=== PATIENT | male | born 1945 | race Caucasian/White ===

== ENCOUNTER → 2017-06-25 12:10 | Outpatient (CLI) | payer MEDICARE, BC, SELFPAY ==
[2017-06-25 13:49] LABS: Absolute Lymphocyte Count 1.98 X10^3/ul (0.83-4.51); Absolute Neutrophil Count 4.7 X10^3/uL (2.0-7.7); Basophil% 1.2 % (0-1); Eosinophil# 0.41 X10^3/uL; Eosinophils% 5.1 % (0-5); Hematocrit 44.7 % (40-54); Hemoglobin 14.7 g/dl (13.0-16.5); Lymphocyte # 1.98 X10^3/ul (4.0); Lymphocyte % 24.7 % (19-41); Mean Corp Hgb Conc 32.9 g/gl (32-36); Mean Corpuscular Hgb 29.7 pg (27.0-32.0); Mean Corpuscular Volume 90.3 fL (80-94); Mean Platelet Vol. 10.8 fl (6.2-12.0); Neutrophil # 4.73 X10^3/uL (2.7-7.7); Neutrophil % 58.9 % (47-70); Platelet Count 216 K/mm3 (150-450); RBC Distribution Width CV 13.9 % (11.6-14.6); RBC Distribution Width SD 45.2 fl (35.1-43.9); Red Blood Count 4.95 M/mm3 (4.6-6.2)
[2017-06-25 13:52] LABS: POSITIVE COUNT NO; POSITIVE DIFFERENTIAL NO; POSITIVE MORPHOLOGY NO
[2017-06-25 14:21] LABS: Vitamin D,25 Hydroxy 11.1 ng/mL (29.95-100.01)
[2017-06-25 14:22] LABS: AST(SGOT) 24 U/L (15-37); Alanine Aminotransfer ALT/SGPT 32 U/L (16-61); Albumin, Serum 3.7 g/dL (3.2-5.0); Alkaline Phosphatase 65 U/L (45-117); Anion Gap 7 (5-15); BUN 12 mg/dL (7-18); Chloride 105 mmol/L (98-107); Creatinine, Serum 1.09 mg/dL (0.70-1.30); EST Glomerular Filtration Rate 71 mL/min (>60); Est Glom Filt Rate - Afr Amer 86 mL/min (>60); Globulin 3.7 g/dL (2.2-4.2); Glucose 125 mg/dL (74-106); Potassium 4.2 mmol/L (3.5-5.1); Protein, Total 7.4 g/dL (6.4-8.2); Sodium Level 140 mmol/L (136-145); Thyroid Stim Hormone (TSH) 1.23 uIU/mL (0.358-3.74)
== END ==
PROVIDERS: Family Provider Family Medicine Geriatric Medicine; PCP Family Medicine Geriatric Medicine; Visit Provider Family Medicine Geriatric Medicine
DX: E11.9 Type 2 diabetes mellitus without complications (principal); E55.9 Vitamin D deficiency, unspecified; I10 Essential (primary) hypertension
CPT/HCPCS: 36415; 80053; 82306; 84443; 85025

== ENCOUNTER → 2017-12-30 14:36 | Outpatient (CLI) | payer MEDICARE, BC, SELFPAY ==
[2017-12-30 17:42] LABS: Absolute Lymphocyte Count 1.63 X10^3/ul (0.83-4.51); Absolute Neutrophil Count 5.8 X10^3/uL (2.0-7.7); Basophil# 0.06 X10^3/uL; Basophil% 0.7 % (0-1); Eosinophil# 0.43 X10^3/uL; Eosinophils% 5.1 % (0-5); Hematocrit 45.3 % (40-54); Hemoglobin 14.6 g/dl (13.0-16.5); Lymphocyte # 1.63 X10^3/ul (4.0); Lymphocyte % 19.3 % (19-41); Mean Corp Hgb Conc 32.2 g/gl (32-36); Mean Corpuscular Hgb 29.5 pg (27.0-32.0); Mean Corpuscular Volume 91.5 fL (80-94); Mean Platelet Vol. 10.5 fl (6.2-12.0); Monocyte# 0.58 X10^3/uL; Monocyte% 6.9 % (0-10); Neutrophil # 5.75 X10^3/uL (2.7-7.7); Neutrophil % 67.9 % (47-70); Platelet Count 209 K/mm3 (150-450); RBC Distribution Width CV 13.3 % (11.6-14.6); RBC Distribution Width SD 44.4 fl (35.1-43.9); Red Blood Count 4.95 M/mm3 (4.6-6.2); White Blood Count 8.5 K/mm3 (4.4-11.0)
[2017-12-30 17:43] LABS: POSITIVE COUNT NO; POSITIVE DIFFERENTIAL NO; POSITIVE MORPHOLOGY NO
[2017-12-30 18:15] LABS: Albumin, Serum 3.7 g/dL (3.2-5.0); BUN 16 mg/dL (7-18); BUN/Creat Ratio 14.5 RATIO (10-20); EST Glomerular Filtration Rate 70 mL/min (>60); Est Glom Filt Rate - Afr Amer 85 mL/min (>60); Globulin 3.4 g/dL (2.2-4.2); Glucose 157 mg/dL (74-106); Protein, Total 7.1 g/dL (6.4-8.2)
[2017-12-30 18:16] LABS: ALB/GLOB Ratio 1.1 RATIO (0.9-2.4); AST(SGOT) 30 U/L (15-37); Alanine Aminotransfer ALT/SGPT 41 U/L (16-61); Alkaline Phosphatase 69 U/L (45-117); Anion Gap 8 (5-15); Calcium,Total 9.7 mg/dL (8.5-10.1); Chloride 103 mmol/L (98-107); Sodium Level 142 mmol/L (136-145); Thyroid Stim Hormone (TSH) 0.56 uIU/mL (0.358-3.74)
[2017-12-30 18:25] LABS: Vitamin D,25 Hydroxy 20.3 ng/mL (29.95-100.01)
[2018-01-01 09:17] LABS: Hep C Antibodies <0.1 s/co ratio (0.0-0.9)
== END ==
PROVIDERS: Family Provider Family Medicine Geriatric Medicine; PCP Family Medicine Geriatric Medicine; Visit Provider Family Medicine Geriatric Medicine
DX: E11.9 Type 2 diabetes mellitus without complications (principal); I10 Essential (primary) hypertension; E55.9 Vitamin D deficiency, unspecified; Z13.89 Encounter for screening for other disorder
CPT/HCPCS: 36415; 80053; 82306; 84443; 85025; 86803

== ENCOUNTER 2018-07-17 09:39 | Observation (INO) | payer MEDICARE, BC, SELFPAY ==
[2018-07-17] VITALS (9 sets, daily range): BP systolic 123–151; BP diastolic 50–101; PULSE 61–92; RESP 16–20; TEMP 36.4–37.5; O2SAT 96–98; BMI 20.7; BMI 21.5
--- NOTE | 2018-07-17 09:56 | CT_ITS ---
STUDY: CT BRAIN WITHOUT CONTRAST REASON FOR EXAM: Male, 72 years old. Confusion. RADIATION DOSAGE (If Supplied By Facility): CTDIvol = ( 44.99 ) mGy, DLP = ( 812.98 ) mGycm TECHNIQUE: Transaxial CT imaging of the brain was performed without administration of intravenous contrast material. Individualized dose optimization techniques were used for this CT. COMPARISON: No relevant priors. FINDINGS: Normal soft tissue structures. Normal calvarium. There is mild cerebral atrophy with widening of the extra-axial spaces and ventricular dilatation. There are areas of decreased attenuation within the white matter tracts of the supratentorial brain, consistent with microvascular disease changes. Focal area of encephalomalacia in the medial right frontal lobe as well as lateral aspect of the left frontal lobe suggestive of prior ischemic change. Normal basal ganglia and thalami. Normal brainstem. Normal cerebellum. There is no intracranial hemorrhage. There are no findings of an acute ischemic infarction. Partial opacification of both maxillary sinuses. There is evidence of prior open reduction internal fixation of the bilateral maxillary sinuses as well as both orbits. Mucosal thickening of the sphenoid sinus and frontal sinus. CT/Brain/Head without Contrast IMPRESSION: Chronic involutional changes of the brain. Sinusitis. Prior facial fracture repair. Electronically Signed: Aric Urrutia, at 10:57 EDT , Service support ,
--- NOTE | 2018-07-17 09:56 | EKG12_ITS ---
Test Reason : SEIZURE Blood Pressure : / mmHG Vent. Rate : 071 BPM Atrial Rate : 071 BPM P-R Int : 150 ms QRS Dur : 082 ms QT Int : 360 ms P-R-T Axes : 054 -36 053 degrees QTc Int : 391 ms Sinus rhythm with Premature atrial complexes Left axis deviation Abnormal ECG Confirmed by BEILNDA SCHUTLZ ([id number]), editor publications CHUCKY ROBERTS ([id number]) on 07/21/2018 4:56:39 PM Referred By: Will Amor Confirmed By:BELINDA SCHULTZ
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
[2018-07-17] MEDS: 0.9% Normal Saline 1,000 ML 150 ML IV (10:27)
[2018-07-17 10:30] LABS: Absolute Lymphocyte Count 1.56 X10^3/ul (0.83-4.51); Absolute Neutrophil Count 5.1 X10^3/uL (2.0-7.7); Basophil# 0.06 X10^3/uL; Basophil% 0.8 % (0-1); Eosinophil# 0.47 X10^3/uL; Eosinophils% 6.1 % (0-5); Hematocrit 45.6 % (40-54); Hemoglobin 14.8 g/dl (13.0-16.5); Lymphocyte # 1.56 X10^3/ul (4.0); Lymphocyte % 20.2 % (19-41); Mean Corp Hgb Conc 32.5 g/gl (32-36); Mean Corpuscular Hgb 29.7 pg (27.0-32.0); Mean Corpuscular Volume 91.4 fL (80-94); Mean Platelet Vol. 10.2 fl (6.2-12.0); Monocyte# 0.56 X10^3/uL; Monocyte% 7.2 % (0-10); Neutrophil # 5.09 X10^3/uL (2.7-7.7); Neutrophil % 65.7 % (47-70); POSITIVE COUNT NO; POSITIVE DIFFERENTIAL NO; POSITIVE MORPHOLOGY NO; Platelet Count 205 K/mm3 (150-450); RBC Distribution Width CV 15.4 % (11.6-14.6); RBC Distribution Width SD 51.6 fl (35.1-43.9); Red Blood Count 4.99 M/mm3 (4.6-6.2); White Blood Count 7.7 K/mm3 (4.4-11.0)
[2018-07-17 10:46] LABS: ALB/GLOB Ratio 0.9 RATIO (0.9-2.4); AST(SGOT) 38 U/L (15-37); Alanine Aminotransfer ALT/SGPT 73 U/L (16-61); Albumin, Serum 3.4 g/dL (3.2-5.0); Alkaline Phosphatase 90 U/L (45-117); Anion Gap 6 (5-15); BUN 8 mg/dL (7-18); BUN/Creat Ratio 9.7 RATIO (10-20); Calcium,Total 9.2 mg/dL (8.5-10.1); Chloride 107 mmol/L (98-107); Creatinine, Serum 0.83 mg/dL (0.70-1.30); EST Glomerular Filtration Rate 97 mL/min (>60); Est Glom Filt Rate - Afr Amer 118 mL/min (>60); Estimated Creatinine Clearance 67.31 ml/min; Globulin 3.9 g/dL (2.2-4.2); Glucose 51 mg/dL (74-106); Potassium 3.9 mmol/L (3.5-5.1); Prolactin 31.2 ng/mL; Protein, Total 7.3 g/dL (6.4-8.2); Sodium Level 142 mmol/L (136-145)
[2018-07-17] MEDS: Dextrose 50%-Water 25 GM/50 ML DISP.SYRIN IV (11:08)
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
[2018-07-17 13:51] LABS: Bedside Glucose 247 mg/dL (70-110)
--- NOTE | 2018-07-17 14:11 | CASEMGMT ---
Per Lu at [facility], pt was supposed to have start of care today for RN, PT/OT and will need a new order at discharge. SStjusten MARR CM
[2018-07-17] MEDS: Dext 5%-0.45% NS 1,000 ML 100 ML IV (14:40)
[2018-07-17] MEDS: Heparin Injection (Vial) 5,000 UNIT/ML VIAL 5000 UNIT SC ×2 (14:48→21:15)
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
[2018-07-17] MEDS: LORazepam 0.5 MG Tablet PO ×2 (16:24→21:14)
[2018-07-17 17:15] LABS: Bedside Glucose 126 mg/dL (70-110)
[2018-07-17] MEDS: QUEtiapine 25 MG Tablet PO (21:15)
[2018-07-17] MEDS: Metoprolol Tartrate 25 MG Tablet PO (21:15)
[2018-07-18 00:05] LABS: Bedside Glucose 259 mg/dL (70-110)
[2018-07-18] MEDS: Insulin Lispro 100 UNIT/ML INSULN.PEN SC ×2 (02:19→10:41)
[2018-07-18 02:21] LABS: Bedside Glucose 179 mg/dL (70-110)
[2018-07-18] MEDS: Dext 5%-0.45% NS 1,000 ML 100 ML IV (02:22)
[2018-07-18 02:52] VITALS: BP 93/48; PULSE 60; RESP 18; TEMP 37.2; O2SAT 96
[2018-07-18 03:00] VITALS: PULSE 59
[2018-07-18 06:40] LABS: Bedside Glucose 118 mg/dL (70-110)
[2018-07-18 06:42] LABS: Absolute Lymphocyte Count 2.51 X10^3/ul (0.83-4.51); Absolute Neutrophil Count 2.8 X10^3/uL (2.0-7.7); Basophil# 0.03 X10^3/uL; Basophil% 0.5 % (0-1); Eosinophil# 0.44 X10^3/uL; Eosinophils% 6.9 % (0-5); Hematocrit 38.5 % (40-54); Hemoglobin 12.4 g/dl (13.0-16.5); Lymphocyte # 2.51 X10^3/ul (4.0); Lymphocyte % 39.1 % (19-41); Mean Corp Hgb Conc 32.2 g/gl (32-36); Mean Corpuscular Hgb 29.2 pg (27.0-32.0); Mean Corpuscular Volume 90.8 fL (80-94); Monocyte# 0.67 X10^3/uL; Monocyte% 10.4 % (0-10); Neutrophil # 2.76 X10^3/uL (2.7-7.7); Neutrophil % 42.9 % (47-70); Platelet Count 181 K/mm3 (150-450); RBC Distribution Width CV 15.2 % (11.6-14.6); RBC Distribution Width SD 49.4 fl (35.1-43.9); Red Blood Count 4.24 M/mm3 (4.6-6.2); White Blood Count 6.4 K/mm3 (4.4-11.0)
[2018-07-18 06:46] LABS: POSITIVE COUNT NO; POSITIVE DIFFERENTIAL NO; POSITIVE MORPHOLOGY NO
[2018-07-18 06:56] LABS: ALB/GLOB Ratio 0.8 RATIO (0.9-2.4); AST(SGOT) 24 U/L (15-37); Alanine Aminotransfer ALT/SGPT 53 U/L (16-61); Albumin, Serum 2.6 g/dL (3.2-5.0); Alkaline Phosphatase 74 U/L (45-117); Anion Gap 5 (5-15); BUN 8 mg/dL (7-18); BUN/Creat Ratio 11.2 RATIO (10-20); Calcium,Total 8.4 mg/dL (8.5-10.1); Chloride 112 mmol/L (98-107); Creatinine, Serum 0.71 mg/dL (0.70-1.30); EST Glomerular Filtration Rate 116 mL/min (>60); Est Glom Filt Rate - Afr Amer 140 mL/min (>60); Estimated Creatinine Clearance 54.53 ml/min; Globulin 3.1 g/dL (2.2-4.2); Glucose 128 mg/dL (74-106); Potassium 3.7 mmol/L (3.5-5.1); Protein, Total 5.7 g/dL (6.4-8.2); Sodium Level 144 mmol/L (136-145)
[2018-07-18 09:00] VITALS: PULSE 60
[2018-07-18 09:15] LABS: Hemoglobin A1c 6.6 % (4.2-6.3)
[2018-07-18 10:31] VITALS: BP 111/54; PULSE 74; RESP 18; TEMP 37; O2SAT 95
[2018-07-18] MEDS: Finasteride 5 MG Tablet PO (10:35)
[2018-07-18] MEDS: Famotidine 20 MG Tablet PO (10:35)
[2018-07-18 10:36] VITALS: BP 111/54; PULSE 74
[2018-07-18] MEDS: Metoprolol Tartrate 25 MG Tablet PO (10:36)
[2018-07-18 11:24] VITALS: PULSE 82
--- NOTE | 2018-07-18 11:49 | DCINST_ITS ---
- Discharge Diagnoses Current Active Problems: Current Active and Chronic Problems Type 2 diabetes mellitus (Chronic) Hypertension (Chronic) BPH (benign prostatic hyperplasia) (Chronic) Blindness (Chronic) GERD (gastroesophageal reflux disease) (Chronic) Hyperlipemia (Chronic) Seizure (Acute) You will use the following diet at home:: Cardiac Discharge Activity: Return to Normal Activity, May Not Drive Call your doctor if you observe: Shortness of breath, Dizziness, Fainting spells, Chest pain Allergies/Adverse Reactions: Allergies shellfish derived Allergy (Verified 07/17/18 10:29) Anaphylaxis cosmetic Adverse Reaction (Verified 07/17/18 12:58) Other perfume Adverse Reaction (Verified 07/17/18 12:58) Other strawberry Adverse Reaction (Verified 07/17/18 12:58) Rash weed pollen Adverse Reaction (Verified 07/17/18 12:58) Other Medications to take at Discharge Atorvastatin Calcium [Lipitor] 40 mg PO QHS 07/17/18 Ergocalciferol (Vitamin D2) [Ergocalciferol] 50,000 unit PO QWEEK 07/17/18 Famotidine [Pepcid] 20 mg GT DAILY 07/17/18 Finasteride [Proscar] 5 mg GT DAILY 07/17/18 Lorazepam [Ativan] 0.5 mg GT TID PRN 07/17/18 Metoprolol Tartrate [Lopressor (beta nakul)] 25 mg GT BID 07/17/18 Quetiapine Fumarate [Seroquel] 25 mg GT QHS 07/17/18 Tizanidine HCl [Zanaflex] 2 mg GT 4X/DAY PRN PRN 07/17/18 Metformin HCl [Glucophage] 500 mg PO BIDCM #60 tablet 07/18/18 The following prescriptions were given: Metformin HCl [Glucophage] 500 mg PO BIDCM #60 tablet Primary Care Physician: Micheal Peralta Chi, MD [Primary Care Provider] - Please follow up with your Primary Care Physician in: 1 Week Test Results: Test results from this visit will be discussed in further detail at your follow- up appointment, if applicable. Proposed Discharge Date: 07/18/18
--- NOTE | 2018-07-18 11:59 | CASEMGMT ---
Message left with Lu at [facility] to notify that HHC order in and that pt will be discharged today. Lu aware to call this RN CM for any further questions/concerns. SStjusten RN CM
--- NOTE | 2018-07-18 12:10 | EEG ---
- Electroencephalogram Date of service 07/18/2018 History EEG is being done in this 72 yr M to rule out seizures EEG Description: This is an 18 channel EEG with 10-20 lead placement system. Bipolar montages and Referential montages were reviewed. Photic stimulation and Hyperventilation were performed. The posterior dominant rhythm is 9 HZ synchronous, symmetric, some reaction to eye opening and closing. Photo stimulation elicited normal driving response but no abnormal photoparoxysmal response, Hyperventilation did not elicit any abnormal photoparoxysmal response. Sleep was identified. There is no abnormal background slowing noted. There was no epileptiform discharges or electrographic seizures noted during this recording. EEG Interpretation This is a normal awake and asleep EEG. There is no epileptiform discharges or electrographic seizures noted during the record.
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
[2018-07-18 18:36] LABS: Bedside Glucose 199 mg/dL (70-110)
== END 2018-07-18 11:49 | disposition home health service (06) ==
LOC: ED 10:05 → PCU 12:24
PROVIDERS: Family Medicine; Admitting Provider Internal Medicine; Emergency Provider Emergency Medicine; Family Provider Family Medicine Geriatric Medicine; PCP Family Medicine Geriatric Medicine; Referring Provider Internal Medicine; Visit Provider Internal Medicine
DX: G40.89 Other seizures (principal); E11.649 Type 2 diabetes mellitus with hypoglycemia without coma; I10 Essential (primary) hypertension; N40.0 Benign prostatic hyperplasia without lower urinary tract symptoms; E78.5 Hyperlipidemia, unspecified; K21.9 Gastro-esophageal reflux disease without esophagitis; F41.9 Anxiety disorder, unspecified; Z79.4 Long term (current) use of insulin; Z79.899 Other long term (current) drug therapy; H54.7 Unspecified visual loss; Z87.891 Personal history of nicotine dependence; F32.9 Major depressive disorder, single episode, unspecified; Z93.1 Gastrostomy status
CPT/HCPCS: 36415; 70450; 70551; 71045; 80053; 80320; 82962; 83036; 84146; 84484; 85025; 93005; 95819; 96361; 96372; 96374; 97161; 97166; 99218; 99285; A4216; G0378; G0480; J7799

== ENCOUNTER → 2018-11-14 11:45 | Outpatient (CLI) | payer MEDICARE, BC, SELFPAY ==
[2018-07-17 12:38] VITALS: BMI 21.5
--- NOTE | 2018-11-14 11:53 | RAD_ITS ---
STUDY: X-RAY - ABDOMEN/PELVIS REASON FOR EXAM: Male, 72 years old. UPPER ABDOMEN PAIN X 6 WEEKS, NAUSEA, INTERMITTENT DIARRHEA TECHNIQUE: AP supine and upright views of the abdomen and pelvis. COMPARISON: None. FINDINGS: Normal visualized lung bases. There is an unremarkable bowel gas pattern. There is no demonstrated free abdominal air. The visualized liver, spleen and kidneys are grossly normal in size and morphology. Normal soft tissue structures. There are diffuse degenerative changes of the visualized lumbar spine. RAD/Abd Inc Decub and/or Erect IMPRESSION: Normal x-ray examination of the abdomen and pelvis. Electronically Signed: Jacob Tamayo, at 4:50 EDT Tel , Service support ,
== END ==
PROVIDERS: Family Provider Family Medicine Geriatric Medicine; PCP Family Medicine Geriatric Medicine; Referring Provider Family Medicine Geriatric Medicine; Visit Provider Family Medicine Geriatric Medicine
DX: R10.9 Unspecified abdominal pain (principal)
CPT/HCPCS: 74019

== ENCOUNTER → 2018-12-23 15:14 | Outpatient (CLI) | payer MEDICARE, BC, SELFPAY ==
[2018-07-17 12:38] VITALS: BMI 21.5
[2018-12-23 16:04] LABS: Absolute Lymphocyte Count 1.72 X10^3/uL (0.83-4.51); Absolute Neutrophil Count 4.5 X10^3/uL (2.0-7.7); Basophil# 0.08 X10^3/uL; Basophil% 1.1 % (0-1); Eosinophil# 0.39 X10^3/uL; Eosinophils% 5.4 % (0-5); Hematocrit 46.4 % (40-54); Hemoglobin 15.1 g/dL (13.0-16.5); Lymphocyte # 1.72 X10^3/ul (4.0); Lymphocyte % 23.8 % (19-41); Mean Corp Hgb Conc 32.5 g/dL (32-36); Mean Corpuscular Hgb 29.6 pg (27.0-32.0); Mean Platelet Vol. 10.9 fl (6.2-12.0); Monocyte# 0.56 X10^3/uL; Monocyte% 7.8 % (0-10); NRBC Flagged by Analyzer 0 % (0-5); Neutrophil # 4.46 X10^3/uL (2.7-7.7); Neutrophil % 61.8 % (47-70); Platelet Count 229 K/mm3 (150-450); RBC Distribution Width CV 12.6 % (11.6-14.6); RBC Distribution Width SD 41.9 fl (35.1-43.9); White Blood Count 7.2 K/mm3 (4.4-11.0)
[2018-12-23 16:07] LABS: AST(SGOT) 11 U/L (15-37); Alanine Aminotransfer ALT/SGPT 16 U/L (16-61); Albumin, Serum 3.5 g/dL (3.2-5.0); Alkaline Phosphatase 75 U/L (45-117); Anion Gap 5 (5-15); BUN 11 mg/dL (7-18); Calcium,Total 9.1 mg/dL (8.5-10.1); Chloride 106 mmol/L (98-107); Creatinine, Serum 0.92 mg/dL (0.70-1.30); EST Glomerular Filtration Rate 86 mL/min (>60); Est Glom Filt Rate - Afr Amer 104 mL/min (>60); Globulin 3.5 g/dL (2.2-4.2); Glucose 145 mg/dL (74-106); Potassium 4.2 mmol/L (3.5-5.1); Sodium Level 139 mmol/L (136-145); Thyroid Stim Hormone (TSH) 1.72 uIU/mL (0.358-3.74)
== END ==
PROVIDERS: Family Provider Family Medicine Geriatric Medicine; PCP Family Medicine Geriatric Medicine; Visit Provider Family Medicine Geriatric Medicine
DX: E11.9 Type 2 diabetes mellitus without complications (principal); I10 Essential (primary) hypertension
CPT/HCPCS: 36415; 80053; 84443; 85025

== ENCOUNTER → 2018-12-31 13:35 | Outpatient (CLI) | payer MEDICARE, BC, SELFPAY ==
[2018-07-17 12:38] VITALS: BMI 21.5
[2018-12-31 15:44] LABS: Absolute Lymphocyte Count 1.79 X10^3/uL (0.83-4.51); Absolute Neutrophil Count 4.4 X10^3/uL (2.0-7.7); Basophil# 0.08 X10^3/uL; Basophil% 1.1 % (0-1); Eosinophil# 0.36 X10^3/uL; Eosinophils% 4.8 % (0-5); Hematocrit 44.8 % (40-54); Hemoglobin 14.5 g/dL (13.0-16.5); Lymphocyte # 1.79 X10^3/ul (4.0); Lymphocyte % 23.7 % (19-41); Mean Corp Hgb Conc 32.4 g/dL (32-36); Mean Corpuscular Hgb 29.3 pg (27.0-32.0); Mean Corpuscular Volume 90.5 fL (80-94); Monocyte# 0.88 X10^3/uL; Monocyte% 11.6 % (0-10); NRBC Flagged by Analyzer 0 % (0-5); Neutrophil # 4.42 X10^3/uL (2.7-7.7); Neutrophil % 58.4 % (47-70); Platelet Count 250 K/mm3 (150-450); RBC Distribution Width SD 42.7 fl (35.1-43.9); Red Blood Count 4.95 M/mm3 (4.6-6.2); White Blood Count 7.6 K/mm3 (4.4-11.0)
[2018-12-31 16:04] LABS: ALB/GLOB Ratio 0.9 RATIO (0.9-2.4); AST(SGOT) 14 U/L (15-37); Alanine Aminotransfer ALT/SGPT 22 U/L (16-61); Albumin, Serum 3.4 g/dL (3.2-5.0); Alkaline Phosphatase 80 U/L (45-117); Anion Gap 7 (5-15); BUN 9 mg/dL (7-18); BUN/Creat Ratio 11.6 RATIO (10-20); Calcium,Total 9.1 mg/dL (8.5-10.1); Chloride 105 mmol/L (98-107); Creatinine, Serum 0.77 mg/dL (0.70-1.30); EST Glomerular Filtration Rate 105 mL/min (>60); Est Glom Filt Rate - Afr Amer 127 mL/min (>60); Globulin 3.8 g/dL (2.2-4.2); Glucose 127 mg/dL (74-106); Potassium 3.8 mmol/L (3.5-5.1); Protein, Total 7.2 g/dL (6.4-8.2); Sodium Level 141 mmol/L (136-145); Thyroid Stim Hormone (TSH) 2.07 uIU/mL (0.358-3.74)
== END ==
PROVIDERS: Family Provider Family Medicine Geriatric Medicine; PCP Family Medicine Geriatric Medicine; Visit Provider Family Medicine Geriatric Medicine
DX: E11.9 Type 2 diabetes mellitus without complications (principal); I10 Essential (primary) hypertension; E55.9 Vitamin D deficiency, unspecified
CPT/HCPCS: 36415; 80053; 82306; 84443; 85025

== ENCOUNTER 2019-04-05 14:08 | Emergency (ER) | payer MEDICARE, BC, SELFPAY ==
[2018-07-17 12:38] VITALS: BMI 21.5
[2019-04-05 14:09] VITALS: BP 130/64; PULSE 63; RESP 22; TEMP 35.9; O2SAT 100; BMI 24.6
--- NOTE | 2019-04-05 14:39 | EKG12_ITS ---
Test Reason : DYSRHYTHMIA Blood Pressure : / mmHG Vent. Rate : 062 BPM Atrial Rate : 062 BPM P-R Int : 174 ms QRS Dur : 088 ms QT Int : 418 ms P-R-T Axes : 000 -19 045 degrees QTc Int : 424 ms Normal sinus rhythm with sinus arrhythmia Normal ECG Confirmed by REBEKAH PEREZ, EMILY ([id number]), video editor DEONDRE PHILLIP ([id number]) on 04/07/2019 9:41:09 AM Referred By: REGINALD Confirmed By:EMILY WELCH MD
--- NOTE | 2019-04-05 14:48 | ED.VIS.GEN ---
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 Tells me that yesterday he had diarrhea. This morning he woke up feeling fine. He had a egg and cheese sandwich, Pepsi, cheesecake, and strawberries. Shortly thereafter he got the urge to have diarrhea and did on his way back to his bedroom at the urgent care and it did not make it. While in the bathroom again he reportedly had a syncopal episode on the toilet. Family was present. EMS was called they noted heart rate in the 40s and administered atropine. Heart rate increased to 60. Patient states he feels fine now. He states he feels as good as he did when he woke up this morning. Past Medical History - Allergies and Home Meds Allergies/Adverse Reactions: Allergies shellfish derived Allergy (Verified 07/17/18 10:29) Anaphylaxis cosmetic Adverse Reaction (Verified 07/17/18 12:58) Other perfume Adverse Reaction (Verified 07/17/18 12:58) Other strawberry Adverse Reaction (Verified 07/17/18 12:58) Rash weed pollen Adverse Reaction (Verified 07/17/18 12:58) Other Primary Care Physician: Micheal Peralta Chi, MD [Primary Care Provider] - Surgical History: - - [place] placement d/t ICP s/p removal. Right nasal laceration repair due trauma. Repair of bilateral ruptured globes and bilateral lid lacerations. Trach and PEG placement 03/30/2018 with subsequent trach reversal. ORIF numeral facial fx. Smoking Status: Former smoker - Family History Maternal Family History: Reports: - - Denies known maternal medical history including cardiac history. Paternal Family History: Reports: - - Denies known paternal medical history including cardiac history. Review of Systems General: Denies: Chills, Fever, Sweats Eyes: Denies: Visual changes - bilaterally, Diplopia ENT: Denies: Rhinorrhea, Sore throat Cardiovascular: Denies: Chest pain, Palpitations Respiratory: Denies: Dyspnea, Cough, Dyspnea on exertion Gastrointestinal: Reports: Diarrhea. Denies: Abdominal pain, Nausea, Vomiting, Melena, Hematochezia Genitourinary: Denies: Dysuria, Hematuria, Frequency Musculoskeletal: Denies: Back pain, Extremity Pain Skin: Denies: Rash, Wounds Neurological: Denies: Headache, Weakness, Numbness Psych: Denies: Depression, Anxiety, Suicidal thoughts Endocrine: Denies: Polyuria, Polydipsia, Heat intolerance Hematologic: Denies: Easy bruising, Easy bleeding, Lymphadenopathy Allergy: Denies: Uticaria, Swelling of the mouth Physical Exam Vital Signs/Narrative: Vital Signs Temp Pulse Resp BP Pulse Ox 04/05/19 14:09 96.6 F L 63 22 H 130/64 H 100 Inital Vital Signs reviewed: Yes General: Well nourished, Well developed, No Acute Distress Head: Normocephalic, Atraumatic ENT: Moist mucous membranes, No rhinorrhea Neck: Supple, Nontender Cardiovascular: Regular rate, Regular rhythm, No murmurs Respiratory: No distress, CTA bilaterally, Chest nontender Abdomen: Soft, Nontender, Nondistended, Normal bowel sounds Back: Nontender, Normal Inspection Extremities: Nontender, No edema Skin: Normal color, No rash Neurological: Alert, Oriented x3, Cranial nerves II-XII grossly intact, Normal Strength, Normal Sensation Psychological: Normal affect, Normal Mood Diagnostic/Tx/Re-eval - EKG Initial EKG Interpretation: Sinus Rhythm - Rate of 62 - Medical Decision Making Patient received IV fluids. Basic labs were essentially negative. Chest x-ray negative. The patient's orthostatics are negative. He has been resting comfortably. Based on the history I would say this patient has had a vasovagal syncopal episode. We talked about this at the bedside with his family. Patient will be discharged home return if worsening or concerns Imodium as needed for diarrhea. ED Disposition - Plan for ED Patient: Disposition: Home or Assisted Living Diagnosis: Vasovagal syncope, Diarrhea Instructions: SYNCOPE, Vasovagal, DIARRHEA, Viral (Child) (Adult) Referrals: Micheal Peralta Chi, MD [Primary Care Provider] - As Needed
[2019-04-05 14:49] LABS: Absolute Lymphocyte Count 1.35 X10^3/uL (0.83-4.51); Absolute Neutrophil Count 3.4 X10^3/uL (2.0-7.7); Basophil# 0.06 X10^3/uL; Eosinophils% 6.9 % (0-5); Hematocrit 39.2 % (40-54); Hemoglobin 12.7 g/dL (13.0-16.5); Lymphocyte # 1.35 X10^3/ul (4.0); Lymphocyte % 23.4 % (19-41); Mean Corp Hgb Conc 32.4 g/dL (32-36); Mean Corpuscular Hgb 30.2 pg (27.0-32.0); Mean Corpuscular Volume 93.1 fL (80-94); Mean Platelet Vol. 10.6 fl (6.2-12.0); Monocyte# 0.54 X10^3/uL; Monocyte% 9.4 % (0-10); NRBC Flagged by Analyzer 0 % (0-5); Neutrophil % 59.1 % (47-70); Platelet Count 154 K/mm3 (150-450); RBC Distribution Width SD 43.9 fl (35.1-43.9); Red Blood Count 4.21 M/mm3 (4.6-6.2); White Blood Count 5.8 K/mm3 (4.4-11.0)
--- NOTE | 2019-04-05 14:50 | RAD_ITS ---
STUDY: X-RAY CHEST REASON FOR EXAM: Male, 73 years old. syncope TECHNIQUE: AP COMPARISON: 07/17/2018 FINDINGS: EKG leads project over the chest. Asymmetric parenchymal opacity of the left infrahilar lung (reticular dominant) similar since the prior study, likely chronic fibrotic. Similar opacity of the medial right lung base. No airspace consolidation. There is no demonstrated pleural abnormality. Normal size heart. Normal mediastinum and perry. Normal visualized pulmonary arteries. There is atherosclerotic tortuosity of the aortic arch and descending thoracic aorta. Normal visualized thoracic spine. There are degenerative changes of the right shoulder. There is no demonstrated abnormality of the visualized soft tissue structures of the upper abdomen. RAD/Chest 1 View (Portable) IMPRESSION: 1. Stable, nonacute x-ray examination of the chest. Electronically Signed: Tyson Escalante MD ([place]) at 15:45 EST , Service support ,
[2019-04-05 15:03] LABS: Anion Gap 4 (5-15); BUN 14 mg/dL (7-18); BUN/Creat Ratio 13.2 RATIO (10-20); Calcium,Total 8.6 mg/dL (8.5-10.1); Chloride 108 mmol/L (98-107); Creatinine, Serum 1.06 mg/dL (0.70-1.30); EST Glomerular Filtration Rate 73 mL/min (>60); Est Glom Filt Rate - Afr Amer 88 mL/min (>60); Glucose 234 mg/dL (74-106); Potassium 4.6 mmol/L (3.5-5.1); Sodium Level 140 mmol/L (136-145)
[2019-04-05 15:09] VITALS: BP 115/70; PULSE 67; RESP 21; O2SAT 96
[2019-04-05 15:31] VITALS: BP 109/67; BP 115/52; BP 116/60; PULSE 63; PULSE 65; PULSE 69
[2019-04-05] MEDS: 0.9% Normal Saline 1,000 ML 999 ML IV (15:58)
[2019-04-05 16:00] VITALS: BP 107/62; PULSE 61; RESP 16; O2SAT 98
== END 2019-04-05 16:34 | disposition home or self-care (01) ==
PROVIDERS: Emergency Provider Emergency Medicine; Family Provider Family Medicine Geriatric Medicine; PCP Family Medicine Geriatric Medicine
DX: R55 Syncope and collapse (principal); R19.7 Diarrhea, unspecified; Z87.891 Personal history of nicotine dependence
CPT/HCPCS: 71045; 80048; 84484; 85025; 93005; 96360; 99285; A4216

== ENCOUNTER → 2019-04-15 11:43 | Outpatient (CLI) | payer MEDICARE, BC, SELFPAY ==
[2019-04-05 14:09] VITALS: BMI 24.6
[2019-04-15 12:22] LABS: Absolute Lymphocyte Count 1.57 X10^3/uL (0.83-4.51); Absolute Neutrophil Count 3.9 X10^3/uL (2.0-7.7); Basophil# 0.07 X10^3/uL; Basophil% 1.1 % (0-1); Eosinophil# 0.44 X10^3/uL; Eosinophils% 6.9 % (0-5); Hematocrit 40.3 % (40-54); Hemoglobin 13.1 g/dL (13.0-16.5); Lymphocyte # 1.57 X10^3/ul (4.0); Lymphocyte % 24.6 % (19-41); Mean Corp Hgb Conc 32.5 g/dL (32-36); Mean Corpuscular Hgb 29.7 pg (27.0-32.0); Mean Corpuscular Volume 91.4 fL (80-94); Mean Platelet Vol. 11.3 fl (6.2-12.0); Monocyte% 6.3 % (0-10); NRBC Flagged by Analyzer 0 % (0-5); Neutrophil # 3.89 X10^3/uL (2.7-7.7); Neutrophil % 60.8 % (47-70); Platelet Count 199 K/mm3 (150-450); RBC Distribution Width CV 12.9 % (11.6-14.6); RBC Distribution Width SD 42.8 fl (35.1-43.9); Red Blood Count 4.41 M/mm3 (4.6-6.2); White Blood Count 6.4 K/mm3 (4.4-11.0)
[2019-04-15 12:43] LABS: Vitamin D,25 Hydroxy 14.6 ng/mL (29.95-100.01)
[2019-04-15 13:01] LABS: AST(SGOT) 8 U/L (15-37); Alanine Aminotransfer ALT/SGPT 18 U/L (16-61); Albumin, Serum 3.5 g/dL (3.2-5.0); Alkaline Phosphatase 75 U/L (45-117); Anion Gap 6 (5-15); BUN 8 mg/dL (7-18); BUN/Creat Ratio 7.9 RATIO (10-20); Calcium,Total 8.9 mg/dL (8.5-10.1); Chloride 104 mmol/L (98-107); Creatinine, Serum 1.01 mg/dL (0.70-1.30); EST Glomerular Filtration Rate 77 mL/min (>60); Est Glom Filt Rate - Afr Amer 93 mL/min (>60); Globulin 3.4 g/dL (2.2-4.2); Glucose 295 mg/dL (74-106); Potassium 3.5 mmol/L (3.5-5.1); Protein, Total 6.9 g/dL (6.4-8.2); Sodium Level 139 mmol/L (136-145)
== END ==
PROVIDERS: Family Provider Family Medicine Geriatric Medicine; PCP Family Medicine Geriatric Medicine; Visit Provider Family Medicine Geriatric Medicine
DX: E11.9 Type 2 diabetes mellitus without complications (principal); I10 Essential (primary) hypertension; E55.9 Vitamin D deficiency, unspecified
CPT/HCPCS: 36415; 80053; 82306; 84443; 85025

== ENCOUNTER → 2019-08-20 13:31 | Outpatient (CLI) | payer MEDICARE, BC, SELFPAY ==
--- NOTE | 2019-08-20 13:40 | RAD_ITS ---
STUDY: X-RAY - RIGHT HAND REASON FOR EXAM: Male, 73 years old. HAND PAIN xFEW MONTHS, RIGHT HAND PAIN AT BASE OF 1ST DIGIT TECHNIQUE: 3 view(s) of the hand. COMPARISON: None. FINDINGS: Normal radiocarpal articulation. Normal distal radioulnar joint. Normal visualized carpal bones. Normal carpal articulations calcification of the triangular fibrocartilage. Normal carpometacarpal articulation of the thumb. Normal second through fifth carpometacarpal joints. Normal metacarpi. Normal metacarpophalangeal joint of the thumb. Normal interphalangeal joint of the thumb. Normal proximal and distal phalanges of the thumb. Normal metacarpophalangeal joints of the second through fifth fingers. Normal proximal and distal interphalangeal joints of the second through fifth fingers. Normal phalanges of the second through fifth fingers. The soft tissue structures are unremarkable. RAD/Hand Min 3 Views IMPRESSION: Calcification of the triangular fibrocartilage. Electronically Signed: Aric Urrutia, at 14:31 EDT , Service support ,
--- NOTE | 2019-08-20 13:40 | RAD_ITS ---
STUDY: X-RAY - LEFT HAND REASON FOR EXAM: Male, 73 years old. HAND PAIN xFEW MONTHS -- HAS ARTHRITIS TECHNIQUE: 3 view(s) of the hand. COMPARISON: None. FINDINGS: Normal radiocarpal articulation. Normal distal radioulnar joint. Normal visualized carpal bones. Normal carpal articulations Normal carpometacarpal articulation of the thumb. Normal second through fifth carpometacarpal joints. Normal metacarpi. Normal metacarpophalangeal joint of the thumb. Normal interphalangeal joint of the thumb. Normal proximal and distal phalanges of the thumb. Normal metacarpophalangeal joints of the second through fifth fingers. Normal proximal and distal interphalangeal joints of the second through fifth fingers. Normal phalanges of the second through fifth fingers. The soft tissue structures are unremarkable. RAD/Hand Min 3 Views IMPRESSION: Normal x-ray examination of the hand. Electronically Signed: Aric Urrutia, at 14:31 EDT , Service support ,
[2019-08-20 16:29] LABS: Basophil# 0.12 X10^3/uL; Basophil% 1.4 % (0-1); Eosinophil# 0.56 X10^3/uL; Eosinophils% 6.4 % (0-5); Hematocrit 42.5 % (40-54); Lymphocyte % 27.5 % (19-41); Mean Corp Hgb Conc 32.9 g/dL (32-36); Mean Corpuscular Hgb 29.8 pg (27.0-32.0); Mean Corpuscular Volume 90.4 fL (80-94); Mean Platelet Vol. 12.1 fl (6.2-12.0); Monocyte# 0.64 X10^3/uL; Monocyte% 7.3 % (0-10); NRBC Flagged by Analyzer 0 % (0-5); Neutrophil # 4.98 X10^3/uL (2.7-7.7); Neutrophil % 57.1 % (47-70); Platelet Count 188 K/mm3 (150-450); RBC Distribution Width CV 13.3 % (11.6-14.6); RBC Distribution Width SD 43.5 fl (35.1-43.9); White Blood Count 8.7 K/mm3 (4.4-11.0)
[2019-08-20 16:42] LABS: ALB/GLOB Ratio 0.9 RATIO (0.9-2.4); AST(SGOT) 25 U/L (15-37); Alanine Aminotransfer ALT/SGPT 34 U/L (16-61); Albumin, Serum 3.4 g/dL (3.2-5.0); Alkaline Phosphatase 103 U/L (45-117); Anion Gap 8 (5-15); BUN 12 mg/dL (7-18); BUN/Creat Ratio 10.8 RATIO (10-20); Chloride 104 mmol/L (98-107); Creatinine, Serum 1.11 mg/dL (0.70-1.30); EST Glomerular Filtration Rate 69 mL/min (>60); Est Glom Filt Rate - Afr Amer 84 mL/min (>60); Globulin 3.7 g/dL (2.2-4.2); Glucose 321 mg/dL (74-106); Potassium 3.8 mmol/L (3.5-5.1); Protein, Total 7.1 g/dL (6.4-8.2); Sodium Level 138 mmol/L (136-145); Thyroid Stim Hormone (TSH) 3.83 uIU/mL (0.358-3.74)
[2019-08-20 17:24] LABS: Vitamin D,25 Hydroxy 16.6 ng/mL
== END ==
PROVIDERS: PCP Family Medicine Geriatric Medicine; Referring Provider Family Medicine Geriatric Medicine; Visit Provider Family Medicine Geriatric Medicine
DX: M79.641 Pain in right hand (principal); M79.642 Pain in left hand; E11.9 Type 2 diabetes mellitus without complications; E55.9 Vitamin D deficiency, unspecified
CPT/HCPCS: 36415; 73130; 80053; 82306; 84443; 85025

== ENCOUNTER → 2019-11-19 13:07 | Outpatient (CLI) | payer MEDICARE, BC, SELFPAY ==
[2019-11-19 15:32] LABS: Absolute Lymphocyte Count 2.14 X10^3/uL (0.83-4.51); Absolute Neutrophil Count 4.6 X10^3/uL (2.0-7.7); Basophil# 0.09 X10^3/uL; Basophil% 1.1 % (0-1); Eosinophil# 0.59 X10^3/uL; Eosinophils% 7.2 % (0-5); Hematocrit 42.6 % (40-54); Hemoglobin 14.2 g/dL (13.0-16.5); Lymphocyte # 2.14 X10^3/ul (4.0); Lymphocyte % 26.1 % (19-41); Mean Corp Hgb Conc 33.3 g/dL (32-36); Mean Corpuscular Hgb 29.6 pg (27.0-32.0); Mean Corpuscular Volume 88.9 fL (80-94); Mean Platelet Vol. 11.6 fl (6.2-12.0); Monocyte# 0.75 X10^3/uL; Monocyte% 9.1 % (0-10); NRBC Flagged by Analyzer 0 % (0-5); Neutrophil % 56.1 % (47-70); Platelet Count 220 K/mm3 (150-450); RBC Distribution Width CV 12.6 % (11.6-14.6); RBC Distribution Width SD 40.9 fl (35.1-43.9); Red Blood Count 4.79 M/mm3 (4.6-6.2); White Blood Count 8.2 K/mm3 (4.4-11.0)
[2019-11-19 15:46] LABS: Vitamin D,25 Hydroxy 33.1 ng/mL
[2019-11-19 15:52] LABS: ALB/GLOB Ratio 0.9 RATIO (0.9-2.4); AST(SGOT) 21 U/L (15-37); Alanine Aminotransfer ALT/SGPT 37 U/L (16-61); Albumin, Serum 3.4 g/dL (3.2-5.0); Alkaline Phosphatase 87 U/L (45-117); Anion Gap 6 (5-15); BUN 10 mg/dL (7-18); BUN/Creat Ratio 10.2 RATIO (10-20); Calcium,Total 9.1 mg/dL (8.5-10.1); Chloride 101 mmol/L (98-107); Creatinine, Serum 0.98 mg/dL (0.70-1.30); EST Glomerular Filtration Rate 79 mL/min (>60); Est Glom Filt Rate - Afr Amer 96 mL/min (>60); Globulin 3.9 g/dL (2.2-4.2); Glucose 336 mg/dL (74-106); Potassium 4.1 mmol/L (3.5-5.1); Protein, Total 7.3 g/dL (6.4-8.2); Sodium Level 136 mmol/L (136-145); Thyroid Stim Hormone (TSH) 1.49 uIU/mL (0.358-3.74)
== END ==
PROVIDERS: PCP Family Medicine Geriatric Medicine; Visit Provider Family Medicine Geriatric Medicine
DX: E11.9 Type 2 diabetes mellitus without complications (principal); E03.9 Hypothyroidism, unspecified; E55.9 Vitamin D deficiency, unspecified; E78.49 Other hyperlipidemia
CPT/HCPCS: 36415; 80053; 82306; 84443; 85025

== ENCOUNTER → 2020-01-06 14:18 | Outpatient (CLI) | payer MEDICARE, BC, SELFPAY ==
[2020-01-06 17:05] LABS: Absolute Lymphocyte Count 2.81 X10^3/uL (0.83-4.51); Absolute Neutrophil Count 4.1 X10^3/uL (2.0-7.7); Basophil# 0.08 X10^3/uL; Eosinophil# 0.31 X10^3/uL; Eosinophils% 3.9 % (0-5); Hematocrit 43.3 % (40-54); Hemoglobin 14.1 g/dL (13.0-16.5); Lymphocyte # 2.81 X10^3/ul (4.0); Lymphocyte % 35.2 % (19-41); Mean Corp Hgb Conc 32.6 g/dL (32-36); Mean Corpuscular Hgb 29.7 pg (27.0-32.0); Mean Corpuscular Volume 91.4 fL (80-94); Mean Platelet Vol. 10.9 fl (6.2-12.0); Monocyte# 0.71 X10^3/uL; Monocyte% 8.9 % (0-10); NRBC Flagged by Analyzer 0 % (0-5); Neutrophil # 4.05 X10^3/uL (2.7-7.7); Neutrophil % 50.7 % (47-70); Platelet Count 298 K/mm3 (150-450); RBC Distribution Width CV 12.7 % (11.6-14.6); RBC Distribution Width SD 41.9 fl (35.1-43.9); Red Blood Count 4.74 M/mm3 (4.6-6.2)
[2020-01-06 17:13] LABS: Vitamin D,25 Hydroxy 33.7 ng/mL
[2020-01-06 17:19] LABS: AST(SGOT) 25 U/L (15-37); Alanine Aminotransfer ALT/SGPT 46 U/L (16-61); Albumin, Serum 3.7 g/dL (3.2-5.0); Alkaline Phosphatase 77 U/L (45-117); Anion Gap 4 (5-15); BUN 8 mg/dL (7-18); BUN/Creat Ratio 7.7 RATIO (10-20); Calcium,Total 9.5 mg/dL (8.5-10.1); Chloride 104 mmol/L (98-107); Creatinine, Serum 1.04 mg/dL (0.70-1.30); EST Glomerular Filtration Rate 74 mL/min (>60); Est Glom Filt Rate - Afr Amer 90 mL/min (>60); Globulin 3.8 g/dL (2.2-4.2); Glucose 127 mg/dL (74-106); Protein, Total 7.5 g/dL (6.4-8.2); Sodium Level 137 mmol/L (136-145); Thyroid Stim Hormone (TSH) 1.68 uIU/mL (0.358-3.74)
== END ==
PROVIDERS: PCP Family Medicine Geriatric Medicine; Visit Provider Family Medicine Geriatric Medicine
DX: E11.9 Type 2 diabetes mellitus without complications (principal); I10 Essential (primary) hypertension; E55.9 Vitamin D deficiency, unspecified
CPT/HCPCS: 36415; 80053; 82306; 84443; 85025

== ENCOUNTER → 2020-04-06 10:12 | Outpatient (CLI) | payer MEDICARE, BC, SELFPAY ==
[2020-04-06 15:44] LABS: Vitamin D,25 Hydroxy 22.2 ng/mL
[2020-04-06 15:46] LABS: Absolute Lymphocyte Count 2.53 X10^3/uL (0.83-4.51); Absolute Neutrophil Count 5.8 X10^3/uL (2.0-7.7); Basophil# 0.08 X10^3/uL; Basophil% 0.8 % (0-1); Eosinophil# 0.34 X10^3/uL; Eosinophils% 3.6 % (0-5); Hematocrit 43.7 % (40-54); Hemoglobin 13.9 g/dL (13.0-16.5); Lymphocyte # 2.53 X10^3/ul (4.0); Lymphocyte % 26.6 % (19-41); Mean Corp Hgb Conc 31.8 g/dL (32-36); Mean Corpuscular Hgb 29.6 pg (27.0-32.0); Mean Platelet Vol. 11.1 fl (6.2-12.0); Monocyte# 0.75 X10^3/uL; Monocyte% 7.9 % (0-10); NRBC Flagged by Analyzer 0 % (0-5); Neutrophil # 5.77 X10^3/uL (2.7-7.7); Neutrophil % 60.7 % (47-70); Platelet Count 297 K/mm3 (150-450); RBC Distribution Width CV 14.1 % (11.6-14.6); RBC Distribution Width SD 48.2 fl (35.1-43.9); White Blood Count 9.5 K/mm3 (4.4-11.0)
[2020-04-06 15:49] LABS: AST(SGOT) 39 U/L (15-37); Alanine Aminotransfer ALT/SGPT 38 U/L (16-61); Albumin, Serum 3.9 g/dL (3.2-5.0); Alkaline Phosphatase 74 U/L (45-117); Anion Gap 8 (5-15); BUN 16 mg/dL (7-18); BUN/Creat Ratio 15.1 RATIO (10-20); Calcium,Total 9.6 mg/dL (8.5-10.1); Chloride 104 mmol/L (98-107); Creatinine, Serum 1.06 mg/dL (0.70-1.30); EST Glomerular Filtration Rate 73 mL/min (>60); Est Glom Filt Rate - Afr Amer 88 mL/min (>60); Globulin 3.9 g/dL (2.2-4.2); Glucose 90 mg/dL (74-106); Potassium 4.2 mmol/L (3.5-5.1); Protein, Total 7.8 g/dL (6.4-8.2); Sodium Level 137 mmol/L (136-145); Thyroid Stim Hormone (TSH) 1.26 uIU/mL (0.358-3.74)
== END ==
PROVIDERS: PCP Family Medicine Geriatric Medicine; Visit Provider Family Medicine Geriatric Medicine
DX: E11.9 Type 2 diabetes mellitus without complications (principal); I10 Essential (primary) hypertension; E55.9 Vitamin D deficiency, unspecified
CPT/HCPCS: 36415; 80053; 82306; 84443; 85025

== ENCOUNTER 2020-05-18 22:47 | Observation (INO) | payer MEDICARE, BC, SELFPAY ==
[2020-05-18 22:47] VITALS: BP 112/67; PULSE 55; RESP 16; TEMP 36.4; O2SAT 98
[2020-05-18 22:48] VITALS: BP 112/67; PULSE 53; RESP 16; TEMP 35.9; O2SAT 97; BMI 24.0
--- NOTE | 2020-05-18 23:00 | CT_ITS ---
STUDY: CT BRAIN WITHOUT CONTRAST REASON FOR EXAM: Male, 74 years old. DIZZINESS WITH BM, HIT HEAD AFTER SYNCOPE, HX HTN, MS, DIAB RADIATION DOSAGE (If Supplied By Facility): CTDIvol = ( 44.99 ) mGy, DLP = ( 829.85 ) mGycm TECHNIQUE: Transaxial CT imaging of the brain was performed without administration of intravenous contrast material. Individualized dose optimization techniques were used for this CT. COMPARISON: No relevant priors. FINDINGS: Normal soft tissue structures. Extensive previously repaired chronic facial fractures are seen similar to prior study. There is evidence for blood in the right globe, not present previously. Normal calvarium. There is mild cerebral atrophy with widening of the extra-axial spaces and ventricular dilatation. There are areas of decreased attenuation within the white matter tracts of the supratentorial brain, consistent with microvascular disease changes. Normal basal ganglia and thalami. Normal brainstem. Normal cerebellum. Stable small areas of encephalomalacia in both anterior frontal lobes worse on the right. The pattern is consistent with previous contusions. There is no intracranial hemorrhage. There are no findings of an acute ischemic infarction. There is mucoperiosteal inflammatory disease of the paranasal sinuses consistent with mild chronic sinusitis. CT/Brain/Head without Contrast IMPRESSION: No change or acute intracranial abnormality. Mild atrophy and White matter disease. Stable mild bilateral frontal lobe injuries. Electronically Signed: Martín Valle MD at 23:30 EST , Service support ,
--- NOTE | 2020-05-18 23:00 | EKG12_ITS ---
Test Reason : DYSRHYTHMIA Blood Pressure : / mmHG Vent. Rate : 049 BPM Atrial Rate : 049 BPM P-R Int : 202 ms QRS Dur : 080 ms QT Int : 446 ms P-R-T Axes : 033 -26 034 degrees QTc Int : 402 ms Sinus bradycardia Nonspecific T wave abnormality Abnormal ECG Confirmed by PAUL PEREZ, MARLENY ([id number]), editorial manager DEONDRE PHILLIP ([id number]) on 05/20/2020 8:36:47 AM Referred By: CAMILO Confirmed By:SAM MILLER MD
--- NOTE | 2020-05-18 23:01 | ED.DCSUM_ITS ---
History of Present Illness Chief Complaint: Syncope Informant: Patient Onset: Today Current Severity: Mild Maximum Severity: Mild Narrative: Patient presents with a fall at home. Patient states he went to the bathroom, h ad diarrhea, stood and was washing his hands. He states all of a sudden his legs went out from underneath him and he fell. He does not believe he lost consciousness but call went out for syncope. Patient states he feels somewhat flushed now but otherwise back to his normal self. He denies having chest pain or palpitations. He has had a recent sore throat but no fever or chills. Patient states his heart rate normally runs between 69 and 73. - Past Medical History (1) Seizure Status: Chronic (2) BPH (benign prostatic hyperplasia) Status: Chronic (3) Blindness Status: Chronic (4) GERD (gastroesophageal reflux disease) Status: Chronic (5) Hyperlipemia Status: Chronic (6) Hypertension Status: Chronic (7) Type 2 diabetes mellitus Status: Chronic Past Medical History - Allergies and Home Meds Allergies/Adverse Reactions: Allergies shellfish derived Allergy (Verified 07/17/18 10:29) Anaphylaxis cosmetic Adverse Reaction (Verified 07/17/18 12:58) Other perfume Adverse Reaction (Verified 07/17/18 12:58) Other strawberry Adverse Reaction (Verified 07/17/18 12:58) Rash weed pollen Adverse Reaction (Verified 07/17/18 12:58) Other Primary Care Physician: Micheal Peralta Chi, MD [Primary Care Provider] - Prior records reviewed: Yes Surgical History: - - [place] placement d/t ICP s/p removal. Right nasal laceration repair due trauma. Repair of bilateral ruptured globes and bilateral lid lacerations. Trach and PEG placement 03/30/2018 with subsequent trach reversal. ORIF numeral facial fx. Lives: Spouse/ Significant Other Smoking Status: Former smoker - Family History Maternal Family History: Reports: - - Denies known maternal medical history including cardiac history. Paternal Family History: Reports: - - Denies known paternal medical history including cardiac history. Review of Systems General: Denies: Chills, Fever Eyes: Reports: - - Chronic blindness ENT: Reports: Sore throat. Denies: Bilateral ear pain Cardiovascular: Denies: Chest pain, Palpitations Respiratory: Denies: Dyspnea, Cough Gastrointestinal: Reports: Diarrhea. Denies: Abdominal pain, Nausea, Vomiting Musculoskeletal: Denies: Extremity Pain Skin: Denies: Rash Neurological: Denies: Headache Hematologic: Denies: Easy bruising, Easy bleeding Allergy: Denies: Uticaria Physical Exam Vital Signs/Narrative: Vital Signs Temp Pulse Resp BP Pulse Ox 05/18/20 22:48 96.7 F L 53 L 16 112/67 97 05/18/20 22:47 97.6 F L 55 L 16 112/67 98 Inital Vital Signs reviewed: Yes General: Well nourished, Well developed Head: Normocephalic, - - Linear abrasions to the left parietal scalp ENT: Moist mucous membranes Neck: Supple, - - No reproducible C-spine tenderness. Cardiovascular: Bradycardia Respiratory: No distress, CTA bilaterally Abdomen: Soft, Nontender Extremities: Nontender Skin: - - Scalp abrasions as above Neurological: Alert, Oriented x3, - - No focal neurologic deficits Psychological: Normal affect Diagnostic/Tx/Re-eval Impressions Brain CT 05/18/20 23:00 IMPRESSION: No change or acute intracranial abnormality. Mild atrophy and White matter disease. Stable mild bilateral frontal lobe injuries. Electronically Signed: Martín Valle MD at 23:30 EST , Service support , 05/18/20 23:00 Brain/Head without Contrast [CT] Stat 05/18/20 23:06 Mucosa - Nasopharyngeal SARS-CoV-2 Antigen (Rapid) - Final Laboratory Results 05/18/20 05/18/20 22:35 22:35 WBC 7.1 RBC 4.05 L Hgb 12.2 L Hct 38.4 L MCV 94.8 H MCH 30.1 MCHC 31.8 L RDW Std Deviation 48.5 H RDW Coeff of Brijesh 13.9 Plt Count 188 MPV 11.0 Immature Gran % (Auto) 0.400 Neut % (Auto) 71.3 H Lymph % (Auto) 16.5 L Spencer % (Auto) 6.9 Eos % (Auto) 4.1 Baso % (Auto) 0.8 Absolute Neuts (auto) 5.1 Absolute Lymphs (auto) 1.18 Nucleated RBC % 0 Sodium 137 Potassium 4.0 Chloride 105 Carbon Dioxide 28.0 Anion Gap 4 L BUN 17 Creatinine 1.00 Estim Creat Clear Calc 48.67 Est GFR (MDRD) Af Amer 95 Est GFR (MDRD) Non-Af 78 BUN/Creatinine Ratio 17.1 Glucose 160 H Calcium 9.6 Troponin I < 0.015 - EKG Initial EKG Interpretation: Sinus Bradycardia - Sinus bradycardia at 49 bpm. Nonspecific lateral T wave flattening. No acute ST change. - Medical Decision Making Patient was observed on it coordinator throughout his ED stay. Heart rate has been in the high 40s to low 50s. This is not his normal per his report. Although patient was using the bathroom shortly before this episode, he denies feeling lightheaded, dizzy, or having any prodromal symptoms that would be more consistent with vasovagal syncope. In light of his bradycardia and syncopal episode I would prefer observation overnight. I will speak with the hospitalist. ED Disposition - Plan for ED Patient: Disposition: Acute Care Hospital [facility] Diagnosis: Syncope, Bradycardia Referrals: Micheal Peralta Chi, MD [Primary Care Provider] -
[2020-05-18 23:14] LABS: Absolute Lymphocyte Count 1.18 X10^3/uL (0.83-4.51); Absolute Neutrophil Count 5.1 X10^3/uL (2.0-7.7); Basophil# 0.06 X10^3/uL; Basophil% 0.8 % (0-1); Eosinophil# 0.29 X10^3/uL; Eosinophils% 4.1 % (0-5); Hematocrit 38.4 % (40-54); Hemoglobin 12.2 g/dL (13.0-16.5); Lymphocyte # 1.18 X10^3/ul (4.0); Lymphocyte % 16.5 % (19-41); Mean Corp Hgb Conc 31.8 g/dL (32-36); Mean Corpuscular Hgb 30.1 pg (27.0-32.0); Mean Corpuscular Volume 94.8 fL (80-94); Monocyte# 0.49 X10^3/uL; Monocyte% 6.9 % (0-10); NRBC Flagged by Analyzer 0 % (0-5); Neutrophil # 5.09 X10^3/uL (2.7-7.7); Neutrophil % 71.3 % (47-70); Platelet Count 188 K/mm3 (150-450); RBC Distribution Width CV 13.9 % (11.6-14.6); RBC Distribution Width SD 48.5 fl (35.1-43.9); Red Blood Count 4.05 M/mm3 (4.6-6.2); White Blood Count 7.1 K/mm3 (4.4-11.0)
[2020-05-18 23:31] LABS: Anion Gap 4 (5-15); BUN 17 mg/dL (7-18); BUN/Creat Ratio 17.1 RATIO (10-20); Calcium,Total 9.6 mg/dL (8.5-10.1); Chloride 105 mmol/L (98-107); EST Glomerular Filtration Rate 78 mL/min (>60); Est Glom Filt Rate - Afr Amer 95 mL/min (>60); Estimated Creatinine Clearance 48.67 ml/min; Glucose 160 mg/dL (74-106); Sodium Level 137 mmol/L (136-145)
[2020-05-18 23:47] VITALS: BP 104/58; PULSE 52; RESP 11; O2SAT 95
[2020-05-19] VITALS (8 sets, daily range): BP systolic 102–143; BP diastolic 54–66; PULSE 54–68; RESP 13–20; TEMP 36–37.1; O2SAT 97–99; BMI 22.8; BMI 22.9
--- NOTE | 2020-05-19 00:13 | HP.PCM_ITS ---
History of Present Illness Date of Admission: 05/19/20 Chief Complaint: syncope The patient is a 74 year old M with a past medical history as outlined was admitted through the ED on 2 11/15/2020 with a complaint of syncope. Patient states he got up and went to the bathroom because he was having some diarrhea. As he was washing his hands, he felt dizzy and lightheaded and passed out. He does not think he was in the bathroom for longer he regained consciousness after a short while. The EMS was called and when they found him, he was noted to be bradycardic with heart rate in the 30s. He was therefore brought into the ED. He states his heart rate usually runs between 69 and 73. He has not had such sy mptoms before. In the ED, vitals show temperature of 96.8 Fahrenheit with blood pressure of 143/60, pulse rate of 54 and respiratory rate of 16. He was saturating at 99% on room air. Chemistry was unremarkable initial troponin was negative. CBC showed hemoglobin of 12.1 WBC of 7.1 with platelets of 188. EKG showed sinus bradycardia with heart rate of 49. CT of the brain showed no acute intracranial abnormality and showed stable mild bilateral frontal lobe injuries. He is being admitted to be managed for syncope and bradycardia. [] Past Medical History Past Medical History (Chronic Problems): Chronic Problems Type 2 diabetes mellitus (Chronic) Hypertension (Chronic) BPH (benign prostatic hyperplasia) (Chronic) Blindness (Chronic) GERD (gastroesophageal reflux disease) (Chronic) Hyperlipemia (Chronic) Seizure (Chronic) Allergies shellfish derived Allergy (Verified 07/17/18 10:29) Anaphylaxis cosmetic Adverse Reaction (Verified 07/17/18 12:58) Other perfume Adverse Reaction (Verified 07/17/18 12:58) Other strawberry Adverse Reaction (Verified 07/17/18 12:58) Rash weed pollen Adverse Reaction (Verified 07/17/18 12:58) Other Home Medications: Ambulatory Orders Medication Instructions Recorded Atorvastatin Calcium [Lipitor] 40 mg PO QHS 07/17/18 Ergocalciferol (Vitamin D2) 50,000 unit PO QWEEK 07/17/18 [Ergocalciferol] Famotidine [Pepcid] 20 mg PO DAILY 07/17/18 Finasteride [Proscar] 5 mg PO DAILY 07/17/18 Lorazepam [Ativan] 0.5 mg PO DAILY 07/17/18 Quetiapine Fumarate [Seroquel] 25 mg PO QHS 07/17/18 Tizanidine HCl [Zanaflex] 2 mg PO 4X/DAY PRN PRN 07/17/18 metFORMIN HCl [Glucophage] 500 mg PO BIDCM #60 tablet 07/18/18 Surgical History: - - [place] placement d/t ICP s/p removal. Right nasal laceration repair due trauma. Repair of bilateral ruptured globes and bilateral lid lacerations. Trach and PEG placement 03/30/2018 with subsequent trach reversal. ORIF numeral facial fx. Psychiatric History: Anxiety, Depression Lives: Spouse/ Significant Other Smoking Status: Former smoker - *Family History Maternal History Items: - - Denies known maternal medical history including cardiac history. Paternal History Items: - - Denies known paternal medical history including cardiac history. Review of Systems Constitutional: Denies: Chills, Fever, Malaise, Weakness, Weight Change Eyes: Denies: Blurred vision HEENT: Denies: Head Aches, Sinus Congestion, Sinus Drainage Cardiovascular: Reports: Light Headedness, Palpitations. Denies: Chest Pain, Chest Tightness, Heaviness, Orthopnea Respiratory: Denies: Cough, Shortness of Breath, Shortness of breath at rest, Shortness of breath upon exertion, Sputum production Gastrointestinal: Denies: Abdominal Pain, Nausea, Vomiting Genitourinary: Denies: Dysuria Musculoskeletal: Denies: Joint Pain, Joint Tenderness Skin: Denies: Rash, Wounds Neurological: Denies: Numbness, Tingling, Focal weakness Psychiatric: Denies: Anxiety, Depression, Homicidal Ideations, Suicidal Ideations Hematologic/ Lymphatic: Denies: Easy Bruising, Easy Bleeding VTE Information - Inpt Only VTE Present on Admission: No VTE Pharm Prophylaxis ordered?: Yes Patient Problems: Active and Suspected Problems Syncope (Acute) Bradycardia (Acute) - Physical Exam Vitals/I&O's: Vital Signs Temp Pulse Resp BP Pulse Ox 98.7 F 57 L 18 135/61 H 97 05/19/20 00:00 05/19/20 00:00 05/19/20 00:00 05/19/20 00:00 05/19/20 00:00 Oxygen Delivery Method Room Air Weight: 127 lb 3.307 oz Body Mass Index (BMI) 24.0 General: Alert, Oriented x3, Cooperative, No apparent distress HEENT: Atraumatic, PERRLA, EOMI, Normocephalic Oral: Dry Mucosa Neck: Supple, No JVD, Negative Carotid Bruits Lungs: Clear to auscultation, Normal air movement Cardiovascular: Regular Rhythm, Normal S1, Normal S2, No murmurs, Bradycardic Abdomen: Bowel Sounds Present, Soft, Non Tender Extremities: No clubbing, No cyanosis, No edema, Capillary Refill Less than 3 Seconds Skin: No rashes, No breakdown Musculoskeletal: No Tenderness to Palpation of Joints or Extremities Lymphatic: No Cervical, Supraclavicular, or Inguinal Adenopathy Neurological: Cranial nerves II-XII grossly intact, Neuro grossly intact, Motor Exam 5/5 strength throughout Psych/Mental Status: Normal Affect, Appropriate, Alert and oriented to time, place, person, mood and affect Microbiology Past 72 Hours 05/18/20 23:06 Mucosa - Nasopharyngeal SARS-CoV-2 Antigen (Rapid) - Final Laboratory Results 05/18/20 22:35: WBC 7.1, RBC 4.05 L, Hgb 12.2 L, Hct 38.4 L, MCV 94.8 H, MCH 30.1, MCHC 31.8 L, RDW Std Deviation 48.5 H, RDW Coeff of Brijesh 13.9, Plt Count 188, MPV 11.0, Immature Gran % (Auto) 0.400, Neut % (Auto) 71.3 H, Lymph % (Auto) 16.5 L, Crane % (Auto) 6.9, Eos % (Auto) 4.1, Baso % (Auto) 0.8, Absolute Neuts (auto) 5.1, Absolute Lymphs (auto) 1.18, Nucleated RBC % 0 05/18/20 22:35: Sodium 137, Potassium 4.0, Chloride 105, Carbon Dioxide 28.0, Anion Gap 4 L, BUN 17, Creatinine 1.00, Estim Creat Clear Calc 48.67, Est GFR (MDRD) Af Amer 95, Est GFR (MDRD) Non-Af 78, BUN/Creatinine Ratio 17.1, Glucose 160 H, Calcium 9.6, Troponin I < 0.[address] 05/18/20 23:00 IMPRESSION: No change or acute intracranial abnormality. Mild atrophy and White matter disease. Stable mild bilateral frontal lobe injuries. Electronically Signed: Martín Valle MD at 23:30 EST , Service support , Assessment/Plan All Active Problems Syncope (Acute) Bradycardia (Acute) 74 y/o admitted with a complaint of syncope and found to be bradycardic #Syncope, likely cardiac, due to bradycardia * admit to PCU * check orthostatics * EKG showed sinus bradycardia, with HR of 49 * hydrate gently with IVF * hold metoprolol * get 2D echo * monitor HR * #Type 2 diabetes mellitus * on metformin. ISS. Accuchecks ACHS * #BPH: on finasteride #Hyperlipidemia: on statin DVT prophylaxis: lovenox Code status: full code * Patient counseled extensively about different types of CODE STATUS including full code, DNR CCA and DNR CCA. Patient elects to be full code. * Total [id number] time 16 minutes. OBSV E&M: 98407 Initial observation care L2 Procedures: 21917 Advncd Care Plan 30 Min
--- NOTE | 2020-05-19 00:56 | PCS.PANDOC ---
PANDEMIC DOCUMENTATION INITIATED: Date: 05/19/2020 Time: 00:17
[2020-05-19 05:04] LABS: Absolute Lymphocyte Count 1.29 X10^3/uL (0.83-4.51); Absolute Neutrophil Count 5.4 X10^3/uL (2.0-7.7); Basophil# 0.05 X10^3/uL; Basophil% 0.6 % (0-1); Eosinophil# 0.28 X10^3/uL; Eosinophils% 3.6 % (0-5); Hematocrit 35.7 % (40-54); Hemoglobin 11.5 g/dL (13.0-16.5); Lymphocyte # 1.29 X10^3/ul (4.0); Lymphocyte % 16.6 % (19-41); Mean Corp Hgb Conc 32.2 g/dL (32-36); Mean Corpuscular Hgb 30.8 pg (27.0-32.0); Mean Corpuscular Volume 95.7 fL (80-94); Mean Platelet Vol. 10.9 fl (6.2-12.0); Monocyte# 0.72 X10^3/uL; Monocyte% 9.3 % (0-10); NRBC Flagged by Analyzer 0 % (0-5); Neutrophil % 69.5 % (47-70); Platelet Count 171 K/mm3 (150-450); RBC Distribution Width CV 13.8 % (11.6-14.6); Red Blood Count 3.73 M/mm3 (4.6-6.2); White Blood Count 7.8 K/mm3 (4.4-11.0)
[2020-05-19] MEDS: LORazepam 0.5 MG Tablet PO (05:21)
[2020-05-19 05:37] LABS: Anion Gap 4 (5-15); BUN 15 mg/dL (7-18); BUN/Creat Ratio 18.2 RATIO (10-20); Calcium,Total 9.1 mg/dL (8.5-10.1); Chloride 105 mmol/L (98-107); Creatinine, Serum 0.83 mg/dL (0.70-1.30); EST Glomerular Filtration Rate 97 mL/min (>60); Est Glom Filt Rate - Afr Amer 117 mL/min (>60); Estimated Creatinine Clearance 58.64 ml/min; Glucose 123 mg/dL (74-106); Potassium 4.1 mmol/L (3.5-5.1); Sodium Level 137 mmol/L (136-145)
--- NOTE | 2020-05-19 05:55 | ECHOD_ITS ---
Reason For Study: syncope Procedure This was a 2D Doppler, Color Flow transthoracic echocardiogram. The study was technically difficult. PT had difficulty lying in left lateral decubitus position. Exam performed portable in patient room. Left Ventricle Normal LV size. The estimated ejection fraction is 60 %. Unable to assess diastolic dysfunction. No regional wall motion abnormalities noted. Right Ventricle Normal RV size. Normal systolic function. Atria Normal left atrium. Normal right atrium. No doppler evidence for ASD. Mitral Valve There is moderate mitral annular calcification. There is no mitral valve stenosis. No mitral valve insufficiency. Tricuspid Valve There is no tricuspid stenosis. Unable to estimate RV systolic pressure due to inadequate jet, pulmonary artery pressure probably normal. Aortic Valve Aortic sclerosis, no stenosis. There is no aortic stenosis. Trivial aortic valve insufficiency. Pulmonic Valve There is no pulmonic valvular stenosis. Trivial pulmonic valve insufficiency. Great Vessels Normal aortic root. Pericardium/Pleural No pericardial effusion. MMode/2D Measurements & Calculations LVIDd: 4.5 cm IVSd: 1.1 cm Ao root diam: 2.9 cm LVIDs: 3.3 cm LVPWd: 1.1 cm RVDd: 2.2 cm FS: 26.6 % LAV(MOD-bp): 46.2 ml LA A4 area: 16.5 cm2 LA dimension(2D): 3.7 cm LAV(MOD-bp) Indexed: 30.3 ml/m2 LAV(MOD-sp2): 46.9 ml LAV(MOD-sp4): 45.6 ml RA A4 area: 14.2 cm2 Time Measurements MV dec time: 0.28 sec Doppler Measurements & Calculations MV E max amanuel: 91.6 cm/sec Lat Peak E' Amanuel: 6.7 cm/sec Med Peak E' Amanuel: 7.2 cm/sec MV A max amanuel: 111.8 cm/sec E/E' lat: 13.6 E/E' med: 12.7 MV E/A: 0.82 Ao V2 max: 138.4 cm/sec LV V1 max: 100.3 cm/sec PA V2 max: 69.3 cm/sec Ao max P.7 mmHg LV V1 max P.0 mmHg PI dec slope: 159.0 cm/sec2 TR max amanuel: 234.3 cm/sec TR max P.0 mmHg Interpretation Summary The estimated ejection fraction is 60 %. Unable to assess diastolic dysfunction. Trivial aortic valve insufficiency. Ordering Physician: Leah Cormier Referring Physician: Micheal Peralta Chi Performed By: Maine Rowell RDCS, RVT
[2020-05-19] MEDS: Enoxaparin 40 MG/0.4 ML Syringe SC (09:09)
[2020-05-19] MEDS: Finasteride 5 MG Tablet PO (09:09)
[2020-05-19] MEDS: metFORMIN HCl 500 MG Tablet PO (09:09)
[2020-05-19] MEDS: Famotidine 20 MG Tablet PO (09:09)
--- NOTE | 2020-05-19 11:29 | DCINST_ITS ---
- Discharge Diagnoses Current Active Problems: Current Active and Chronic Problems Syncope (Acute) Bradycardia (Acute) Type 2 diabetes mellitus (Chronic) Hypertension (Chronic) BPH (benign prostatic hyperplasia) (Chronic) Blindness (Chronic) GERD (gastroesophageal reflux disease) (Chronic) Hyperlipemia (Chronic) Seizure (Chronic) You will use the following diet at home:: No restrictions Discharge Activity: Return to Normal Activity Call your doctor if you observe: Shortness of breath, Dizziness, Fainting spells, Chest pain Allergies/Adverse Reactions: Allergies iodine Allergy (Verified 05/19/20 00:35) Anaphylaxis shellfish derived Allergy (Verified 07/17/18 10:29) Anaphylaxis cosmetic Adverse Reaction (Verified 07/17/18 12:58) Other perfume Adverse Reaction (Verified 07/17/18 12:58) Other strawberry Adverse Reaction (Verified 07/17/18 12:58) Rash weed pollen Adverse Reaction (Verified 07/17/18 12:58) Other Medications to take at Discharge Atorvastatin Calcium [Lipitor] 40 mg PO QHS 07/17/18 Ergocalciferol (Vitamin D2) [Ergocalciferol] 50,000 unit PO QWEEK 07/17/18 Famotidine [Pepcid] 20 mg PO DAILY 07/17/18 Finasteride [Proscar] 5 mg PO DAILY 07/17/18 Lorazepam [Ativan] 0.5 mg PO DAILY 07/17/18 Quetiapine Fumarate [Seroquel] 25 mg PO QHS 07/17/18 Tizanidine HCl [Zanaflex] 2 mg PO 4X/DAY PRN PRN 07/17/18 metFORMIN HCl [Glucophage] 500 mg PO BIDCM #60 tablet 07/18/18 Primary Care Physician: Micheal Peralta Chi, MD [Primary Care Provider] - Please follow up with your Primary Care Physician in: 1 Week Test Results: Test results from this visit will be discussed in further detail at your follow- up appointment, if applicable. Proposed Discharge Date: 05/19/20
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
--- NOTE | 2020-05-19 11:44 | PHA.DC.MR ---
Pharmacy Service has performed discharge medication reconciliation for this patient. No new medications issued at time of discharge review. Medications reviewed are from previously reported home medications. Home Medications Atorvastatin Calcium [Lipitor] 40 mg PO QHS 07/17/18 Ergocalciferol (Vitamin D2) [Ergocalciferol] 50,000 unit PO QWEEK 07/17/18 Famotidine [Pepcid] 20 mg PO DAILY 07/17/18 Finasteride [Proscar] 5 mg PO DAILY 07/17/18 Lorazepam [Ativan] 0.5 mg PO DAILY 07/17/18 Metoprolol Tartrate [Lopressor (beta nakul)] 25 mg PO BID 07/17/18 Quetiapine Fumarate [Seroquel] 25 mg PO QHS 07/17/18 Tizanidine HCl [Zanaflex] 2 mg PO 4X/DAY PRN PRN 07/17/18 metFORMIN HCl [Glucophage] 500 mg PO BIDCM #60 tablet 07/18/18 The patient's discharge medication list was reviewed for discrepancies and discrepancies were resolved.
--- NOTE | 2020-05-19 14:55 | CHAPLAIN ---
Type of Pastoral Visit _x__ Initial Visit ___ Follow-up Visit ___ On-call Visit ___ General Patient Visit ___ Spiritual Assessment ___ Family Conference ___ Bereavement ___ Rapid Response ___ Code Blue ___ Other (describe below) Pastoral Care Referral From _x__ Patient ___ Family ___ Nurse ___ Physician ___ Skiver Machine Operator ___ Signaler ___ Other (describe below) Sacrament/Intervention ___ Active listening ___ Anointing ___ Taoism ___ Bereavement ___ Communion ___ Tala exploration ___ ___ Life review ___ Prayer ___ Reconciliation ___ Sacrament of Sick _x__ Supportive presence ___ Wedding ___ Other (describe below) Pastoral Comments patient is resting in bed; spouse/family member is in room; spouse speaks for patient and describes situation; spouse states that we are doing ok but thank you for checking on him; no other needs identified at this time.
== END 2020-05-19 11:29 | disposition home or self-care (01) ==
LOC: ED 23:54 → PCU 05-19 00:42
PROVIDERS: Admitting Provider Student in an Organized Health Care Education/Training Program; Emergency Provider Emergency Medicine; PCP Family Medicine Geriatric Medicine; Visit Provider Family Medicine
DX: I95.1 Orthostatic hypotension (principal); E11.9 Type 2 diabetes mellitus without complications; N40.0 Benign prostatic hyperplasia without lower urinary tract symptoms; E78.5 Hyperlipidemia, unspecified; K21.9 Gastro-esophageal reflux disease without esophagitis; H54.8 Legal blindness, as defined in USA; I10 Essential (primary) hypertension; F41.9 Anxiety disorder, unspecified; F32.9 Major depressive disorder, single episode, unspecified; Z87.891 Personal history of nicotine dependence; Z79.899 Other long term (current) drug therapy; Z79.84 Long term (current) use of oral hypoglycemic drugs; Z87.820 Personal history of traumatic brain injury
CPT/HCPCS: 36415; 70450; 80048; 84484; 85025; 87426; 93005; 93306; 96360; 96372; 99218; 99285; J7040; G0378

== ENCOUNTER → 2020-07-04 14:14 | Outpatient (CLI) | payer MEDICARE, BC, SELFPAY ==
[2020-05-19 00:21] VITALS: BMI 22.8
[2020-07-04 15:36] LABS: Absolute Lymphocyte Count 2.16 X10^3/uL (0.83-4.51); Absolute Neutrophil Count 4.6 X10^3/uL (2.0-7.7); Basophil# 0.09 X10^3/uL; Basophil% 1.1 % (0-1); Eosinophil# 0.39 X10^3/uL; Eosinophils% 4.9 % (0-5); Hematocrit 40.8 % (40-54); Hemoglobin 13.1 g/dL (13.0-16.5); Lymphocyte # 2.16 X10^3/ul (4.0); Lymphocyte % 27.2 % (19-41); Mean Corp Hgb Conc 32.1 g/dL (32-36); Mean Corpuscular Volume 93.4 fL (80-94); Mean Platelet Vol. 11.1 fl (6.2-12.0); Monocyte# 0.69 X10^3/uL; Monocyte% 8.7 % (0-10); NRBC Flagged by Analyzer 0 % (0-5); Platelet Count 226 K/mm3 (150-450); RBC Distribution Width CV 13.2 % (11.6-14.6); Red Blood Count 4.37 M/mm3 (4.6-6.2); White Blood Count 7.9 K/mm3 (4.4-11.0)
[2020-07-04 16:03] LABS: AST(SGOT) 21 U/L (15-37); Alanine Aminotransfer ALT/SGPT 27 U/L (16-61); Albumin, Serum 3.7 g/dL (3.2-5.0); Alkaline Phosphatase 68 U/L (45-117); Anion Gap 4 (5-15); BUN 16 mg/dL (7-18); BUN/Creat Ratio 16.6 RATIO (10-20); Calcium,Total 9.8 mg/dL (8.5-10.1); Chloride 106 mmol/L (98-107); Creatinine, Serum 0.96 mg/dL (0.70-1.30); EST Glomerular Filtration Rate 81 mL/min (>60); Est Glom Filt Rate - Afr Amer 98 mL/min (>60); Globulin 3.8 g/dL (2.2-4.2); Glucose 105 mg/dL (74-106); Potassium 4.1 mmol/L (3.5-5.1); Protein, Total 7.5 g/dL (6.4-8.2); Sodium Level 138 mmol/L (136-145); Thyroid Stim Hormone (TSH) 2.75 uIU/mL (0.358-3.74)
[2020-07-04 16:04] LABS: Vitamin D,25 Hydroxy 34.6 ng/mL
== END ==
PROVIDERS: PCP Family Medicine Geriatric Medicine; Visit Provider Family Medicine Geriatric Medicine
DX: E11.9 Type 2 diabetes mellitus without complications (principal); E55.9 Vitamin D deficiency, unspecified; I10 Essential (primary) hypertension
CPT/HCPCS: 36415; 80053; 82306; 84443; 85025

== ENCOUNTER → 2020-10-04 15:35 | Outpatient (CLI) | payer MEDICARE, BC, SELFPAY ==
[2020-05-19 00:21] VITALS: BMI 22.8
[2020-10-04 17:05] LABS: Absolute Lymphocyte Count 1.96 X10^3/uL (0.83-4.51); Basophil# 0.12 X10^3/uL; Basophil% 1.4 % (0-1); Eosinophil# 0.57 X10^3/uL; Eosinophils% 6.9 % (0-5); Hematocrit 41.4 % (40-54); Hemoglobin 13.6 g/dL (13.0-16.5); Lymphocyte # 1.96 X10^3/ul (0.83-4.51); Lymphocyte % 23.6 % (19-41); Mean Corp Hgb Conc 32.9 g/dL (32-36); Mean Corpuscular Hgb 29.5 pg (27.0-32.0); Mean Corpuscular Volume 89.8 fL (80-94); Mean Platelet Vol. 11.1 fl (6.2-12.0); Monocyte# 0.66 X10^3/uL; Monocyte% 7.9 % (0-10); NRBC Flagged by Analyzer 0 % (0-5); Neutrophil # 4.98 X10^3/uL (2.7-7.7); Platelet Count 242 K/mm3 (150-450); RBC Distribution Width CV 13.1 % (11.6-14.6); RBC Distribution Width SD 42.7 fl (35.1-43.9); Red Blood Count 4.61 M/mm3 (4.6-6.2); White Blood Count 8.3 K/mm3 (4.4-11.0)
[2020-10-04 17:20] LABS: Vitamin D,25 Hydroxy 22.2 ng/mL
[2020-10-04 17:26] LABS: ALB/GLOB Ratio 1.1 RATIO (0.9-2.4); AST(SGOT) 42 U/L (15-37); Alanine Aminotransfer ALT/SGPT 46 U/L (16-61); Albumin, Serum 3.6 g/dL (3.2-5.0); Alkaline Phosphatase 98 U/L (45-117); Anion Gap 7 (5-15); BUN 10 mg/dL (7-18); BUN/Creat Ratio 10.1 RATIO (10-20); Calcium,Total 8.8 mg/dL (8.5-10.1); Chloride 104 mmol/L (98-107); Creatinine, Serum 0.99 mg/dL (0.70-1.30); EST Glomerular Filtration Rate 78 mL/min (>60); Est Glom Filt Rate - Afr Amer 95 mL/min (>60); Globulin 3.3 g/dL (2.2-4.2); Glucose 205 mg/dL (74-106); Potassium 4.1 mmol/L (3.5-5.1); Protein, Total 6.9 g/dL (6.4-8.2); Sodium Level 139 mmol/L (136-145); Thyroid Stim Hormone (TSH) 2.49 uIU/mL (0.358-3.74)
== END ==
PROVIDERS: PCP Family Medicine Geriatric Medicine; Visit Provider Family Medicine Geriatric Medicine
DX: E11.9 Type 2 diabetes mellitus without complications (principal); E55.9 Vitamin D deficiency, unspecified; I10 Essential (primary) hypertension
CPT/HCPCS: 36415; 80053; 82306; 84443; 85025

== ENCOUNTER 2020-11-05 12:10 | Emergency (ER) | payer MEDICARE, BC, SELFPAY ==
[2020-05-19 00:21] VITALS: BMI 22.8
[2020-11-05 12:11] VITALS: BP 145/81; PULSE 73; RESP 16; TEMP 36.7; BMI 23.6
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
[2020-11-05] MEDS: Lidocaine 1% (20 ml mdv) 20 ML Vial INFILT (12:46)
--- NOTE | 2020-11-05 13:44 | EX.ED.GENINJ ---
HPI History of Present Illness Chief Complaint: Fall Informant: patient and family Narrative Narrative: 74-year-old male presents the emergency department following a fall. Patient was in the bathroom and is legally blind. He stumbled and fell into the shower. He struck his head in the shower resulting in laceration to the left forehead. No loss of consciousness. He notes abrasions to the left lower leg. States his last tetanus shot was 1 year ago [facility] Medical History Blind BPH (benign prostatic hyperplasia) Bradycardia Coronary artery disease Diabetes GERD (gastroesophageal reflux disease) Hyperlipemia Hypertension Seizures Home Medications atorvastatin 40 mg PO QHS 07/17/18 [History Last Taken 05/18/20] finasteride 5 mg PO DAILY 07/17/18 [History Last Taken 05/18/20] lorazepam 0.5 mg PO DAILY 07/17/18 [History Last Taken 05/18/20] quetiapine 25 mg PO QHS 07/17/18 [History Last Taken 05/18/20] metformin 500 mg PO BIDCM #60 tablet 07/18/18 [Rx Last Taken 05/18/20] citalopram 20 mg PO DAILY 11/05/20 [History Last Taken Unknown] levothyroxine 25 mcg PO DAILY 11/05/20 [History Last Taken Unknown] pantoprazole 40 mg PO DAILY 11/05/20 [History Last Taken Unknown] Allergy/AdvReac Type Severity Reaction Status Date / Time iodine Allergy Anaphylaxis Verified 05/19/20 00:35 shellfish derived Allergy Anaphylaxis Verified 07/17/18 10:29 cosmetic AdvReac Other Verified 07/17/18 12:58 perfume AdvReac Other Verified 07/17/18 12:58 strawberry AdvReac Rash Verified 07/17/18 12:58 weed pollen AdvReac Other Verified 07/17/18 12:58 Surgical History History of cholecystectomy Social History (Updated 11/05/20 @ 13:[address] Redd Gunter DO) Smoking Status: Former smoker substance use type: does not use ROS ROS ED Constitutional Constitutional ED: Denies chills or weight loss Eyes Eyes: Denies change in vision or diplopia ENT ENT ED: Denies ear pain, rhinorrhea or sore throat Cardiovascular Cardiovascular: Denies chest pain, orthopnea, palpitations or racing heartbeat Respiratory/Chest Respiratory/Chest: Denies cough, dyspnea or orthopnea Gastrointestinal Gastrointestinal: Denies abdominal pain, diarrhea, nausea or vomiting Genitourinary Genitourinary ED: Denies dysuria, hematuria or urinary frequency Musculoskeletal Musculoskeletal: Denies arthralgias or myalgias Integumentary Reports Abrasions; Denies abscess or rash Neurologic Neurologic: Reports headache(s); Denies weakness Psychiatric Psychiatric: Denies anxiety, depression, suicidal ideation or suicidal thoughts Endocrine Endocrinology: Denies polydipsia, polyphagia or polyuria Allergic/Immunologic Allergic/Immunologic ED: Denies mouth swelling, tongue swelling or urticaria EXAM Physical Exam Const Vital Signs: 11/05/20 12:11 11/05/20 12:18 Temperature 98.0 F Temperature Source Temporal Pulse Rate 73 Respiratory Rate 16 Respiratory Effort Normal Non-Labored Blood Pressure 145/81 H Blood Pressure Mean 102 Oxygen Delivery Method Room Air Positive well nourished and well developed General Appearance ED: well developed HEENT Reports normocephalic, head/scalp atraumatic and moist mucous membranes HEENT Narrative: There is a 2.5 cm laceration of the left eyebrow. trauma Eyes PERRL and EOMs intact bilaterally Neck no lymphadenopathy, supple and no JVD Resp normal respiratory effort and clear to auscultation bilaterally Cardio regular rate, regular rhythm and no murmurs GI normal to inspection, nondistended, normoactive bowel sounds and non-tender Palpation: soft Back/Spine no CVA tenderness and normal ROM Extremity Extremity Narrative: There are superficial abrasions to the left anterior lateral leg General Extremety ED: Negative for edema General Extremity: Negative for edema Neuro oriented x3 and CN's II-XII intact bilaterally Sensorium / Orientation: alert Motor Exam: strength 5/5 throughout Psych mental status grossly normal Mood & Affect: Negative for depressed or tearful Skin no rashes or lesions noted and no wounds MDM MDM MDM Narrative Medical decision making narrative: Wound was locally anesthetized using 1% lidocaine. Is washed with Shur-Clens and explored. It was closed using 5 simple erupted 4-[address] the brain was obtained. This does not show any acute fracture or hemorrhage. At this point patient will be discharged home stitches should be removed 5 to 7 days. Discharge Plan Triage Chief Complaint: Fall ED Provider: Redd Gunter Dx/Rx/DC Orders Clinical Impression: Laceration of face, Abrasion of left leg, Fall Instructions: ED Mechanical Fall, ED Laceration: All Closures Prescriptions: No Action quetiapine 25 MG tablet 25 mg PO QHS RF: 0 atorvastatin 40 MG tablet 40 mg PO QHS RF: 0 lorazepam 0.5 MG tablet 0.5 mg PO DAILY RF: 0 finasteride 5 MG tablet 5 mg PO DAILY RF: 0 metformin 500 MG tablet 500 mg PO BIDCM Qty: 60 RF: 0 levothyroxine 25 mcg tablet 25 mcg PO DAILY RF: 0 citalopram 20 mg tablet 20 mg PO DAILY RF: 0 pantoprazole 40 mg tablet,delayed release (DR/EC) 40 mg PO DAILY RF: 0 Primary Care Provider: Micheal Peralta Chi Referrals: Micheal Peralta Chi, MD [Primary Care Provider] - 7 Days for suture removal Disposition Disposition: Home, Self Care
== END 2020-11-05 14:01 | disposition home or self-care (01) ==
PROVIDERS: Emergency Provider Emergency Medicine; PCP Family Medicine Geriatric Medicine
DX: S01.112A Laceration without foreign body of left eyelid and periocular area, initial encounter (principal); S80.812A Abrasion, left lower leg, initial encounter; W18.2XXA Fall in (into) shower or empty bathtub, initial encounter; Y93.9 Activity, unspecified; Y92.002 Bathroom of unspecified non-institutional (private) residence as the place of occurrence of the external cause; Y99.9 Unspecified external cause status; I25.10 Atherosclerotic heart disease of native coronary artery without angina pectoris; E11.9 Type 2 diabetes mellitus without complications; E78.5 Hyperlipidemia, unspecified; I10 Essential (primary) hypertension; R56.9 Unspecified convulsions; N40.0 Benign prostatic hyperplasia without lower urinary tract symptoms; H54.8 Legal blindness, as defined in USA; K21.9 Gastro-esophageal reflux disease without esophagitis; Z79.899 Other long term (current) drug therapy; Z79.84 Long term (current) use of oral hypoglycemic drugs; Z87.891 Personal history of nicotine dependence
CPT/HCPCS: 12011; 70450; 99285

== ENCOUNTER → 2020-12-21 10:11 | Outpatient (CLI) | payer MEDICARE, SELFPAY ==
--- NOTE | 2020-12-21 10:15 | RAD_ITS ---
STUDY: XR Hand Min 3 Views REASON FOR EXAM: Male, 75 years old. PAIN TECHNIQUE: XR Hand Min 3 Views COMPARISON: None. FINDINGS: Normal radiocarpal articulation. Normal distal radioulnar joint. Normal visualized carpal bones. Normal carpal articulations Normal carpometacarpal articulation of the thumb. Normal second through fifth carpometacarpal joints. Normal metacarpi. There is degenerative arthrosis of the metacarpophalangeal (MCP) joints. Normal interphalangeal joint of the thumb. Normal proximal and distal phalanges of the thumb. Normal metacarpophalangeal joints of the second through fifth fingers. Normal proximal and distal interphalangeal joints of the second through fifth fingers. Normal phalanges of the second through fifth fingers. Soft tissue swelling around the wrist. RAD/Hand Min 3 Views IMPRESSION: There is degenerative arthrosis of the carpometacarpal articulation of the thumb. Soft tissue swelling around the wrist. Electronically Signed: Mike Richard MD at 11:46 EDT , Service support ,
--- NOTE | 2020-12-21 10:15 | RAD_ITS ---
STUDY: X-RAY XR Forearm 2 Views REASON FOR EXAM: Male, 75 years old. PAIN hand pain injury TECHNIQUE: XR Forearm 2 Views COMPARISON: None. FINDINGS: There is no demonstrated soft tissue swelling. Normal visualized radius. Normal visualized ulna. RAD/Forearm 2 Views IMPRESSION: No acute findings Electronically Signed: Mike Richard MD at 11:44 EDT , Service support ,
--- NOTE | 2020-12-21 10:16 | RAD_ITS ---
STUDY: X-RAY - LEFT WRIST REASON FOR EXAM: Male, 75 years old. WRIST PAIN TECHNIQUE: 3 view(s) of the wrist were obtained. COMPARISON: None. FINDINGS: Normal visualized distal radius and ulna. Normal radiocarpal articulation. Normal distal radioulnar articulation. Normal carpal bones. Normal carpal articulations. There is degenerative arthrosis of the carpometacarpal articulation of the thumb. Normal second through fifth carpometacarpal articulations. Normal visualized metacarpal bones. Soft tissue swelling around the wrist. RAD/Wrist min 3 Views IMPRESSION: There is degenerative arthrosis of the carpometacarpal articulation of the thumb. Soft tissue swelling around the wrist. Electronically Signed: Mike Richard MD at 11:44 EDT , Service support ,
== END ==
PROVIDERS: PCP Family Medicine Geriatric Medicine; Referring Provider Family Medicine Geriatric Medicine; Visit Provider Family Medicine Geriatric Medicine
DX: M25.532 Pain in left wrist (principal); M79.609 Pain in unspecified limb
CPT/HCPCS: 73090; 73110; 73130

== ENCOUNTER → 2021-01-11 14:08 | Outpatient (CLI) | payer MEDICARE, SELFPAY ==
[2021-01-11 16:29] LABS: Absolute Lymphocyte Count 1.98 X10^3/uL (0.83-4.51); Absolute Neutrophil Count 4.8 X10^3/uL (2.0-7.7); Basophil# 0.12 X10^3/uL; Basophil% 1.5 % (0-1); Eosinophil# 0.31 X10^3/uL; Eosinophils% 3.9 % (0-5); Hematocrit 41.7 % (40-54); Hemoglobin 13.3 g/dL (13.0-16.5); Lymphocyte # 1.98 X10^3/ul (0.83-4.51); Mean Corp Hgb Conc 31.9 g/dL (32-36); Mean Corpuscular Hgb 28.2 pg (27.0-32.0); Mean Corpuscular Volume 88.5 fL (80-94); Mean Platelet Vol. 11.1 fl (6.2-12.0); Monocyte# 0.63 X10^3/uL; NRBC Flagged by Analyzer 0 % (0-5); Neutrophil # 4.84 X10^3/uL (2.7-7.7); Neutrophil % 61.2 % (47-70); Platelet Count 259 K/mm3 (150-450); RBC Distribution Width CV 13.6 % (11.6-14.6); RBC Distribution Width SD 43.9 fl (35.1-43.9); Red Blood Count 4.71 M/mm3 (4.6-6.2); White Blood Count 7.9 K/mm3 (4.4-11.0)
[2021-01-11 17:00] LABS: ALB/GLOB Ratio 0.9 RATIO (0.9-2.4); AST(SGOT) 12 U/L (15-37); Alanine Aminotransfer ALT/SGPT 20 U/L (16-61); Albumin, Serum 3.6 g/dL (3.2-5.0); Alkaline Phosphatase 86 U/L (45-117); Anion Gap 5 (5-15); BUN 15 mg/dL (7-18); Calcium,Total 9.8 mg/dL (8.5-10.1); Chloride 101 mmol/L (98-107); Creatinine, Serum 0.94 mg/dL (0.70-1.30); EST Glomerular Filtration Rate 84 mL/min (>60); Est Glom Filt Rate - Afr Amer 101 mL/min (>60); Globulin 4.2 g/dL (2.2-4.2); Glucose 190 mg/dL (74-106); Potassium 4.3 mmol/L (3.5-5.1); Protein, Total 7.8 g/dL (6.4-8.2); Sodium Level 135 mmol/L (136-145); Uric Acid 2.8 mg/dL (3.5-7.2)
[2021-01-11 17:23] LABS: Vitamin D,25 Hydroxy 15.6 ng/mL
== END ==
PROVIDERS: PCP Family Medicine Geriatric Medicine; Visit Provider Family Medicine Geriatric Medicine
DX: E11.9 Type 2 diabetes mellitus without complications (principal); I10 Essential (primary) hypertension; M10.9 Gout, unspecified; E55.9 Vitamin D deficiency, unspecified
CPT/HCPCS: 36415; 80053; 82306; 84443; 84550; 85025

== ENCOUNTER 2021-04-11 10:54 | Inpatient (IN) | payer MEDICARE, SELFPAY ==
[2021-04-11] VITALS (13 sets, daily range): BP systolic 130–187; BP diastolic 64–128; PULSE 74–83; RESP 9–19; TEMP 36.2–36.9; O2SAT 94–99; BMI 20.9; BMI 22.2; BMI 23.0
--- NOTE | 2021-04-11 11:04 | CT_ITS ---
STUDY: CTA HEAD AND NECK WITH CONTRAST REASON FOR EXAM: Male, 75 years old. Neuro deficit, acute, stroke suspected RADIATION DOSAGE (If Supplied By Facility): CTDIvol = ( 40.40 ) mGy, DLP = ( 2644.19 ) mGycm TECHNIQUE: CT angiography was performed with a multi-detector CT scanner. Data acquisition was obtained from the skull base through the vertex following intravenous administration of IV 100mL [id number]-370. MIP images were reconstructed from the axial data set. Post-processing of the angiographic images was performed, with multiplanar reformation and 3D reconstruction. Individualized dose optimization techniques were used for this CT. COMPARISON: No relevant priors. FINDINGS: Normal bilateral petrous carotid arteries. Normal right cavernous carotid artery with a normal supraclinoid bifurcation. Normal left cavernous carotid artery with a normal supraclinoid bifurcation. Normal right A1 segments of the anterior cerebral artery. Normal left A1 segments of the anterior cerebral artery. Normal intact anterior communicating artery (ACOM). Normal bilateral A2 segments of the anterior cerebral arteries. Normal right M1 and M2 segments of the middle cerebral arteries, with a normal M1 bifurcation. Normal left M1 and M2 segments of the middle cerebral arteries, with a normal M1 bifurcation. Normal right posterior communicating artery (PCOM). Normal left posterior communicating artery (PCOM). Normal bilateral vertebral arteries. Normal basilar artery with a normal basilar bifurcation. The visualized bilateral superior cerebellar (SCA) arteries are normal. Normal bilateral P1, P2 and visualized P3 segments of the posterior cerebral arteries. There is no demonstrated aneurysm of the telida of White. Diffuse cerebral atrophy. Encephalomalacia in the inferior aspects of both frontal lobes suggestive of prior ischemic insult. AORTIC ARCH: There is atherosclerotic calcific plaque formation of the aortic arch and great vessels arising from the aortic arch, without a hemodynamically significant stenosis. There is a normal origin of the brachiocephalic, left common carotid, and left subclavian arteries. RIGHT CAROTID ARTERIES: Normal right common carotid artery (CCA). Normal right common carotid bulb. There is moderate atherosclerotic plaque formation of the origin of the right internal carotid artery with an estimated stenosis of 50-69% stenosis. Normal visualized cervical portion of the right internal carotid artery. Normal origin of the right external carotid artery (ECA). LEFT CAROTID ARTERIES: Normal left common carotid artery (CCA). Normal left common carotid bulb. There is moderate atherosclerotic plaque formation of the origin of the left internal carotid artery with an estimated stenosis of 50-69% stenosis. Normal visualized cervical portion of the left internal carotid artery. Normal origin of the left external carotid artery (ECA). VERTEBRAL ARTERIES: Normal bilateral vertebral arteries. CT/STROKE CTA Head AND Neck W/Con IMPRESSION: Moderate degree of bilateral carotid stenosis due to calcific plaque measuring between 50 and 69% luminal narrowing. Chronic ischemic changes in the brain. Heterogeneity of the thyroid gland. Degenerative changes of the cervical spine. N.B. : The above Results were Read Back by Aric Urrutia MD to Dr Saran MD, and understanding confirmed on 04/11/2021 12:22:15 (ET). Electronically Signed: Aric Urrutia MD at 12:23 EST , Service support ,
--- NOTE | 2021-04-11 11:04 | EKG12_ITS ---
Test Reason : NEURO Blood Pressure : / mmHG Vent. Rate : 077 BPM Atrial Rate : 077 BPM P-R Int : 184 ms QRS Dur : 080 ms QT Int : 368 ms P-R-T Axes : 045 -52 031 degrees QTc Int : 416 ms Sinus rhythm with Premature supraventricular complexes Left axis deviation Nonspecific T wave abnormality Abnormal ECG Confirmed by PAU PEREZ, MATT ([id number]), market editor ANA HENRY ([id number]) on 04/13/2021 11:05:17 AM Referred By: RAMIRO Confirmed By:MATT MAI MD
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
--- NOTE | 2021-04-11 11:09 | CM.ED ---
SW Note Referral source: Stroke Alert Referral Reason: Stroke ALert SW provided emotional support to Yrn Francisco BRITTNEY/Timothy. Yrn said that he has been caring for patient and Yrn's mom for 4 years. SW remains available if needs arise. Key CEBALLOS
[2021-04-11 11:10] LABS: Absolute Lymphocyte Count 2.22 X10^3/uL (0.83-4.51); Absolute Neutrophil Count 6.5 X10^3/uL (2.0-7.7); Basophil# 0.13 X10^3/uL; Basophil% 1.3 % (0-1); Hematocrit 43.4 % (40-54); Hemoglobin 14.5 g/dL (13.0-16.5); Lymphocyte # 2.22 X10^3/ul (0.83-4.51); Lymphocyte % 22.4 % (19-41); Mean Corp Hgb Conc 33.4 g/dL (32-36); Mean Corpuscular Hgb 29.2 pg (27.0-32.0); Mean Corpuscular Volume 87.3 fL (80-94); Monocyte# 0.78 X10^3/uL; Monocyte% 7.9 % (0-10); NRBC Flagged by Analyzer 0 % (0-5); Neutrophil # 6.47 X10^3/uL (2.7-7.7); Neutrophil % 65.1 % (47-70); Platelet Count 266 K/mm3 (150-450); RBC Distribution Width CV 13.7 % (11.6-14.6); RBC Distribution Width SD 43.9 fl (35.1-43.9); Red Blood Count 4.97 M/mm3 (4.6-6.2); White Blood Count 9.9 K/mm3 (4.4-11.0)
--- NOTE | 2021-04-11 11:30 | RAD_ITS ---
STUDY: X-RAY CHEST REASON FOR EXAM: Male, 75 years old. Neuro deficit, acute, stroke suspected TECHNIQUE: Single AP portable view of the chest. COMPARISON: Comparison is made with prior study dated 03/07/2021. FINDINGS: EKG electrodes are seen. The lungs are clear and expanded. There is no demonstrated pleural abnormality. Normal size heart. Normal mediastinum and perry. Normal visualized pulmonary arteries. There is atherosclerotic calcification of the aortic arch with tortuosity. There are diffuse degenerative changes of the visualized thoracic spine. There is degenerative osteoarthritis of the bilateral shoulders. Surgical clips are seen in the right upper quadrant. RAD/Chest 1 View IMPRESSION: No acute abnormality is seen. Electronically Signed: Aric Urrutia MD at 11:51 EST , Service support ,
[2021-04-11 11:34] LABS: Anion Gap 7 (5-15); BUN 13 mg/dL (7-18); BUN/Creat Ratio 12.3 RATIO (10-20); Calcium,Total 9.5 mg/dL (8.5-10.1); Chloride 99 mmol/L (98-107); Creatinine, Serum 1.06 mg/dL (0.70-1.30); EST Glomerular Filtration Rate 73 mL/min (>60); Est Glom Filt Rate - Afr Amer 88 mL/min (>60); Estimated Creatinine Clearance 47.22 ml/min; Glucose 221 mg/dL (74-106); Sodium Level 136 mmol/L (136-145); Troponin-I HS 12 pg/mL (3.0-78.0)
[2021-04-11 12:08] LABS: Prothrombin Time (Protime)PT. 12.7 SECONDS (11.7-14.9)
[2021-04-11 12:09] LABS: Partial Thromboplast Time 28.7 Seconds (24.1-36.2)
[2021-04-11] MEDS: Labetalol (Prefilled) 20 MG/4 ML IV (14:24)
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
[2021-04-11 15:38] LABS: Bedside Glucose 237 mg/dL (70-110)
--- NOTE | 2021-04-11 16:31 | MRI_ITS ---
STUDY: MRI BRAIN WITHOUT CONTRAST REASON FOR EXAM: Male, 75 years old. slurred speech. right face and arm numbness. TECHNIQUE: Standardized multiplanar fat and water weighted pulse sequences were obtained. COMPARISON: MRI brain 07/17/2017 and 06/15/2020. Also compared with CT head 04/11/2021. 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 There is also moderate periventricular white matter increased T2 FLAIR signal suggesting chronic small vessel ischemic changes. There is no restricted diffusion. There is moderate parenchymal volume loss. Normal bilateral basal ganglia. Normal thalami. There is no extra-axial fluid accumulation. Normal flow voids within the major intracranial circulation suggesting patency by spin echo criteria. Normal sella turcica, pituitary gland, infundibular stalk, optic chiasm and hypothalamus. Normal tectal plate and pineal gland. Normal midbrain, velma and medulla. Normal cerebellum. Normal basal cisterns. Normal bilateral temporal bones. Normal bilateral internal auditory canals. Evidence of prior orbital trauma are again demonstrated bilaterally. Prior maxillofacial posttraumatic morphologic changes again demonstrated. Mucosal thickening right maxillary sinus. Normal calvarium and skull base. Normal visualized soft tissue structures. Normal visualized upper cervical spine. MRI/Brain without Contrast IMPRESSION: Worsening bilateral frontal lobe gliosis. Chronic small vessel ischemic changes periventricular white matter. No evidence of acute infarct or ischemia. Posttraumatic orbital and maxillofacial changes as above. Electronically Signed: Cristhian Draper DO at 21:14 EST Tel , Service support ,
--- NOTE | 2021-04-11 16:31 | ECHOCS_ITS ---
Reason For Study: TIA/CVA Procedure This was a 2D Doppler, Color Flow transthoracic echocardiogram. Techncially difficult study, patient had a hard time staying in position. Contrast injection and Bubble study were performed. The study was technically difficult. Contrast injection was performed. Exam performed portable in patient room. Left Ventricle Normal LV size. Left ventricular systolic function is normal. The estimated ejection fraction is 65 %. Diastolic function is indeterminate. No regional wall motion abnormalities noted. Right Ventricle Normal RV size. Normal systolic function. Atria Normal left atrium. Normal right atrium. No doppler evidence for ASD. Bubble contrast study negative for right to left interatrial shunt. Mitral Valve There is moderate to severe mitral annular calcification. Extension of the mitral annular calcification on the base of the posterior mitral valve leaflet. Mild mitral valve stenosis. Trivial mitral valve insufficiency. Tricuspid Valve Normal tricuspid valve. Trivial tricuspid valve insufficiency. Unable to estimate RV systolic pressure/pulmonary artery pressure due to technically difficult study. Aortic Valve Trisinus/trileaflet aortic valve. Mild diffuse aortic valve thickening. Mild focal aortic valve thickening. Mild focal aortic valve calcification. Trivial aortic valve insufficiency. Pulmonic Valve The pulmonic valve is not well visualized. Great Vessels The aortic root is not well visualized. Pericardium/Pleural No pericardial effusion. Medication Diluted definity 2ml given slow IV push to enhance endocardial definition. Performed a rapid injection of agitated mix of 9 cc saline and 1cc air to assess for atrial septal defect. MMode/2D Measurements & Calculations LVIDd: 4.2 cm IVSd: 1.2 cm LA dimension: 3.0 cm LVIDs: 1.9 cm LVPWd: 1.3 cm FS: 54.3 % LAV(MOD-bp): 26.3 ml LA A4 area: 10.1 cm2 RA A4 area: 7.6 cm2 LAV(MOD-bp) Indexed: 17.0 ml/m2 LAV(MOD-sp2): 27.9 ml LAV(MOD-sp4): 19.1 ml Time Measurements MV dec time: 0.33 sec Doppler Measurements & Calculations MV E max amanuel: 63.6 cm/sec Lat Peak E' Amanuel: 5.3 cm/sec Med Peak E' Amanuel: 4.6 cm/sec MV A max amanuel: 118.1 cm/sec E/E' lat: 12.0 E/E' med: 13.9 MV E/A: 0.54 MV V2 max: 123.3 cm/sec MV P1/2t max amanuel: 70.3 cm/sec Ao V2 max: 143.5 cm/sec MV max P.1 mmHg MV P1/2t: 127.9 msec Ao max P.2 mmHg MV V2 mean: 58.3 cm/sec MV dec slope: 161.0 cm/sec2 MV mean P.6 mmHg MV V2 VTI: 31.2 cm MVA(P1/2t): 1.7 cm2 AI max amanuel: 335.5 cm/sec LV V1 max: 91.7 cm/sec PA V2 max: 87.6 cm/sec AI max P.0 mmHg LV V1 max P.4 mmHg AI dec slope: 181.5 cm/sec2 AI P1/2t: 541.2 msec ECHO/Echo Complete W/ Contrast Interpretation Summary The study was technically difficult. Contrast injection was performed. Left ventricular systolic function is normal. The estimated ejection fraction is 65 %. There is moderate to severe mitral annular calcification. Extension of the mitral annular calcification on the base of the posterior mitr al valve leaflet. Mild mitral valve stenosis. Trivial mitral valve insufficiency. Trivial tricuspid valve insufficiency. Mild diffuse aortic valve thickening. Mild focal aortic valve thickening. Mild focal aortic valve calcification. Trivial aortic valve insufficiency. Unable to estimate RV systolic pressure/pulmonary artery pressure due to techni robin difficult study. Diastolic function is indeterminate. Bubble contrast study negative for right to left interatrial shunt. Ordering Physician: Papito Rueda Referring Physician: Micheal Peralta Chi Performed By: Wolf García RCS
--- NOTE | 2021-04-11 16:53 | NURSING ---
Unable to assess visual bae on NIH because pt is blind chronically.
--- NOTE | 2021-04-11 16:54 | PCS.PANDOC ---
PANDEMIC DOCUMENTATION INITIATED: Date: 11/21/2020 Time: 190
[2021-04-11 17:11] LABS: Troponin-I HS 14 pg/mL (3.0-78.0)
[2021-04-11 18:46] LABS: Bedside Glucose 218 mg/dL (70-110)
[2021-04-11] MEDS: Insulin Lispro 100 UNIT/ML INSULN.PEN SC (18:46)
--- NOTE | 2021-04-11 20:00 | CPS ---
unable to find pulse ox probe for cont pox
[2021-04-11] MEDS: Atorvastatin Calcium 40 MG Tablet PO (22:59)
[2021-04-11] MEDS: QUEtiapine 25 MG Tablet PO (22:59)
[2021-04-11 23:25] LABS: Bedside Glucose 208 mg/dL (70-110)
[2021-04-12 03:00] VITALS: BP 118/70; PULSE 69; RESP 18; TEMP 36.6; O2SAT 96
[2021-04-12 03:01] VITALS: PULSE 65
[2021-04-12 03:51] VITALS: BMI 23.0
[2021-04-12 06:31] LABS: Bedside Glucose 167 mg/dL (70-110)
[2021-04-12 06:54] LABS: Cholesterol 122 mg/dL (200); High Density Lipoprotein 49 mg/dL; Triglycerides 110 mg/dL; Very Low Density Lipoprotein 22 mg/dL (5-40)
[2021-04-12 07:00] VITALS: PULSE 66
[2021-04-12] MEDS: Insulin Lispro 100 UNIT/ML INSULN.PEN SC ×2 (07:05→11:43)
[2021-04-12 07:10] LABS: Bedside Glucose 179 mg/dL (70-110)
[2021-04-12 07:20] VITALS: O2SAT 99
--- NOTE | 2021-04-12 07:35 | TELEMED_ITS ---
[facility] Telemed has confirmed receipt of a request for visit. This document confirms receipt of the order initiating the consult. To find the results of the consultation, please view the patient's reports for the scanned Telemed Consult.
[2021-04-12 08:20] VITALS: BP 119/76; PULSE 64; RESP 18; TEMP 37; O2SAT 93
[2021-04-12] MEDS: Pantoprazole Sodium 40 MG Tablet PO (08:24)
[2021-04-12] MEDS: Citalopram 20 MG Tablet PO (08:24)
[2021-04-12] MEDS: Finasteride 5 MG Tablet PO (08:24)
[2021-04-12] MEDS: Enoxaparin 40 MG/0.4 ML Syringe SC (08:24)
--- NOTE | 2021-04-12 10:53 | CDU_ITS ---
Reason For Study: stenosis Rt. Velocities/BP Lt. Velocities/BP Prox CCA 64.4/9.4 cm/sec. Prox CCA 90.0/10.2 cm/sec. Mid CCA 67.7/14.9 cm/sec. Mid CCA 90.4/15.5 cm/sec. Dist CCA 80.9/17.1 cm/sec. Dist CCA 124.8/21.6 cm/sec. Prox ICA 85.3/20.4 cm/sec. Prox ICA 116.7/23.6 cm/sec. Mid ICA 92.9/27.0 cm/sec. Mid ICA 84.5/19.7 cm/sec. Dist ICA 79.8/20.4 cm/sec. Dist ICA 65.8/16.4 cm/sec. Rt. ICA/CCA = 92.9/67.7=1.4. Lt. ICA/CCA = 116.7/90.4=1.3. Prox ECA 88.5/5.1 cm/sec. Prox ECA 102.1/7.1 cm/sec. Rt. Vert. 30.4/7.8 cm/sec. Lt. Vert. 45.3/10.4 cm/sec. Right Extracranial There is heterogeneous, irregular atherosclerotic plaque noted in the right common carotid artery. There is heterogeneous, irregular atherosclerotic plaque noted in the right internal carotid artery. There is intimal thickening but no significant atherosclerotic plaque noted in the right external carotid artery. Antegrade flow is noted in the right vertebral artery. Left Extracranial There is heterogeneous, irregular atherosclerotic plaque noted in the left common carotid artery. There is heterogeneous, irregular atherosclerotic plaque noted in the left internal carotid artery. There is intimal thickening but no significant atherosclerotic plaque noted in the left external carotid artery. Antegrade flow is noted in the left vertebral artery. Procedure Carotid Duplex 90306. This is a Carotid Duplex examination using B-mode, color flow and specral Doppler. The study was technically difficult. PT was unable to lie still for exam. Exam performed portable in patient room. VL/Carotid Duplex Ultrasound Interpretation Summary Irregular calcific plaque right common carotid, carotid bulb and proximal inter nal carotid artery with less than 50% stenosis of the right internal carotid artery Less than 50% stenosis right external carotid artery Irregular calcific plaque with shadowing at the proximal left internal carotid artery with less than 50% stenosis Less than 50% stenosis left external carotid artery Patent antegrade vertebral arteries bilaterally Ordering Physician: Iva Story Referring Physician: Micheal Peralta Chi Performed By: Maine Rowell, RDCS, RVT
[2021-04-12 11:55] LABS: Bedside Glucose 245 mg/dL (70-110)
--- NOTE | 2021-04-12 11:59 | PCM.DC.SUM ---
Providers Date of Admission: 04/11/21 Primary Care Physician: Dr. Micheal Peralta MD Consultations 04/12/21 10:54 Consult: Vascular Surgery Routine Consulting Provider: Guillermo Walter Reason for Consult: carotid stenosis EMERGENT Consult: No MD Notified: Yes Date Notified: 04/12/21 Time Notified: 10:54 Method of Notification: office Reason For Visit: TIA, BLINDNESS Diagnosis Discharge Diagnosis (1) Brain TIA: Status: Acute Code(s): G45.9 - Transient cerebral ischemic attack, unspecified Medications at Discharge Home Medications atorvastatin 40 mg PO QHS 07/17/18 finasteride 5 mg PO DAILY 07/17/18 quetiapine 25 mg PO QHS 07/17/18 citalopram 20 mg PO DAILY 11/05/20 levothyroxine 25 mcg PO DAILY 11/05/20 pantoprazole 40 mg PO DAILY 11/05/20 clopidogrel [Plavix] 75 mg PO DAILY #30 tab 04/12/21 metformin 1,000 mg PO BIDCM #60 tablet 04/12/21 Hospital Course Operations None Procedures 2-D Echocardiogram Summary of Care Provided Minutes Spent on Discharge: 41 Hospital Course: Mr. Bernabe is a 75-year-old white male who presented to the emergency department at [facility] on 04/11/2021 with a chief complaint of acute onset slurred speech as well as right face and arm numbness. The symptoms began approximately 9 AM and lasted for 30 to 45 minutes per the son-in-law. The patient has not had any previous issues with this and no history of stroke. A CTA was performed and found a moderate degree of bilateral carotid artery stenosis due to calcific plaque that was 50 to 69%. An MRI was able to be performed and showed worsening bilateral frontal lobe gliosis with chronic small vessel ischemic changes and periventricular white matter changes but no evidence of acute infarct or ischemia. Given his carotid artery findings of the bilateral carotid artery ultrasound was ordered and showed irregular calcific plaque in the right common carotid, carotid bulb, and proximal internal carotid artery with less than 50% stenosis in the right ICA and irregular calcific plaque with shadowing at the proximal left internal carotid artery with less than 50% stenosis there as well. Vertebral arteries were patent with antegrade flow. He was asymptomatic for his entire hospitalization. He was not a candidate for TPA on admission secondary to resolution of symptoms prior to arrival. An echocardiogram was performed and showed an EF of 65% with moderate to severe mitral annular calcification and mild mitral valve stenosis and a negative bubble study. He was seen by neurology. They recommended vascular follow-up given his carotid artery stenosis and this will be performed on an outpatient basis. He has follow-up with Dr. Walter next week. They also recommended the initiation of Plavix in addition to aspirin for total of 3 to 4 weeks after discharge. His lipid panel was within normal limits and he was continued on his atorvastatin, however his hemoglobin A1c was 8.0. Given his elevated hemoglobin A1c his Metformin was increased from 500 mg twice daily to 1000 mg twice daily. A prescription was sent to his pharmacy upon discharge and this was discussed with the patient prior to discharge as well. He had no needs upon discharge and was discharged home in stable condition on 04/12/2021. He was given instructions to follow-up with his PCP-1 to 2 weeks, Dr. Walter from vascular surgery-next week, and neurology-months. Discharge diagnoses: Suspected TIA Bilateral carotid artery stenosis DM-2 uncontrolled Hyperlipidemia BPH Hypothyroidism GERD CAD Hypertension Legal blindness Physical Exam Const alert, oriented x3, no apparent distress and average body habitus Constitutional Narrative: Older white male sitting up in a chair at the bedside, nursing at bedside, patient appears comfortable and nontoxic General Appearance: cooperative, comfortable, well kempt and well developed Orientation / Consciousness: awake Exam Limitations: no limitations HEENT normocephalic, hearing grossly normal bilaterally and moist oral mucous membranes Eyes EOMs intact bilaterally and conjunctivae normal Eyes Narrative: Patient with blindness, pupils nonreactive to light, no scleral icterus Neck no lymphadenopathy, supple, no JVD and no carotid bruits Neck Narrative: Trachea midline, no thyroid enlargement Resp normal respiratory effort, no retractions, no use of accessory muscles and clear to auscultation bilaterally Auscultation: Negative for crackles, rales, rhonchi or wheezes Cardio regular rate, regular rhythm, S1 normal heart sound, S2 normal heart sound, no murmurs, no rub, no gallops, no clicks and no JVD GI normal to inspection, nondistended, normoactive bowel sounds, soft to palpation, non-tender and non-distended Extremity normal to inspection and no clubbing, cyanosis or edema Skin no rashes or lesions noted and skin turgor normal Neuro oriented x3, moves all extremities and no focal motor deficits Sensorium / Orientation: awake and alert Speech: speech normal Psych affect normal Weight / BMI Weight Weight: 55.338 kg Body Mass Index (BMI) 23.0 ABG / Lab / Microbiology Data Result Diagrams: 04/11/21 11:00 04/11/21 11:00 Laboratory: Laboratory Results - last 24 hr 04/11/21 10:57: POC Glucose 237 H 04/11/21 11:00: PT 12.7, INR 1.0, APTT 28.7 04/11/21 11:00: Hemoglobin A1c 8.0 H 04/11/21 16:39: Troponin I High Sens 14 04/11/21 18:42: POC Glucose 218 H 04/11/21 23:19: POC Glucose 208 H 04/12/21 06:07: Triglycerides 110, Cholesterol 122, LDL Cholesterol 51, VLDL Cholesterol 22, HDL Cholesterol 49 04/12/21 06:16: POC Glucose 167 H 04/12/21 07:04: POC Glucose 179 H 04/12/21 11:40: POC Glucose 245 H Radiography Diagnostic Testing: Radiology Impression Head/Neck CTA 04/11/21 11:04 IMPRESSION: Moderate degree of bilateral carotid stenosis due to calcific plaque measuring between 50 and 69% luminal narrowing. Chronic ischemic changes in the brain. Heterogeneity of the thyroid gland. Degenerative changes of the cervical spine. N.B. : The above Results were Read Back by Aric Urrutia MD to Dr Saran MD, and understanding confirmed on 04/11/2021 12:22:15 (ET). Electronically Signed: Aric Urrutia MD at 12:23 EST , Service support , ADDENDUM: 04/11/21 1230 IMPRESSION: Moderate degree of bilateral carotid stenosis due to calcific plaque measuring between 50 and 69% luminal narrowing. Chronic ischemic changes in the brain. Heterogeneity of the thyroid gland. Degenerative changes of the cervical spine. N.B. : The above Results were Read Back by Aric Urrutia MD to Dr Saran MD, and understanding confirmed on 04/11/2021 12:22:15 (ET). Electronically Signed: Aric Urrutia MD at 12:23 EST , Service support , Brain MRI 04/11/21 16:31 IMPRESSION: Worsening bilateral frontal lobe gliosis. Chronic small vessel ischemic changes periventricular white matter. No evidence of acute infarct or ischemia. Posttraumatic orbital and maxillofacial changes as above. Electronically Signed: Cristhian Draper DO at 21:14 EST Tel , Service support , Echocardiogram 04/11/21 16:31 Interpretation Summary The study was technically difficult. Contrast injection was performed. Left ventricular systolic function is normal. The estimated ejection fraction is 65 %. There is moderate to severe mitral annular calcification. Extension of the mitral annular calcification on the base of the posterior mitral valve leaflet. Mild mitral valve stenosis. Trivial mitral valve insufficiency. Trivial tricuspid valve insufficiency. Mild diffuse aortic valve thickening. Mild focal aortic valve thickening. Mild focal aortic valve calcification. Trivial aortic valve insufficiency. Unable to estimate RV systolic pressure/pulmonary artery pressure due to technically difficult study. Diastolic function is indeterminate. Bubble contrast study negative for right to left interatrial shunt. Ordering Physician: Papito Rueda Referring Physician: Micheal Peralta Chi Performed By: Wolf García RCS D/C Instructions Discharge Diet: Low fat / Low cholesterol and 1800 Calorie Control Diet Discharge Activity: Return to Normal Activity Return to work on: 04/17/21 Meaningful Use Info Meaningful Use Diagnoses (Choose all that apply): None applicable Discharge Plan Admission Admit Date/Time: 01/04/22 14:26 Primary Reason for Your Visit: Slurred speech and facial droop Attending Provider: Iva Story Primary Care Provider: Micheal Peralta Chi Consulting Providers: Guillermo Walter Discharge Orders/Prescriptions Prescriptions: New clopidogrel [Plavix] 75 mg tablet 75 mg PO DAILY Qty: 30 RF: 0 Continued quetiapine 25 MG tablet 25 mg PO QHS RF: 0 atorvastatin 40 MG tablet 40 mg PO QHS RF: 0 finasteride 5 MG tablet 5 mg PO DAILY RF: 0 levothyroxine 25 mcg tablet 25 mcg PO DAILY RF: 0 citalopram 20 mg tablet 20 mg PO DAILY RF: 0 pantoprazole 40 mg tablet,delayed release (DR/EC) 40 mg PO DAILY RF: 0 Changed metformin 500 MG tablet 1,000 mg PO BIDCM Qty: 60 RF: 0 Referrals / Follow Up: Guillermo Walter MD [STAFF PHYSICIAN] - Within 1 Week (carotid artery stenosis) Micheal Peralta Chi, MD [Primary Care Provider] - Within 2 Weeks Adiel Del Cid MD [NON-STAFF] - Within 3 Months (For TIA) Disposition Disposition (needs filled in before D/C Order can be placed): Home, Self Care Charges/Coding Visit Charges Inpatient E&M: 42872 Disch Hosp
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
--- NOTE | 2021-04-12 14:19 | PHA.DC.MR ---
Pharmacy Service has performed discharge medication reconciliation for this patient. The patient's discharge medication list was reviewed for discrepancies and discrepancies were resolved. Home Medications atorvastatin 40 mg PO QHS 07/17/18 finasteride 5 mg PO DAILY 07/17/18 quetiapine 25 mg PO QHS 07/17/18 citalopram 20 mg PO DAILY 11/05/20 levothyroxine 25 mcg PO DAILY 11/05/20 pantoprazole 40 mg PO DAILY 11/05/20 clopidogrel [Plavix] 75 mg PO DAILY #30 tab 04/12/21 metformin 1,000 mg PO BIDCM #60 tablet 04/12/21
[2021-04-12 14:20] VITALS: BP 118/78; PULSE 73; RESP 18; TEMP 37; O2SAT 96
--- NOTE | 2021-04-12 15:30 | CASEMGMT ---
Per therapy, no further therapy recommended at discharge. Pt does have 24/ caregivers as well as family in home to assist. Pt/family voiced no concerns with pt going home at discharge. Anayeli MARR CM
[2021-04-12 16:40] LABS: Bedside Glucose 147 mg/dL (70-110)
== END 2021-04-12 16:50 | disposition home health service (06) | DRG 69 ==
LOC: ED 13:49 → PCU 14:19
PROVIDERS: Emergency Provider Emergency Medicine; PCP Family Medicine Geriatric Medicine; Visit Provider Internal Medicine
DX: G45.9 Transient cerebral ischemic attack, unspecified (principal); R29.810 Facial weakness; R47.81 Slurred speech; R20.0 Anesthesia of skin; I16.0 Hypertensive urgency; H54.8 Legal blindness, as defined in USA; I25.10 Atherosclerotic heart disease of native coronary artery without angina pectoris; E11.9 Type 2 diabetes mellitus without complications; I10 Essential (primary) hypertension; E78.5 Hyperlipidemia, unspecified; E03.9 Hypothyroidism, unspecified; R56.9 Unspecified convulsions; K21.9 Gastro-esophageal reflux disease without esophagitis; N40.0 Benign prostatic hyperplasia without lower urinary tract symptoms; Z79.84 Long term (current) use of oral hypoglycemic drugs; Z79.02 Long term (current) use of antithrombotics/antiplatelets; Z79.890 Hormone replacement therapy; Z79.899 Other long term (current) drug therapy; Z87.891 Personal history of nicotine dependence
CPT/HCPCS: 36415; 70496; 70498; 70551; 71045; 80048; 80061; 82962; 83036; 84484; 85025; 85610; 85730; 93005; 93306; 93880; 94762; 97161; 99285; Q9957; Q9967; A4216; C8929

== ENCOUNTER 2021-04-18 09:17 | Outpatient (CLI) | payer MEDICARE, SELFPAY ==
[2021-04-18 11:03] LABS: Absolute Lymphocyte Count 2.45 X10^3/uL (0.83-4.51); Absolute Neutrophil Count 3.9 X10^3/uL (2.0-7.7); Basophil% 1.4 % (0-1); Eosinophil# 0.26 X10^3/uL; Eosinophils% 3.6 % (0-5); Hematocrit 43.9 % (40-54); Hemoglobin 14.2 g/dL (13.0-16.5); Lymphocyte # 2.45 X10^3/ul (0.83-4.51); Lymphocyte % 33.9 % (19-41); Mean Corp Hgb Conc 32.3 g/dL (32-36); Mean Corpuscular Hgb 28.4 pg (27.0-32.0); Mean Corpuscular Volume 87.8 fL (80-94); Mean Platelet Vol. 10.9 fl (6.2-12.0); Monocyte# 0.54 X10^3/uL; Monocyte% 7.5 % (0-10); NRBC Flagged by Analyzer 0 % (0-5); Neutrophil # 3.85 X10^3/uL (2.7-7.7); Neutrophil % 53.3 % (47-70); Platelet Count 325 K/mm3 (150-450); RBC Distribution Width CV 13.7 % (11.6-14.6); White Blood Count 7.2 K/mm3 (4.4-11.0)
[2021-04-18 11:30] LABS: Vitamin D,25 Hydroxy 17.8 ng/mL
[2021-04-18 11:38] LABS: ALB/GLOB Ratio 0.8 RATIO (0.9-2.4); AST(SGOT) 28 U/L (15-37); Alanine Aminotransfer ALT/SGPT 35 U/L (16-61); Albumin, Serum 3.6 g/dL (3.2-5.0); Alkaline Phosphatase 92 U/L (45-117); Anion Gap 11 (5-15); BUN 9 mg/dL (7-18); BUN/Creat Ratio 7.6 RATIO (10-20); Calcium,Total 9.4 mg/dL (8.5-10.1); Chloride 102 mmol/L (98-107); Creatinine, Serum 1.19 mg/dL (0.70-1.30); EST Glomerular Filtration Rate 64 mL/min (>60); Est Glom Filt Rate - Afr Amer 77 mL/min (>60); Globulin 4.3 g/dL (2.2-4.2); Glucose 229 mg/dL (74-106); Potassium 4.1 mmol/L (3.5-5.1); Protein, Total 7.9 g/dL (6.4-8.2); Sodium Level 138 mmol/L (136-145)
== END 2021-04-18 23:59 | disposition short-term general hospital (02) ==
LOC: POLAB3 09:22
PROVIDERS: PCP Family Medicine Geriatric Medicine; Visit Provider Family Medicine Geriatric Medicine
DX: E11.9 Type 2 diabetes mellitus without complications (principal); E55.9 Vitamin D deficiency, unspecified; I10 Essential (primary) hypertension
CPT/HCPCS: 36415; 80053; 82306; 84443; 85025

== ENCOUNTER 2021-06-06 11:59 | Outpatient (CLI) | payer MEDICARE, SELFPAY ==
--- NOTE | 2021-06-06 12:14 | CT_ITS ---
STUDY: CT ABDOMEN AND PELVIS WITHOUT CONTRAST REASON FOR EXAM: Male, 75 years old. ABD PAIN RADIATION DOSAGE (If Supplied By Facility): CTDIvol = ( 6.35 ) mGy, DLP = ( 306.01 ) mGycm TECHNIQUE: Transaxial images were obtained from the dome of the diaphragm to the symphysis pubis without oral contrast, and without intravenous contrast. Sagittal and coronal images were reconstructed. Individualized dose optimization techniques were used for this CT. COMPARISON: Comparison is made with prior study dated 07/14/2014. FINDINGS: The visualized lung bases are unremarkable. Coronary artery calcification. Normal liver. There are surgical clips in the gallbladder fossa consistent with a prior cholecystectomy. Normal spleen. Normal pancreas. Normal bilateral adrenal glands. Normal right kidney. Normal left kidney. Normal visualized stomach. Fluid and contrast material filled small bowel loops. They measure upper limits of normal. Oral contrast and fecal material are seen in the right hemicolon. Normal colon. The appendix is visualized and appears normal. There is diffuse atherosclerotic calcification of the abdominal aorta and its major visceral branches, without a demonstrated aneurysm. Normal inferior vena cava. There is borderline retroperitoneal lymphadenopathy with enlarged nodes no greater than 10mm in the short axis diameter. Normal urinary bladder. There is enlargement of the prostate gland. It measures 4.6 times by 5 cm. This causes indentation at the bladder base. There is a left-sided inguinal hernia containing adipose tissue. There are diffuse degenerative changes of the visualized lumbar spine. CT/Abdomen/Pel W ORAL Cont Only IMPRESSION: Fluid-filled small bowel loops measuring upper limits of normal. Contrast is seen within the colon. This may represent findings suggestive of enteritis. Electronically Signed: Aric Urrutia MD at 14:56 EST ,
[2021-06-06 12:31] LABS: Absolute Lymphocyte Count 1.94 X10^3/uL (0.83-4.51); Absolute Neutrophil Count 4.1 X10^3/uL (2.0-7.7); Basophil% 1.4 % (0-1); Eosinophils% 5.6 % (0-5); Hemoglobin 12.3 g/dL (13.0-16.5); Lymphocyte # 1.94 X10^3/ul (0.83-4.51); Mean Corp Hgb Conc 32.4 g/dL (32-36); Mean Corpuscular Hgb 28.7 pg (27.0-32.0); Mean Corpuscular Volume 88.6 fL (80-94); Mean Platelet Vol. 10.4 fl (6.2-12.0); Monocyte# 0.65 X10^3/uL; NRBC Flagged by Analyzer 0 % (0-5); Neutrophil # 4.08 X10^3/uL (2.7-7.7); Neutrophil % 56.7 % (47-70); Platelet Count 227 K/mm3 (150-450); RBC Distribution Width CV 14.4 % (11.6-14.6); RBC Distribution Width SD 46.5 fl (35.1-43.9); Red Blood Count 4.29 M/mm3 (4.6-6.2); White Blood Count 7.2 K/mm3 (4.4-11.0)
[2021-06-06 13:22] LABS: ALB/GLOB Ratio 0.9 RATIO (0.9-2.4); AST(SGOT) 14 U/L (15-37); Alanine Aminotransfer ALT/SGPT 13 U/L (16-61); Albumin, Serum 3.4 g/dL (3.2-5.0); Alkaline Phosphatase 68 U/L (45-117); Amylase 56 U/L (25-115); Anion Gap 7 (5-15); BUN 13 mg/dL (7-18); BUN/Creat Ratio 14.7 RATIO (10-20); Chloride 109 mmol/L (98-107); Creatinine, Serum 0.88 mg/dL (0.70-1.30); EST Glomerular Filtration Rate 89 mL/min (>60); Est Glom Filt Rate - Afr Amer 108 mL/min (>60); Globulin 3.9 g/dL (2.2-4.2); Glucose 113 mg/dL (74-106); Lipase 120 U/L (73-393); Protein, Total 7.3 g/dL (6.4-8.2); Sodium Level 141 mmol/L (136-145)
== END 2021-06-06 23:59 | disposition home or self-care (01) ==
PROVIDERS: PCP Family Medicine Geriatric Medicine; Referring Provider Family Medicine Geriatric Medicine; Visit Provider Family Medicine Geriatric Medicine
DX: N39.0 Urinary tract infection, site not specified (principal); R10.9 Unspecified abdominal pain
CPT/HCPCS: 36415; 74176; 80053; 82150; 83690; 85025; 87086; 87088

== ENCOUNTER 2021-06-26 08:27 | Outpatient (CLI) | payer MEDICARE, SELFPAY ==
--- NOTE | 2021-06-26 08:31 | CT_ITS ---
STUDY: CTA NECK WITH CONTRAST REASON FOR EXAM: Male, 75 years old. CAROTID ARTERY STENOSIS BILAT RADIATION DOSAGE (If Supplied By Facility): CTDIvol = ( 15.19 ) mGy, DLP = ( 452.57 ) mGycm TECHNIQUE: CT angiography with multi-detector data acquisition was performed from the aortic arch to the skull base following intravenous administration of IV 100mL [id number]-370. MIP images were reconstructed from the axial data set. Post-processing of the angiographic images was performed, with multiplanar reformation and 3D reconstruction. Individualized dose optimization techniques were used for this CT. COMPARISON: Comparison is made with prior study dated 04/11/2021. FINDINGS: AORTIC ARCH: There is atherosclerotic calcific plaque formation of the aortic arch and great vessels arising from the aortic arch, without a hemodynamically significant stenosis. There is a normal origin of the brachiocephalic, left common carotid, and left subclavian arteries. Atherosclerotic calcific plaques at the origin of the left subclavian artery. RIGHT CAROTID ARTERIES: Normal right common carotid artery (CCA). Normal right common carotid bulb. There is mild atherosclerotic plaque formation of the origin of the right internal carotid artery with less than 50% cross sectional diameter stenosis. Normal visualized cervical portion of the right internal carotid artery. Normal origin of the right external carotid artery (ECA). LEFT CAROTID ARTERIES: Normal left common carotid artery (CCA). Normal left common carotid bulb. There is moderate atherosclerotic plaque formation of the origin of the left internal carotid artery with an estimated stenosis of 50-69% stenosis. Normal visualized cervical portion of the left internal carotid artery. Normal origin of the left external carotid artery (ECA). VERTEBRAL ARTERIES: Normal bilateral vertebral arteries. CT/CTA Neck W/WO Contrast IMPRESSION: Calcific plaque at the origin of the right internal carotid artery causing less than 50% luminal narrowing. 50-60% luminal narrowing at the origin of the left internal carotid artery. Electronically Signed: Aric Urrutia MD at 12:01 EDT ,
== END 2021-06-26 23:59 | disposition home or self-care (01) ==
LOC: CT 08:29
PROVIDERS: PCP Family Medicine Geriatric Medicine; Referring Provider Surgery Vascular Surgery; Visit Provider Surgery Vascular Surgery
DX: I65.23 Occlusion and stenosis of bilateral carotid arteries (principal); I63.9 Cerebral infarction, unspecified; E11.9 Type 2 diabetes mellitus without complications; E07.9 Disorder of thyroid, unspecified; E78.00 Pure hypercholesterolemia, unspecified; I10 Essential (primary) hypertension; F41.8 Other specified anxiety disorders; F32.A Depression, unspecified
CPT/HCPCS: 70498; Q9967

== ENCOUNTER 2021-07-19 13:54 | Outpatient (CLI) | payer MEDICARE, SELFPAY ==
[2021-07-19 14:52] LABS: Absolute Lymphocyte Count 1.99 X10^3/uL (0.83-4.51); Absolute Neutrophil Count 3.5 X10^3/uL (2.0-7.7); Basophil# 0.08 X10^3/uL; Basophil% 1.2 % (0-1); Eosinophil# 0.43 X10^3/uL; Eosinophils% 6.6 % (0-5); Hematocrit 38.9 % (40-54); Hemoglobin 12.5 g/dL (13.0-16.5); Lymphocyte # 1.99 X10^3/ul (0.83-4.51); Lymphocyte % 30.5 % (19-41); Mean Corp Hgb Conc 32.1 g/dL (32-36); Mean Corpuscular Hgb 28.8 pg (27.0-32.0); Mean Corpuscular Volume 89.6 fL (80-94); Mean Platelet Vol. 10.8 fl (6.2-12.0); Monocyte# 0.48 X10^3/uL; Monocyte% 7.4 % (0-10); NRBC Flagged by Analyzer 0 % (0-5); Neutrophil # 3.52 X10^3/uL (2.7-7.7); Platelet Count 259 K/mm3 (150-450); RBC Distribution Width CV 15.2 % (11.6-14.6); RBC Distribution Width SD 50.3 fl (35.1-43.9); Red Blood Count 4.34 M/mm3 (4.6-6.2); White Blood Count 6.5 K/mm3 (4.4-11.0)
[2021-07-19 15:13] LABS: Vitamin D,25 Hydroxy 16.3 ng/mL
[2021-07-19 15:18] LABS: AST(SGOT) 12 U/L (15-37); Alanine Aminotransfer ALT/SGPT 14 U/L (16-61); Albumin, Serum 3.6 g/dL (3.2-5.0); Alkaline Phosphatase 60 U/L (45-117); Anion Gap 5 (5-15); BUN 13 mg/dL (7-18); BUN/Creat Ratio 14.1 RATIO (10-20); Calcium,Total 8.9 mg/dL (8.5-10.1); Chloride 109 mmol/L (98-107); Cholesterol 152 mg/dL (200); Creatinine, Serum 0.92 mg/dL (0.70-1.30); EST Glomerular Filtration Rate 85 mL/min (>60); Est Glom Filt Rate - Afr Amer 103 mL/min (>60); Globulin 3.7 g/dL (2.2-4.2); Glucose 169 mg/dL (74-106); High Density Lipoprotein 70 mg/dL; Protein, Total 7.3 g/dL (6.4-8.2); Sodium Level 140 mmol/L (136-145); Thyroid Stim Hormone (TSH) 0.67 uIU/mL (0.358-3.74); Triglycerides 109 mg/dL; Uric Acid 3.1 mg/dL (3.5-7.2); Very Low Density Lipoprotein 22 mg/dL (5-40)
== END 2021-07-19 23:59 | disposition home or self-care (01) ==
LOC: POLAB3 13:54
PROVIDERS: PCP Family Medicine Geriatric Medicine; Visit Provider Family Medicine Geriatric Medicine
DX: E11.9 Type 2 diabetes mellitus without complications (principal); E55.9 Vitamin D deficiency, unspecified; E78.5 Hyperlipidemia, unspecified; I10 Essential (primary) hypertension; M10.9 Gout, unspecified
CPT/HCPCS: 36415; 80053; 80061; 82306; 84443; 84550; 85025

== ENCOUNTER → 2021-08-28 | Outpatient (CLI) | payer MEDICARE, SELFPAY ==
[2021-08-28 12:54] LABS: Absolute Lymphocyte Count 2.03 X10^3/uL (0.83-4.51); Absolute Neutrophil Count 3.8 X10^3/uL (2.0-7.7); Basophil# 0.08 X10^3/uL; Basophil% 1.1 % (0-1); Eosinophil# 0.48 X10^3/uL; Eosinophils% 6.7 % (0-5); Hematocrit 35.8 % (40-54); Hemoglobin 11.7 g/dL (13.0-16.5); Lymphocyte # 2.03 X10^3/ul (0.83-4.51); Lymphocyte % 28.3 % (19-41); Mean Corp Hgb Conc 32.7 g/dL (32-36); Mean Corpuscular Hgb 29.8 pg (27.0-32.0); Mean Corpuscular Volume 91.1 fL (80-94); Mean Platelet Vol. 10.6 fl (6.2-12.0); Monocyte# 0.73 X10^3/uL; Monocyte% 10.2 % (0-10); NRBC Flagged by Analyzer 0 % (0-5); Neutrophil # 3.83 X10^3/uL (2.7-7.7); Neutrophil % 53.4 % (47-70); Platelet Count 239 K/mm3 (150-450); RBC Distribution Width CV 14.8 % (11.6-14.6); RBC Distribution Width SD 49.5 fl (35.1-43.9); Red Blood Count 3.93 M/mm3 (4.6-6.2); White Blood Count 7.2 K/mm3 (4.4-11.0)
[2021-08-28 13:12] LABS: AST(SGOT) 10 U/L (15-37); Alanine Aminotransfer ALT/SGPT 14 U/L (16-61); Albumin, Serum 3.3 g/dL (3.2-5.0); Alkaline Phosphatase 60 U/L (45-117); Amylase 113 U/L (25-115); Anion Gap 8 (5-15); BUN 16 mg/dL (7-18); BUN/Creat Ratio 17.8 RATIO (10-20); Calcium,Total 9.1 mg/dL (8.5-10.1); Chloride 107 mmol/L (98-107); EST Glomerular Filtration Rate 88 mL/min (>60); Est Glom Filt Rate - Afr Amer 106 mL/min (>60); Globulin 3.3 g/dL (2.2-4.2); Glucose 176 mg/dL (74-106); Lipase 637 U/L (73-393); Potassium 3.8 mmol/L (3.5-5.1); Protein, Total 6.6 g/dL (6.4-8.2); Sodium Level 139 mmol/L (136-145)
== END | disposition home or self-care (01) ==
LOC: LABSPEC 12:02
PROVIDERS: PCP Family Medicine Geriatric Medicine; Visit Provider Family Medicine Geriatric Medicine
DX: N39.0 Urinary tract infection, site not specified (principal); R10.9 Unspecified abdominal pain
CPT/HCPCS: 36415; 80053; 82150; 83690; 85025; 87086; 87088

== ENCOUNTER → 2021-08-29 | Outpatient (CLI) | payer MEDICARE, SELFPAY ==
--- NOTE | 2021-08-29 10:00 | CT_ITS ---
STUDY: CT ABDOMEN AND PELVIS WITHOUT CONTRAST REASON FOR EXAM: Male, 75 years old. ABDOMINAL PAIN RADIATION DOSAGE (If Supplied By Facility): CTDIvol = ( 6.93 ) mGy, DLP = ( 311.66 ) mGycm TECHNIQUE: Transaxial images were obtained from the dome of the diaphragm to the symphysis pubis with oral contrast, and without intravenous contrast. Sagittal and coronal images were reconstructed. Individualized dose optimization techniques were used for this CT. COMPARISON: 06/06/2021 FINDINGS: The visualized lung bases are unremarkable. The visualized portions of the heart are within normal limits. Normal liver. There are surgical clips in the gallbladder fossa consistent with a prior cholecystectomy. Normal spleen. Normal pancreas. Normal bilateral adrenal glands. Normal right kidney. Normal left kidney. Normal visualized stomach. Normal small intestine. Normal colon. The appendix is visualized and appears normal. There is diffuse atherosclerotic calcification of the abdominal aorta, without a demonstrated aneurysm. Normal inferior vena cava. Normal retroperitoneum. Normal urinary bladder. There are prostatic calcifications. Normal abdominal wall. Mild dextroscoliosis of the lumbar spine with degenerative disc disease. CT/Abdomen/Pel W ORAL Cont Only IMPRESSION: Normal unenhanced CT of the abdomen and pelvis. Electronically Signed: Michael Smith MD at 12:21 EDT ,
== END | disposition home or self-care (01) ==
PROVIDERS: PCP Family Medicine Geriatric Medicine; Visit Provider Family Medicine Geriatric Medicine
DX: R10.9 Unspecified abdominal pain (principal)
CPT/HCPCS: 74176

== ENCOUNTER → 2021-10-17 | Outpatient (CLI) | payer MEDICARE, SELFPAY ==
[2021-10-17 12:29] LABS: Absolute Lymphocyte Count 1.93 X10^3/uL (0.83-4.51); Basophil# 0.08 X10^3/uL; Basophil% 1.1 % (0-1); Eosinophil# 0.49 X10^3/uL; Eosinophils% 6.9 % (0-5); Hematocrit 39.4 % (40-54); Hemoglobin 12.5 g/dL (13.0-16.5); Lymphocyte # 1.93 X10^3/ul (0.83-4.51); Mean Corp Hgb Conc 31.7 g/dL (32-36); Mean Corpuscular Hgb 28.9 pg (27.0-32.0); Mean Corpuscular Volume 91.2 fL (80-94); Mean Platelet Vol. 10.7 fl (6.2-12.0); Monocyte# 0.64 X10^3/uL; NRBC Flagged by Analyzer 0 % (0-5); Neutrophil # 3.98 X10^3/uL (2.7-7.7); Neutrophil % 55.7 % (47-70); Platelet Count 227 K/mm3 (150-450); RBC Distribution Width CV 14.1 % (11.6-14.6); RBC Distribution Width SD 47.6 fl (35.1-43.9); Red Blood Count 4.32 M/mm3 (4.6-6.2); White Blood Count 7.1 K/mm3 (4.4-11.0)
[2021-10-17 13:04] LABS: AST(SGOT) 15 U/L (15-37); Alanine Aminotransfer ALT/SGPT 14 U/L (16-61); Albumin, Serum 3.9 g/dL (3.2-5.0); Alkaline Phosphatase 69 U/L (45-117); Anion Gap 7 (5-15); BUN 12 mg/dL (7-18); Calcium,Total 9.3 mg/dL (8.5-10.1); Chloride 105 mmol/L (98-107); Creatinine, Serum 1.09 mg/dL (0.70-1.30); EST Glomerular Filtration Rate 70 mL/min (>60); Est Glom Filt Rate - Afr Amer 85 mL/min (>60); Glucose 98 mg/dL (74-106); Protein, Total 7.9 g/dL (6.4-8.2); Sodium Level 139 mmol/L (136-145); Thyroid Stim Hormone (TSH) 2.55 uIU/mL (0.358-3.74); Uric Acid 3.8 mg/dL (3.5-7.2)
[2021-10-17 14:37] LABS: Vitamin D,25 Hydroxy 17.4 ng/mL
== END | disposition home or self-care (01) ==
PROVIDERS: PCP Family Medicine Geriatric Medicine; Visit Provider Family Medicine Geriatric Medicine
DX: E11.9 Type 2 diabetes mellitus without complications (principal); E55.9 Vitamin D deficiency, unspecified; E78.5 Hyperlipidemia, unspecified; I10 Essential (primary) hypertension; M10.9 Gout, unspecified
CPT/HCPCS: 36415; 80053; 82306; 84443; 84550; 85025

== ENCOUNTER → 2021-12-21 | Outpatient (CLI) | payer MEDICARE, SELFPAY | END | disposition home or self-care (01) | LOC: PSN 10:15 | PROVIDERS: PCP Family Medicine Geriatric Medicine; Referring Provider Family Medicine Geriatric Medicine; Visit Provider Family Medicine Geriatric Medicine | DX: R68.83 Chills (without fever) (principal); Z20.822 Contact with and (suspected) exposure to COVID-19 | CPT/HCPCS: 87635; 87804; 87807; U0003; U0005 ==

== ENCOUNTER → 2022-01-12 | Outpatient (CLI) | payer MEDICARE, SELFPAY ==
[2022-01-12 10:41] LABS: Absolute Lymphocyte Count 1.88 X10^3/uL (0.83-4.51); Absolute Neutrophil Count 2.7 X10^3/uL (2.0-7.7); Basophil# 0.09 X10^3/uL; Basophil% 1.6 % (0-1); Eosinophil# 0.33 X10^3/uL; Hematocrit 37.3 % (40-54); Hemoglobin 11.7 g/dL (13.0-16.5); Lymphocyte # 1.88 X10^3/ul (0.83-4.51); Lymphocyte % 34.4 % (19-41); Mean Corp Hgb Conc 31.4 g/dL (32-36); Mean Corpuscular Hgb 28.6 pg (27.0-32.0); Mean Corpuscular Volume 91.2 fL (80-94); Mean Platelet Vol. 11.2 fl (6.2-12.0); Monocyte# 0.43 X10^3/uL; Monocyte% 7.9 % (0-10); NRBC Flagged by Analyzer 0 % (0-5); Neutrophil # 2.72 X10^3/uL (2.7-7.7); Neutrophil % 49.9 % (47-70); Platelet Count 250 K/mm3 (150-450); RBC Distribution Width SD 50.1 fl (35.1-43.9); Red Blood Count 4.09 M/mm3 (4.6-6.2); White Blood Count 5.5 K/mm3 (4.4-11.0)
--- NOTE | 2022-01-12 10:47 | RAD_ITS ---
STUDY: X-RAY - CERVICAL SPINE REASON FOR EXAM: Male, 76 years old. Neck pain. [place]lippery [place]. Woke with neck pain. TECHNIQUE: 3 view(s) of the cervical spine were obtained. COMPARISON: None FINDINGS: Normal anterior atlantoaxial articulation. Normal odontoid process. Normal cervical lordosis. There is multi-level endplate spondylosis. Normal disc space heights. There is no evidence of acute fracture or loss of vertebral axial height. There is maintenance of normal alignment The soft tissue structures are unremarkable. RAD/Cerv Spine 2 or 3 Views IMPRESSION: Degenerative changes of the cervical spine. Electronically Signed: Travis Sánchez DO at 21:35 EDT ,
[2022-01-12 10:59] LABS: Vitamin D,25 Hydroxy 15.3 ng/mL
[2022-01-12 11:07] LABS: ALB/GLOB Ratio 0.7 RATIO (0.9-2.4); AST(SGOT) 25 U/L (15-37); Alanine Aminotransfer ALT/SGPT 29 U/L (16-61); Albumin, Serum 3.1 g/dL (3.2-5.0); Alkaline Phosphatase 63 U/L (45-117); Anion Gap 7 (5-15); BUN 25 mg/dL (7-18); BUN/Creat Ratio 18.5 RATIO (10-20); Calcium,Total 9.1 mg/dL (8.5-10.1); Chloride 107 mmol/L (98-107); Creatinine, Serum 1.35 mg/dL (0.70-1.30); EST Glomerular Filtration Rate 55 mL/min (>60); Est Glom Filt Rate - Afr Amer 66 mL/min (>60); Globulin 4.3 g/dL (2.2-4.2); Glucose 242 mg/dL (74-106); Potassium 3.7 mmol/L (3.5-5.1); Protein, Total 7.4 g/dL (6.4-8.2); Sodium Level 141 mmol/L (136-145); Thyroid Stim Hormone (TSH) 1.79 uIU/mL (0.358-3.74); Uric Acid 4.1 mg/dL (3.5-7.2)
== END | disposition home or self-care (01) ==
PROVIDERS: PCP Family Medicine Geriatric Medicine; Visit Provider Family Medicine Geriatric Medicine
DX: M54.2 Cervicalgia (principal); E11.9 Type 2 diabetes mellitus without complications; E55.9 Vitamin D deficiency, unspecified; I10 Essential (primary) hypertension; M10.9 Gout, unspecified
CPT/HCPCS: 36415; 72040; 80053; 82306; 84443; 84550; 85025

== ENCOUNTER → 2022-04-19 | Outpatient (CLI) | payer MEDICARE, SELFPAY ==
[2022-04-19 12:22] LABS: Absolute Lymphocyte Count 1.91 X10^3/uL (0.83-4.51); Absolute Neutrophil Count 3.6 X10^3/uL (2.0-7.7); Basophil# 0.08 X10^3/uL; Basophil% 1.3 % (0-1); Eosinophil# 0.33 X10^3/uL; Eosinophils% 5.2 % (0-5); Hematocrit 35.4 % (40-54); Hemoglobin 11.4 g/dL (13.0-16.5); Lymphocyte # 1.91 X10^3/ul (0.83-4.51); Mean Corp Hgb Conc 32.2 g/dL (32-36); Mean Corpuscular Hgb 30.2 pg (27.0-32.0); Mean Corpuscular Volume 93.7 fL (80-94); Mean Platelet Vol. 10.8 fl (6.2-12.0); Monocyte# 0.48 X10^3/uL; Monocyte% 7.5 % (0-10); NRBC Flagged by Analyzer 0 % (0-5); Neutrophil # 3.55 X10^3/uL (2.7-7.7); Neutrophil % 55.7 % (47-70); Platelet Count 275 K/mm3 (150-450); RBC Distribution Width CV 14.8 % (11.6-14.6); RBC Distribution Width SD 50.5 fl (35.1-43.9); Red Blood Count 3.78 M/mm3 (4.6-6.2); White Blood Count 6.4 K/mm3 (4.4-11.0)
[2022-04-19 12:34] LABS: Vitamin D,25 Hydroxy 13.8 ng/mL
[2022-04-19 12:45] LABS: ALB/GLOB Ratio 0.9 RATIO (0.9-2.4); AST(SGOT) 17 U/L (15-37); Alanine Aminotransfer ALT/SGPT 23 U/L (16-61); Albumin, Serum 3.6 g/dL (3.2-5.0); Alkaline Phosphatase 63 U/L (45-117); Anion Gap 6 (5-15); BUN 27 mg/dL (7-18); BUN/Creat Ratio 16.6 RATIO (10-20); Calcium,Total 9.2 mg/dL (8.5-10.1); Chloride 108 mmol/L (98-107); Creatinine, Serum 1.63 mg/dL (0.70-1.30); EST Glomerular Filtration Rate 44 mL/min (>60); Est Glom Filt Rate - Afr Amer 53 mL/min (>60); Globulin 3.8 g/dL (2.2-4.2); Glucose 222 mg/dL (74-106); Potassium 3.8 mmol/L (3.5-5.1); Protein, Total 7.4 g/dL (6.4-8.2); Sodium Level 139 mmol/L (136-145); Thyroid Stim Hormone (TSH) 2.13 uIU/mL (0.358-3.74)
== END | disposition home or self-care (01) ==
LOC: POLAB3 09:31
PROVIDERS: PCP Family Medicine Geriatric Medicine; Visit Provider Family Medicine Geriatric Medicine
DX: I10 Essential (primary) hypertension (principal); E11.65 Type 2 diabetes mellitus with hyperglycemia; E55.9 Vitamin D deficiency, unspecified
CPT/HCPCS: 36415; 80053; 82306; 84443; 85025

== ENCOUNTER → 2022-07-11 | Outpatient (CLI) | payer MEDICARE, SELFPAY ==
--- NOTE | 2022-07-11 08:09 | CDU_ITS ---
Reason For Study: STENOSIS Rt. Velocities/BP Lt. Velocities/BP Prox CCA 56.6/8.4 cm/sec. Prox CCA 84.5/12.0 cm/sec. Mid CCA 60.4/13.1 cm/sec. Mid CCA 69.1/10.9 cm/sec. Dist CCA 72.6/10.3 cm/sec. Dist CCA 94.1/13.8 cm/sec. Prox ICA 88.3/20.8 cm/sec. Prox ICA 86.7/20.4 cm/sec. Mid ICA 110.0/29.0 cm/sec. Mid ICA 89.1/24.1 cm/sec. Dist ICA 113.7/27.8 cm/sec. Dist ICA 60.2/15.2 cm/sec. Rt. ICA/CCA = 113.7/72.6=1.6. Lt. ICA/CCA = 89.1/69.1=1.3. Prox ECA 63.2/0.0 cm/sec. Prox ECA 97.7/0.0 cm/sec. Rt. Vert. 25.5/7.8 cm/sec. Lt. Vert. 45.0/10.0 cm/sec. Right Extracranial There is heterogeneous, irregular atherosclerotic plaque noted in the right common carotid artery. There is heterogeneous, irregular atherosclerotic plaque noted in the right internal carotid artery. There is heterogeneous, irregular atherosclerotic plaque noted in the right external carotid artery. Antegrade flow is noted in the right vertebral artery. Left Extracranial There is heterogeneous, irregular atherosclerotic plaque noted in the left common carotid artery. There is heterogeneous, irregular atherosclerotic plaque noted in the left internal carotid artery. There is heterogeneous, smooth atherosclerotic plaque noted in the left external carotid artery. Antegrade flow is noted in the left vertebral artery. Procedure Carotid Duplex 16778. This is a Carotid Duplex examination using B-mode, color flow and specral Doppler. Exam performed in department. VL/Carotid Duplex Ultrasound Interpretation Summary Mild (<50%) stenosis right extracranial internal carotid. Mild (<50%) stenosis left extracranial internal carotid. Flow within the vertebral arteries is antegrade bilaterally. Ordering Physician: Guillermo Walter Referring Physician: Micheal Peralta Chi Performed By: Maine Rowell, SABRINA, RVT
== END | disposition home or self-care (01) ==
PROVIDERS: PCP Family Medicine Geriatric Medicine; Referring Provider Surgery Vascular Surgery; Visit Provider Surgery Vascular Surgery
DX: I65.23 Occlusion and stenosis of bilateral carotid arteries (principal)
CPT/HCPCS: 93880

== ENCOUNTER → 2022-07-12 | Outpatient (CLI) | payer MEDICARE, SELFPAY ==
[2022-07-12 12:20] LABS: Albumin, Serum 3.6 g/dL (3.2-5.0); BUN 30 mg/dL (7-18); BUN/Creat Ratio 17.5 RATIO (10-20); Calcium,Total 9.3 mg/dL (8.5-10.1); Chloride 111 mmol/L (98-107); Creatinine, Serum 1.71 mg/dL (0.70-1.30); EST Glomerular Filtration Rate 42 mL/min (>60); Est Glom Filt Rate - Afr Amer 50 mL/min (>60); Glucose 114 mg/dL (74-106); Phosphorus 3.2 mg/dL (2.5-4.9); Potassium 4.4 mmol/L (3.5-5.1); Sodium Level 140 mmol/L (136-145)
== END | disposition home or self-care (01) ==
LOC: POLAB3 10:45
PROVIDERS: PCP Family Medicine Geriatric Medicine; Visit Provider Internal Medicine Nephrology
DX: N17.9 Acute kidney failure, unspecified (principal); E11.9 Type 2 diabetes mellitus without complications
CPT/HCPCS: 36415; 80069

== ENCOUNTER → 2022-07-23 | Outpatient (CLI) | payer MEDICARE, SELFPAY ==
[2022-07-23 17:52] LABS: Absolute Lymphocyte Count 1.53 X10^3/uL (0.83-4.51); Absolute Neutrophil Count 3.2 X10^3/uL (2.0-7.7); Basophil# 0.08 X10^3/uL; Basophil% 1.4 % (0-1); Eosinophil# 0.42 X10^3/uL; Eosinophils% 7.1 % (0-5); Hematocrit 32.4 % (40-54); Lymphocyte # 1.53 X10^3/ul (0.83-4.51); Lymphocyte % 25.8 % (19-41); Mean Corp Hgb Conc 30.9 g/dL (32-36); Mean Corpuscular Volume 97.3 fL (80-94); Mean Platelet Vol. 10.9 fl (6.2-12.0); Monocyte# 0.66 X10^3/uL; Monocyte% 11.1 % (0-10); NRBC Flagged by Analyzer 0 % (0-5); Neutrophil % 54.1 % (47-70); Platelet Count 231 K/mm3 (150-450); RBC Distribution Width CV 14.8 % (11.6-14.6); RBC Distribution Width SD 52.8 fl (35.1-43.9); Red Blood Count 3.33 M/mm3 (4.6-6.2); White Blood Count 5.9 K/mm3 (4.4-11.0)
[2022-07-23 18:05] LABS: Vitamin D,25 Hydroxy 16.4 ng/mL
[2022-07-23 18:26] LABS: AST(SGOT) 17 U/L (15-37); Alanine Aminotransfer ALT/SGPT 22 U/L (16-61); Albumin, Serum 3.4 g/dL (3.2-5.0); Alkaline Phosphatase 60 U/L (45-117); Anion Gap 6 (5-15); BUN 17 mg/dL (7-18); BUN/Creat Ratio 13.7 RATIO (10-20); Calcium,Total 8.8 mg/dL (8.5-10.1); Chloride 109 mmol/L (98-107); Cholesterol 154 mg/dL (200); Creatinine, Serum 1.24 mg/dL (0.70-1.30); EST Glomerular Filtration Rate 60 mL/min (>60); Est Glom Filt Rate - Afr Amer 73 mL/min (>60); Globulin 3.4 g/dL (2.2-4.2); Glucose 123 mg/dL (74-106); High Density Lipoprotein 65 mg/dL; Protein, Total 6.8 g/dL (6.4-8.2); Sodium Level 138 mmol/L (136-145); Thyroid Stim Hormone (TSH) 1.73 uIU/mL (0.358-3.74); Triglycerides 93 mg/dL; Very Low Density Lipoprotein 19 mg/dL (5-40)
== END | disposition home or self-care (01) ==
LOC: POLAB3 15:17
PROVIDERS: PCP Family Medicine Geriatric Medicine; Visit Provider Family Medicine Geriatric Medicine
DX: I10 Essential (primary) hypertension (principal); E11.65 Type 2 diabetes mellitus with hyperglycemia; E55.9 Vitamin D deficiency, unspecified; E78.5 Hyperlipidemia, unspecified
CPT/HCPCS: 36415; 80053; 80061; 82306; 84443; 85025

== ENCOUNTER → 2022-07-31 | Outpatient (CLI) | payer MEDICARE, SELFPAY ==
[2022-07-31 16:48] LABS: Absolute Lymphocyte Count 1.77 X10^3/uL (0.83-4.51); Absolute Neutrophil Count 4.4 X10^3/uL (2.0-7.7); Basophil# 0.08 X10^3/uL; Basophil% 1.1 % (0-1); Eosinophil# 0.42 X10^3/uL; Eosinophils% 5.6 % (0-5); Hematocrit 32.8 % (40-54); Hemoglobin 9.9 g/dL (13.0-16.5); Lymphocyte # 1.77 X10^3/ul (0.83-4.51); Lymphocyte % 23.7 % (19-41); Mean Corp Hgb Conc 30.2 g/dL (32-36); Mean Corpuscular Hgb 29.6 pg (27.0-32.0); Mean Corpuscular Volume 97.9 fL (80-94); Mean Platelet Vol. 10.8 fl (6.2-12.0); Monocyte# 0.75 X10^3/uL; Monocyte% 10.1 % (0-10); NRBC Flagged by Analyzer 0 % (0-5); Neutrophil # 4.41 X10^3/uL (2.7-7.7); Neutrophil % 59.1 % (47-70); Platelet Count 219 K/mm3 (150-450); RBC Distribution Width CV 15.2 % (11.6-14.6); RBC Distribution Width SD 54.4 fl (35.1-43.9); Red Blood Count 3.35 M/mm3 (4.6-6.2); White Blood Count 7.5 K/mm3 (4.4-11.0)
[2022-07-31 17:28] LABS: Vitamin B12 237 pg/mL (211-911)
[2022-07-31 17:38] LABS: Albumin, Serum 3.4 g/dL (3.2-5.0); BUN 19 mg/dL (7-18); BUN/Creat Ratio 14.5 RATIO (10-20); Calcium,Total 8.7 mg/dL (8.5-10.1); Chloride 107 mmol/L (98-107); Creatinine, Serum 1.31 mg/dL (0.70-1.30); EST Glomerular Filtration Rate 57 mL/min (>60); Est Glom Filt Rate - Afr Amer 69 mL/min (>60); Ferritin 16 ng/mL (26-388); Glucose 179 mg/dL (74-106); Iron 43 ug/dL (65-175); Iron Binding Capacity,Total 336 ug/dL (250-450); PERCENT IRON SATURATION 12.8 % (15.0-55.0); Phosphorus 2.4 mg/dL (2.5-4.9); Potassium 4.1 mmol/L (3.5-5.1); Sodium Level 137 mmol/L (136-145)
== END | disposition home or self-care (01) ==
LOC: POLAB3 16:10
PROVIDERS: PCP Family Medicine Geriatric Medicine; Visit Provider Internal Medicine Nephrology
DX: D64.9 Anemia, unspecified (principal); N18.32 Chronic kidney disease, stage 3b
CPT/HCPCS: 36415; 80069; 82607; 82728; 82746; 83540; 83550; 83880; 85025

== ENCOUNTER → 2022-08-07 | Outpatient (CLI) | payer MEDICARE, SELFPAY | END | disposition home or self-care (01) | PROVIDERS: PCP Family Medicine Geriatric Medicine; Referring Provider Family Medicine Geriatric Medicine; Visit Provider Family Medicine Geriatric Medicine | DX: D64.9 Anemia, unspecified (principal) | CPT/HCPCS: 82274 ==

== ENCOUNTER → 2022-08-16 | Outpatient (CLI) | payer MEDICARE, SELFPAY ==
[2022-08-16 12:26] LABS: Albumin, Serum 3.4 g/dL (3.2-5.0); BUN 20 mg/dL (7-18); BUN/Creat Ratio 13.2 RATIO (10-20); Chloride 106 mmol/L (98-107); Creatinine, Serum 1.51 mg/dL (0.70-1.30); EST Glomerular Filtration Rate 48 mL/min (>60); Est Glom Filt Rate - Afr Amer 58 mL/min (>60); Glucose 201 mg/dL (74-106); Phosphorus 2.7 mg/dL (2.5-4.9); Potassium 4.1 mmol/L (3.5-5.1); Sodium Level 139 mmol/L (136-145)
== END | disposition home or self-care (01) ==
LOC: POLAB3 10:27
PROVIDERS: PCP Family Medicine Geriatric Medicine; Visit Provider Internal Medicine Nephrology
DX: N18.2 Chronic kidney disease, stage 2 (mild) (principal)
CPT/HCPCS: 36415; 80069

== ENCOUNTER → 2022-08-27 | Outpatient (CLI) | payer MEDICARE, SELFPAY ==
[2022-08-27 13:33] LABS: Absolute Neutrophil Count 4.2 X10^3/uL (2.0-7.7); Basophil# 0.06 X10^3/uL; Basophil% 0.9 % (0-1); Eosinophil# 0.35 X10^3/uL; Hematocrit 31.8 % (40-54); Hemoglobin 10.2 g/dL (13.0-16.5); Lymphocyte % 24.4 % (19-41); Mean Corp Hgb Conc 32.1 g/dL (32-36); Mean Corpuscular Hgb 30.2 pg (27.0-32.0); Mean Corpuscular Volume 94.1 fL (80-94); Mean Platelet Vol. 11.2 fl (6.2-12.0); Monocyte# 0.61 X10^3/uL; Monocyte% 8.8 % (0-10); NRBC Flagged by Analyzer 0 % (0-5); Neutrophil # 4.24 X10^3/uL (2.7-7.7); Neutrophil % 60.8 % (47-70); Platelet Count 174 K/mm3 (150-450); RBC Distribution Width CV 13.9 % (11.6-14.6); RBC Distribution Width SD 47.4 fl (35.1-43.9); Red Blood Count 3.38 M/mm3 (4.6-6.2)
== END | disposition home or self-care (01) ==
LOC: POLAB3 11:48
PROVIDERS: PCP Family Medicine Geriatric Medicine; Visit Provider Family Medicine Geriatric Medicine
DX: D50.9 Iron deficiency anemia, unspecified (principal)
CPT/HCPCS: 36415; 85025

== ENCOUNTER → 2022-10-18 | Outpatient (CLI) | payer MEDICARE, BC, SELFPAY ==
[2022-10-18 12:04] LABS: Absolute Lymphocyte Count 1.81 X10^3/uL (0.83-4.51); Absolute Neutrophil Count 2.7 X10^3/uL (2.0-7.7); Basophil# 0.09 X10^3/uL; Basophil% 1.7 % (0-1); Eosinophil# 0.36 X10^3/uL; Eosinophils% 6.6 % (0-5); Hematocrit 40.5 % (40-54); Hemoglobin 13.3 g/dL (13.0-16.5); Lymphocyte # 1.81 X10^3/ul (0.83-4.51); Lymphocyte % 33.3 % (19-41); Mean Corp Hgb Conc 32.8 g/dL (32-36); Mean Corpuscular Hgb 29.9 pg (27.0-32.0); Mean Platelet Vol. 11.5 fl (6.2-12.0); Monocyte# 0.45 X10^3/uL; Monocyte% 8.3 % (0-10); NRBC Flagged by Analyzer 0 % (0-5); Neutrophil % 49.7 % (47-70); Platelet Count 226 K/mm3 (150-450); RBC Distribution Width CV 12.7 % (11.6-14.6); RBC Distribution Width SD 42.3 fl (35.1-43.9); Red Blood Count 4.45 M/mm3 (4.6-6.2); White Blood Count 5.4 K/mm3 (4.4-11.0)
[2022-10-18 12:24] LABS: Vitamin D,25 Hydroxy 29.8 ng/mL
[2022-10-18 12:56] LABS: ALB/GLOB Ratio 0.9 RATIO (0.9-2.4); AST(SGOT) 23 U/L (15-37); Alanine Aminotransfer ALT/SGPT 24 U/L (16-61); Albumin, Serum 3.6 g/dL (3.2-5.0); Alkaline Phosphatase 108 U/L (45-117); Anion Gap 10 (5-15); BUN 21 mg/dL (7-18); BUN/Creat Ratio 11.1 RATIO (10-20); Calcium,Total 9.2 mg/dL (8.5-10.1); Chloride 98 mmol/L (98-107); Cholesterol 190 mg/dL (200); Creatinine, Serum 1.89 mg/dL (0.70-1.30); EST Glomerular Filtration Rate 37 mL/min (>60); Est Glom Filt Rate - Afr Amer 45 mL/min (>60); Globulin 4.2 g/dL (2.2-4.2); Glucose 540 mg/dL (74-106); High Density Lipoprotein 63 mg/dL; Potassium 4.2 mmol/L (3.5-5.1); Protein, Total 7.8 g/dL (6.4-8.2); Sodium Level 132 mmol/L (136-145); Thyroid Stim Hormone (TSH) 2.03 uIU/mL (0.358-3.74); Triglycerides 217 mg/dL; Very Low Density Lipoprotein 43 mg/dL (5-40)
[2022-10-18 13:33] LABS: Hemoglobin A1c 13.8 % (3.8-5.6)
== END | disposition home or self-care (01) ==
LOC: POLAB3 10:19
PROVIDERS: PCP Family Medicine Geriatric Medicine; Visit Provider Family Medicine Geriatric Medicine
DX: I10 Essential (primary) hypertension (principal); E11.65 Type 2 diabetes mellitus with hyperglycemia; E55.9 Vitamin D deficiency, unspecified
CPT/HCPCS: 36415; 80053; 80061; 82306; 83036; 84443; 85025

== ENCOUNTER 2022-11-09 11:26 | Day surgery (SDC) | payer MEDICARE, BC, SELFPAY ==
[2022-11-09] VITALS (7 sets, daily range): BP systolic 105–140; BP diastolic 63–78; PULSE 54–65; RESP 12–18; TEMP 36.2–36.6; O2SAT 95–100; BMI 23.8
[2022-11-09] MEDS: Lactated Ringers 1,000 ML 15 ML IV (12:17)
--- NOTE | 2022-11-09 12:45 | EGD_PTH ---
PATIENT: RONAN PAZ LOC: [facility] U#:[id number] AGE/SX: 76/M ROOM: RE11/09/[address]: Dr. Kingsley Nuñez DO : 1945 BED: DIS: 11/09/2022 SPEC #: [id number] RECD: 11/09/22 16:18 STATUS: JERROD ROCAEL #: [id number] EMMIE: 11/09/22 12:[address]: Kingsley Nuñez DEPT: SURGICAL PATHOLOGY RECD BY: Alyssa Tracey ENTERED: 11/12/22 08:38 SP TYPE: EGD BIOPSY [facility] DR: Dr. Micheal Peralta MD Tissues: A - Small intestine biopsy B - Gastric mucous membrane C - Esophagus, NOS D - COLON BIOPSY E - Ascending colon F - Rectum, NOS Procedures: Special Stain Group II Surgery Specimen Level IV Alcian Blue/PAS (control) HEADER OPERATION: Colonoscopy with polyp biopsies and polypectomy, spot, EGD ([facility] [place]) PRE-OP DIAGNOSIS: GERD, anemia, abdominal pain TISSUE SUBMITTED: A - Small bowel biopsy, B - Gastric antrum, C - Distal esophagus, D - Polyp biopsy hepatic flexure, E - Ascending colon polyp biopsy, F - Polyp rectal MICROSCOPIC DIAGNOSIS A. Small bowel, biopsy: No pathologic change. B. Gastric antrum, biopsy: Chronic gastritis. See comment. C. Distal esophagus, biopsy: Gastroesophageal junctional mucosa with mild chronic inflammation. 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 No evidence of dysplasia. See comment. D. Colonic polyp at hepatic flexure, biopsy: Tubular adenoma. E. Ascending colon polyp, biopsy: Tubular adenoma. F. 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 AM:taniya 11/13/2022 COMMENT B. The results of immunohistochemistry for Helicobacter pylori will be reported separately ([id number]). C. Immunohistochemistry ([id number]) for P53 and Ki-67 will be performed and results will be reported separately. Alcian blue/PAS stain with matched control supports the above diagnosis. Case has been reviewed in consultation with Dr. Sosa who concurs with the above diagnosis. IDC:SJ MICROSCOPIC DESCRIPTION Slides are reviewed. GROSS DESCRIPTION A - Received in fixative is one container labeled with the patient's name and designated small bowel biopsy. The specimen consists of two irregular fragments of light thomas soft tissue that in aggregate measure 0.6 x 0.3 x 0.1 cm. The specimen is totally submitted in one cassette. B - Received in fixative is one container labeled with the patient's name and designated gastric antrum. The specimen consists of two irregular fragments of light thomas soft tissue that in aggregate measure 0.6 x 0.3 x 0.1 cm. The specimen is totally submitted in one cassette. C - Received in fixative is one container labeled with the patient's name and designated distal esophagus. The specimen consists of two irregular fragments of light thomas soft tissue that in aggregate measure 0.6 x 0.3 x 0.1 cm. The specimen is totally submitted in one cassette. D - Received in fixative is one container labeled with the patient's name and designated polyp biopsy hepatic flexure. The specimen consists of one irregular fragment of light thomas soft tissue that measures 0.3 x 0.3 x 0.1 cm. The specimen is totally submitted in one cassette. E - Received in fixative is one container labeled with the patient's name and designated ascending colon polyp biopsy. The specimen consists of two irregular fragments of light thomas soft tissue that in aggregate measure 0.6 x 0.3 x 0.1 cm. The specimen is totally submitted in one cassette. F - Received in fixative is one container labeled with the patient's name and designated polyp rectum. The specimen consists of a thomas-pink polyp measuring 1.0 x 0.9 x 0.8 cm. This is bisected. Also present in the container are multiple fragments of polypoid tissue measuring in aggregate 2.0 x 0.5 x 0.2 cm. The entire specimen is submitted in one cassette. / BERHANE:taniya 11/12/2022 TC:3 CPT: 91828 x6, 53259
--- NOTE | 2022-11-09 12:45 | IMM_PTH ---
PATIENT: RONAN PAZ LOC: EN U#:[id number] AGE/SX: 76/M ROOM: RE11/09/[address]: Dr. Kingsley Nuñez DO : 1945 BED: DIS: 11/09/2022 SPEC #: [id number] RECD: 11/12/22 13:26 STATUS: JERROD RESami #: [id number] EMMIE: 11/09/22 12:[address]: Kingsley Nuñez DEPT: IMMUNOHISTOCHEMISTRY RECD BY: Jenniffer Padron ENTERED: 11/12/22 13:27 SP TYPE: IMMUNO OTHR DR: Dr. Micheal Peralta MD Tissues: B - Stomach, NOS C - Esophagus, NOS Procedures: H Pylori (initial) P53 (initial) KI-67 (add) MOC-31 (add) PHYSICIAN & INSTITUTION [place] [address] SPECIMEN INFORMATION: Tissue Source: B - Gastric antrum, C - Distal esophagus Clinical Info: GERD, anemia, abdominal pain Specimen Number: [id number] B & C CPT code: 30688 x2, 29109 x2 METHODOLOGY: Deparaffinized sections of prefer/formalin-fixed tissue or PAP/DQ stained slides are incubated with monoclonal/polyclonal antibodies/oligonucleotide probes. Localization is made via biotin free immunoperoxidase method. Appropriate controls are performed and reacted as expected. Results on target cell population are indicated in the following table: RESULTS: ANTIBODY / CLONE RESULT Block B H Pylori (polyclonal) negative Block C P53 (DO-7) negative, wild type pattern Ki-67 (30-9) positive, low MOC-31 (4561) positive These tests were developed and their performance characteristics determined by [facility]. They may not have been cleared or approved by the U.S. Food and Drug Administration. The FDA has determined that such clearance or approval is not necessary. The above immunohistochemical/dualISH markers are ordered and reviewed by the Pathologist. INTERPRETATION: B. Gastric antrum, biopsy: Negative for Helicobacter pylori organisms. C. Distal esophagus, biopsy: No evidence of dysplasia. AM:taniya 11/14/2022
--- NOTE | 2022-11-09 12:53 | HP.PCM_ITS ---
History and Physical Date of Admission: 11/09/22 76 M who presents to the office today for PMH depression, insomnia, TIA, hypothyroid, HLD, HTN, DMII, obesity PCP OV 3.14.23 with loose stools and abdominal pain for four months, particularly following meals with intermittent presentation of constipation for 3-4 days. GERD history if PPI and sucralfate use, increased PPI to BID. *BGI established 6.22.23 lower abdominal pain with food intake and increased bloating and heartburn with decreased appetite. Started pantoprazole 40mg BID started and effective with symptoms though continues to have breakthrough bloating with belching and flatulence. BM with decreased caliber occurring 2- 4/day. ROS Const Constitutional: No anorexia, fatigue, fever(s), weight change or sleep problems Eyes Eyes: No change in vision ENT ENT: No abnormal hearing, difficulty swallowing, mouth lesions, tongue swelling or throat swelling Resp Respiratory: No cough or shortness of breath Cardio Cardiology: No chest pain at rest, chest pain with exertion, shortness of breath or dyspnea on exertion Gastro GI: No difficulty swallowing Genitourinary Male: No difficulty urinating or burning urination Musc Musculoskeletal: No joint pain, joint swelling, muscle weakness or decreased muscle mass Skin Skin: No hair loss in leg, yellowing of the eye, itchy eyes, rash, skin ulcer or skin swelling Neuro Neurology: No abnormal hearing, abnormal movements, confusion, unsteady gait/balance or memory loss Psych Psychiatric: No anxiety, No confusion and No memory loss Endo Endocrine: No fatigue or weight change Aller/Imm Allergy/Immunologic: No itchy eyes, throat swelling or tongue swelling Wesly/Lymp Hematologic/Lymphatic: No easy bleeding, easy bruising or enlarged lymph nodes Exam Const General: cooperative and comfortable Nutritional Appearance: average body habitus and well nourished [facility] Head: normal to inspection Ears: hearing grossly normal bilaterally Nose: external nose normal Face and sinus: normal facial exam Mouth: oral mucosae normal Throat: posterior oropharynx normal Eyes General: appearance normal, both eyes and all related structures Neck Neck: normal visual inspection Chest Chest palpation & inspection: normal inspection of the chest and normal palpation of entire chest wall Resp Effort & Inspection: normal respiratory effort Auscultation: Bilateral: Clear to Auscultation Cardio Palpation: normal PMI Rate: regular rate Rhythm: regular rhythm GI Inspection: normal to inspection Auscultation: normal bowel sounds Percussion: normal to percussion Palpation: no hepatosplenomegaly Skin General: no rashes or lesions noted Neuro General: patient alert Extrem General: normal to inspection Psych Affect: normal affect Quality Reporting Tobacco Screening ([facility] 138) Smoking Status: Former smoker Assessment and Plan Assessment and Plan (1) GERD (gastroesophageal reflux disease): Status: Chronic (2) Anemia: Status: Acute (3) Abdominal pain: Status: Acute Plan: 76-year-old with history of CAD, depression, bipolar disorder BPH, diabetes, hypertension with new onset anemia. His hemoglobin was 11.8 and dropped down to 9.9. He was having worsening abdominal pain but it is slightly improved with the use of Carafate and PPI therapy. As per his aide he he was discovered to have some worsening renal insufficiency thought to be secondary to PPI therapy. Therefore that was stopped. He has CKD stage III. He should undergo an upper and lower endoscopy to evaluate his upper and lower GI tract due to his new onset anemia and abdominal pain. It was explained alternatives, risk, benefits include not withstanding bleeding, infection, sepsis, perforation, need for emergency to . He will have an ASA of 2. I have examined the patient and the H&P has been reviewed. There are no clinical changes since date of exam.
--- NOTE | 2022-11-09 13:46 | OP.EGD_ITS ---
Patient Name: Remi Bernabe Procedure Date: 11/09/2022 12:46 PM Date of : 1945 Age: 76 Procedure: Upper GI endoscopy Indications: Epigastric abdominal pain, Heartburn Providers: Kingsley Nuñez DO Referring MD: Micheal Peralta MD Medicines: Monitored Anesthesia Care Patient Profile: This is a 76 year old male. Refer to note in patient chart for documentation of history and physical. Patient has symptoms of chronic epigastric abdominal pain. Complications: No immediate complications. Procedure: Pre-Anesthesia Assessment: - Prior to the procedure, a History and Physical was performed, and patient medications and allergies were reviewed. The risks and benefits of the procedure and the sedation options and risks were discussed with the patient. All questions were answered and informed consent was obtained. Patient identification and proposed procedure were verified by the physician in the pre-procedure area. Mental Status Examination: alert and oriented. Airway Examination: normal oropharyngeal airway and neck mobility. Respiratory Examination: clear to auscultation. CV Examination: normal. Prophylactic Antibiotics: The patient does not require prophylactic antibiotics. Prior Anticoagulants: The patient has taken no previous anticoagulant or antiplatelet agents. After reviewing the risks and benefits, the patient was deemed in satisfactory condition to undergo the procedure. The anesthesia plan was to use monitored anesthesia care (MAC). Immediately prior to administration of medications, the patient was re-assessed for adequacy to receive sedatives. The heart rate, respiratory rate, oxygen saturations, blood pressure, adequacy of pulmonary ventilation, and response to care were monitored throughout the procedure. The physical status of the patient was re-assessed after the procedure. After obtaining informed consent, the endoscope was passed under direct vision. Throughout the procedure, the patient's blood pressure, pulse, and oxygen saturations were monitored continuously. The pediatric colonoscope was introduced through the mouth, and advanced to the second part of duodenum. The upper GI endoscopy was accomplished without difficulty. The patient tolerated the procedure well. Scope In: 1:05:30 PM Scope Out: 1:10:21 PM Total Procedure Duration Time 0 hours 4 minutes 51 seconds Findings: The esophagus and gastroesophageal junction were examined with white light and narrow band imaging (NBI) from a forward view and retroflexed position. There were esophageal mucosal changes secondary to established short-segment Schmitt's disease. These changes involved the mucosa at the upper extent of the gastric folds (39 cm from the incisors) extending to the Z-line (36 cm from the incisors). [place]-colored mucosa was present. The maximum longitudinal extent of these esophageal mucosal changes was 3 cm in length. Mucosa was biopsied with a cold forceps for histology in a targeted manner at intervals of 1 cm in the lower third of the esophagus. One specimen bottle was sent to pathology. A small hiatal hernia was present. Localized mildly erythematous mucosa without bleeding was found in the gastric antrum. Biopsies were taken with a cold forceps for histology. Verification of patient identification for the specimen was done. Estimated blood loss was minimal. No gross lesions were noted in the first portion of the duodenum. Biopsies were taken with a cold forceps for histology. Verification of patient identification for the specimen was done. Estimated blood loss was minimal. A non-bleeding diverticulum with a small opening and no stigmata of recent bleeding was found in the lower third of the esophagus. 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 Biopsied. - Small hiatal hernia. - Erythematous mucosa in the antrum. Biopsied. - No gross lesions in the first portion of the duodenum. Biopsied. Recommendation: - Discharge patient to home. - Resume previous diet. - Continue present medications. - Await pathology results. Procedure Code(s): --- Professional --- 79725, Esophagogastroduodenoscopy, flexible, transoral; with biopsy, single or multiple CPT copyright 2017 [employer]. All rights reserved. The codes documented in this report are preliminary and upon mail clerk review may be revised to meet current compliance requirements. Kingsley Nuñez DO 11/09/2022 1:45:56 PM This report has been signed electronically. Number of Addenda: 0 Note Initiated On: 11/09/2022 12:46 PM
--- NOTE | 2022-11-09 13:47 | OP.CCLET_ITS ---
11/09/2022 Micheal Peralta MD [address] [place] [address] Re : Upper GI endoscopy procedure for Remi Bernabe Dear Dr. Peralta This procedure was performed on Wednesday, November 09, 2022. 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 Biopsied. - Small hiatal hernia. - Erythematous mucosa in the antrum. Biopsied. - No gross lesions in the first portion of the duodenum. Biopsied. Recommendations : - Discharge patient to home. - Resume previous diet. - Continue present medications. - Await pathology results. My findings are described in the full procedure note, which is enclosed. If I can be of further assistance, please feel free to contact me at . Sincerely, Kingsley Nuñez, 11/09/2022 1:45:56 PM This report has been signed electronically.
--- NOTE | 2022-11-09 13:53 | OP.COLON_ITS ---
Patient Name: Remi Bernabe Procedure Date: 11/09/2022 1:10 PM Date of : 1945 Age: 76 Procedure: Colonoscopy Indications: Abdominal pain in the left lower quadrant Providers: Kingsley Nuñez DO Referring MD: Micheal Peralta MD Medicines: Monitored Anesthesia Care Patient Profile: This is a 76 year old male. Refer to note in patient chart for documentation of history and physical. Patient has symptoms of chronic epigastric abdominal pain. Last Colonoscopy: date unknown. Unable to locate last colonoscopy report. Complications: No immediate complications. Procedure: Pre-Anesthesia Assessment: - Prior to the procedure, a History and Physical was performed, and patient medications and allergies were reviewed. The risks and benefits of the procedure and the sedation options and risks were discussed with the patient. All questions were answered and informed consent was obtained. Patient identification and proposed procedure were verified by the physician in the pre-procedure area. Mental Status Examination: alert and oriented. Airway Examination: normal oropharyngeal airway and neck mobility. Respiratory Examination: clear to auscultation. CV Examination: normal. Prophylactic Antibiotics: The patient does not require prophylactic antibiotics. Prior Anticoagulants: The patient has taken no previous anticoagulant or antiplatelet agents. After reviewing the risks and benefits, the patient was deemed in satisfactory condition to undergo the procedure. The anesthesia plan was to use monitored anesthesia care (MAC). Immediately prior to administration of medications, the patient was re-assessed for adequacy to receive sedatives. The heart rate, respiratory rate, oxygen saturations, blood pressure, adequacy of pulmonary ventilation, and response to care were monitored throughout the procedure. The physical status of the patient was re-assessed after the procedure. After I obtained informed consent, the scope was passed under direct vision. Throughout the procedure, the patient's blood pressure, pulse, and oxygen saturations were monitored continuously. The Colonoscope was introduced through the anus and advanced to the cecum, identified by appendiceal orifice and ileocecal valve. The colonoscopy was performed without difficulty. The patient tolerated the procedure well. The quality of the bowel preparation was adequate. Scope In: 1:12:27 PM Scope Withdrawal Time 0 hours 14 minutes 17 seconds Scope Out: 1:34:22 PM Total Procedure Duration Time 0 hours 21 minutes 55 seconds Findings: A few small and large-mouthed diverticula were found in the recto-sigmoid colon and sigmoid colon. A 28 mm polyp was found in the recto-sigmoid colon. The polyp was sessile. The polyp was removed with a hot snare. Resection and retrieval were complete. Verification of patient identification for the specimen was done. Area was successfully injected with 5 mL Chanel ink for drug delivery. Three sessile polyps were found in the hepatic flexure and ascending colon. The polyps were 1 to 2 mm in size. These polyps were removed with a cold snare. Resection and retrieval were complete. Verification of patient identification for the specimen was done. Estimated blood loss was minimal. A patchy area of the terminal ileum was congested. Biopsies were taken with a cold forceps for histology. Verification of patient identification for the specimen was done. Estimated blood loss was minimal. Impression: - Diverticulosis in the recto-sigmoid colon and in the sigmoid colon. - One 28 mm polyp at the recto-sigmoid colon, removed with a hot snare. Resected and retrieved. - Three 1 to 2 mm polyps at the hepatic flexure and in the ascending colon, removed with a cold snare. Resected and retrieved. - Congested mucosa in the terminal ileum. Biopsied. Recommendation: - Discharge patient to home. - Resume previous diet. - Continue present medications. - Await pathology results. - Repeat colonoscopy in 3 years for surveillance. Procedure Code(s): --- Professional --- 10512, Colonoscopy, flexible; with removal of tumor(s), polyp(s), or other lesion(s) by snare technique 96135, 59, Colonoscopy, flexible; with biopsy, single or multiple CPT copyright 2017 [employer]. All rights reserved. The codes documented in this report are preliminary and upon building maintenance repairer review may be revised to meet current compliance requirements. Kingsley Nuñez DO 11/09/2022 1:53:03 PM This report has been signed electronically. Number of Addenda: 0 Note Initiated On: 11/09/2022 1:10 PM
--- NOTE | 2022-11-09 13:54 | OP.CCLET_ITS ---
11/09/2022 Micheal Peralta MD [address] [place] [address] Re : Colonoscopy procedure for Remi Bernabe Dear Dr. Peralta This procedure was performed on Wednesday, November 09, 2022. My impressions and recommendations are as follows: Impressions : - Diverticulosis in the recto-sigmoid colon and in the sigmoid colon. - One 28 mm polyp at the recto-sigmoid colon, removed with a hot snare. Resected and retrieved. - Three 1 to 2 mm polyps at the hepatic flexure and in the ascending colon, removed with a cold snare. Resected and retrieved. - Congested mucosa in the terminal ileum. Biopsied. Recommendations : - Discharge patient to home. - Resume previous diet. - Continue present medications. - Await pathology results. - Repeat colonoscopy in 3 years for surveillance. My findings are described in the full procedure note, which is enclosed. If I can be of further assistance, please feel free to contact me at . Sincerely, Kingsley Nuñez, 11/09/2022 1:53:03 PM This report has been signed electronically.
== END 2022-11-09 14:48 | disposition home or self-care (01) ==
LOC: EN 11:27 → AC 11:29
PROVIDERS: PCP Family Medicine Geriatric Medicine; Referring Provider Family Medicine Geriatric Medicine; Visit Provider Internal Medicine Gastroenterology
PROC: 0DJD8ZZ Inspection of Lower Intestinal Tract, Via Natural or Artificial Opening Endoscopic (ICD-10-PCS; CPT 45378; principal; 2022-11-09 12:40)
DX: K29.50 Unspecified chronic gastritis without bleeding (principal); E11.22 Type 2 diabetes mellitus with diabetic chronic kidney disease; N18.30 Chronic kidney disease, stage 3 unspecified; K44.9 Diaphragmatic hernia without obstruction or gangrene; Z87.891 Personal history of nicotine dependence; K22.70 Barrett's esophagus without dysplasia; K57.30 Diverticulosis of large intestine without perforation or abscess without bleeding; D64.9 Anemia, unspecified; I12.9 Hypertensive chronic kidney disease with stage 1 through stage 4 chronic kidney disease, or unspecified chronic kidney disease; E78.5 Hyperlipidemia, unspecified; K21.00 Gastro-esophageal reflux disease with esophagitis, without bleeding; I25.10 Atherosclerotic heart disease of native coronary artery without angina pectoris; D12.3 Benign neoplasm of transverse colon; D12.2 Benign neoplasm of ascending colon; D12.8 Benign neoplasm of rectum; Z79.899 Other long term (current) drug therapy; Z79.890 Hormone replacement therapy; E05.90 Thyrotoxicosis, unspecified without thyrotoxic crisis or storm
CPT/HCPCS: 45385; 45381; 45380; 43239; 81002; 88305; 88313; 88341; 88342; J7120; A4648; J2405

== ENCOUNTER 2022-12-11 13:36 | Day surgery (SDC) | payer MEDICARE, BC, SELFPAY ==
[2022-12-11] VITALS (7 sets, daily range): BP systolic 78–129; BP diastolic 60–78; PULSE 64–73; RESP 14–18; TEMP 35.8–36.4; O2SAT 100; BMI 23.3
[2022-12-11] MEDS: Lactated Ringers 1,000 ML 15 ML IV (14:27)
--- NOTE | 2022-12-11 14:35 | COLBX_PTH ---
PATIENT: RONAN PAZ LOC: EN U#:[id number] AGE/SX: 77/M ROOM: RE12/11/[address]: Dr. Kingsley Nuñez DO : 1945 BED: DIS: 12/11/2022 SPEC #: [id number] RECD: 12/11/22 16:50 STATUS: JERROD ROCAEL #: [id number] EMMIE: 12/11/22 14:[address]: Kingsley Nuñez DEPT: SURGICAL PATHOLOGY RECD BY: Aleena Dixon ENTERED: 12/12/22 08:39 SP TYPE: COLON BX OTHR DR: Dr. Micheal Peralta MD Tissues: A - Ascending colon B - COLON BIOPSY C - Descending colon D - Rectum, NOS Procedures: Surgery Specimen Level IV HEADER OPERATION: Colonoscopy with biopsies and electrohemostasis PRE-OP DIAGNOSIS: GERD, anemia, abdominal pain TISSUE SUBMITTED: A - Ascending colon polyp biopsy, B - Hepatic flexure polyp biopsy x3, C - Descending colon biopsy, D - Rectum polypectomy site biopsy MICROSCOPIC DIAGNOSIS A. Ascending colon polyp, biopsy: Tubular adenoma. B. Colonic polyp at hepatic flexure, biopsy: Fragments of tubular adenoma. C. Descending colon, biopsy: Tubular adenoma. D. Rectum, biopsy: Fragments of benign colonic mucosa. See comment. AM:taniya 12/13/2022 COMMENT D. Neither hyperplastic nor adenomatous change is identified. Clinical correlation is suggested. MICROSCOPIC DESCRIPTION Slides are reviewed. GROSS DESCRIPTION A - Received in fixative is one container labeled with the patient's name and designated ascending colon polyp biopsy. The specimen consists of two irregular fragments of light thomas soft tissue that in aggregate measure 0.5 x 0.3 x 0.1 cm. The specimen is totally submitted in one cassette. B - Received in fixative is one container labeled with the patient's name and designated hepatic flexure polyp biopsy. The specimen consists of multiple irregular fragments of light thomas soft tissue that in aggregate measure 1.0 x 0.2 x 0.1 cm. The specimen is totally submitted in one cassette. C - Received in fixative is one container labeled with the patient's name and designated descending colon biopsy. The specimen consists of one irregular fragment of light thomas soft tissue that measures 0.3 x 0.3 x 0.1 cm. The specimen is totally submitted in one cassette. D - Received in fixative is one container labeled with the patient's name and designated rectum polypectomy site biopsy. The specimen consists of multiple irregular fragments of light thomas soft tissue that in aggregate measure 1.5 x 0.3 x 0.1 cm. The specimen is totally submitted in one cassette. / SJ:rg 12/12/2022 TC:5 CPT: 90222 x4
[2022-12-11 14:48] LABS: Bedside Glucose 133 mg/dL (74-106)
--- NOTE | 2022-12-11 14:50 | HP.PCM_ITS ---
History and Physical Date of Admission: 12/11/22 76 M who presents to the office today for PMH depression, insomnia, TIA, hypothyroid, HLD, HTN, DMII, obesity PCP OV 3.14.23 with loose stools and abdominal pain for four months, particularly following meals with intermittent presentation of constipation for 3-4 days. GERD history if PPI and sucralfate use, increased PPI to BID. *BGI established 6.22.23 lower abdominal pain with food intake and increased bloating and heartburn with decreased appetite. Started pantoprazole 40mg BID started and effective with symptoms though continues to have breakthrough bloating with belching and flatulence. BM with decreased caliber occurring 2- 4/day. ROS Const Constitutional: No anorexia, fatigue, fever(s), weight change or sleep problems Eyes Eyes: No change in vision ENT ENT: No abnormal hearing, difficulty swallowing, mouth lesions, tongue swelling or throat swelling Resp Respiratory: No cough or shortness of breath Cardio Cardiology: No chest pain at rest, chest pain with exertion, shortness of breath or dyspnea on exertion Gastro GI: No difficulty swallowing Genitourinary Male: No difficulty urinating or burning urination Musc Musculoskeletal: No joint pain, joint swelling, muscle weakness or decreased muscle mass Skin Skin: No hair loss in leg, yellowing of the eye, itchy eyes, rash, skin ulcer or skin swelling Neuro Neurology: No abnormal hearing, abnormal movements, confusion, unsteady gait/balance or memory loss Psych Psychiatric: No anxiety, No confusion and No memory loss Endo Endocrine: No fatigue or weight change Aller/Imm Allergy/Immunologic: No itchy eyes, throat swelling or tongue swelling Wesly/Lymp Hematologic/Lymphatic: No easy bleeding, easy bruising or enlarged lymph nodes Exam Const General: cooperative and comfortable Nutritional Appearance: average body habitus and well nourished [facility] Head: normal to inspection Ears: hearing grossly normal bilaterally Nose: external nose normal Face and sinus: normal facial exam Mouth: oral mucosae normal Throat: posterior oropharynx normal Eyes General: appearance normal, both eyes and all related structures Neck Neck: normal visual inspection Chest Chest palpation & inspection: normal inspection of the chest and normal palpation of entire chest wall Resp Effort & Inspection: normal respiratory effort Auscultation: Bilateral: Clear to Auscultation Cardio Palpation: normal PMI Rate: regular rate Rhythm: regular rhythm GI Inspection: normal to inspection Auscultation: normal bowel sounds Percussion: normal to percussion Palpation: no hepatosplenomegaly Skin General: no rashes or lesions noted Neuro General: patient alert Extrem General: normal to inspection Psych Affect: normal affect Quality Reporting Tobacco Screening ([facility] 138) Smoking Status: Former smoker Assessment and Plan Assessment and Plan (1) GERD (gastroesophageal reflux disease): Status: Chronic (2) Anemia: Status: Acute (3) Abdominal pain: Status: Acute Plan: 76-year-old with history of CAD, depression, bipolar disorder BPH, diabetes, hypertension with new onset anemia. His hemoglobin was 11.8 and dropped down to 9.9. He was having worsening abdominal pain but it is slightly improved with the use of Carafate and PPI therapy. As per his aide he he was discovered to have some worsening renal insufficiency thought to be secondary to PPI therapy. Therefore that was stopped. He has CKD stage III. He should undergo an upper and lower endoscopy to evaluate his upper and lower GI tract due to his new onset anemia and abdominal pain. It was explained alternatives, risk, benefits include not withstanding bleeding, infection, sepsis, perforation, need for emergency to . He will have an ASA of 2. I have examined the patient and the H&P has been reviewed. There are no clinical changes since date of exam.
--- NOTE | 2022-12-11 15:47 | OP.COLON_ITS ---
Patient Name: Remi Bernabe Procedure Date: 12/11/2022 2:42 PM Date of : 1945 Age: 77 Procedure: Colonoscopy Indications: Last colonoscopy: November 2022, Follow-up for history of adenomatous polyps in the colon Providers: Kingsley Nuñez DO Referring MD: Micheal Peralta MD Medicines: Monitored Anesthesia Care Patient Profile: This is a 77 year old male. Refer to note in patient chart for documentation of history and physical. Last Colonoscopy: within the past month. Complications: No immediate complications. Procedure: Pre-Anesthesia Assessment: - Prior to the procedure, a History and Physical was performed, and patient medications and allergies were reviewed. The patient is competent. The risks and benefits of the procedure and the sedation options and risks were discussed with the patient. All questions were answered and informed consent was obtained. Patient identification and proposed procedure were verified by the physician in the pre-procedure area. Mental Status Examination: alert and oriented. Respiratory Examination: clear to auscultation. CV Examination: normal. Prophylactic Antibiotics: The patient does not require prophylactic antibiotics. Prior Anticoagulants: The patient has taken no anticoagulant or antiplatelet agents. ASA Grade Assessment: II - A patient with mild systemic disease. After reviewing the risks and benefits, the patient was deemed in satisfactory condition to undergo the procedure. The anesthesia plan was to use monitored anesthesia care (MAC). Immediately prior to administration of medications, the patient was re-assessed for adequacy to receive sedatives. The heart rate, respiratory rate, oxygen saturations, blood pressure, adequacy of pulmonary ventilation, and response to care were monitored throughout the procedure. The physical status of the patient was re-assessed after the procedure. After I obtained informed consent, the scope was passed under direct vision. Throughout the procedure, the patient's blood pressure, pulse, and oxygen saturations were monitored continuously. The colonoscope was introduced through the anus and advanced to the terminal ileum. The colonoscopy was performed without difficulty. The patient tolerated the procedure well. The quality of the bowel preparation was adequate. The ileocecal valve, appendiceal orifice, and rectum were photographed. Scope In: 3:00:19 PM Scope Withdrawal Time 0 hours 19 minutes 39 seconds Scope Out: 3:26:44 PM Total Procedure Duration Time 0 hours 26 minutes 25 seconds Findings: The perianal and digital rectal examinations were normal. Four sessile polyps were found in the descending colon and ascending colon. The polyps were 1 to 2 mm in size. These polyps were removed with a cold snare. Resection and retrieval were complete. Verification of patient identification for the specimen was done. Estimated blood loss was minimal. A 7 mm post polypectomy scar was found in the rectum. The scar tissue was healthy in appearance. Biopsies were taken with a cold forceps for histology. Verification of patient identification for the specimen was done. Estimated blood loss was minimal. Impression: - Four 1 to 2 mm polyps in the descending colon and in the ascending colon, removed with a cold snare. Resected and retrieved. - Post-polypectomy scar in the rectum. Biopsied. Recommendation: - Discharge patient to home. - Resume previous diet. - Continue present medications. - Await pathology results. - Repeat colonoscopy in 1 year for surveillance. Procedure Code(s): --- Professional --- 72978, Colonoscopy, flexible; with removal of tumor(s), polyp(s), or other lesion(s) by snare technique [id number], 59, Colonoscopy, flexible; with biopsy, single or multiple CPT copyright 2021 [employer]. All rights reserved. The codes documented in this report are preliminary and upon vp project review may be revised to meet current compliance requirements. Kingsley Nuñez DO 12/11/2022 3:46:46 PM This report has been signed electronically. Number of Addenda: 0 Note Initiated On: 12/11/2022 2:42 PM
--- NOTE | 2022-12-11 15:47 | OP.CCLET_ITS ---
12/11/2022 Micheal Peralta MD [address] [place] [address] Re : Colonoscopy procedure for Remi Bernabe Dear Dr. Peralta This procedure was performed on Sunday, December 11, 2022. My impressions and recommendations are as follows: Impressions : - Four 1 to 2 mm polyps in the descending colon and in the ascending colon, removed with a cold snare. Resected and retrieved. - Post-polypectomy scar in the rectum. Biopsied. Recommendations : - Discharge patient to home. - Resume previous diet. - Continue present medications. - Await pathology results. - Repeat colonoscopy in 1 year for surveillance. My findings are described in the full procedure note, which is enclosed. If I can be of further assistance, please feel free to contact me at . Sincerely, Kingsley Nuñez, 12/11/2022 3:46:46 PM This report has been signed electronically.
== END 2022-12-11 16:22 | disposition home or self-care (01) ==
LOC: EN 13:40 → AC 13:41
PROVIDERS: PCP Family Medicine Geriatric Medicine; Referring Provider Family Medicine Geriatric Medicine; Visit Provider Internal Medicine Gastroenterology
PROC: 0DJD8ZZ Inspection of Lower Intestinal Tract, Via Natural or Artificial Opening Endoscopic (ICD-10-PCS; CPT 45378; principal; 2022-12-11 14:30)
DX: D12.2 Benign neoplasm of ascending colon (principal); E11.22 Type 2 diabetes mellitus with diabetic chronic kidney disease; N18.30 Chronic kidney disease, stage 3 unspecified; D12.3 Benign neoplasm of transverse colon; D12.4 Benign neoplasm of descending colon; D12.8 Benign neoplasm of rectum; K21.9 Gastro-esophageal reflux disease without esophagitis; I12.9 Hypertensive chronic kidney disease with stage 1 through stage 4 chronic kidney disease, or unspecified chronic kidney disease; D63.1 Anemia in chronic kidney disease; I25.10 Atherosclerotic heart disease of native coronary artery without angina pectoris; E03.9 Hypothyroidism, unspecified; Z79.84 Long term (current) use of oral hypoglycemic drugs; Z79.899 Other long term (current) drug therapy; Z86.010 Personal history of colon polyps; Z87.891 Personal history of nicotine dependence; Z86.73 Personal history of transient ischemic attack (TIA), and cerebral infarction without residual deficits
CPT/HCPCS: 45380; 45385; 82962; 88305; J7120; J2405

== ENCOUNTER → 2022-12-21 | Outpatient (CLI) | payer MEDICARE, BC, SELFPAY ==
--- NOTE | 2022-12-21 11:45 | NM_ITS ---
CLINICAL: 77-year-old diabetic male with history of abdominal bloating. SEMI-SOLID PHASE 99m Tc SULFUR COLLOID GASTRIC EMPTYING STUDY COMPARISON: None available FINDINGS: The patient was administered 1.1 mCi of 99m Tc sulfur colloid mixed with oatmeal and consumed per os. Image acquisitions in the anterior-posterior projections were obtained for 60 minutes. There is prompt visualization of the stomach. There is no gastroesophageal reflux identified. First order kinetics are maintained throughout the duration of the acquisitions. The T ? linear fit was extrapolated to be 153.82 minutes, (Normal: 12-56 minutes). NM/Gastric Emptying Study IMPRESSION: 1. ABNORMAL 99m Tc sulfur colloid semi-solid phase (oatmeal) gastric emptying imaging examination. A. There is delayed semi-solid phase gastric emptying compared to normal controls. (Leandra et al, J Nucl Med Tech 38: 186, 2010). Electronically Signed: Michael Herrera DO at 22:47 EDT ,
== END | disposition home or self-care (01) ==
LOC: NM 11:40
PROVIDERS: PCP Family Medicine Geriatric Medicine; Referring Provider Internal Medicine Gastroenterology; Visit Provider Internal Medicine Gastroenterology
DX: K31.84 Gastroparesis (principal)
CPT/HCPCS: 78264; A9541

== ENCOUNTER → 2023-01-18 | Outpatient (CLI) | payer MEDICARE, BC, SELFPAY ==
[2023-01-18 12:33] LABS: Absolute Lymphocyte Count 1.65 X10^3/uL (0.83-4.51); Absolute Neutrophil Count 2.7 X10^3/uL (2.0-7.7); Basophil# 0.08 X10^3/uL; Basophil% 1.5 % (0-1); Eosinophil# 0.44 X10^3/uL; Eosinophils% 8.3 % (0-5); Hematocrit 40.4 % (40-54); Hemoglobin 12.4 g/dL (13.0-16.5); Lymphocyte # 1.65 X10^3/ul (0.83-4.51); Lymphocyte % 31.1 % (19-41); Mean Corp Hgb Conc 30.7 g/dL (32-36); Mean Corpuscular Hgb 29.7 pg (27.0-32.0); Mean Corpuscular Volume 96.9 fL (80-94); Mean Platelet Vol. 10.8 fl (6.2-12.0); Monocyte# 0.43 X10^3/uL; Monocyte% 8.1 % (0-10); NRBC Flagged by Analyzer 0 % (0-5); Neutrophil # 2.68 X10^3/uL (2.7-7.7); Neutrophil % 50.6 % (47-70); Platelet Count 216 K/mm3 (150-450); RBC Distribution Width CV 14.8 % (11.6-14.6); RBC Distribution Width SD 52.9 fl (35.1-43.9); Red Blood Count 4.17 M/mm3 (4.6-6.2); White Blood Count 5.3 K/mm3 (4.4-11.0)
[2023-01-18 12:49] LABS: Vitamin D,25 Hydroxy 21.1 ng/mL
[2023-01-18 12:58] LABS: ALB/GLOB Ratio 0.9 RATIO (0.9-2.4); AST(SGOT) 18 U/L (15-37); Alanine Aminotransfer ALT/SGPT 30 U/L (16-61); Albumin, Serum 3.5 g/dL (3.2-5.0); Alkaline Phosphatase 71 U/L (45-117); Anion Gap 3 (5-15); BUN 17 mg/dL (7-18); BUN/Creat Ratio 11.3 RATIO (10-20); Calcium,Total 9.2 mg/dL (8.5-10.1); Chloride 108 mmol/L (98-107); Cholesterol 152 mg/dL (200); EST Glomerular Filtration Rate 48 mL/min (>60); Est Glom Filt Rate - Afr Amer 59 mL/min (>60); Globulin 3.8 g/dL (2.2-4.2); Glucose 185 mg/dL (74-106); High Density Lipoprotein 68 mg/dL; Potassium 3.8 mmol/L (3.5-5.1); Protein, Total 7.3 g/dL (6.4-8.2); Sodium Level 139 mmol/L (136-145); Thyroid Stim Hormone (TSH) 2.35 uIU/mL (0.358-3.74); Triglycerides 95 mg/dL; Very Low Density Lipoprotein 19 mg/dL (5-40)
== END | disposition home or self-care (01) ==
LOC: POLAB3 11:01
PROVIDERS: PCP Family Medicine Geriatric Medicine; Visit Provider Family Medicine Geriatric Medicine
DX: E55.9 Vitamin D deficiency, unspecified (principal); E11.65 Type 2 diabetes mellitus with hyperglycemia; E78.5 Hyperlipidemia, unspecified; I10 Essential (primary) hypertension
CPT/HCPCS: 36415; 80053; 80061; 82306; 84443; 85025

== ENCOUNTER → 2023-04-23 | Outpatient (CLI) | payer MEDICARE, BC, SELFPAY ==
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
[2023-04-23 12:50] LABS: Absolute Lymphocyte Count 1.29 X10^3/uL (0.83-4.51); Absolute Neutrophil Count 2.5 X10^3/uL (2.0-7.7); Basophil# 0.07 X10^3/uL; Basophil% 1.5 % (0-1); Eosinophil# 0.27 X10^3/uL; Eosinophils% 5.9 % (0-5); Hematocrit 39.7 % (40-54); Hemoglobin 12.9 g/dL (13.0-16.5); Lymphocyte # 1.29 X10^3/ul (0.83-4.51); Lymphocyte % 28.4 % (19-41); Mean Corp Hgb Conc 32.5 g/dL (32-36); Mean Corpuscular Hgb 31.3 pg (27.0-32.0); Mean Corpuscular Volume 96.4 fL (80-94); Mean Platelet Vol. 10.7 fl (6.2-12.0); Monocyte# 0.39 X10^3/uL; Monocyte% 8.6 % (0-10); NRBC Flagged by Analyzer 0 % (0-5); Neutrophil # 2.52 X10^3/uL (2.7-7.7); Neutrophil % 55.4 % (47-70); Platelet Count 181 K/mm3 (150-450); RBC Distribution Width CV 13.9 % (11.6-14.6); RBC Distribution Width SD 49.2 fl (35.1-43.9); Red Blood Count 4.12 M/mm3 (4.6-6.2); White Blood Count 4.6 K/mm3 (4.4-11.0)
[2023-04-23 14:46] LABS: Vitamin D,25 Hydroxy 23.8 ng/mL
[2023-04-23 14:53] LABS: ALB/GLOB Ratio 1.1 RATIO (0.9-2.4); AST(SGOT) 29 U/L (15-37); Alanine Aminotransfer ALT/SGPT 32 U/L (16-61); Albumin, Serum 3.7 g/dL (3.2-5.0); Alkaline Phosphatase 75 U/L (45-117); Anion Gap 4 (5-15); BUN 21 mg/dL (7-18); BUN/Creat Ratio 13.9 RATIO (10-20); Calcium,Total 9.3 mg/dL (8.5-10.1); Chloride 108 mmol/L (98-107); Cholesterol 150 mg/dL (200); Creatinine, Serum 1.51 mg/dL (0.70-1.30); EST Glomerular Filtration Rate 48 mL/min (>60); Est Glom Filt Rate - Afr Amer 58 mL/min (>60); Globulin 3.5 g/dL (2.2-4.2); Glucose 199 mg/dL (74-106); High Density Lipoprotein 64 mg/dL; Phosphorus 2.3 mg/dL (2.5-4.9); Potassium 4.1 mmol/L (3.5-5.1); Protein, Total 7.2 g/dL (6.4-8.2); Sodium Level 139 mmol/L (136-145); Thyroid Stim Hormone (TSH) 1.57 uIU/mL (0.358-3.74); Triglycerides 149 mg/dL; Very Low Density Lipoprotein 30 mg/dL (5-40)
== END | disposition home or self-care (01) ==
LOC: POLAB3 12:16
PROVIDERS: PCP Family Medicine Geriatric Medicine; Visit Provider Internal Medicine Nephrology
DX: E11.65 Type 2 diabetes mellitus with hyperglycemia (principal); N17.9 Acute kidney failure, unspecified; E78.5 Hyperlipidemia, unspecified; E55.9 Vitamin D deficiency, unspecified; I10 Essential (primary) hypertension
CPT/HCPCS: 36415; 80053; 80061; 82306; 84100; 84443; 85025

== ENCOUNTER → 2023-07-25 | Outpatient (CLI) | payer MEDICARE, BC, SELFPAY ==
[2023-07-25 13:33] LABS: Absolute Lymphocyte Count 1.41 X10^3/uL (0.83-4.51); Absolute Neutrophil Count 5.9 X10^3/uL (2.0-7.7); Basophil# 0.07 X10^3/uL; Basophil% 0.9 % (0-1); Eosinophil# 0.29 X10^3/uL; Eosinophils% 3.6 % (0-5); Hemoglobin 12.1 g/dL (13.0-16.5); Lymphocyte # 1.41 X10^3/ul (0.83-4.51); Lymphocyte % 17.3 % (19-41); Mean Corp Hgb Conc 31.8 g/dL (32-36); Mean Corpuscular Hgb 30.2 pg (27.0-32.0); Mean Corpuscular Volume 94.8 fL (80-94); Mean Platelet Vol. 10.7 fl (6.2-12.0); Monocyte# 0.49 X10^3/uL; NRBC Flagged by Analyzer 0 % (0-5); Neutrophil # 5.87 X10^3/uL (2.7-7.7); Platelet Count 182 K/mm3 (150-450); RBC Distribution Width CV 14.3 % (11.6-14.6); RBC Distribution Width SD 49.7 fl (35.1-43.9); Red Blood Count 4.01 M/mm3 (4.6-6.2); White Blood Count 8.2 K/mm3 (4.4-11.0)
[2023-07-25 14:04] LABS: Vitamin D,25 Hydroxy 19.6 ng/mL
[2023-07-25 14:09] LABS: ALB/GLOB Ratio 0.9 RATIO (0.9-2.4); AST(SGOT) 18 U/L (15-37); Alanine Aminotransfer ALT/SGPT 25 U/L (16-61); Albumin, Serum 3.5 g/dL (3.2-5.0); Alkaline Phosphatase 80 U/L (45-117); Anion Gap 2 (5-15); BUN 16 mg/dL (7-18); BUN/Creat Ratio 11.3 RATIO (10-20); Chloride 110 mmol/L (98-107); Cholesterol 154 mg/dL (200); Creatinine, Serum 1.42 mg/dL (0.70-1.30); EST Glomerular Filtration Rate 51 mL/min (>60); Est Glom Filt Rate - Afr Amer 62 mL/min (>60); Globulin 3.7 g/dL (2.2-4.2); Glucose 232 mg/dL (74-106); High Density Lipoprotein 69 mg/dL; Potassium 3.9 mmol/L (3.5-5.1); Protein, Total 7.2 g/dL (6.4-8.2); Sodium Level 140 mmol/L (136-145); Thyroid Stim Hormone (TSH) 1.25 uIU/mL (0.358-3.74); Triglycerides 125 mg/dL; Very Low Density Lipoprotein 25 mg/dL (5-40)
[2023-07-25 14:13] LABS: Hemoglobin A1c 6.5 % (3.8-5.6)
== END | disposition home or self-care (01) ==
LOC: LAB 12:27
PROVIDERS: PCP Family Medicine Geriatric Medicine; Referring Provider Family Medicine Geriatric Medicine; Visit Provider Family Medicine Geriatric Medicine
DX: E11.65 Type 2 diabetes mellitus with hyperglycemia (principal); I10 Essential (primary) hypertension; E55.9 Vitamin D deficiency, unspecified
CPT/HCPCS: 36415; 80053; 80061; 82306; 83036; 84443; 85025

== ENCOUNTER → 2023-10-07 | Outpatient (CLI) | payer MEDICARE, BC, SELFPAY ==
[2023-10-07 15:37] LABS: Absolute Lymphocyte Count 1.66 X10^3/uL (0.83-4.51); Absolute Neutrophil Count 4.7 X10^3/uL (2.0-7.7); Basophil# 0.08 X10^3/uL; Eosinophil# 0.55 X10^3/uL; Eosinophils% 7.1 % (0-5); Hematocrit 40.5 % (40-54); Lymphocyte # 1.66 X10^3/ul (0.83-4.51); Lymphocyte % 21.4 % (19-41); Mean Corp Hgb Conc 32.1 g/dL (32-36); Mean Corpuscular Volume 93.5 fL (80-94); Monocyte# 0.72 X10^3/uL; Monocyte% 9.3 % (0-10); NRBC Flagged by Analyzer 0 % (0-5); Neutrophil % 60.8 % (47-70); Platelet Count 209 K/mm3 (150-450); RBC Distribution Width CV 13.8 % (11.6-14.6); Red Blood Count 4.33 M/mm3 (4.6-6.2); White Blood Count 7.7 K/mm3 (4.4-11.0)
[2023-10-07 16:14] LABS: Hemoglobin A1c 6.4 % (3.8-5.6)
[2023-10-07 16:28] LABS: ALB/GLOB Ratio 0.9 RATIO (0.9-2.4); AST(SGOT) 22 U/L (15-37); Alanine Aminotransfer ALT/SGPT 34 U/L (16-61); Albumin, Serum 3.7 g/dL (3.2-5.0); Alkaline Phosphatase 88 U/L (45-117); Anion Gap 6 (5-15); BUN 19 mg/dL (7-18); BUN/Creat Ratio 13.9 RATIO (10-20); Calcium,Total 9.3 mg/dL (8.5-10.1); Chloride 109 mmol/L (98-107); Cholesterol 149 mg/dL (200); Creatinine, Serum 1.37 mg/dL (0.70-1.30); EST Glomerular Filtration Rate 54 mL/min (>60); Est Glom Filt Rate - Afr Amer 65 mL/min (>60); Globulin 3.9 g/dL (2.2-4.2); Glucose 152 mg/dL (74-106); High Density Lipoprotein 74 mg/dL; Potassium 3.6 mmol/L (3.5-5.1); Protein, Total 7.6 g/dL (6.4-8.2); Sodium Level 140 mmol/L (136-145); Thyroid Stim Hormone (TSH) 2.07 uIU/mL (0.358-3.74); Triglycerides 85 mg/dL; Very Low Density Lipoprotein 17 mg/dL (5-40)
[2023-10-07 17:09] LABS: Vitamin D,25 Hydroxy 13.5 ng/mL
== END | disposition home or self-care (01) ==
LOC: POLAB3 13:51
PROVIDERS: PCP Family Medicine Geriatric Medicine; Visit Provider Family Medicine Geriatric Medicine
DX: I10 Essential (primary) hypertension (principal); E11.65 Type 2 diabetes mellitus with hyperglycemia; E55.9 Vitamin D deficiency, unspecified; E78.5 Hyperlipidemia, unspecified; N52.9 Male erectile dysfunction, unspecified
CPT/HCPCS: 36415; 80053; 80061; 82306; 83036; 84403; 84443; 85025

== ENCOUNTER → 2023-10-07 | Outpatient (CLI) | payer MEDICARE, BC, SELFPAY ==
--- NOTE | 2023-10-07 13:07 | CDU_ITS ---
Reason For Study: Carotid Stenosis Rt. Velocities/BP Lt. Velocities/BP Prox CCA 70.7/11.8 cm/sec. Prox CCA 117.7/18.9 cm/sec. Mid CCA 78.1/16.7 cm/sec. Mid CCA 100.2/14.2 cm/sec. Dist CCA 72.0/15.5 cm/sec. Dist CCA 113.3/15.1 cm/sec. Prox ICA 104.5/25.5 cm/sec. Prox ICA 174.7/36.4 cm/sec. Mid ICA 108.0/33.2 cm/sec. Mid ICA 114.3/24.8 cm/sec. Dist ICA 77.0/19.6 cm/sec. Dist ICA 66.4/15.3 cm/sec. Rt. ICA/CCA = 1.4. Lt. ICA/CCA = 1.7. Prox ECA 96.5/10.6 cm/sec. Prox ECA 168.2/10.1 cm/sec. Rt. Vert. 36.3/10.1 cm/sec. Lt. Vert. 50.1/11.7 cm/sec. Right Extracranial There is heterogeneous, irregular atherosclerotic plaque noted in the right common carotid artery. There is heterogeneous, irregular atherosclerotic plaque noted in the right internal carotid artery. There is heterogeneous, irregular atherosclerotic plaque noted in the right external carotid artery. Antegrade flow is noted in the right vertebral artery. Left Extracranial There is heterogeneous, irregular atherosclerotic plaque noted in the left common carotid artery. There is heterogeneous, irregular atherosclerotic plaque noted in the left internal carotid artery. The atherosclerotic plaque causes acoustic shadowing. There is heterogeneous, irregular atherosclerotic plaque noted in the left external carotid artery. Antegrade flow is noted in the left vertebral artery. Procedure Carotid Duplex [id number]. This is a Carotid Duplex examination using B-mode, color flow and specral Doppler. The exam was diagnostic. Exam performed in department. VL/Carotid Duplex Ultrasound Interpretation Summary Mild (<50%) stenosis right extracranial internal carotid. Moderate (50-69%) stevo nosis left extracranial internal carotid. Flow within the vertebral arteries is antegrade bilaterally. Ordering Physician: Guillermo Walter Referring Physician: Micheal Peralta Chi Performed By: Alvino Win RVT
== END | disposition home or self-care (01) ==
LOC: CVS 13:06
PROVIDERS: PCP Family Medicine Geriatric Medicine; Referring Provider Surgery Vascular Surgery; Visit Provider Surgery Vascular Surgery
DX: I65.23 Occlusion and stenosis of bilateral carotid arteries (principal); I63.9 Cerebral infarction, unspecified; I10 Essential (primary) hypertension
CPT/HCPCS: 93880

== ENCOUNTER → 2024-01-21 | Outpatient (CLI) | payer MEDICARE, BC, SELFPAY ==
[2024-01-21 13:07] LABS: Absolute Lymphocyte Count 1.41 X10^3/uL (0.83-4.51); Absolute Neutrophil Count 5.1 X10^3/uL (2.0-7.7); Basophil# 0.08 X10^3/uL; Basophil% 1.1 % (0-1); Eosinophil# 0.37 X10^3/uL; Eosinophils% 4.9 % (0-5); Hematocrit 41.3 % (40-54); Hemoglobin 12.8 g/dL (13.0-16.5); Lymphocyte # 1.41 X10^3/ul (0.83-4.51); Lymphocyte % 18.7 % (19-41); Mean Corpuscular Hgb 29.9 pg (27.0-32.0); Mean Corpuscular Volume 96.5 fL (80-94); Mean Platelet Vol. 10.6 fl (6.2-12.0); Monocyte# 0.55 X10^3/uL; Monocyte% 7.3 % (0-10); NRBC Flagged by Analyzer 0 % (0-5); Neutrophil % 67.7 % (47-70); Platelet Count 177 K/mm3 (150-450); RBC Distribution Width CV 13.5 % (11.6-14.6); RBC Distribution Width SD 48.3 fl (35.1-43.9); Red Blood Count 4.28 M/mm3 (4.6-6.2); White Blood Count 7.5 K/mm3 (4.4-11.0)
[2024-01-21 13:36] LABS: AST(SGOT) 24 U/L (15-37); Alanine Aminotransfer ALT/SGPT 31 U/L (16-61); Albumin, Serum 3.5 g/dL (3.2-5.0); Alkaline Phosphatase 79 U/L (45-117); Anion Gap 5 (5-15); BUN 19 mg/dL (7-18); BUN/Creat Ratio 13.1 RATIO (10-20); Chloride 106 mmol/L (98-107); Cholesterol 140 mg/dL (200); Creatinine, Serum 1.45 mg/dL (0.70-1.30); EST Glomerular Filtration Rate 50 mL/min (>60); Est Glom Filt Rate - Afr Amer 61 mL/min (>60); Globulin 3.5 g/dL (2.2-4.2); Glucose 202 mg/dL (74-106); High Density Lipoprotein 65 mg/dL; Potassium 3.8 mmol/L (3.5-5.1); Sodium Level 138 mmol/L (136-145); Triglycerides 128 mg/dL; Very Low Density Lipoprotein 26 mg/dL (5-40)
[2024-01-21 15:37] LABS: Hemoglobin A1c 6.8 % (3.8-5.6)
== END | disposition home or self-care (01) ==
PROVIDERS: PCP Family Medicine Geriatric Medicine; Referring Provider Family Medicine Geriatric Medicine; Visit Provider Family Medicine Geriatric Medicine
DX: E11.65 Type 2 diabetes mellitus with hyperglycemia (principal); I10 Essential (primary) hypertension; E78.5 Hyperlipidemia, unspecified; E55.9 Vitamin D deficiency, unspecified
CPT/HCPCS: 36415; 80053; 80061; 82306; 83036; 84443; 85025

== ENCOUNTER → 2024-03-11 | Outpatient (CLI) | payer MEDICARE, BC, SELFPAY ==
--- NOTE | 2024-03-11 11:24 | NM_ITS ---
CLINICAL: 78-year-old male with history of clinical gastroparesis. SEMI-SOLID PHASE 99m Tc SULFUR COLLOID GASTRIC EMPTYING STUDY COMPARISON: Previous semisolid phase gastric emptying study report 12/21/2022 FINDINGS: The patient was administered 1.0 mCi of 99m Tc sulfur colloid mixed with oatmeal and consumed per os. Image acquisitions in the anterior-posterior projections were obtained for 60 minutes. There is prompt visualization of the stomach. There is no gastroesophageal reflux identified. First order kinetics are maintained throughout the duration of the acquisitions. The T ? linear fit was calculated to be 66.11 minutes compared to 153.82 minutes defined on the prior examination, (Normal: 12-56 minutes). NM/Gastric Emptying Study IMPRESSION: 1. ABNORMAL 99m Tc sulfur colloid semi-solid phase (oatmeal) gastric emptying imaging examination. A. There is delayed semi-solid phase gastric emptying compared to normal controls with maintained first order kinetics throughout all components of the examination. (Leandra et al, J Nucl Med Tech 38: 186, 2010). B. Overall compared to the examination dated 12/21/2022, there is continued demonstration of delayed gastric emptying of semisolid phase food bolus with interim improvement as defined above. Electronically Signed: Michael Herrera DO at 9:32 EST ,
== END | disposition home or self-care (01) ==
LOC: NM 11:21
PROVIDERS: PCP Family Medicine Geriatric Medicine; Referring Provider Student in an Organized Health Care Education/Training Program; Visit Provider Student in an Organized Health Care Education/Training Program
DX: K31.84 Gastroparesis (principal)
CPT/HCPCS: 78264; A9541

== ENCOUNTER → 2024-05-04 | Outpatient (CLI) | payer MEDICARE, BC, SELFPAY ==
--- NOTE | 2024-05-04 15:15 | CT_ITS ---
STUDY: CT BRAIN WITHOUT CONTRAST REASON FOR EXAM: Male, 78 years old. Encephalopathy RADIATION DOSAGE (If Supplied By Facility): CTDIvol = ( 44.99 ) mGy, DLP = ( 829.85 ) mGycm TECHNIQUE: Transaxial CT imaging of the brain was performed without administration of intravenous contrast material. Individualized dose optimization techniques were used for this CT. COMPARISON: 04/11/2021 FINDINGS: Normal soft tissue structures. Normal calvarium. Stable appearance of encephalomalacia along the inferior aspects of both frontal lobes, a pattern commonly seen with trauma. No acute abnormality. Normal size ventricles and extra-axial spaces for the patient''s age. There are areas of decreased attenuation within the white matter tracts of the supratentorial brain, consistent with microvascular disease changes. Normal basal ganglia and thalami. Normal brainstem. Normal cerebellum. There is no intracranial hemorrhage. There are no findings of an acute ischemic infarction. Extensive postsurgical changes of the facial bones, stable and stable appearance of bilateral abnormal globes. CT/Brain/Head without Contrast IMPRESSION: No change or acute abnormality. Encephalomalacia of both frontal lobes. Chronic white matter disease. Extensive previously treated facial fractures. Electronically Signed: Martín Valle MD at 23:00 EST ,
[2024-05-04 16:37] LABS: Color, Urine Yellow (Yellow); Glucose, Dipstick 100 mg/dl (Normal); Ketone-Dipstick 15 mg/dl (Negative); Leukocyte Esterase-Dipstick 25 /ul (Negative); Nitrite-Dipstick Negative (Negative); Occult Blood-Urine 150 /ul (Negative); Protein-Dipstick 100 mg/dl (Negative); Specific Gravity, Urine 1.025 (1.002-1.030); Urine Clarity Clear (Clear); Urine Urobilinogen 4 mg/dl (Normal)
[2024-05-04 16:40] LABS: Urine Bilirubin Dipstick 1 mg/dL (Negative)
[2024-05-04 16:40] LABS: Absolute Lymphocyte Count 1.05 X10^3/uL (0.83-4.51); Absolute Neutrophil Count 5.2 X10^3/uL (2.0-7.7); Basophil# 0.03 X10^3/uL; Basophil% 0.4 % (0-1); Hematocrit 40.7 % (40-54); Hemoglobin 13.1 g/dL (13.0-16.5); Lymphocyte # 1.05 X10^3/ul (0.83-4.51); Lymphocyte % 14.8 % (19-41); Mean Corp Hgb Conc 32.2 g/dL (32-36); Mean Corpuscular Hgb 29.7 pg (27.0-32.0); Mean Corpuscular Volume 92.3 fL (80-94); Monocyte# 0.84 X10^3/uL; Monocyte% 11.8 % (0-10); NRBC Flagged by Analyzer 0 % (0-5); Neutrophil # 5.15 X10^3/uL (2.7-7.7); Neutrophil % 72.7 % (47-70); Platelet Count 172 K/mm3 (150-450); RBC Distribution Width CV 14.1 % (11.6-14.6); RBC Distribution Width SD 48.2 fl (35.1-43.9); Red Blood Count 4.41 M/mm3 (4.6-6.2); White Blood Count 7.1 K/mm3 (4.4-11.0)
[2024-05-04 16:53] LABS: Hemoglobin A1c 9.2 % (3.8-5.6)
[2024-05-04 17:17] LABS: ALB/GLOB Ratio 0.9 RATIO (0.9-2.4); AST(SGOT) 38 U/L (15-37); Alanine Aminotransfer ALT/SGPT 44 U/L (16-61); Albumin, Serum 3.7 g/dL (3.2-5.0); Alkaline Phosphatase 77 U/L (45-117); Anion Gap 8 (5-15); BUN 18 mg/dL (7-18); BUN/Creat Ratio 11.8 RATIO (10-20); Calcium,Total 9.1 mg/dL (8.5-10.1); Chloride 100 mmol/L (98-107); Cholesterol 150 mg/dL (200); Creatinine, Serum 1.53 mg/dL (0.70-1.30); EST Glomerular Filtration Rate 47 mL/min (>60); Est Glom Filt Rate - Afr Amer 57 mL/min (>60); Globulin 4.1 g/dL (2.2-4.2); Glucose 324 mg/dL (74-106); High Density Lipoprotein 79 mg/dL; Potassium 3.8 mmol/L (3.5-5.1); Protein, Total 7.8 g/dL (6.4-8.2); Sodium Level 132 mmol/L (136-145); Triglycerides 71 mg/dL; Very Low Density Lipoprotein 14 mg/dL (5-40)
== END | disposition home or self-care (01) ==
PROVIDERS: PCP Family Medicine Geriatric Medicine; Referring Provider Family Medicine Geriatric Medicine; Visit Provider Family Medicine Geriatric Medicine
DX: G93.40 Encephalopathy, unspecified (principal); E11.65 Type 2 diabetes mellitus with hyperglycemia; E78.5 Hyperlipidemia, unspecified; I10 Essential (primary) hypertension; E55.9 Vitamin D deficiency, unspecified; R68.83 Chills (without fever)
CPT/HCPCS: 36415; 70450; 80053; 80061; 81002; 82306; 83036; 84443; 85025; 87631

== ENCOUNTER → 2024-08-05 | Outpatient (CLI) | payer MEDICARE, BC, SELFPAY ==
--- NOTE | 2024-08-05 15:20 | RAD_ITS ---
PROCEDURE: CERV SPINE 2 OR 3 VIEWS 08/05/2024 REASON FOR EXAM: CERVICALGIA TECHNIQUE: 3 views of the cervical spine. COMPARISON: 01/12/2022 FINDINGS: Vertebrae: No acute fracture. disc spaces: Disc space narrowing and osteophyte formation consistent with degenerative disc disease. Alignment: Anatomic alignment. soft tissues: No prevertebral soft tissue swelling. Other: RAD/Cerv Spine 2 or 3 Views IMPRESSION: MODERATE CERVICAL DEGENERATIVE CHANGES. Disclaimer: Reading Location: [id number]
== END | disposition home or self-care (01) ==
PROVIDERS: PCP Family Medicine Geriatric Medicine; Referring Provider Family Medicine Geriatric Medicine; Visit Provider Family Medicine Geriatric Medicine
DX: M54.2 Cervicalgia (principal)
CPT/HCPCS: 72040

== ENCOUNTER → 2024-08-07 | Outpatient (CLI) | payer MEDICARE, BC, SELFPAY ==
[2024-08-07 15:32] LABS: Absolute Lymphocyte Count 1.65 X10^3/uL (0.83-4.51); Absolute Neutrophil Count 2.2 X10^3/uL (2.0-7.7); Basophil# 0.05 X10^3/uL; Basophil% 1.1 % (0-1); Eosinophil# 0.14 X10^3/uL; Eosinophils% 3.2 % (0-5); Hematocrit 39.1 % (40-54); Hemoglobin 12.4 g/dL (13.0-16.5); Lymphocyte # 1.65 X10^3/ul (0.83-4.51); Lymphocyte % 37.4 % (19-41); Mean Corp Hgb Conc 31.7 g/dL (32-36); Mean Corpuscular Hgb 29.9 pg (27.0-32.0); Mean Corpuscular Volume 94.2 fL (80-94); Mean Platelet Vol. 10.6 fl (6.2-12.0); Monocyte# 0.33 X10^3/uL; Monocyte% 7.5 % (0-10); NRBC Flagged by Analyzer 0 % (0-5); Neutrophil # 2.22 X10^3/uL (2.7-7.7); Neutrophil % 50.3 % (47-70); Platelet Count 212 K/mm3 (150-450); RBC Distribution Width CV 14.1 % (11.6-14.6); Red Blood Count 4.15 M/mm3 (4.6-6.2); White Blood Count 4.4 K/mm3 (4.4-11.0)
[2024-08-07 15:35] LABS: Hemoglobin A1c 6.8 % (<=5.6)
[2024-08-07 16:02] LABS: ALB/GLOB Ratio 1.3 RATIO (0.9-2.4); AST(SGOT) 24 U/L (<=37); Alanine Aminotransfer ALT/SGPT 18 U/L (<=46); Alkaline Phosphatase 72 U/L (40-129); Anion Gap 11 (5-15); BUN 16 mg/dL (4-19); BUN/Creat Ratio 12.2 RATIO (10-20); Calcium,Total 9.2 mg/dL (7.6-11.0); Carbon Dioxide 23.6 mmol/L (21.0-32.0); Chloride 104 mmol/L (98-108); Cholesterol 148 mg/dL (<=200); EST Glomerular Filtration Rate 57 (>60); Globulin 3.1 g/dL (2.2-4.2); Glucose 215 mg/dL (70-99); High Density Lipoprotein 64 mg/dL; Low Density Lipoprotein Calc. 66 mg/dL; Potassium 4.1 mmol/L (3.3-5.1); Protein, Total 7.1 g/dL (5.9-8.4); Sodium Level 138 mmol/L (133-145); Triglycerides 91 mg/dL; Very Low Density Lipoprotein 18 mg/dL (5-40); cholesterol:hdl ratio screen 2.32
== END | disposition home or self-care (01) ==
LOC: LAB 14:55
PROVIDERS: PCP Family Medicine Geriatric Medicine; Referring Provider Family Medicine Geriatric Medicine; Visit Provider Family Medicine Geriatric Medicine
DX: E11.65 Type 2 diabetes mellitus with hyperglycemia (principal); E78.5 Hyperlipidemia, unspecified; I10 Essential (primary) hypertension; E55.9 Vitamin D deficiency, unspecified
CPT/HCPCS: 36415; 80053; 80061; 82306; 83036; 84443; 85025

== ENCOUNTER → 2024-10-28 | Outpatient (CLI) | payer MEDICARE, BC, SELFPAY ==
[2024-10-28 14:48] LABS: Hematocrit 42.0 % (40-54); Hemoglobin 13.2 g/dL (13.0-16.5); Immature Granulocytes Count 0.030 X10^3/uL (0.0-0.0); Mean Corp Hgb Conc 31.4 g/dL (32-36); Mean Corpuscular Volume 95.0 fL (80-94); Mean Platelet Vol. 10.7 fl (6.2-12.0); NRBC Flagged by Analyzer 0 % (0-5); Platelet Count 224 K/mm3 (150-450); RBC Distribution Width CV 14.4 % (11.6-14.6); RBC Distribution Width SD 49.8 fl (35.1-43.9); Red Blood Count 4.42 M/mm3 (4.6-6.2); White Blood Count 6.8 K/mm3 (4.4-11.0)
[2024-10-28 15:44] LABS: AST(SGOT) 22 U/L (<=37); Alanine Aminotransfer ALT/SGPT 19 U/L (<=46); Albumin, Serum 4.4 g/dL (3.4-4.8); Alkaline Phosphatase 82 U/L (40-129); Anion Gap 14 (5-15); BUN 14 mg/dL (4-19); BUN/Creat Ratio 9.1 RATIO (10-20); Calcium,Total 9.9 mg/dL (7.6-11.0); Carbon Dioxide 21.5 mmol/L (21.0-32.0); Chloride 104 mmol/L (98-108); Cholesterol 164 mg/dL (<=200); Globulin 3.3 g/dL (2.2-4.2); Glucose 187 mg/dL (70-99); Low Density Lipoprotein Calc. 65 mg/dL; Potassium 4.3 mmol/L (3.3-5.1); Triglycerides 57 mg/dL; Very Low Density Lipoprotein 11 mg/dL (5-40); Vitamin D,25 Hydroxy 30.2 ng/mL (30-100); cholesterol:hdl ratio screen 1.88
[2024-10-28 22:26] LABS: Xtra Tube Kwok EXTRA TUBE
== END | disposition home or self-care (01) ==
LOC: POLAB3 14:24
PROVIDERS: PCP Family Medicine Geriatric Medicine; Visit Provider Family Medicine Geriatric Medicine
DX: E11.65 Type 2 diabetes mellitus with hyperglycemia (principal); I10 Essential (primary) hypertension; E78.5 Hyperlipidemia, unspecified; E55.9 Vitamin D deficiency, unspecified
CPT/HCPCS: 36415; 80053; 80061; 82306; 83036; 84443; 85025

== ENCOUNTER → 2025-01-27 | Outpatient (CLI) | payer MEDICARE, BC, SELFPAY ==
--- NOTE | 2025-01-27 14:38 | RAD_ITS ---
PROCEDURE: ABDOMEN SINGLE VIEW 01/27/2025 REASON FOR EXAM: CONSTIPATION TECHNIQUE: Procedure Code: RADABD Modality: DX Procedure: ABDOMEN SINGLE VIEW COMPARISON: None. FINDINGS: There is a nonobstructive bowel gas pattern. There is no significant stool. There are cholecystectomy clips in the right upper quadrant. There is mild multilevel degenerative disc disease of the thoracolumbar spine. RAD/Abdomen Single View IMPRESSION: No evidence of acute abdominal pathology. Reading Location: [place] [address]
[2025-01-27 15:24] LABS: Hematocrit 39.4 % (40-54); Hemoglobin 12.6 g/dL (13.0-16.5); Immature Granulocytes Count 0.020 X10^3/uL (0.0-0.0); Mean Corp Hgb Conc 32.0 g/dL (32-36); Mean Corpuscular Volume 96.6 fL (80-94); Mean Platelet Vol. 10.7 fl (6.2-12.0); NRBC Flagged by Analyzer 0 % (0-5); Platelet Count 192 K/mm3 (150-450); RBC Distribution Width CV 13.8 % (11.6-14.6); RBC Distribution Width SD 49.1 fl (35.1-43.9); Red Blood Count 4.08 M/mm3 (4.6-6.2); White Blood Count 4.4 K/mm3 (4.4-11.0)
[2025-01-27 16:04] LABS: Mucous, Urine 0 SEEN /hpf (<or=2+)
[2025-01-27 16:14] LABS: AST(SGOT) 20 U/L (<=37); Alanine Aminotransfer ALT/SGPT 15 U/L (<=46); Albumin, Serum 4.3 g/dL (3.4-4.8); Alkaline Phosphatase 66 U/L (40-129); Anion Gap 11 (5-15); BUN 21 mg/dL (4-19); BUN/Creat Ratio 14.7 RATIO (10-20); Calcium,Total 9.9 mg/dL (7.6-11.0); Carbon Dioxide 26.3 mmol/L (21.0-32.0); Chloride 101 mmol/L (98-108); Cholesterol 187 mg/dL (<=200); Globulin 2.9 g/dL (2.2-4.2); Glucose 258 mg/dL (70-99); Low Density Lipoprotein Calc. 92 mg/dL; Potassium 4.1 mmol/L (3.3-5.1); Triglycerides 83 mg/dL; Very Low Density Lipoprotein 17 mg/dL (5-40); Vitamin D,25 Hydroxy 35.5 ng/mL (30-100); cholesterol:hdl ratio screen 2.33
[2025-01-27 16:41] LABS: Creatinine, Urine (random) 244.00 mg/dL (39.00-259.00); Microalbumin,Random Urine 32.1 mg/L (<20 mg/L)
[2025-01-27 17:01] LABS: Color, Urine Yellow (Yellow); Glucose, Dipstick 50 mg/dl (Normal); Ketone-Dipstick Negative (Negative); Leukocyte Esterase-Dipstick 500 /ul (Negative); Nitrite-Dipstick Positive (Negative); Occult Blood-Urine 10 /ul (Negative); Protein-Dipstick 30 mg/dl (Negative); Specific Gravity, Urine 1.025 (1.002-1.030); Urine Bilirubin Dipstick Negative (Negative)
[2025-01-27 21:26] LABS: Red Blood Cells-Urine 0-5 SEEN /hpf (0-5); Squamous Epithelial Cells - UA 5-10 SEEN /hpf (0-5)
[2025-01-27 23:10] LABS: Xtra Tube Kwok EXTRA TUBE
== END | disposition home or self-care (01) ==
PROVIDERS: PCP Family Medicine Geriatric Medicine; Referring Provider Student in an Organized Health Care Education/Training Program; Visit Provider Student in an Organized Health Care Education/Training Program
DX: K59.00 Constipation, unspecified (principal); E11.65 Type 2 diabetes mellitus with hyperglycemia; I10 Essential (primary) hypertension; E78.5 Hyperlipidemia, unspecified; E55.9 Vitamin D deficiency, unspecified; N39.0 Urinary tract infection, site not specified
CPT/HCPCS: 36415; 74018; 80053; 80061; 81001; 82043; 82306; 82570; 83036; 84443; 85025; 87077; 87086; 87088; 87186

== ENCOUNTER → 2025-02-10 | Outpatient (CLI) | payer MEDICARE, BC, SELFPAY ==
[2025-02-10 15:54] LABS: Mucous, Urine 0 SEEN /hpf (<or=2+); Squamous Epithelial Cells - UA 0 SEEN /hpf (0-5)
[2025-02-10 16:03] LABS: Color, Urine Yellow (Yellow); Glucose, Dipstick 100 mg/dl (Normal); Ketone-Dipstick 15 mg/dl (Negative); Leukocyte Esterase-Dipstick Negative /ul (Negative); Nitrite-Dipstick Negative (Negative); Occult Blood-Urine Negative /ul (Negative); Protein-Dipstick 30 mg/dl (Negative); Specific Gravity, Urine 1.025 (1.002-1.030); Urine Bilirubin Dipstick Negative (Negative)
[2025-02-10 16:10] LABS: Red Blood Cells-Urine 0-5 SEEN /hpf (0-5)
--- OUTSIDE RECORDS SUMMARY | 2025-02-10 18:05 | XMS RPT_ITS | CCD ---
Author Organization [facility] Care Team Providers Care German Professor Name Role Phone SERGIO PATEL Attending Unavailable SERGIO PATEL Admitting Unavailable FABIAN, MICHEAL-CHI Primary Care Unavailable Dr. Micheal Peralta Chi Primary Care Provider 1([facility])[phone] Dr. Andreas Noonan Emergency Provider 1([facility])[phone] Papito Rueda Admit Provider Dr. Papito Rueda Attending Provider 1([facility])[phone] Paipto Rueda Other Provider Dr. Clarence Che Attending Provider 1([facility])[phone] Dr. Iva Story Attending Provider 1([facility])[phone] Iva Story Other Provider Dr. Guillermo Walter Other Provider 1([facility])[phone] Matteo Gonzales Attending Provider 1([facility])[phone] Dr. Iva Story Referring Provider 1([facility])[phone] Unavailable Primary Care Provider Unavailabl e Fabian, Micheal Chi Primary Care Unavailable Anjali Leon Attending Unavailable Fabian, Micheal Chi Referring Unavailable Alex Hays Attending Unavailable Fabian, Micheal Chi Primary Care Unavailable Alex Hays Attending Unavailable Fabian, Micheal Chi Primary Care Unavailable Anjali Leon Attending Unavailable Fabian, Micheal Chi Referring Unavailable Fabian, Micheal Chi Primary Care Unavailable Alex Hays Attending Unavailable Fabian, Micheal Chi Primary Care Unavailable Fabian, Micheal Chi Consulting Unavailable Fabian, Micheal Chi Primary Care Unavailable Anjali Leon Attending Unavailable Anjali Leon Referring Unavailable Fabian, Micheal Chi Attending Unavailable Fabian, Micheal Chi Referring Unavailable Fabian, Micheal Chi Primary Care Unavailable Fabian, Micheal Chi Attending Unavailable Fabian, Micheal Chi Primary Care Unavailable Fabian, Micheal Chi Attending Unavailable Fabian, Micheal Chi Referring Unavailable Fabian, Micheal Chi Primary Care Unavailable Fabian, Micheal Chi Attending Unavailable Fabian, Micheal Chi Referring Unavailable Fabian, Micheal Chi Primary Care Unavailable Fabian, Micheal Chi Attending Unavailable Fabian, Micheal Chi Referring Unavailable Fabian, Micheal Chi Primary Care Unavailable Fabian, Micheal Chi Primary Care Unavailable Anjali Leon Attending Unavailable Anjali Leon Referring Unavailable Fabian, Micheal Chi Primary Care Unavailable Alex Hays Attending Unavailable Fabian, Micheal Chi Primary Care Unavailable Nacho Allison Attending Unavailable Fabian, Micheal Chi Primary Care Unavailable Srinivasa Em Attending Unavailable Fabian, Micheal Chi Referring Unavailable Allergies Allergy Classification Reported Allergen(s) Allergy Type Date of Onset Reaction(s) Facility Shellfish (1 source) Shellfish; Translations: [Shellfish] Food Allergy [facility] Repository (7 sources) Iodine Drug Allergy 1 Anaphylaxis [facility] (8 sources) Shellfish; Translations: [shellfish derived] Allergy to substance 9 Unknown [facility] (7 sources) strawberry allergenic extract Drug Allergy 9 Rash [facility] (8 sources) [place] pollen; Translations: [weed pollen] Propensity to adverse reactions 9 Other: See Comments [facility] (7 sources) cosmetic Propensity to adverse reactions 9 Other: See Comments [facility] (7 sources) perfume Propensity to adverse reactions 9 Other: See Comments [facility] (1 source) Iodine Drug Allergy 5 [facility] Repository Medications Current Medications Medication Drug Class(es) Dates Sig (Normalized) Sig (Original) atorvastatin 40 mg oral tablet (6 sources) HMG-CoA Reductase Inhibitor Start: 07-17-2018 take 40 mg by mouth at bedtime Atorvastatin Active 40 MG PO AT BEDTIME July 16, 2018 11:00pm benoxinate hydrochloride 4 mg/ml / fluorescein sodium 2.5 mg/ml ophthalmic solution (1 source) Diagnostic Dye Start: 09-12-2021 End: 09-13-2021 fluorescein-benoxin ate 0.25-0.4 % 1 Drop (FLURESS) citalopram 20 mg oral tablet (6 sources) Serotonin Reuptake Inhibitor Start: 11-05-2020 take 20 mg by mouth once daily Citalopram Active 20 MG PO DAILY November 04, 2020 11:00pm clopidogrel 75 mg oral tablet (6 sources) P2Y12 Platelet Inhibitor Start: 04-12-2021 take 1 tablet by mouth once daily Clopidogrel (Plavix) 75 mg tablet Active 75 MG PO DAILY April 12, 2021 12:00am finasteride 5 mg oral tablet (7 sources) 5-alpha Reductase Inhibitor Start: 05-21-2018 take 5 mg by mouth once daily Finasteride Active 5 MG PO DAILY July 16, 2018 11:00pm Comment on above: 5 mg. levothyroxine sodium 0.025 mg oral tablet (6 sources) l-Thyroxine Start: 11-05-2020 take 25 ug by mouth once daily Levothyroxine Active 25 MCG PO DAILY November 04, 2020 11:00pm metFORMIN hydrochloride 500 mg oral tablet (13 sources) Biguanide Start: 04-12-2021 take 1000 mg by mouth twice daily at mealtime Metformin Active 1000 MG PO TWICE DAILY WITH MEALS 60 April 12, 2021 12:01pm Start: 07-18-2018 End: 04-12-2021 take 500 mg by mouth twice daily at mealtime Metformin Discontinued 500 MG PO TWICE DAILY WITH MEALS 60 July 17, 2018 11:00pm April 12, 2021 12:01pm Comment on above: 500 mg. pantoprazole 40 mg delayed release oral tablet (6 sources) Proton Pump Inhibitor Start: take 40 mg by mouth once daily Pantoprazole Active 40 MG PO DAILY November 04, 2020 11:00pm phenylephrine hydrochloride 25 mg/ml ophthalmic solution (1 source) alpha-1 Adrenergic Agonist Start: End: PHENYLephrine 2.5 % 1 Drop (AK-DILATE, MARIELOS-SYNEPHRINE) QUEtiapine 25 mg oral tablet (6 sources) Atypical Antipsychotic Start: take 25 mg by mouth at bedtime Quetiapine Active 25 MG PO AT BEDTIME July 16, 2018 11:00pm tropicamide 10 mg/ml ophthalmic solution (1 source) Anticholinergic Start: End: tropicamide 1 % 1 Drop (MYDRIACYL) Completed/Discontinued Medications Medication Drug Class(es) Dates Sig (Normalized) Sig (Original) bacitracin 0.5 unt/mg / polymyxin b 10 unt/mg topical ointment (1 source) Polymyxin-class Antibacterial bacitracin-polymyx in B (POLYSPORIN) 500-10,000 unit/gram oint Apply to affected area three times daily. 0 Active Comment on above: Apply to affected ar ea three times daily. 3 ml insulin glargine 100 unt/ml pen injector (6 sources) Insulin Analog Start: 07-17-2018 End: 07-18-2018 Insulin Glargine (Basaglar Kwikpen U-100) 100 UNIT/ML Insuln.Pen Discontinued 28 UNIT SQ TWICE A DAY July 16, 2018 11:00pm July 18, 2018 10:47am LORazepam 0.5 mg oral tablet (1 source) Benzodiazepine Start: 07-17-2018 LORazepam (ATIVAN) 0.5 mg tab 0.5 mg. 0 07/17/2018 Active Comment on above: 0.5 mg. metoprolol tartrate 25 mg oral tablet (7 sources) beta-Adrenergic Ofelia Start: 07-17-2018 End: 05-19-2020 take 25 mg by mouth twice daily Metoprolol Tartrate Discontinued 25 MG PO TWICE A DAY July 16, 2018 11:00pm May 19, 2020 12:57pm Start: 07-16-2018 metoprolol tar trate, short acting, (LOPRESSOR) 25 mg tablet Take 12.5 mg by mouth twice daily. 3 07/16/2018 Active Comment on above: Take 12.5 mg by mout h twice daily. rosuvastatin calcium 40 mg oral tablet (1 source) HMG-CoA Reductase Inhibitor Start: 8 rosuvastatin (CRESTOR) 40 mg tablet Take 40 mg by mouth. 0 04/12/2017 Active Comment on above: Take 40 mg by mouth. tiZANidine 2 mg oral capsule (1 source) Central alpha-2 Adrenergic Agonist Start: 9 take 1 capsule by mouth every eight hours as needed tiZANidine HCl 2 mg capsule 2 mg three times daily as needed. 0 07/17/2018 Active Comment on above: 2 mg three times anahy ly as needed. Problems Active Problems Problem Classification Problem Date Documented Da te Episodic/Chronic Blindness and vision defects (6 sources) Blindness AND/OR vision impairment level; Translations: [Unspecified visual loss] 07-18-2018 Chronic Cardiac dysrhythmias (6 sources) Bradycardia; Translations: [Bradycardia, unspecified] 05-18-2020 Episodic Cataract (2 sources) Nuclear sclerotic cataract; Translations: [Age-related nuclear cataract, left eye] Onset: 09-12-2021 Chronic Chronic obstructive pulmonary disease and bronchiectasis (1 source) Chronic obstructive pulmonary disease, unspecified; Translations: [COPD UNSPECIFIED] Onset: 06-02-2018 Chronic Diabetes mellitus with complications (1 source) Type 2 diabetes mellitus with hyperglycemia; Translations: [Type 2 diabetes mellitus with hyperglycemia] Onset: 11-03-2024 Chronic Diabetes mellitus without complication (7 sources) Type 2 diabetes mellitus without complications; Translations: [Type 2 diabetes mellitus] Onset: 06-02-2018 07-18-2018 Chronic Disorders of lipid metabolism (6 sources) Hyperlipidemia; Translations: [Hyperlipidemia, unspecified] 07-18-2018 Chronic E Codes: Fall (6 sources) Fall; Translations: [Unspecified fall, initial encounter] 11-05-2020 Episodic Epilepsy; convulsions (6 sources) Seizure; Translations: [Unspecified convulsions] 05-18-2020 Episodic Esophageal disorders (7 sources) Gastro-esophageal reflux disease without esophagitis; Translations: [Gastroesophageal reflux disease] Onset: 06-02-2018 07-18-2018 Chronic Essential hypertension (6 sources) Hypertensive disorder; Translations: [Essential (primary) hypertension] 07-18-2018 Chronic Hyperplasia of prostate (7 sources) Benign prostatic hyperplasia without lower urinary tract symptoms; Translations: [Benign prostatic hyperplasia] Onset: 06-02-2018 07-18-2018 Chronic Open wounds of head; neck; and trunk (6 sources) Facial laceration ; Translations: [Laceration without foreign body of other part of head, initial encounter] 11-05-2020 Episodic Osteoarthritis (1 source) Primary osteoarthritis, left shoulder; Translations: [Primary osteoarthritis, left shoulder] Onset: 02-10-2024 Chronic Other eye disorders (2 sources) Disorder of lacrimal gland; Translations: [Dry eye syndrome of bilateral lacrimal glands] Onset: 09-12-2021 Episodic Other gastrointestinal disorders (6 sources) Diarrhea; Translations: [Diarrhea, unspecified] 04-06-2019 Episodic Other gastrointestinal disorders (1 source) Constipation, unspecified; Translations: [Constipation, unspecified] Onset: 02-02-2025 Episodic Other injuries and conditions due to external causes (2 sources) Injury of eye region; Translations: [Unspecified injury of right eye and orbit, initial encounter] Onset: 09-12-2021 Episodic Other nervous system disorders (1 source) Encephalopathy, unspecified; Translations: [Encephalopathy, unspecified] Onset: 05-20-2024 Chronic Residual codes; unclassified (1 source) Insomnia due to medical condition; Translations: [Insomnia due to medical condition] Onset: 01-20-2025 Chronic Superficial injury; contusion (6 sources) Abrasion of lower limb; Translations: [Abrasion, left lower leg, initial encounter] 11-05-2020 Episodic Syncope (12 sources) Vasovagal syncope; Translations: [Syncope and collapse] 04-06-2019 Episodic Past or Other Problems Problem Classification Problem Date Documented Da te Episodic/Chronic Other disorders of stomach and duodenum (1 source) Gastroparesis; Translations: [Gastroparesis] Onset: 04-09-2024 Episodic Other non-traumatic joint disorders (1 source) Pain in left shoulder; Translations: [Pain in left shoulder] Onset: 02-10-2024 Episodic Skull and face fractures (2 sources) Fracture of mandible, unspecified, subsequent encounter for fracture with routine healing; Translations: [FX CHRIS UNS SUBSEQUENT ENC FX RTN] Onset: 06-02-2018 Episodic Spondylosis; intervertebral disc disorders; other back problems (1 source) Cervicalgia; Translations: [Cervicalgia] Onset: 08-11-2024 Episodic Results Test Name Value Interpretation Reference Range Facility Urine Cultureon 01-29-2025 [facility] Escherichia coli [place] Count 50,000-80,000 Escherichia coli: REACTION Ampicillin Islt LEO 4 Ampicillin+Sulbac Islt LEO <=2 S Cefepime Islt LEO <=0.12 S cefTRIAXone Islt LEO <=0.25 S Ciprofloxacin Islt LEO <=0.06 S B-Lactamase Extended Susc Islt NEG Gentamicin Islt LEO <=1 S levoFLOXacin Islt LEO <=0.12 S Meropenem Islt LEO <=0.25 S Nitrofurantoin Islt LEO <=16 S Pip+Tazo Islt LEO <=4 S TMP SMX Islt LEO <=20 S Normal [facility] Comment on above: Performed By: #### L 502.0250, L400.0001, M100.2200 ####[facility] [address] [place], [address] Abdomen Single Viewon 2024 Abdomen Single View [facility] Services [address] [place], [place] [address] Abdomen Single View MR#: [id number] Acct: [id number] Name: REMI BERNABE Rep #: [id number] : 1945 M 79 From: Jose Cain MD PCP: Dr. Micheal Peralta MD Status: REG CLI Study: Abdomen Single View Date of Exam: 01/27/25 Exam# [id number] Ordering Dr: Anjali Leon PROCEDURE: ABDOMEN SINGLE VIEW 01/27/2025 REASON FOR EXAM: CONSTIPATION TECHNIQUE: Procedure Code: RADABD Modality: DX Procedure: ABDOMEN SINGLE VIEW COMPARISON: None. FINDINGS: There is a nonobstructive bowel gas pattern. There is no significant stool. There are cholecystectomy clips in the right upper quadrant. There is mild multilevel degenerative disc disease of the thoracolumbar spine. RAD/Abdomen Single View IMPRESSION: No evidence of acute abdominal pathology. Reading Location: [place] [address] CC: Dr. Micheal Peralta MD; ROCIO Irving [employer]mal Cutter Helper: Signed Normal [facility] CBC W/Diff, Automatedon 01-07 Absolute Lymph 1.33 X10 3/uL Normal 0.83-4.51 [facility] Comment on above: Performed By: #### L 500.4050, L501.9985, L501.9520, L100.0100, L500.4100, L506.1001 ####[facility] [address] [place], [address] Absolute Neut 2.5 X10 3/uL Normal 2.0-7.7 [facility] Comment on above: Performed By: #### L 500.4050, L501.9985, L501.9520, L100.0100, L500.4100, L506.1001 ####[facility] [address] [place], [address] Basophils/100 WBC (Bld) 1.4 % High 0-1 [facility] Comment on above: Performed By: #### L 500.4050, L501.9985, L501.9520, L100.0100, L500.4100, L506.1001 ####[facility] [address] [place], [address] Eosinophils/100 WBC (Bld) 2.3 % Normal 0-5 [facility] Comment on above: Performed By: #### L 500.4050, L501.9985, L501.9520, L100.0100, L500.4100, L506.1001 ####[facility] [address] [place], [address] Erythrocyte distribution width (RBC) [Ratio] 13.8 % Normal 11.6-14.6 [facility] Comment on above: Performed By: #### L 500.4050, L501.9985, L501.9520, L100.0100, L500.4100, L506.1001 ####[facility] [address] [place], [address] Hematocrit (Bld) [Volume fraction] 39.4 % Low 40-54 [facility] Comment on above: Performed By: #### L 500.4050, L501.9985, L501.9520, L100.0100, L500.4100, L506.1001 ####[facility] [address] [place], [address] Hemoglobin (Bld) [Mass/Vol] 12.6 g/dL Low 13.0-16.5 [facility] Comment on above: Performed By: #### L 500.4050, L501.9985, L501.9520, L100.0100, L500.4100, L506.1001 ####[facility] [address] [place], [address] IG% 0.500 Normal 0.0-0.9 [facility] Comment on above: Result Comment: IG% - Immature Granulocytes (promyelocytes, myelocytes and metamyelocytes) > 1% indicates that a LEFT SHIFT is Present. Performed By: #### L 500.4050, L501.9985, L501.9520, L100.0100, L500.4100, L506.1001 ####[facility] [address] [place], [address] Lymphocytes/100 WBC (Bld) 30.0 % Normal 19-41 [facility] Comment on above: Performed By: #### L 500.4050, L501.9985, L501.9520, L100.0100, L500.4100, L506.1001 ####[facility] [address] [place], [address] MCH (RBC) [Entitic mass] 30.9 pg Normal 27.0-32.0 [facility] Comment on above: Performed By: #### L 500.4050, L501.9985, L501.9520, L100.0100, L500.4100, L506.1001 ####[facility] [address] [place], [address] MCHC (RBC) [Mass/Vol] 32.0 g/dL Normal 32-36 [facility] Comment on above: Performed By: #### L 500.4050, L501.9985, L501.9520, L100.0100, L500.4100, L506.1001 ####[facility] [address] [place], [address] MCV (RBC) [Entitic vol] 96.6 fL High 80-94 [facility] Comment on above: Performed By: #### L 500.4050, L501.9985, L501.9520, L100.0100, L500.4100, L506.1001 ####[facility] [address] [place], [address] Monocytes/100 WBC (Bld) 9.7 % Normal 0-10 [facility] Comment on above: Performed By: #### L 500.4050, L501.9985, L501.9520, L100.0100, L500.4100, L506.1001 ####[facility] [address] [place], [address] Neutrophils/100 WBC (Bld) 56.1 % Normal 47-70 [facility] Comment on above: Performed By: #### L 500.4050, L501.9985, L501.9520, L100.0100, L500.4100, L506.1001 ####[facility] [address] [place], [address] Nucleated RBC (Bld) [#/Vol] 0 10*3/uL Normal 0-5 [facility] Comment on above: Performed By: #### L 500.4050, L501.9985, L501.9520, L100.0100, L500.4100, L506.1001 ####[facility] [address] [place], [address] Platelet mean volume (Bld) [Entitic vol] 10.7 fL Normal 6.2-12.0 [facility] Comment on above: Performed By: #### L 500.4050, L501.9985, L501.9520, L100.0100, L500.4100, L506.1001 ####[facility] [address] [place], [address] Platelets (Bld) [#/Vol] 192 10*3/uL Normal 150-450 [facility] Comment on above: Performed By: #### L 500.4050, L501.9985, L501.9520, L100.0100, L500.4100, L506.1001 ####[facility] [address] [place], [address] RBC (Bld) [#/Vol] 4.08 10*6/uL Low 4.6-6.2 [facility] Comment on above: Performed By: #### L 500.4050, L501.9985, L501.9520, L100.0100, L500.4100, L506.1001 ####[facility] [address] [place], [address] RDW SD 49.1 fl High 35.1-43.9 [facility] Comment on above: Performed By: #### L 500.4050, L501.9985, L501.9520, L100.0100, L500.4100, L506.1001 ####[facility] [address] [place], [address] WBC (Bld) [#/Vol] 4.4 10*3/uL Normal 4.4-11.0 [facility] Comment on above: Performed By: #### L 500.4050, L501.9985, L501.9520, L100.0100, L500.4100, L506.1001 ####[facility] [address] [place], [address] Comprehensive Metabolic Prof [facility] 01-27-2025 Albumin [Mass/Vol] 4.3 g/dL Normal 3.4-4.8 [facility] Comment on above: Performed By: #### L 500.4050, L501.9985, L501.9520, L100.0100, L500.4100, L506.1001 ####[facility] [address] [place], [address] Albumin/Globulin [Mass ratio] 1.4 {ratio} Normal 0.9-2.4 [facility] Comment on above: Performed By: #### L 500.4050, L501.9985, L501.9520, L100.0100, L500.4100, L506.1001 ####[facility] [address] [place], [address] ALK PHOS 66 U/L Normal 40-129 [facility] Comment on above: Performed By: #### L 500.4050, L501.9985, L501.9520, L100.0100, L500.4100, L506.1001 ####[facility] [address] [place], [address] ALT [Catalytic activity/Vol] 15 U/L Normal <=46 [facility] Comment on above: Performed By: #### L 500.4050, L501.9985, L501.9520, L100.0100, L500.4100, L506.1001 ####[facility] [address] [place], [address] AST [Catalytic activity/Vol] 20 U/L Normal <=37 [facility] Comment on above: Performed By: #### L 500.4050, L501.9985, L501.9520, L100.0100, L500.4100, L506.1001 ####[facility] [address] [place], [address] Bilirubin [Mass/Vol] 0.32 mg/dL Normal 0.00-1.30 [facility] Comment on above: Performed By: #### L 500.4050, L501.9985, L501.9520, L100.0100, L500.4100, L506.1001 ####[facility] [address] [place], [address] BUN/CRE 14.7 RATIO Normal 10-20 [facility] Comment on above: Performed By: #### L 500.4050, L501.9985, L501.9520, L100.0100, L500.4100, L506.1001 ####[facility] [address] [place], [address] Calcium [Mass/Vol] 9.9 mg/dL Normal 7.6-11.0 [facility] Comment on above: Performed By: #### L 500.4050, L501.9985, L501.9520, L100.0100, L500.4100, L506.1001 ####[facility] [address] [place], [address] Chloride [Moles/Vol] 101 mmol/L Normal 98-108 [facility] Comment on above: Performed By: #### L 500.4050, L501.9985, L501.9520, L100.0100, L500.4100, L506.1001 ####[facility] [address] [place], [address] CO2 [Moles/Vol] 26.3 mmol/L Normal 21.0-32.0 [facility] Comment on above: Performed By: #### L 500.4050, L501.9985, L501.9520, L100.0100, L500.4100, L506.1001 ####[facility] [address] [place], [address] Creatinine [Mass/Vol] 1.44 mg/dL High 0.70-1.20 [facility] Comment on above: Performed By: #### L 500.4050, L501.9985, L501.9520, L100.0100, L500.4100, L506.1001 ####[facility] [address] [place], [address] GAP 11 Normal 5-15 [facility] Comment on above: Performed By: #### L 500.4050, L501.9985, L501.9520, L100.0100, L500.4100, L506.1001 ####[facility] [address] [place], [address] GFR/1.73 sq M.predicted among non-blacks MDRD (S/P/Bld) [Vol rate/Area] 50 mL/min/{1.73_m2} Low >60 [facility] Comment on above: Result Comment: mL/m in/1.73m2 CKD-EPI Creatinine Equation (2020) Performed By: #### L 500.4050, L501.9985, L501.9520, L100.0100, L500.4100, L506.1001 ####[facility] [address] [place], [address] Globulin (S) [Mass/Vol] 2.9 g/dL Normal 2.2-4.2 [facility] Comment on above: Performed By: #### L 500.4050, L501.9985, L501.9520, L100.0100, L500.4100, L506.1001 ####[facility] [address] [place], [address] Glucose [Mass/Vol] 258 mg/dL High 70-99 [facility] Comment on above: Performed By: #### L 500.4050, L501.9985, L501.9520, L100.0100, L500.4100, L506.1001 ####[facility] [address] [place], [address] Potassium [Moles/Vol] 4.1 mmol/L Normal 3.3-5.1 [facility] Comment on above: Performed By: #### L 500.4050, L501.9985, L501.9520, L100.0100, L500.4100, L506.1001 ####[facility] [address] [place], [address] Sodium [Moles/Vol] 138 mmol/L Normal 133-145 [facility] Comment on above: Performed By: #### L 500.4050, L501.9985, L501.9520, L100.0100, L500.4100, L506.1001 ####[facility] [address] [place], [address] T PROT 7.2 g/dL Normal 5.9-8.4 [facility] Comment on above: Performed By: #### L 500.4050, L501.9985, L501.9520, L100.0100, L500.4100, L506.1001 ####[facility] [facility] [address] [place], [address] Urea nitrogen [Mass/Vol] 21 mg/dL High 4-19 [facility] Comment on above: Performed By: #### L 500.4050, L501.9985, L501.9520, L100.0100, L500.4100, L506.1001 ####[facility] [address] [place], [address] Gastroenterology Visit Repor ton 01-27-2025 Gastroenterology Visit Report [facility] [address] [place] [address] OFFICE VISIT Date of Service: 01/27/25 MR#: [id number] Acct: [id number] Name: REMI BERNABE Rep #: [id number] : 1945 Provider: ROCIO Irving Age/Sex: 79/M Location[place] [facility] [place] Status: Signed Intake Vital Signs 07/22/24 13:32 01/20/25 13:56 Height 5 ft 1 in 5 ft 1 in Weight: 120 lb BMI 22.6 BP 134/81 H Blood Pressure Location Lt brachial Position Sitting Respiration 83 H Pulse 83 Pulse Source Monitor Intake Visit Reasons: 6 M FU Chief Complaint: constipation [employer] Required: No Accompanied by: Caregiver Is patient in pain?: No Allergies iodine Allergy (Verified 01/27/25 14:08) Anaphylaxis shellfish derived Allergy (Verified 01/27/25 14:08) Anaphylaxis weed pollen Adverse Reaction (Verified 01/27/25 14:08) Other Medications ???Medication ???Instructions ???Recorded ???Confirmed ???Type levothyroxine 25 mcg tablet 25 mcg PO DAILY thyroid 11/05/20 1 History pantoprazole 40 mg tablet,delayed 40 mg PO DAILY stomach 11/05/20 1 History release pioglitazone 30 mg tablet 30 mg PO DAILY 08/08/22 01/27/25 H istory rosuvastatin 10 mg tablet 10 mg PO DAILY 10/16/22 01/27/25 H istory ascorbic acid (vitamin C) 500 mg 500 mg PO DAILY 11/07/22 01/27/25 History tablet (Vitamin C) clopidogrel 75 mg tablet 75 mg PO QDAY 02/10/24 01/27/25 Hi story lubiprostone 8 mcg capsule 8 mcg PO BID #60 caps 07/24/24 Rx metoclopramide HCl 10 mg tablet 10 mg PO TID #270 TABLETS 07/24/24 01/27/25 Rx citalopram 20 mg tablet 20 mg PO DAILY mood #30 tabs 01/2001/27/25 Rx quetiapine 100 mg tablet 100 mg PO QHS mood 30 days #30 tab s 01/20/25 01/27/25 Rx zolpidem 5 mg tablet (Ambien) 5 mg PO QHS #30 tabs 01/20/2501/07 Rx semaglutide 7 mg tablet (Rybelsus) 7 mg PO QDAY 01/27/25 01/27/25 H istory Have you fallen in the past year?: No PFSH Medical History (Updated 07/24/24 @ 11:23 by ROCIO Irving) Primary osteoarthritis, 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 Left shoulder pain Wears hearing aid Wears dentures Anxiety Thyroid disease Arthritis Migraine headache Gastric reflux Former smoker Shortness of breath on exertion History of echocardiogram Major depressive disorder Atherosclerotic heart disease of [place] coronary artery without angina pectoris ADHD Cervicalgia Hyperthyroidism Insomnia Depression Fecal impaction of colon Blindness Brain TIA BPH (benign prostatic hyperplasia) Hyperlipemia GERD (gastroesophageal reflux disease) Bradycardia Coronary artery disease Seizures Diabetes Hypertension Blind Surgical History History of ankle surgery H/O eye surgery History of carpal tunnel release History of cholecystectomy Family History Other Seizures Social History (Updated 02/10/24 @ 14:11 by Carol Lewis MA) household members: spouse housing: house Smoking Status: Former smoker alcohol intake: never substance use type: does not use HPI HPI Chief Complaint: constipation Details: REMI BERNABE, is a 79 M who presents to the office today for follow up. PMHx depression, insomnia, TIA, hypothyroid, HLD, HTN, DMII, obesity BGI established in 2022 for abd pain, bloating, heartburn and decreased appetite. Last OV 01.21.24 Pt doing well with no GI complaints. Continues with PPI, relgan and Amitiza. GES 12.4.25; 66 minutes im[roved form 153 minutes OV 01/27/25 Pt having abd pain, constipation and bloating. He is having BM every few days. He has loose stool at least once per week. He feels relief when he has a BM. He continues with Amitiza 8mcg daily. He denies heartburn or n/v. ROS Const Constitutional: No fatigue, fever(s) or weight change ENT ENT: No difficulty swallowing Gastro GI: Positive for bloating; No abdominal pain, belching, change in bowel habits, change in stool character, coffee ground emesis, constipation, cramping, diarrhea, heartburn, difficulty swallowing, feeling full early, excessive flatus, incontinent of stools, Vomiting blood/hematemesis, Blood in stool, loose stools, Black,tarry stools, nausea/dyspepsia, pain with swallowing, vomiting or other Musc Musculoskeletal: Positive for back pain; No joint pain Skin Skin: No yellowing of the eye or itchy eyes Psych Psychiatric: Positive for anxiety, No depression and Positive for obsessions/compulsions Endo Endocrine: No fatigue or weight change Aller/Imm Allergy/Immunologic: No itchy eyes Wesly/Lymp Hematologic/Lymphatic: No easy bleeding or easy bruising Exam Const General: cooperative an (more content not included)... Normal [facility] Hemoglobin A1con 01-27-2025 HbA1c (Bld) [Mass fraction] 6.2 % High <=5.6 [facility] Comment on above: Result Comment: Norm al < 5.7 % Prediabetic 5.7 - 6.4 % Diabetic >or= 6.5 % Please note range changes. Performed By: #### L 500.4050, L501.9985, L501.9520, L100.0100, L500.4100, L506.1001 ####[facility] [address] [place], [address] Lipid Profileon 01-27-2025 CHOL:HDL 2.33 Normal [facility] Comment on above: Performed By: #### L 500.4050, L501.9985, L501.9520, L100.0100, L500.4100, L506.1001 ####[facility] [address] [place], [address] Cholesterol [Mass/Vol] 187 mg/dL Normal <=200 [facility] Comment on above: Result Comment: Chol esterol level, Desirable <200 mg/dL Borderline high cholesterol 200-239 mg/dL High cholesterol >=240 mg/dL Recommendations of the NCEP Adult Treatment Panel for the following risk-cutoff thresholds for the [place] population. Performed By: #### L 500.4050, L501.9985, L501.9520, L100.0100, L500.4100, L506.1001 ####[facility] [address] [place], [address] Cholesterol in HDL [Mass/Vol] 80 mg/dL Normal [facility] Comment on above: Result Comment: Madai onal Cholesterol Education Program (NCEP) guidelines: <40 mg/dL: Low HDL-cholesterol (major risk factor for CHD) >= 60 mg/dL: High HDL-cholesterol (negative risk factor for CHD) HDL-cholesterol is affected by a number of factors, e.g. smoking, exercise, hormones, sex and age. Performed By: #### L 500.4050, L501.9985, L501.9520, L100.0100, L500.4100, L506.1001 ####[facility] [address] [place], [address] Cholesterol in LDL [Mass/Vol] 92 mg/dL Normal [facility] Comment on above: Result Comment: Bord knjllg=251-034 mg/dL Higher Mxen=688 mg/dL or greater Zayas Equation 2020 for LDL-C Performed By: #### L 500.4050, L501.9985, L501.9520, L100.0100, L500.4100, L506.1001 ####[facility] [address] [place], [address] Cholesterol in VLDL [Mass/Vol] 17 mg/dL Normal 5-40 [facility] Comment on above: Performed By: #### L 500.4050, L501.9985, L501.9520, L100.0100, L500.4100, L506.1001 ####[facility] [address] [place], [address] Triglyceride [Mass/Vol] 83 mg/dL Normal [facility] Comment on above: Result Comment: The drugs N-Acetylcysteine and Metamizole may falsely depress this assay. Normal range: <150 mg/dL Borderline High: 150-199 mg/dL High: 200-499 mg/dL Very High: >500 mg/dL Performed By: #### L 500.4050, L501.9985, L501.9520, L100.0100, L500.4100, L506.1001 ####[facility] [address] [place], [address] Microalb:Creat Ratio,Random URon 01-27-2025 Creatinine [Mass/Vol] 244.00 mg/dL Normal 39.00-259.00 [facility] Comment on above: Performed By: #### L 502.0250, L400.0001, M100.2200 ####[facility] [address] [place], [address] MALB:CREAT 13.2 mg/g CRE Normal <30 mg/g CRE [facility] Comment on above: Performed By: #### L 502.0250, L400.0001, M1.2200 ####[facility] [address] [place], [address] MICROALBUMIN,UR 32.1 mg/L Normal <20 mg/L [facility] Comment on above: Performed By: #### L 502.0250, L400.0001, M1.2200 ####[facility] [address] [place], [address] Thyroid Stim Hormone (TSH)on 01-27-2025 TSH 2.000 uIU/mL Normal 0.300-4.200 [facility] Comment on above: Performed By: #### L 500.4050, L501.9985, L501.9520, L100.0100, L500.4100, L506.1001 ####[facility] [address] [place], [address] Urinalysis, Completeon 01-27 EPI,SQUAMOUS 5-10 SEEN Normal 0-5 [facility] Comment on above: Order Comment: Urine , Random Performed By: #### L 502.0250, L400.0001, M100.2200 ####[facility] [address] [place], [address] RBC 0-5 SEEN Normal 0-5 [facility] Comment on above: Order Comment: Urine , Random Performed By: #### L 502.0250, L400.0001, M100.2200 ####[facility] [address] [place], [address] WBC 50-100 SEEN Normal 0-5 [facility] Comment on above: Order Comment: Urine , Random Performed By: #### L 502.0250, L400.0001, M100.2200 ####[facility] [address] [place], [address] BACTERIA 4+ /hpf Normal None Seen [facility] Comment on above: Order Comment: Urine , Random Performed By: #### L 502.0250, L400.0001, M100.2200 ####[facility] [address] [place], [address] Mucus Ql (Urine sed) 0 SEEN Normal [facility] Comment on above: Order Comment: Urine , Random Performed By: #### L 502.0250, L400.0001, M100.2200 ####[facility] [address] [place], [address] Vitamin D,25 Hydroxyon 01-27 Vitamin D 25-OH 35.5 ng/mL Normal 30-100 [facility] Comment on above: Result Comment: Ronel min D Status Deficiency: <20 ng/mL (50nmol/L) Insufficiency: 20-30 ng/mL (50-75 nmol/L) Sufficiency: 30-100 ng/mL (75-250 nmol/L) Toxicity: >100 ng/mL (>250 nmol/L) Performed By: #### L 500.4050, L501.9985, L501.9520, L100.0100, L500.4100, L506.1001 ####[facility] [address] [place], [address] MR/BMS.BPsumaya 01-20-2025 MR/BMS.BP [place] [address] [facility], [address] [place] [address] OFFICE VISIT Date of Service: 01/20/25 MR#: [id number] Acct: [id number] Name: REMI BERNABE Rep #: [id number] : 1945 Provider: Dr. Alex Beltran se, DO Age/Sex: 79/M Location[place] [facility] [place] Status: Signed Intake Vital Signs 07/22/24 13:32 11/09/24 14:33 01/20/25 13:56 Height 5 ft 1 in 5 ft 1 in 5 ft 1 in Weight: 120 lb BMI 22.6 BP 134/81 H Blood Pressure Location Lt brachial Position Sitting Respiration 83 H Pulse 83 Pulse Source Monitor BP Intake Visit Reasons: 6 M FU Accompanied by: Caregiver Allergies iodine Allergy (Verified 01/20/25 14:00) Anaphylaxis shellfish derived Allergy (Verified 01/20/25 14:00) Anaphylaxis weed pollen Adverse Reaction (Verified 01/20/25 14:00) Other Medications ???Medication ???Instructions ???Recorded ???Confirmed ???Type levothyroxine 25 mcg tablet 25 mcg PO DAILY thyroid 11/05/20 1 History pantoprazole 40 mg tablet,delayed 40 mg PO DAILY stomach 11/05/20 1 History release pioglitazone 30 mg tablet 30 mg PO DAILY 08/08/22 01/20/25 H istory rosuvastatin 10 mg tablet 10 mg PO DAILY 10/16/22 01/20/25 H istory ascorbic acid (vitamin C) 500 mg 500 mg PO DAILY 11/07/22 01/20/25 History tablet (Vitamin C) polysaccharide iron complex 150 mg 150 mg PO DAILY 11/07/22 5 History iron capsule (Ferrex) clopidogrel 75 mg tablet 75 mg PO QDAY 02/10/24 01/20/25 Hi story lubiprostone 8 mcg capsule 8 mcg PO BID #60 caps 07/24/24 Rx metoclopramide HCl 10 mg tablet 10 mg PO TID #270 TABLETS 07/24/24 01/20/25 Rx citalopram 20 mg tablet 20 mg PO DAILY mood #30 tabs 01/2001/20/25 Rx quetiapine 100 mg tablet 100 mg PO QHS mood 30 days #30 tab s 01/20/25 01/20/25 Rx zolpidem 5 mg tablet (Ambien) 5 mg PO QHS #30 tabs 01/20/2501/06 Rx Have you fallen in the past year?: Yes [facility] Medical History (Updated 07/24/24 @ 11:23 by ROCIO Irving) Primary osteoarthritis, 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 Left shoulder pain Wears hearing aid Wears dentures Anxiety Thyroid disease Arthritis Migraine headache Gastric reflux Former smoker Shortness of breath on exertion History of echocardiogram Major depressive disorder Atherosclerotic heart disease of [place] coronary artery without angina pectoris ADHD Cervicalgia Hyperthyroidism Insomnia Depression Fecal impaction of colon Blindness Brain TIA BPH (benign prostatic hyperplasia) Hyperlipemia GERD (gastroesophageal reflux disease) Bradycardia Coronary artery disease Seizures Diabetes Hypertension Blind Surgical History History of ankle surgery H/O eye surgery History of carpal tunnel release History of cholecystectomy Family History Other Seizures Social History (Updated 02/10/24 @ 14:11 by Carol Lewis MA) household members: spouse housing: house Smoking Status: Former smoker alcohol intake: never substance use type: does not use HPI History of Present Illness History provided by: patient HPI: Remi Bernabe is a 79 year old male who presents today for follow up evaluation. Patient reports with aide. May be having some more difficulty with hearing aids in recent past. Has been able to sleep largely well with the use of zolpidem. Patient states that he is able to fall asleep fairly quickly after having taking medication. Still has occasional episodes where he will make comments about I'm gonna kill them. During the day will hit the clock in his room which will voice outloud the date and time as patient is blind. Aide worker feels like this is almost becoming obsessive. Does have some difficulty with following directions intermittently. Reports today's date as January 21, 2025 despite being the . He does admit that he does at times feel like he gets confused but sporadically. Had an episode of bowel incontinence recently which is abnormal for patient. Has had some reported orofacial movements but upon distraction they do resolve. Patient is largely very calm today. Review of Systems Constitutional Denies: fever(s), chills, change in weight or fatigue Eyes Denies: change in vision or blurry vision Ears, Nose, Mouth, Throat Denies: throat pain, neck pain or change in hearing Cardiovascular Denies: chest pain, palpitations or dyspnea Respiratory Denies: dyspnea, cough or wheezing Gastrointestinal Reports: diarrhea and constipation; Denies: abdominal pain, nausea or vomiting Genitourinary Denies: dysuria or urinary frequency Musculoskeletal Reports: joint pain; Denie (more content not included)... Normal [facility] MR/BMS.BPon 11-09-2024 MR/BMS.BP [facility] [address] [facility], [address] [place] [address] OFFICE VISIT Date of Service: 11/09/24 MR#: [id number] Acct: [id number] Name: REMI BERNABE Rep #: [id number] : 1945 Provider: Dr. Alex Beltran se, DO Age/Sex: 78/M Location: [facility] [place] Status: Signed Intake Vital Signs 07/22/24 13:32 11/09/24 14:33 Height 5 ft 1 in 5 ft 1 in Weight: 122 lb BMI 23.0 BP 144/82 H Blood Pressure Location Lt brachial Position Sitting Respiration 16 Pulse 92 Pulse Source Monitor BP Intake Visit Reasons: Follow up/review medication Accompanied by: Caregiver Allergies iodine Allergy (Verified 11/09/24 14:37) Anaphylaxis shellfish derived Allergy (Verified 11/09/24 14:37) Anaphylaxis weed pollen Adverse Reaction (Verified 11/09/24 14:37) Other Have you fallen in the past year?: Yes PFSH Medical History (Updated 07/24/24 @ 11:23 by ROCIO Irving) Primary osteoarthritis, 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 Left shoulder pain Wears hearing aid Wears dentures Anxiety Thyroid disease Arthritis Migraine headache Gastric reflux Former smoker Shortness of breath on exertion History of echocardiogram Major depressive disorder Atherosclerotic heart disease of [place] coronary artery without angina pectoris ADHD Cervicalgia Hyperthyroidism Insomnia Depression Fecal impaction of colon Blindness Brain TIA BPH (benign prostatic hyperplasia) Hyperlipemia GERD (gastroesophageal reflux disease) Bradycardia Coronary artery disease Seizures Diabetes Hypertension Blind Surgical History History of ankle surgery H/O eye surgery History of carpal tunnel release History of cholecystectomy Family History Other Seizures Social History (Updated 02/10/24 @ 14:11 by Carol Lewis MA) household members: spouse housing: house Smoking Status: Former smoker alcohol intake: never substance use type: does not use HPI History of Present Illness History provided by: patient HPI: Remi Bernabe is a 78 year old male who presents today for follow up evaluation. Patient reports with aide. Later appointed joined by criminal justice social worker, Salena. Patient reports to taking sleep medication between 9 and 10 pm. Per aide has been waking up around 3 to 5 am. Patient reports to going to bed from 10 pm to 6 am but aide refutes this. Aide describes having appeared to be more anxious and does seem to be more restless. Has seen PCP and has been monitoring his blood sugar and per self report he will monitor A1c should we need to return to quetiapine at higher doses. Otherwise, he describes his mood as pretty good. Denies SI/HI or AVH. Patient is very calm in appointment today; which again is significantly improved from his presentation in the past. respite worker does believe that he has been picking more in recent past. Review of Systems Constitutional Denies: fever(s), chills, change in weight or fatigue Eyes Denies: change in vision or blurry vision Ears, Nose, Mouth, Throat Denies: throat pain, neck pain or change in hearing Cardiovascular Denies: chest pain, palpitations or dyspnea Respiratory Denies: dyspnea, cough or wheezing Gastrointestinal Reports: diarrhea and constipation; Denies: abdominal pain, nausea or vomiting Genitourinary Denies: dysuria or urinary frequency Musculoskeletal Reports: joint pain; Denies: back pain, neck pain or muscle weakness Integumentary/Breast Denies: rash or new lesions Neurological Reports: headache(s); Denies: dizziness or confusion Endocrine Denies: fatigue or excessive sweating Hematologic/Lymphatic Denies: easy bruising or easy bleeding Allergic/Immunologic Denies: wheezing Exam Mental Status Exam - Psych Appearance unkempt Attitude calm Activity/Motor Behavior MSE activity/motor behavior finding no adventitious movements Speech regular rate, regular prosody, loud and minimal (much less than previous encounters) Mood OK Affect congruent Thought Process logical, coherent and tangential Thought Content no delusions and no hallucinations Suicidal Ideation none Homicidal Ideation none Attention intact Concentration intact Sensorium/Orientation awake, alert and oriented x3 Memory/Cognition other (appropriate for stated age) Insight fair Judgement fair Assessment Plan Assessment Plan (1) Major depressive disorder: Qualifiers: Active/Remission status: remission status unspecified Major depression recurrence: unspecified whether recurrent Qualified Code(s): F32.9 - Major depressive disorder, single episode, unspecified Plan: -Continue citalopram previously prescribed -Since reducing (more content not included)... Normal [facility] CBC W/Diff, Automatedon 07-2 -2024 Absolute Lymph 1.78 X10 3/uL Normal 0.83-4.51 [facility] Comment on above: Performed By: #### L 500.4100, L506.1001, L501.9985, L100.0100, L501.9520, L500.4050 #### [facility] [address] [place], [address] Absolute Neut 4.0 X10 3/uL Normal 2.0-7.7 [facility] Comment on above: Performed By: #### L 500.4100, L506.1001, L501.9985, L100.0100, L501.9520, L500.4050 #### [facility] [address] [place], [address] Basophils/100 WBC (Bld) 0.9 % Normal 0-1 [facility] Comment on above: Performed By: #### L 500.4100, L506.1001, L501.9985, L100.0100, L501.9520, L500.4050 #### [facility] [address] [place], [address] Eosinophils/100 WBC (Bld) 2.7 % Normal 0-5 [facility] Comment on above: Performed By: #### L 500.4100, L506.1001, L501.9985, L100.0100, L501.9520, L500.4050 #### [facility] [address] [place], [address] Erythrocyte distribution width (RBC) [Ratio] 14.4 % Normal 11.6-14.6 [facility] Comment on above: Performed By: #### L 500.4100, L506.1001, L501.9985, L100.0100, L501.9520, L500.4050 #### [facility] [address] [place], [address] Hematocrit (Bld) [Volume fraction] 42.0 % Normal 40-54 [facility] Comment on above: Performed By: #### L 500.4100, L506.1001, L501.9985, L100.0100, L501.9520, L500.4050 #### [facility] [address] [place], [address] Hemoglobin (Bld) [Mass/Vol] 13.2 g/dL Normal 13.0-16.5 [facility] Comment on above: Performed By: #### L 500.4100, L506.1001, L501.9985, L100.0100, L501.9520, L500.4050 #### [facility] [address] [place], [address] IG% 0.400 Normal 0.0-0.9 [facility] Comment on above: Result Comment: IG% - Immature Granulocytes (promyelocytes, myelocytes and metamyelocytes) > 1% indicates that a LEFT SHIFT is Present. Performed By: #### L 500.4100, L506.1001, L501.9985, L100.0100, L501.9520, L500.4050 #### [facility] [address] [place], [address] Lymphocytes/100 WBC (Bld) 26.4 % Normal 19-41 [facility] Comment on above: Performed By: #### L 500.4100, L506.1001, L501.9985, L100.0100, L501.9520, L500.4050 #### [facility] [address] [place], [address] MCH (RBC) [Entitic mass] 29.9 pg Normal 27.0-32.0 [facility] Comment on above: Performed By: #### L 500.4100, L506.1001, L501.9985, L100.0100, L501.9520, L500.4050 #### [facility] [address] [place], [address] MCHC (RBC) [Mass/Vol] 31.4 g/dL Low 32-36 [facility] Comment on above: Performed By: #### L 500.4100, L506.1001, L501.9985, L100.0100, L501.9520, L500.4050 #### [facility] [address] [place], [address] MCV (RBC) [Entitic vol] 95.0 fL High 80-94 [facility] Comment on above: Performed By: #### L 500.4100, L506.1001, L501.9985, L100.0100, L501.9520, L500.4050 #### [facility] [address] [place], [address] Monocytes/100 WBC (Bld) 9.9 % Normal 0-10 [facility] Comment on above: Performed By: #### L 500.4100, L506.1001, L501.9985, L100.0100, L501.9520, L500.4050 #### [facility] [address] [place], [address] Neutrophils/100 WBC (Bld) 59.7 % Normal 47-70 [facility] Comment on above: Performed By: #### L 500.4100, L506.1001, L501.9985, L100.0100, L501.9520, L500.4050 #### [facility] [address] [place], [address] Nucleated RBC (Bld) [#/Vol] 0 10*3/uL Normal 0-5 [facility] Comment on above: Performed By: #### L 500.4100, L506.1001, L501.9985, L100.0100, L501.9520, L500.4050 #### [facility] [address] [place], [address] Platelet mean volume (Bld) [Entitic vol] 10.7 fL Normal 6.2-12.0 [facility] Comment on above: Performed By: #### L 500.4100, L506.1001, L501.9985, L100.0100, L501.9520, L500.4050 #### [facility] [address] [place], [address] Platelets (Bld) [#/Vol] 224 10*3/uL Normal 150-450 [facility] Comment on above: Performed By: #### L 500.4100, L506.1001, L501.9985, L100.0100, L501.9520, L500.4050 #### [facility] [address] [place], [address] RBC (Bld) [#/Vol] 4.42 10*6/uL Low 4.6-6.2 [facility] Comment on above: Performed By: #### L 500.4100, L506.1001, L501.9985, L100.0100, L501.9520, L500.4050 #### [facility] [address] [place], [address] RDW SD 49.8 fl High 35.1-43.9 [facility] Comment on above: Performed By: #### L 500.4100, L506.1001, L501.9985, L100.0100, L501.9520, L500.4050 #### [facility] [address] [place], [address] WBC (Bld) [#/Vol] 6.8 10*3/uL Normal 4.4-11.0 [facility] Comment on above: Performed By: #### L 500.4100, L506.1001, L501.9985, L100.0100, L501.9520, L500.4050 #### [facility] [address] [place], [address] Comprehensive Metabolic Prof ilon 10-28-2024 Albumin [Mass/Vol] 4.4 g/dL Normal 3.4-4.8 [facility] Comment on above: Performed By: #### L 500.4100, L506.1001, L501.9985, L100.0100, L501.9520, L500.4050 #### [facility] [address] [place], [address] Albumin/Globulin [Mass ratio] 1.3 {ratio} Normal 0.9-2.4 [facility] Comment on above: Performed By: #### L 500.4100, L506.1001, L501.9985, L100.0100, L501.9520, L500.4050 #### [facility] [address] [place], [address] ALK PHOS 82 U/L Normal 40-129 [facility] Comment on above: Performed By: #### L 500.4100, L506.1001, L501.9985, L100.0100, L501.9520, L500.4050 #### [facility] [address] [place], [address] ALT [Catalytic activity/Vol] 19 U/L Normal <=46 [facility] Comment on above: Performed By: #### L 500.4100, L506.1001, L501.9985, L100.0100, L501.9520, L500.4050 #### [facility] [address] [place], [address] AST [Catalytic activity/Vol] 22 U/L Normal <=37 [facility] Comment on above: Performed By: #### L 500.4100, L506.1001, L501.9985, L100.0100, L501.9520, L500.4050 #### [facility] [address] [place], [address] Bilirubin [Mass/Vol] 0.41 mg/dL Normal 0.00-1.30 [facility] Comment on above: Performed By: #### L 500.4100, L506.1001, L501.9985, L100.0100, L501.9520, L500.4050 #### [facility] [address] [place], [address] BUN/CRE 9.1 RATIO Low 10-20 [facility] Comment on above: Performed By: #### L 500.4100, L506.1001, L501.9985, L100.0100, L501.9520, L500.4050 #### [facility] [address] [place], [address] Calcium [Mass/Vol] 9.9 mg/dL Normal 7.6-11.0 [facility] Comment on above: Performed By: #### L 500.4100, L506.1001, L501.9985, L100.0100, L501.9520, L500.4050 #### [facility] [address] [place], [address] Chloride [Moles/Vol] 104 mmol/L Normal 98-108 [facility] Comment on above: Performed By: #### L 500.4100, L506.1001, L501.9985, L100.0100, L501.9520, L500.4050 #### [facility] [address] [place], [address] CO2 [Moles/Vol] 21.5 mmol/L Normal 21.0-32.0 [facility] Comment on above: Performed By: #### L 500.4100, L506.1001, L501.9985, L100.0100, L501.9520, L500.4050 #### [facility] [address] [place], [address] Creatinine [Mass/Vol] 1.48 mg/dL High 0.70-1.20 [facility] Comment on above: Performed By: #### L 500.4100, L506.1001, L501.9985, L100.0100, L501.9520, L500.4050 #### [facility] [address] [place], [address] GAP 14 Normal 5-15 [facility] Comment on above: Performed By: #### L 500.4100, L506.1001, L501.9985, L100.0100, L501.9520, L500.4050 #### [facility] [address] [place], [address] GFR/1.73 sq M.predicted among non-blacks MDRD (S/P/Bld) [Vol rate/Area] 48 mL/min/{1.73_m2} Low >60 [facility] Comment on above: Result Comment: mL/m in/1.73m2 CKD-EPI Creatinine Equation (2020) Performed By: #### L 500.4100, L506.1001, L501.9985, L100.0100, L501.9520, L500.4050 #### [facility] [address] [place], [address] Globulin (S) [Mass/Vol] 3.3 g/dL Normal 2.2-4.2 [facility] Comment on above: Performed By: #### L 500.4100, L506.1001, L501.9985, L100.0100, L501.9520, L500.4050 #### [facility] [address] [place], [address] Glucose [Mass/Vol] 187 mg/dL High 70-99 [facility] Comment on above: Performed By: #### L 500.4100, L506.1001, L501.9985, L100.0100, L501.9520, L500.4050 #### [facility] [address] [place], [address] Potassium [Moles/Vol] 4.3 mmol/L Normal 3.3-5.1 [facility] Comment on above: Performed By: #### L 500.4100, L506.1001, L501.9985, L100.0100, L501.9520, L500.4050 #### [facility] [address] [place], [address] Sodium [Moles/Vol] 139 mmol/L Normal 133-145 [facility] Comment on above: Performed By: #### L 500.4100, L506.1001, L501.9985, L100.0100, L501.9520, L500.4050 #### [facility] [address] [place], [address] T PROT 7.7 g/dL Normal 5.9-8.4 [facility] Comment on above: Performed By: #### L 500.4100, L506.1001, L501.9985, L100.0100, L501.9520, L500.4050 #### [facility] [address] [place], [address] Urea nitrogen [Mass/Vol] 14 mg/dL Normal 4-19 [facility] Comment on above: Performed By: #### L 500.4100, L506.1001, L501.9985, L100.0100, L501.9520, L500.4050 #### [facility] [address] [place], [address] Hemoglobin A1con 10-28-2024 HbA1c (Bld) [Mass fraction] 6.5 % High <=5.6 [facility] Comment on above: Result Comment: Norm al < 5.7 % Prediabetic 5.7 - 6.4 % Diabetic >or= 6.5 % Please note range changes. Performed By: #### L 500.4100, L506.1001, L501.9985, L100.0100, L501.9520, L500.4050 #### [facility] [address] [place], [address] Lipid Profileon 10-28-2024 CHOL:HDL 1.88 Normal [facility] Comment on above: Performed By: #### L 500.4100, L506.1001, L501.9985, L100.0100, L501.9520, L500.4050 #### [facility] [address] [place], [address] Cholesterol [Mass/Vol] 164 mg/dL Normal <=200 [facility] Comment on above: Result Comment: Chol esterol level, Desirable <200 mg/dL Borderline high cholesterol 200-239 mg/dL High cholesterol >=240 mg/dL Recommendations of the NCEP Adult Treatment Panel for the following risk-cutoff thresholds for the [place] population. Performed By: #### L 500.4100, L506.1001, L501.9985, L100.0100, L501.9520, L500.4050 #### [facility] [address] [place], [address] Cholesterol in HDL [Mass/Vol] 87 mg/dL Normal [facility] Comment on above: Result Comment: Madai onal Cholesterol Education Program (NCEP) guidelines: <40 mg/dL: Low HDL-cholesterol (major risk factor for CHD) >= 60 mg/dL: High HDL-cholesterol (negative risk factor for CHD) HDL-cholesterol is affected by a number of factors, e.g. smoking, exercise, hormones, sex and age. Performed By: #### L 500.4100, L506.1001, L501.9985, L100.0100, L501.9520, L500.4050 #### [facility] [address] [place], [address] Cholesterol in LDL [Mass/Vol] 65 mg/dL Normal [facility] Comment on above: Result Comment: Bord nolftw=014-429 mg/dL Higher Evqj=065 mg/dL or greater Performed By: #### L 500.4100, L506.1001, L501.9985, L100.0100, L501.9520, L500.4050 #### [facility] [address] [place], [address] Cholesterol in VLDL [Mass/Vol] 11 mg/dL Normal 5-40 [facility] Comment on above: Performed By: #### L 500.4100, L506.1001, L501.9985, L100.0100, L501.9520, L500.4050 #### [facility] [address] [place], [address] Triglyceride [Mass/Vol] 57 mg/dL Normal [facility] Comment on above: Result Comment: The drugs N-Acetylcysteine and Metamizole may falsely depress this assay. Normal range: <150 mg/dL Borderline High: 150-199 mg/dL High: 200-499 mg/dL Very High: >500 mg/dL Performed By: #### L 500.4100, L506.1001, L501.9985, L100.0100, L501.9520, L500.4050 #### [facility] [address] [place], [address] Thyroid Stim Hormone (TSH)on 10-28-2024 TSH 1.700 uIU/mL Normal 0.300-4.200 [facility] Comment on above: Performed By: #### L 500.4100, L506.1001, L501.9985, L100.0100, L501.9520, L500.4050 #### [facility] [address] [place], [address] Vitamin D,25 Hydroxyon 10-28 Vitamin D 25-OH 30.2 ng/mL Normal 30-100 [facility] Comment on above: Result Comment: Ronel min D Status Deficiency: <20 ng/mL (50nmol/L) Insufficiency: 20-30 ng/mL (50-75 nmol/L) Sufficiency: 30-100 ng/mL (75-250 nmol/L) Toxicity: >100 ng/mL (>250 nmol/L) Performed By: #### L 500.4100, L506.1001, L501.9985, L100.0100, L501.9520, L500.4050 ####[facility] [address] [place], [address] CBC W/Diff, Automatedon 05-0 Absolute Lymph 1.65 X10 3/uL Normal 0.83-4.51 [facility] Comment on above: Performed By: #### L 100.0100, L500.4100, L501.9985, L500.4050, L501.9520, L506.1001 ####[facility] [address] [place], [address] Absolute Neut 2.2 X10 3/uL Normal 2.0-7.7 [facility] Comment on above: Performed By: #### L 100.0100, L500.4100, L501.9985, L500.4050, L501.9520, L506.1001 ####[facility] [address] [place], [address] Basophils/100 WBC (Bld) 1.1 % High 0-1 [facility] Comment on above: Performed By: #### L 100.0100, L500.4100, L501.9985, L500.4050, L501.9520, L506.1001 ####[facility] [address] [place], [address] Eosinophils/100 WBC (Bld) 3.2 % Normal 0-5 [facility] Comment on above: Performed By: #### L 100.0100, L500.4100, L501.9985, L500.4050, L501.9520, L506.1001 ####[facility] [address] [place], [address] Erythrocyte distribution width (RBC) [Ratio] 14.1 % Normal 11.6-14.6 [facility] Comment on above: Performed By: #### L 100.0100, L500.4100, L501.9985, L500.4050, L501.9520, L506.1001 ####[facility] [address] [place], [address] Hematocrit (Bld) [Volume fraction] 39.1 % Low 40-54 [facility] Comment on above: Performed By: #### L 100.0100, L500.4100, L501.9985, L500.4050, L501.9520, L506.1001 ####[facility] [address] [place], [address] Hemoglobin (Bld) [Mass/Vol] 12.4 g/dL Low 13.0-16.5 [facility] Comment on above: Performed By: #### L 100.0100, L500.4100, L501.9985, L500.4050, L501.9520, L506.1001 ####[facility] [address] [place], [address] IG% 0.500 Normal 0.0-0.9 [facility] Comment on above: Result Comment: IG% - Immature Granulocytes (promyelocytes, myelocytes and metamyelocytes) > 1% indicates that a LEFT SHIFT is Present. Performed By: #### L 100.0100, L500.4100, L501.9985, L500.4050, L501.9520, L506.1001 ####[facility] [address] [place], [address] Lymphocytes/100 WBC (Bld) 37.4 % Normal 19-41 [facility] Comment on above: Performed By: #### L 100.0100, L500.4100, L501.9985, L500.4050, L501.9520, L506.1001 ####[facility] [address] [place], [address] MCH (RBC) [Entitic mass] 29.9 pg Normal 27.0-32.0 [facility] Comment on above: Performed By: #### L 100.0100, L500.4100, L501.9985, L500.4050, L501.9520, L506.1001 ####[facility] [address] [place], [address] MCHC (RBC) [Mass/Vol] 31.7 g/dL Low 32-36 [facility] Comment on above: Performed By: #### L 100.0100, L500.4100, L501.9985, L500.4050, L501.9520, L506.1001 ####[facility] [address] [place], [address] MCV (RBC) [Entitic vol] 94.2 fL High 80-94 [facility] Comment on above: Performed By: #### L 100.0100, L500.4100, L501.9985, L500.4050, L501.9520, L506.1001 ####[facility] [address] [place], [address] Monocytes/100 WBC (Bld) 7.5 % Normal 0-10 [facility] Comment on above: Performed By: #### L 100.0100, L500.4100, L501.9985, L500.4050, L501.9520, L506.1001 ####[facility] [address] [place], [address] Neutrophils/100 WBC (Bld) 50.3 % Normal 47-70 [facility] Comment on above: Performed By: #### L 100.0100, L500.4100, L501.9985, L500.4050, L501.9520, L506.1001 ####[facility] [address] [place], [address] Nucleated RBC (Bld) [#/Vol] 0 10*3/uL Normal 0-5 [facility] Comment on above: Performed By: #### L 100.0100, L500.4100, L501.9985, L500.4050, L501.9520, L506.1001 ####[facility] [address] [place], [address] Platelet mean volume (Bld) [Entitic vol] 10.6 fL Normal 6.2-12.0 [facility] Comment on above: Performed By: #### L 100.0100, L500.4100, L501.9985, L500.4050, L501.9520, L506.1001 ####[facility] [address] [place], [address] Platelets (Bld) [#/Vol] 212 10*3/uL Normal 150-450 [facility] Comment on above: Performed By: #### L 100.0100, L500.4100, L501.9985, L500.4050, L501.9520, L506.1001 ####[facility] [address] [place], [address] RBC (Bld) [#/Vol] 4.15 10*6/uL Low 4.6-6.2 [facility] Comment on above: Performed By: #### L 100.0100, L500.4100, L501.9985, L500.4050, L501.9520, L506.1001 ####[facility] [address] [place], [address] RDW SD 49.0 fl High 35.1-43.9 [facility] Comment on above: Performed By: #### L 100.0100, L500.4100, L501.9985, L500.4050, L501.9520, L506.1001 ####[facility] [address] [place], [place], [phone]) WBC (Bld) [#/Vol] 4.4 10*3/uL Normal 4.4-11.0 [facility] Comment on above: Performed By: #### L 100.0100, L500.4100, L501.9985, L500.4050, L501.9520, L506.1001 ####[facility] [address] [place], [place], [id number] Comprehensive Metabolic Prof [facility] 08-07-2024 Albumin [Mass/Vol] 4.0 g/dL Normal 3.4-4.8 [facility] Comment on above: Performed By: #### L 100.0100, L500.4100, L501.9985, L500.4050, L501.9520, L506.1001 ####[facility] [address] [place], [address]) Albumin/Globulin [Mass ratio] 1.3 {ratio} Normal 0.9-2.4 [facility] Comment on above: Performed By: #### L 100.0100, L500.4100, L501.9985, L500.4050, L501.9520, L506.1001 ####[facility] [address] [place], [address] ALK PHOS 72 U/L Normal 40-129 [facility] Comment on above: Performed By: #### L 100.0100, L500.4100, L501.9985, L500.4050, L501.9520, L506.1001 ####[facility] [address] [place], [address] ALT [Catalytic activity/Vol] 18 U/L Normal <=46 [facility] Comment on above: Performed By: #### L 100.0100, L500.4100, L501.9985, L500.4050, L501.9520, L506.1001 ####[facility] [address] [place], [address] AST [Catalytic activity/Vol] 24 U/L Normal <=37 [facility] Comment on above: Performed By: #### L 100.0100, L500.4100, L501.9985, L500.4050, L501.9520, L506.1001 ####[facility] [address] [place], [address] Bilirubin [Mass/Vol] 0.30 mg/dL Normal 0.00-1.30 [facility] Comment on above: Performed By: #### L 100.0100, L500.4100, L501.9985, L500.4050, L501.9520, L506.1001 ####[facility] [address] [place], [address] BUN/CRE 12.2 RATIO Normal 10-20 [facility] Comment on above: Performed By: #### L 100.0100, L500.4100, L501.9985, L500.4050, L501.9520, L506.1001 ####[facility] [address] [place], [address] Calcium [Mass/Vol] 9.2 mg/dL Normal 7.6-11.0 [facility] Comment on above: Performed By: #### L 100.0100, L500.4100, L501.9985, L500.4050, L501.9520, L506.1001 ####[facility] [address] [place], [address] Chloride [Moles/Vol] 104 mmol/L Normal 98-108 [facility] Comment on above: Performed By: #### L 100.0100, L500.4100, L501.9985, L500.4050, L501.9520, L506.1001 ####[facility] [address] [place], [address] CO2 [Moles/Vol] 23.6 mmol/L Normal 21.0-32.0 [facility] Comment on above: Performed By: #### L 100.0100, L500.4100, L501.9985, L500.4050, L501.9520, L506.1001 ####[facility] [address] [place], [address] Creatinine [Mass/Vol] 1.30 mg/dL High 0.70-1.20 [facility] Comment on above: Performed By: #### L 100.0100, L500.4100, L501.9985, L500.4050, L501.9520, L506.1001 ####[facility] [address] [place], [address] GAP 11 Normal 5-15 [facility] Comment on above: Performed By: #### L 100.0100, L500.4100, L501.9985, L500.4050, L501.9520, L506.1001 ####[facility] [address] [place], [address] GFR/1.73 sq M.predicted among non-blacks MDRD (S/P/Bld) [Vol rate/Area] 57 mL/min/{1.73_m2} Low >60 [facility] Comment on above: Result Comment: mL/m in/1.73m2 CKD-EPI Creatinine Equation (2020) Performed By: #### L 100.0100, L500.4100, L501.9985, L500.4050, L501.9520, L506.1001 ####[facility] [address] [place], [address] Globulin (S) [Mass/Vol] 3.1 g/dL Normal 2.2-4.2 [facility] Comment on above: Performed By: #### L 100.0100, L500.4100, L501.9985, L500.4050, L501.9520, L506.1001 ####[facility] [address] [place], [address] Glucose [Mass/Vol] 215 mg/dL High 70-99 [facility] Comment on above: Performed By: #### L 100.0100, L500.4100, L501.9985, L500.4050, L501.9520, L506.1001 ####[facility] [address] [place], [address] Potassium [Moles/Vol] 4.1 mmol/L Normal 3.3-5.1 [facility] Comment on above: Performed By: #### L 100.0100, L500.4100, L501.9985, L500.4050, L501.9520, L506.1001 ####[facility] [address] [place], [address] Sodium [Moles/Vol] 138 mmol/L Normal 133-145 [facility] Comment on above: Performed By: #### L 100.0100, L500.4100, L501.9985, L500.4050, L501.9520, L506.1001 ####[facility] [address] [place], [address] T PROT 7.1 g/dL Normal 5.9-8.4 [facility] Comment on above: Performed By: #### L 100.0100, L500.4100, L501.9985, L500.4050, L501.9520, L506.1001 ####[facility] [address] [place], [address] Urea nitrogen [Mass/Vol] 16 mg/dL Normal 4-19 [facility] Comment on above: Performed By: #### L 100.0100, L500.4100, L501.9985, L500.4050, L501.9520, L506.1001 ####[facility] [address] [place], [address] Hemoglobin A1con 08-07-2024 HbA1c (Bld) [Mass fraction] 6.8 % High <=5.6 [facility] Comment on above: Result Comment: Norm al < 5.7 % Prediabetic 5.7 - 6.4 % Diabetic >or= 6.5 % Please note range changes. Performed By: #### L 100.0100, L500.4100, L501.9985, L500.4050, L501.9520, L506.1001 ####[facility] [address] [place], [address] Lipid Profileon 08-07-2024 CHOL:HDL 2.32 Normal [facility] Comment on above: Performed By: #### L 100.0100, L500.4100, L501.9985, L500.4050, L501.9520, L506.1001 ####[facility] [address] [place], [address] Cholesterol [Mass/Vol] 148 mg/dL Normal <=200 [facility] Comment on above: Result Comment: Chol esterol level, Desirable <200 mg/dL Borderline high cholesterol 200-239 mg/dL High cholesterol >=240 mg/dL Recommendations of the NCEP Adult Treatment Panel for the following risk-cutoff thresholds for the [place] population. Performed By: #### L 100.0100, L500.4100, L501.9985, L500.4050, L501.9520, L506.1001 ####[facility] [address] [place], [address] Cholesterol in HDL [Mass/Vol] 64 mg/dL Normal [facility] Comment on above: Result Comment: Madai onal Cholesterol Education Program (NCEP) guidelines: <40 mg/dL: Low HDL-cholesterol (major risk factor for CHD) >= 60 mg/dL: High HDL-cholesterol (negative risk factor for CHD) HDL-cholesterol is affected by a number of factors, e.g. smoking, exercise, hormones, sex and age. Performed By: #### L 100.0100, L500.4100, L501.9985, L500.4050, L501.9520, L506.1001 ####[facility] [address] [place], [address] Cholesterol in LDL [Mass/Vol] 66 mg/dL Normal [facility] Comment on above: Result Comment: Bord guxizp=460-714 mg/dL Higher Emyi=413 mg/dL or greater Performed By: #### L 100.0100, L500.4100, L501.9985, L500.4050, L501.9520, L506.1001 ####[facility] [address] [place], [address] Cholesterol in VLDL [Mass/Vol] 18 mg/dL Normal 5-40 [facility] Comment on above: Performed By: #### L 100.0100, L500.4100, L501.9985, L500.4050, L501.9520, L506.1001 ####[facility] [address] [place], [address] Triglyceride [Mass/Vol] 91 mg/dL Normal [facility] [facility] Comment on above: Result Comment: The drugs N-Acetylcysteine and Metamizole may falsely depress this assay. Normal range: <150 mg/dL Borderline High: 150-199 mg/dL High: 200-499 mg/dL Very High: >500 mg/dL Performed By: #### L 100.0100, L500.4100, L501.9985, L500.4050, L501.9520, L506.1001 ####[facility] [address] [place], [address] Thyroid Stim Hormone (TSH)on 08-07-2024 TSH 1.130 uIU/mL Normal 0.300-4.200 [facility] Comment on above: Performed By: #### L 100.0100, L500.4100, L501.9985, L500.4050, L501.9520, L506.1001 ####[facility] [address] [facility] [address] [place], [place], [id number] Vitamin D,25 Hydroxyon 08-07 Vitamin D 25-OH 11.0 ng/mL Low 30-100 [facility] Comment on above: Result Comment: Ronel min D Status Deficiency: <20 ng/mL (50nmol/L) Insufficiency: 20-30 ng/mL (50-75 nmol/L) Sufficiency: 30-100 ng/mL (75-250 nmol/L) Toxicity: >100 ng/mL (>250 nmol/L) Performed By: #### L 100.0100, L500.4100, L501.9985, L500.4050, L501.9520, L506.1001 ####[facility] [address] [place], [address] Cerv Spine 2 or 3 Viewson Cerv Spine 2 or 3 Views [facility] Imaging Services [address] [place], [place] [id number] [phone] Cerv Spine 2 or 3 Views MR#: [id number] Acct: [id number] Name: REMI BERNABE Rep #: [id number] : 1945 M 78 From: Michael Smith MD PCP: Dr. Micheal Peralta MD Status: REG CLI Study: Cerv Spine 2 or 3 Views Date of Exam: 08/05/24 Exam# [id number] Ordering Dr: Micheal Peralta MD PROCEDURE: CERV SPINE 2 OR 3 VIEWS 08/05/2024 REASON FOR EXAM: CERVICALGIA TECHNIQUE: 3 views of the cervical spine. COMPARISON: 01/12/2022 FINDINGS: Vertebrae: No acute fracture. disc spaces: Disc space narrowing and osteophyte formation consistent with degenerative disc disease. Alignment: Anatomic alignment. soft tissues: No prevertebral soft tissue swelling. Other: RAD/Cerv Spine 2 or 3 Views IMPRESSION: MODERATE CERVICAL DEGENERATIVE CHANGES. Disclaimer: Reading Location: [id number] CC: Dr. 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: Signed Normal [facility] Gastroenterology Visit Repor ton 07-24-2024 Gastroenterology Visit Report [facility] [address] [place] [address] OFFICE VISIT Date of Service: 07/24/24 MR#: [id number] Acct: [id number] Name: REMI BERNABE Rep #: [id number] : 1945 Provider: ROCIO Irving Age/Sex: 78/M Location: [facility] Status: Signed Intake Vital Signs 09/04/23 14:43 07/22/24 13:32 Height 5 ft 1 in 5 ft 1 in Intake Visit Reasons: 6 M FU Chief Complaint: nausea Allergies iodine Allergy (Verified 04/23/24 13:54) Anaphylaxis shellfish derived Allergy (Verified 04/23/24 13:54) Anaphylaxis weed pollen Adverse Reaction (Verified 04/23/24 13:54) Other Medications ???Medication ???Instructions ???Recorded ???Confirmed ???Type levothyroxine 25 mcg tablet 25 mcg PO DAILY thyroid 11/05/20 0 07/24/24 History pantoprazole 40 mg tablet,delayed 40 mg PO DAILY stomach 11/05/20 0 07/24/24 History release pioglitazone 30 mg tablet 30 mg PO DAILY 08/08/22 07/24/24 H istory rosuvastatin 10 mg tablet 10 mg PO DAILY 10/16/22 07/24/24 H istory ascorbic acid (vitamin C) 500 mg 500 mg PO DAILY 11/07/22 07/24/24 History tablet (Vitamin C) polysaccharide iron complex 150 mg 150 mg PO DAILY 11/07/22 5 History iron capsule (Ferrex) citalopram 20 mg tablet 20 mg PO DAILY mood #30 tabs 09/0307/24/24 Rx quetiapine 100 mg tablet 100 mg PO QHS SLEEP 30 days #30 07/24/24 Rx tabs clopidogrel 75 mg tablet 75 mg PO QDAY 02/10/24 07/24/24 Hi story zolpidem 5 mg tablet (Ambien) 5 mg PO QHS #30 tabs 04/23/2407/07 Rx lubiprostone 8 mcg capsule 8 mcg PO BID #60 caps 07/24/24 Rx metoclopramide HCl 10 mg tablet 10 mg PO TID #270 TABLETS 07/24/24 07/24/24 Rx Have you fallen in the past year?: No PFSH Medical History (Updated 07/24/24 @ 11:23 by ROCIO Irving) Primary osteoarthritis, 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 Left shoulder pain Wears hearing aid Wears dentures Anxiety Thyroid disease Arthritis Migraine headache Gastric reflux Former smoker Shortness of breath on exertion History of echocardiogram Major depressive disorder Atherosclerotic heart disease of [place] coronary artery without angina pectoris ADHD Cervicalgia Hyperthyroidism Insomnia Depression Fecal impaction of colon Blindness Brain TIA BPH (benign prostatic hyperplasia) Hyperlipemia GERD (gastroesophageal reflux disease) Bradycardia Coronary artery disease Seizures Diabetes Hypertension Blind Surgical History History of ankle surgery H/O eye surgery History of carpal tunnel release History of cholecystectomy Family History Other Seizures Social History (Updated 02/10/24 @ 14:11 by Carol Lewis MA) household members: spouse housing: house Smoking Status: Former smoker alcohol intake: never substance use type: does not use HPI HPI Chief Complaint: nausea Details: REMI BERNABE, is a 78 M who presents to the office today for f/u. PMHx depression, insomnia, TIA, hypothyroid, HLD, HTN, DMII, obesity BGI established in 2022 for abd pain, bloating, heartburn and decreased appetite. Last OV 10.15.24 Pt doing well with no GI complaints. Continues with PPI, Reglan and Amitiza. GES 12.4.25; 66 minutes improved from 153 minutes OV 4.18.25 Pt doing well. He continues with Reglan and Amitiza. He has daily bm that varies in size. He is overall happy with his treatment. ROS Const Constitutional: No fatigue, fever(s) or weight change ENT ENT: No difficulty swallowing Gastro GI: No abdominal pain, belching, bloating, change in bowel habits, change in stool character, coffee ground emesis, constipation, cramping, diarrhea, heartburn, difficulty swallowing, feeling full early, excessive flatus, incontinent of stools, Vomiting blood/hematemesis, Blood in stool, loose stools, Black,tarry stools, nausea/dyspepsia, pain with swallowing, vomiting or other Musc Musculoskeletal: Positive for back pain; No joint pain Skin Skin: No yellowing of the eye or itchy eyes Psych Psychiatric: Positive for anxiety and No depression Endo Endocrine: No fatigue or weight change Aller/Imm Allergy/Immunologic: No itchy eyes Wesly/Lymp Hematologic/Lymphatic: No easy bleeding or easy bruising Exam Const General: cooperative and comfortable Nutritional Appearance: average body habitus and well nourished [facility] Head: normal to inspection Ears: hearing grossly normal bilaterally Nose: external nose normal Eyes General: appearance normal, both eyes and all related structures Neck Neck: normal visual inspection Chest Chest palpation inspection: normal inspection of the chest and normal (more content not included)... Normal [facility] MR/BMSon 07-22-2024 MR/BMS. [facility] [address], [address] [place] [id number] OFFICE VISIT Date of Service: 07/22/24 MR#: [id number] Acct: [id number] Name: REMI BERNABE Rep #: [id number] : 1945 Provider: Dr. Alex Beltran se DO Age/Sex: 78/M Location: [facility] [place] Status: Signed Intake Vital Signs 04/23/24 13:51 07/22/24 13:32 Height 5 ft 1 in 5 ft 1 in BP 121/77 H Blood Pressure Location Lt brachial Position Sitting Respiration 16 Pulse 73 Pulse Source Monitor BP Intake Visit Reasons: 3 M FU Allergies iodine Allergy (Verified 04/23/24 13:54) Anaphylaxis shellfish derived Allergy (Verified 04/23/24 13:54) Anaphylaxis weed pollen Adverse Reaction (Verified 04/23/24 13:54) Other Have you fallen in the past year?: No PFSH Medical History (Updated 02/10/24 @ 14:39 by Srinivasa Em MD) Primary osteoarthritis, 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 Left shoulder pain Wears hearing aid Wears dentures Anxiety Thyroid disease Arthritis Migraine headache Gastric reflux Former smoker Shortness of breath on exertion History of echocardiogram Major depressive disorder Atherosclerotic heart disease of [place] coronary artery without angina pectoris ADHD Cervicalgia Hyperthyroidism Insomnia Depression Fecal impaction of colon Blindness Brain TIA BPH (benign prostatic hyperplasia) Hyperlipemia GERD (gastroesophageal reflux disease) Bradycardia Coronary artery disease Seizures Diabetes Hypertension Blind Surgical History History of ankle surgery H/O eye surgery History of carpal tunnel release History of cholecystectomy Family History Other Seizures Social History (Updated 02/10/24 @ 14:11 by Carol Lewis MA) household members: spouse housing: house Smoking Status: Former smoker alcohol intake: never substance use type: does not use HPI History of Present Illness History provided by: patient HPI: Remi Bernabe is a 78 year old male who presents today for follow up evaluation. Patient reports with criminal justice social worker, Verena, and aide. Aide reports that he has been doing better at sleeping through the night with the exception of going to bathroom in middle of the night. Describes mood overall ok. Has been able to relax during the day, does have some intermittent pain symptoms. Seems less fixated on people from the past than he had previously. Can most of the time navigate throughout the house without assistance. His a1c was recently elevated from January to April going from 6.8 to 9.2. Patient appears much more calm today than he has in previous encounters. Review of Systems Constitutional Denies: fever(s), chills, change in weight or fatigue Eyes Denies: change in vision or blurry vision Ears, Nose, Mouth, Throat Denies: throat pain, neck pain or change in hearing Cardiovascular Denies: chest pain, palpitations or dyspnea Respiratory Denies: dyspnea, cough or wheezing Gastrointestinal Reports: diarrhea and constipation; Denies: abdominal pain, nausea or vomiting Genitourinary Denies: dysuria or urinary frequency Musculoskeletal Reports: joint pain; Denies: back pain, neck pain or muscle weakness Integumentary/Breast Denies: rash or new lesions Neurological Reports: headache(s); Denies: dizziness or confusion Endocrine Denies: fatigue or excessive sweating Hematologic/Lymphatic Denies: easy bruising or easy bleeding Allergic/Immunologic Denies: wheezing Exam Mental Status Exam - Psych Appearance unkempt Attitude calm Activity/Motor Behavior MSE activity/motor behavior finding no adventitious movements Speech regular rate, regular prosody, loud and minimal (much less than previous encounters) Mood OK Affect congruent Thought Process logical, coherent and tangential Thought Content no delusions and no hallucinations Suicidal Ideation none Homicidal Ideation none Attention intact Concentration intact Sensorium/Orientation awake, alert and oriented x3 Memory/Cognition other (appropriate for stated age) Insight fair Judgement fair Assessment Plan Assessment Plan (1) Major depressive disorder: Qualifiers: Major depression recurrence: unspecified whether recurrent Active/Remission status: remission status unspecified Qualified Code(s): F32.9 - Major depressive disorder, single episode, unspecified Plan: - Patient appears much more calm than previous encounters and staff believes that he has been doing largely well at home -Continue citalopram previously prescribed - We will reduce Seroquel to 50 mg every night. Do wish to attempt to reduce metabolic burden given recent increase in A1c however do believe (more content not included)... Normal [facility] Brain/Head without Contrasto n 05-04-2024 Brain/Head without Contrast [facility] Imaging Services [address] [place], [place] [id number] Brain/Head without Contrast MR#: [id number] Acct: [id number] Name: REMI BERNABE Rep #: [id number] : 1945 M 78 From: Martín chun MD PCP: Dr. Micheal Pearlta MD Status: REG CL Study: Brain/Head without Contrast Date of Exam: 04/09 10/30 Exam# [id number] Ordering [place]: [place] [id number] STUDY: CT BRAIN WITHOUT CONTRAST REASON FOR EXAM: Male, 78 years old. Encephalopathy RADIATION DOSAGE (If Supplied By Facility): CTDIvol = ( 44.99 ) mGy, DLP = ( 829.85 ) mGycm TECHNIQUE: Transaxial CT imaging of the brain was performed without administration of intravenous contrast material. Individualized dose optimization techniques were used for this CT. COMPARISON: 04/11/2021 FINDINGS: Normal soft tissue structures. Normal calvarium. Stable appearance of encephalomalacia along the inferior aspects of both frontal lobes, a pattern commonly seen with trauma. No acute abnormality. Normal size ventricles and extra-axial spaces for the patient''s age. There are areas of decreased attenuation within the white matter tracts of the supratentorial brain, consistent with microvascular disease changes. Normal basal ganglia and thalami. Normal brainstem. Normal cerebellum. There is no intracranial hemorrhage. There are no findings of an acute ischemic infarction. Extensive postsurgical changes of the facial bones, stable and stable appearance of bilateral abnormal globes. CT/Brain/Head without Contrast IMPRESSION: No change or acute abnormality. Encephalomalacia of both frontal lobes. Chronic white matter disease. Extensive previously treated facial fractures. Electronically Signed: Martín Valle MD at 23:00 EST , CC: Dr. 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: Signed Normal [facility] CBC W/Diff, Automatedon 01-2 Absolute Lymph 1.05 X10 3/uL Normal 0.83-4.51 [facility] Comment on above: Performed By: #### L 501.9985, L500.4050, L501.9520, L100.0100, L506.1000, L500.4100 ####[facility] [address] [place], [address] Absolute Neut 5.2 X10 3/uL Normal 2.0-7.7 [facility] Comment on above: Performed By: #### L 501.9985, L500.4050, L501.9520, L100.0100, L506.1000, L500.4100 ####[facility] [address] [place], [address] Basophils/100 WBC (Bld) 0.4 % Normal 0-1 [facility] Comment on above: Performed By: #### L 501.9985, L500.4050, L501.9520, L100.0100, L506.1000, L500.4100 ####[facility] [address] [place], [address] Eosinophils/100 WBC (Bld) 0.0 % Normal 0-5 [facility] Comment on above: Performed By: #### L 501.9985, L500.4050, L501.9520, L100.0100, L506.1000, L500.4100 ####[facility] [address] [place], [address] Erythrocyte distribution width (RBC) [Ratio] 14.1 % Normal 11.6-14.6 [facility] Comment on above: Performed By: #### L 501.9985, L500.4050, L501.9520, L100.0100, L506.1000, L500.4100 ####[facility] [address] [place], [address] Hematocrit (Bld) [Volume fraction] 40.7 % Normal 40-54 [facility] Comment on above: Performed By: #### L 501.9985, L500.4050, L501.9520, L100.0100, L506.1000, L500.4100 ####[facility] [address] [place], [address] Hemoglobin (Bld) [Mass/Vol] 13.1 g/dL Normal 13.0-16.5 [facility] Comment on above: Performed By: #### L 501.9985, L500.4050, L501.9520, L100.0100, L506.1000, L500.4100 ####[facility] [address] [place], [address] IG% 0.300 Normal 0.0-0.9 [facility] Comment on above: Result Comment: IG% - Immature Granulocytes (promyelocytes, myelocytes and metamyelocytes) > 1% indicates that a LEFT SHIFT is Present. Performed By: #### L 501.9985, L500.4050, L501.9520, L100.0100, L506.1000, L500.4100 ####[facility] [address] [place], [address] Lymphocytes/100 WBC (Bld) 14.8 % Low 19-41 [facility] Comment on above: Performed By: #### L 501.9985, L500.4050, L501.9520, L100.0100, L506.1000, L500.4100 ####[facility] [address] [place], [address] MCH (RBC) [Entitic mass] 29.7 pg Normal 27.0-32.0 [facility] Comment on above: Performed By: #### L 501.9985, L500.4050, L501.9520, L100.0100, L506.1000, L500.4100 ####[facility] [address] [place], [address] MCHC (RBC) [Mass/Vol] 32.2 g/dL Normal 32-36 [facility] Comment on above: Performed By: #### L 501.9985, L500.4050, L501.9520, L100.0100, L506.1000, L500.4100 ####[facility] [address] [place], [address] MCV (RBC) [Entitic vol] 92.3 fL Normal 80-94 [facility] Comment on above: Performed By: #### L 501.9985, L500.4050, L501.9520, L100.0100, L506.1000, L500.4100 ####[facility] [address] [place], [address] Monocytes/100 WBC (Bld) 11.8 % High 0-10 [facility] Comment on above: Performed By: #### L 501.9985, L500.4050, L501.9520, L100.0100, L506.1000, L500.4100 ####[facility] [address] [place], [address] Neutrophils/100 WBC (Bld) 72.7 % High 47-70 [facility] Comment on above: Performed By: #### L 501.9985, L500.4050, L501.9520, L100.0100, L506.1000, L500.4100 ####[facility] [address] [place], [address] Nucleated RBC (Bld) [#/Vol] 0 10*3/uL Normal 0-5 [facility] Comment on above: Performed By: #### L 501.9985, L500.4050, L501.9520, L100.0100, L506.1000, L500.4100 ####[facility] [address] [place], [address] Platelet mean volume (Bld) [Entitic vol] 11.0 fL Normal 6.2-12.0 [facility] Comment on above: Performed By: #### L 501.9985, L500.4050, L501.9520, L100.0100, L506.1000, L500.4100 ####[facility] [address] [place], [address] Platelets (Bld) [#/Vol] 172 10*3/uL Normal 150-450 [facility] Comment on above: Performed By: #### L 501.9985, L500.4050, L501.9520, L100.0100, L506.1000, L500.4100 ####[facility] [address] [place], [address] RBC (Bld) [#/Vol] 4.41 10*6/uL Low 4.6-6.2 [facility] Comment on above: Performed By: #### L 501.9985, L500.4050, L501.9520, L100.0100, L506.1000, L500.4100 ####[facility] [address] [place], [address] RDW SD 48.2 fl High 35.1-43.9 [facility] Comment on above: Performed By: #### L 501.9985, L500.4050, L501.9520, L100.0100, L506.1000, L500.4100 ####[facility] [address] [place], [address] WBC (Bld) [#/Vol] 7.1 10*3/uL Normal 4.4-11.0 [facility] Comment on above: Performed By: #### L 501.9985, L500.4050, L501.9520, L100.0100, L506.1000, L500.4100 ####[facility] [address] [place], [address] Comprehensive Metabolic Prof ilon 05-04-2024 Albumin [Mass/Vol] 3.7 g/dL Normal 3.2-5.0 [facility] Comment on above: Performed By: #### L 501.9985, L500.4050, L501.9520, L100.0100, L506.1000, L500.4100 ####[facility] [address] [place], [address] Albumin/Globulin [Mass ratio] 0.9 {ratio} Normal 0.9-2.4 [facility] Comment on above: Performed By: #### L 501.9985, L500.4050, L501.9520, L100.0100, L506.1000, L500.4100 ####[facility] [address] [place], [address] ALK P 77 U/L Normal 45-117 [facility] Comment on above: Performed By: #### L 501.9985, L500.4050, L501.9520, L100.0100, L506.1000, L500.4100 ####[facility] [address] [place], [address] ALT [Catalytic activity/Vol] 44 U/L Normal 16-61 [facility] Comment on above: Performed By: #### L 501.9985, L500.4050, L501.9520, L100.0100, L506.1000, L500.4100 ####[facility] [address] [place], [address] AST [Catalytic activity/Vol] 38 U/L High 15-37 [facility] Comment on above: Performed By: #### L 501.9985, L500.4050, L501.9520, L100.0100, L506.1000, L500.4100 ####[facility] [address] [place], [address] Bilirubin [Mass/Vol] 0.60 mg/dL Normal 0.20-1.00 [facility] Comment on above: Result Comment: For patients on eltrombopag therapy, use of Dimension [place] TBIL is not recommended. Performed By: #### L 501.9985, L500.4050, L501.9520, L100.0100, L506.1000, L500.4100 ####[facility] [address] [place], [address] BUN/CRE 11.8 RATIO Normal 10-20 [facility] Comment on above: Performed By: #### L 501.9985, L500.4050, L501.9520, L100.0100, L506.1000, L500.4100 ####[facility] [address] [place], [address] CA,Total 9.1 mg/dL Normal 8.5-10.1 [facility] Comment on above: Performed By: #### L 501.9985, L500.4050, L501.9520, L100.0100, L506.1000, L500.4100 ####[facility] [address] [place], [address] Chloride [Moles/Vol] 100 mmol/L Normal 98-107 [facility] Comment on above: Performed By: #### L 501.9985, L500.4050, L501.9520, L100.0100, L506.1000, L500.4100 ####[facility] [address] [place], [address] CO2 [Moles/Vol] 23.0 mmol/L Normal 21.0-32.0 [facility] Comment on above: Performed By: #### L 501.9985, L500.4050, L501.9520, L100.0100, L506.1000, L500.4100 ####[facility] [address] [place], [address] Creatinine [Mass/Vol] 1.53 mg/dL High 0.70-1.30 [facility] Comment on above: Result Comment: The validity of the calculated GFR GFRAA in patients over 70 years has not been determined. Clinical correlation is essential. Performed By: #### L 501.9985, L500.4050, L501.9520, L100.0100, L506.1000, L500.4100 ####[facility] [address] [place], [address] EST GFR - AA 57 mL/min Low >60 [facility] Comment on above: Result Comment: Afri can Ukrainian GFR Calc Performed By: #### L 501.9985, L500.4050, L501.9520, L100.0100, L506.1000, L500.4100 ####[facility] [address] [place], [address] GAP 8 Normal 5-15 [facility] Comment on above: Performed By: #### L 501.9985, L500.4050, L501.9520, L100.0100, L506.1000, L500.4100 ####[facility] [address] [place], [address] GFR/1.73 sq M.predicted among non-blacks MDRD (S/P/Bld) [Vol rate/Area] 47 mL/min/{1.73_m2} Low >60 [facility] Comment on above: Result Comment: Non- GFR Calc Performed By: #### L 501.9985, L500.4050, L501.9520, L100.0100, L506.1000, L500.4100 ####[facility] [address] [place], [address] Globulin (S) [Mass/Vol] 4.1 g/dL Normal 2.2-4.2 [facility] Comment on above: Performed By: #### L 501.9985, L500.4050, L501.9520, L100.0100, L506.1000, L500.4100 ####[facility] [address] [place], [address] Glucose [Mass/Vol] 324 mg/dL High 74-106 [facility] Comment on above: Result Comment: Gluc ose result greater than or equal to 200 mg/dL suggests DIABETES MELLITUS per A.D.A. criteria. Performed By: #### L 501.9985, L500.4050, L501.9520, L100.0100, L506.1000, L500.4100 ####[facility] [address] [place], [address] Potassium [Moles/Vol] 3.8 mmol/L Normal 3.5-5.1 [facility] Comment on above: Performed By: #### L 501.9985, L500.4050, L501.9520, L100.0100, L506.1000, L500.4100 ####[facility] [address] [place], [address] Sodium [Moles/Vol] 132 mmol/L Low 136-145 [facility] Comment on above: Performed By: #### L 501.9985, L500.4050, L501.9520, L100.0100, L506.1000, L500.4100 ####[facility] [address] [place], [address] T PROT 7.8 g/dL Normal 6.4-8.2 [facility] Comment on above: Performed By: #### L 501.9985, L500.4050, L501.9520, L100.0100, L506.1000, L500.4100 ####[facility] [address] [place], [address] Urea nitrogen [Mass/Vol] 18 mg/dL Normal 7-18 [facility] Comment on above: Performed By: #### L 501.9985, L500.4050, L501.9520, L100.0100, L506.1000, L500.4100 ####[facility] [address] [place], [address] Hemoglobin A1con 05-04-2024 HbA1c (Bld) [Mass fraction] 9.2 % High 3.8-5.6 [facility] Comment on above: Result Comment: Norm al < 5.7 % Prediabetic 5.7 - 6.4 % Diabetic >or= 6.5 % Please note range changes. Performed By: #### L 501.9985, L500.4050, L501.9520, L100.0100, L506.1000, L500.4100 ####[facility] [address] [place], [address] Lipid Profileon 05-04-2024 Cholesterol [Mass/Vol] 150 mg/dL Normal 200 [facility] Comment on above: Result Comment: <200 mg/dL Desirable 200-240 mg/dL Borderline >240 mg/dL High Risk Performed By: #### L 501.9985, L500.4050, L501.9520, L100.0100, L506.1000, L500.4100 ####[facility] [address] [place], [address] Cholesterol in HDL [Mass/Vol] 79 mg/dL Normal [facility] Comment on above: Result Comment: The drugs N-Acetylcysteine and Metamizole may falsely depress this assay. Reference Range HDL <40 mg/dL Low HDL Cholesterol HDL >or= 60 mg/dL High HDL Cholesterol Performed By: #### L 501.9985, L500.4050, L501.9520, L100.0100, L506.1000, L500.4100 ####[facility] [address] [place], [address] Cholesterol in LDL [Mass/Vol] 57 mg/dL Normal 0-130 [facility] Comment on above: Performed By: #### L 501.9985, L500.4050, L501.9520, L100.0100, L506.1000, L500.4100 ####[facility] [address] [place], [address] Cholesterol in VLDL [Mass/Vol] 14 mg/dL Normal 5-40 [facility] Comment on above: Performed By: #### L 501.9985, L500.4050, L501.9520, L100.0100, L506.1000, L500.4100 ####[facility] [address] [place], [address] Triglyceride [Mass/Vol] 71 mg/dL Normal [facility] Comment on above: Result Comment: The drugs N-Acetylcysteine and Metamizole may falsely depress this assay. Serum Triglycerides Reference Interval Normal <150 mg/dL Borderline high 150 - 199 mg/dL High 200 - 499 mg/dL Very High > or = 500 mg/dL Performed By: #### L 501.9985, L500.4050, L501.9520, L100.0100, L506.1000, L500.4100 ####[facility] [address] [place], [address] M100.678on 05-04-2024 M100.678 Pending SARS-CoV-2 (COVID 19) A Positive A INFLUENZA A Negative INFLUENZA B Negative RSV PCR Negative SARS-CoV-2 (COVID 19) Normal [facility] Comment on above: Performed By: #### M 100.678 ####[facility] [address] [place], [address] Thyroid Stim Hormone (TSH)on 05-04-2024 TSH 1.150 uIU/mL Normal 0.358-3.740 [facility] Comment on above: Performed By: #### L 501.9985, L500.4050, L501.9520, L100.0100, L506.1000, L500.4100 ####[facility] [address] [place], [address] Urinalysis, Routine (Dipstic k)on 05-04-2024 BILIRUBIN URINE 1 mg/dL Abnormal Negative [facility] Comment on above: Order Comment: Urine , Random Result Comment: COLO R OF URINE MAY AFFECT DIPSTICK RESULTS. Performed By: #### L 400.2010 ####[facility] [address] [place], [address] Clarity (U) Clear Normal Clear [facility] Comment on above: Order Comment: Urine , Random Performed By: #### L 400.2010 ####[facility] [address] [place], [address] Color (U) Yellow Normal Yellow [facility] Comment on above: Order Comment: Urine , Random Performed By: #### L 400.2010 ####[facility] [address] [place], [address] GLUCOSE, UR 100 mg/dl Abnormal Normal [facility] Comment on above: Order Comment: Urine , Random Performed By: #### L 400.2010 ####[facility] [address] [place], [address] KETONE UR 15 mg/dl Abnormal Negative [facility] Comment on above: Order Comment: Urine , Random Performed By: #### L 400.2010 ####[facility] [address] [place], [address] LEUK ESTERASE 25 /ul Abnormal Negative [facility] Comment on above: Order Comment: Urine , Random Performed By: #### L 400.2010 ####[facility] [address] [place], [address] Nitrite Ql (U) Negative Normal Negative [facility] Comment on above: Order Comment: Urine , Random Performed By: #### L 400.2010 ####[facility] [address] [place], [address] OCCULT BLOOD-UR 150 /ul Abnormal Negative [facility] Comment on above: Order Comment: Urine , Random Performed By: #### L 400.2010 ####[facility] [address] [place], [address] pH UR 5.0 Normal 5.0 - 8.0 [facility] Comment on above: Order Comment: Urine , Random Performed By: #### L 400.2010 ####[facility] [address] [place], [address] PROT DIPSTX 100 mg/dl Abnormal Negative [facility] Comment on above: Order Comment: Urine , Random Performed By: #### L 400.2010 ####[facility] [address] [place], [address] SP.GR. DIPSTX 1.025 Normal 1.002-1.030 [facility] Comment on above: Order Comment: Urine , Random Performed By: #### L 400.2010 ####[facility] [address] [place], [address] UROBILI 4 mg/dl Abnormal Normal [facility] Comment on above: Order Comment: Urine , Random Performed By: #### L 400.2010 ####[facility] [address] [place], [address] Vitamin D,25 Hydroxyon 05-04 Vitamin D 25-OH 10.0 ng/mL Normal [facility] Comment on above: Result Comment: Ronel min D 25(OH) Status Range Deficiency <20 ng/mL (50nmol/L) Insufficiency 20 - 30 ng/mL (50 - 75 nmol/L) Sufficiency 30 - 100 ng/mL (75 - 250 nmol/L) Toxicity >100 ng/mL (>250 nmol/L) Performed By: #### L 501.9985, L500.4050, L501.9520, L100.0100, L506.1000, L500.4100 ####[facility] [address] [place], [place], [id number] MR/BMS.BPon 04-23-2024 MR/BMS.BP [facility] [address], [address] [place] [address] OFFICE VISIT Date of Service: 04/23/24 MR#: [id number] Acct: [id number] Name: REMI BERNABE Rep #: [id number] : 1945 Provider: Dr. Alex Beltran se, DO Age/Sex: 78/M Location[place] [facility] [place] Status: Signed Intake Vital Signs 02/10/24 14:01 04/23/24 13:51 Height 5 ft 1 in 5 ft 1 in Weight: 137 lb BMI 25.9 BP 121/77 H Blood Pressure Location Lt brachial Position Sitting Respiration 16 Pulse 73 Pulse Source Monitor BP Intake Visit Reasons: 6 M FU Accompanied by: Caregiver Allergies iodine Allergy (Verified 04/23/24 13:54) Anaphylaxis shellfish derived Allergy (Verified 04/23/24 13:54) Anaphylaxis weed pollen Adverse Reaction (Verified 04/23/24 13:54) Other Medications ???Medication ???Instructions ???Recorded ???Confirmed ???Type levothyroxine 25 mcg tablet 25 mcg PO DAILY thyroid 11/05/20 04/23/24 History pantoprazole 40 mg tablet,delayed 40 mg PO DAILY stomach 11/05/20 04/23/24 History release pioglitazone 30 mg tablet 30 mg PO DAILY 08/08/22 04/23/24 History rosuvastatin 10 mg tablet 10 mg PO DAILY 10/16/22 04/23/24 History ascorbic acid (vitamin C) 500 mg 500 mg PO DAILY 11/07/22 04/23/24 History tablet (Vitamin C) polysaccharide iron complex 150 mg 150 mg PO DAILY 11/07/22 04/23/24 History iron capsule (Ferrex) citalopram 20 mg tablet 20 mg PO DAILY mood #30 tabs 09/04/23 04/23/24 Rx lubiprostone 8 mcg capsule 8 mcg PO BID #60 caps 01/29/24 04/23/24 Rx metoclopramide HCl 10 mg tablet 10 mg PO TID #270 TABLETS 01/29/24 04/23/24 Rx quetiapine 100 mg tablet 100 mg PO QHS SLEEP 30 days #30 01/29/24 04/23/24 Rx tabs clopidogrel 75 mg tablet 75 mg PO QDAY 02/10/24 04/23/24 History zolpidem 5 mg tablet (Ambien) 5 mg PO QHS #30 tabs 04/23/24 04/23/24 Rx Have you fallen in the past year?: No PFSH Medical History (Updated 02/10/24 @ 14:39 by Srinivasa Em MD) Primary osteoarthritis, 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 Left shoulder pain Wears hearing aid Wears dentures Anxiety Thyroid disease Arthritis Migraine headache Gastric reflux Former smoker Shortness of breath on exertion History of echocardiogram Major depressive disorder Atherosclerotic heart disease of [place] coronary artery without angina pectoris ADHD Cervicalgia Hyperthyroidism Insomnia Depression Fecal impaction of colon Blindness Brain TIA BPH (benign prostatic hyperplasia) Hyperlipemia GERD (gastroesophageal reflux disease) Bradycardia Coronary artery disease Seizures Diabetes Hypertension Blind Surgical History History of ankle surgery H/O eye surgery History of carpal tunnel release History of cholecystectomy Family History Other Seizures Social History (Updated 02/10/24 @ 14:11 by Carol Lewis MA) household members: spouse housing: house Smoking Status: Former smoker alcohol intake: never substance use type: does not use HPI History of Present Illness History provided by: patient HPI: Remi Bernabe is a 78 year old male who presents today for follow up evaluation. Patient reports with criminal justice social workerVerena, and natasha Moya. Natasha reports that about 2 weeks ago he went 2 nights in one week without any sleep what so ever. Finds it very hard to stay awake during the day and stays up frequently at night. Patient reports that he has not been having abd dreams so mood has been good. Patient reports that he has led some of anxiety towards people who had slighted him in the past. Appetite has been largely good. Will be following with . Friend come July. Denies any new side effects from medications. He does feel like medications work but are slow to work. Noticed an improvement initially with seroquel in regards to sleep, but seemed to reduce over time. Review of Systems Constitutional Denies: fever(s), chills, change in weight or fatigue Eyes Denies: change in vision or blurry vision Ears, Nose, Mouth, Throat Denies: throat pain, neck pain or change in hearing Cardiovascular Denies: chest pain, palpitations or dyspnea Respiratory Denies: dyspnea, cough or wheezing Gastrointestinal Reports: diarrhea and constipation; Denies: abdominal pain, nausea or vomiting Genitourinary Denies: dysuria or urinary frequency Musculoskeletal Reports: joint pain; Denies: back pain, neck pain or muscle weakness Integumentary/Breast Denies: rash or new lesions Neurological Reports: headache(s); Denies: dizziness or confusion Endocrine Denies: fatigue or excessive sweating Hematologic/Lymphatic Denies: easy bruising or easy bleeding Allergic/Immunologic Denies: wheez (more content not included)... Normal [facility] Gastric Emptying Studyon Gastric Emptying Study [facility] [address] [place] [address] Gastric Emptying Study MR#: [id number] Acct: [id number] Name: REMI BERNABE Rep #: [id number] : 1945 M 78 From: Michael Chun PCP: Dr. Micheal Peralta MD Status: [facility] Study: Gastric Emptying Study Date of Exam: 03/11/24 Exam# [id number] Ordering Dr: Anjali Leon [id number] CLINICAL: 78-year-old male with history of clinical gastroparesis. SEMI-SOLID PHASE 99m Tc SULFUR COLLOID GASTRIC EMPTYING STUDY COMPARISON: Previous semisolid phase gastric emptying study report 12/21/2022 FINDINGS: The patient was administered 1.0 mCi of 99m Tc sulfur colloid mixed with oatmeal and consumed per os. Image acquisitions in the anterior-posterior projections were obtained for 60 minutes. There is prompt visualization of the stomach. There is no gastroesophageal reflux identified. First order kinetics are maintained throughout the duration of the acquisitions. The T ? linear fit was calculated to be 66.11 minutes compared to 153.82 minutes defined on the prior examination, (Normal: 12-56 minutes). NM/Gastric Emptying Study IMPRESSION: 1. ABNORMAL 99m Tc sulfur colloid semi-solid phase (oatmeal) gastric emptying imaging examination. A. There is delayed semi-solid phase gastric emptying compared to normal controls with maintained first order kinetics throughout all components of the examination. (Leandra vargas al, J Nucl Med Tech 38: 186, 2010). B. Overall compared to the examination dated 12/21/2022, there is continued demonstration of delayed gastric emptying of semisolid phase food bolus with interim improvement as defined above. Electronically Signed: Michael Herrera DO at 9:32 EST , CC: Dr. Micheal Peralta MD; ROCIO Irving Thermal Cutter Helper: Signed Normal [facility] Orthopedic Visit Reporton Orthopedic Visit Report [facility] [address] [place] [address] OFFICE VISIT Date of Service: 02/10/24 MR#: [id number] Acct: [id number] Name: REMI BERNABE Rep #: [id number] : 1945 Provider: Dr. Srinivasa shell MD Age/Sex: 78/M Location[place] [facility] [place] Status: Signed with Addenda ADDENDUM by Ruby Che on 02/10/24 at 1513 Office Procedure Documentation entered by Ruby Che 02/10/24 15:13: Ortho Injections Injections Yes Subacromial Injection Left Is this a patient provided medication?: No Details: Obtained consent for injection. Under sterile conditions, injected the patients left shoulder with 2cc Kenalog 4cc Bupivacaine. The patient tolerated the injection well without any noted complication. Patient should call our office if redness develops, pain worsens or if they have any concerns. Office Meds Kenalog 40 mg/mL suspension for injection Performing Provider: Srinivasa Em MD Performing Location: [facility] Administered by: Srinivasa Em MD on 02/10/24 15:09 Dose Route Admin Location Dispensed Lot Number Expiration Date [employer] P[employer] ufacturer 80 mg intra-articular left shoulder 2 mL [id number] 08/06/25 5146-1903-39 [facility] Date cc: * Signed Intake Vital Signs 09/04/23 14:43 02/10/24 14:01 Height 5 ft 1 in 5 ft 1 in Weight: 137 lb BMI 25.9 Intake Visit Reasons: LEFT SHOULDER Accompanied by: Caregiver Is patient in pain?: Yes Allergies iodine Allergy (Verified 02/10/24 14:06) Anaphylaxis shellfish derived Allergy (Verified 02/10/24 14:06) Anaphylaxis weed pollen Adverse Reaction (Verified 02/10/24 14:06) Other Medications ???Medication ???Instructions ???Recorded ???Confirmed ???Type levothyroxine 25 mcg tablet 25 mcg PO DAILY thyroid 11/05/20 02/10/24 History pantoprazole 40 mg tablet,delayed 40 mg PO DAILY stomach 11/05/20 02/10/24 History release pioglitazone 30 mg tablet 30 mg PO DAILY 08/08/22 02/10/24 History rosuvastatin 10 mg tablet 10 mg PO DAILY 10/16/22 02/10/24 History ascorbic acid (vitamin C) 500 mg 500 mg PO DAILY 11/07/22 02/10/24 History tablet (Vitamin C) polysaccharide iron complex 150 mg 150 mg PO DAILY 11/07/22 02/10/24 History iron capsule (Ferrex) semaglutide 3 mg tablet (Rybelsus) 3 mg PO DAILY 11/07/22 02/10/24 History citalopram 20 mg tablet 20 mg PO DAILY mood #30 tabs 09/04/23 02/10/24 Rx trazodone 100 mg tablet 100 mg PO DAILY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 evaluation General Impressions: There is only trace epiglottic coating with initial bite of lemon ice. No further laryngeal penetration or aspiration viewed. Diet Recommendations / Strategies: Suggest mechanical soft/thin liquids: small bites, alternate bites/sips Recommended Consultations / Follow Up: Pt is active with speech therapy at facility ([facility]). Radiologist: Dr. Evelin Law MD Radiologist Physician Assistant Teaching Professor: Alyson Hayden PA-C Report Dictated on Final Dictated: 06/23/2018 8:22 am Dictating Physician: KLAUDIA VELIZ, MARIIA/HEALTH INFORMATION TECHNOLOGIST, ARIS Signed Date and Time: 06/23/2018 8:32 am Signed by: KLAUDIA VELIZ, MARIIA/ARIS CRAWLEY Transcribed Date and Time: 06/23/2018 8:22 [facility] Op Noteon 05-07-2018 Op Note PATIENT: ARMANI BERNABE MEREDITH Quiroz ADMISSION DATE: 03/26/2018 SURGERY DATE: 03/27/2018 DATE OF : 1945 AGE: 72 ADMITTING PHYSICIAN: Will Gray DO ATTENDING PHYSICIAN: Sergio Patel MD DICTATING PHYSICIAN: Sergio Patel MD OPERATIVE RECORD Procedure: 1. OPEN REDUCTION AND INTERNAL FIXATION OF BILATERAL LEFORT III FRACTURE. 2. BILATERAL RECONSTRUCTION OF ORBITAL FLOOR. 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 Postoperative Diagnosis: Bilateral LeFort III fractures with orbital floor components. Anesthesia: General via nasotracheal intubation. Assistant Teaching Professor: Richard Greer M.D. Complications: None. Specimen: Not applicable. Estimated Blood Loss: 100 cc. Indication for The Procedure: This is a 72-year-old male who presented to the hospital after blunt force trauma to the facial structures. He was initially taken urgently for repair of bilateral globe rupture. Ophthalmology felt that the patient would ultimately lose both eyes from this injury. The patient also sustained multiple midface fractures that could be described as a bilateral LeFort III fracture pattern with orbital floor components. It was recommended to the patient and his family that he would benefit from reconstruction of the midface with open reduction and internal fixation and bilateral orbital floor reconstruction in the event that the patient would go on to receive the prosthesis. The risks of the procedure were discussed with the patient and the family including, but not limited to postoperative bleeding, infection, wound dehiscence, poor scarring, injury to nearby structures, malunion or nonunion, exposure of plates or dislodgement of screws requiring additional revision surgery, and injury to the remaining teeth. The patient understood all these risks and wished to proceed. Findings: Intraoperatively, severe comminution of all midfacial structures was identified. Portions of anterior maxillary sinus wall and additional bone had to be debrided. The LeFort III fracture patterns were approached through multiple incisions including the gingival buccal sulcus incision, lateral brow incision and mid lid incision. At the completion of the surgery, it was felt that an adequate reduction and fixation had been obtained throughout the midface. The orbital floor plates were in appropriate position. The patient tolerated this procedure well and was readmitted to the intensive care unit for postoperative care. Description of Procedure: The patient was brought to the operating room suite and transferred to the operating room table. A time-out was performed identifying the correct patient and operative plan. The patient was positioned in the supine position with SCDs on bilateral lower extremities. The patient had previously received intravenous antibiotics, after a time-out, identifying the correct patient and operative plan, the patient underwent general anesthesia via the patient's previously placed tracheostomy tube. The head and neck was then prepped and draped in the normal sterile fashion. The patient was then placed in hybrid arch bars using a small plate on both the upper and lower jaw. These were secured with hybrid arch bar screws using both the 6 mm and 8 mm length. The patient was then placed in mandibular maxillary fixation using wire. This fixation was guided by the patient's wear facets. He was placed in what was felt to be pre-injury occlusion. The upper gingival buccal sulcus was then injected with 1% lidocaine with epinephrine. An incision was then made bilaterally leaving a cuff of tissue for closure. Dissection was carried through the submucosal tissue down to the periosteum. A [employer] elevator was then used to free the soft tissue off the bony structures. Dissection continued as widely as possible to expose all the midfacial bones. Multiple small bone fragments were identified that required debridement as these would not hold a plate. Additional exposure was obtained through bilateral lateral brow incisions. These sites were injected with 1% lidocaine with epinephrine. The skin was incised using a #15 scalpel blade. Dissection was carried down to identify the zygomatic or frontal buttress. [facility] [employer] elevator was used to dissect the soft tissue and expose the fractures at this location. An additional incision was placed bilaterally at the mid location for exposure of the orbital floor bilaterally. These sites were injected with 1% lidocaine with epinephrine. The skin was incised using a #15 scalpel blade. Dissection was carried through the subcutaneous tissue until the orbital rim was identified. A [employer] elevator was then used to bluntly dissect the soft tissue off the orbital rim. The infraorbital nerve was preserved throughout, although the structure was within the fracture line. Bilateral orbital floors were then dissected free in a blunt fashion. Hemostasis was obtained throughout using Bovie electrocautery. The orbital floors were widely exposed to identify the fracture. Again, throughout the midface, the bones were severely comminuted. Fixation then proceeded from the larger segments at the lower aspect of the maxilla moving cephalad. A series of midface plates was used to secure the midface bones. Fixation was obtained using a combination of straight and curved midface plates. The zygomatic or frontal fracture was secured using a curved four-hole plate bilaterally. Bilateral orbital floors were reconstructed using the Medpor small orbital floor plate bilaterally. These were placed without causing any impingement of the periorbital musculature and soft tissue. All the plates were secured using a combination of 1.7 mm x 4 mm, 5 mm, and 8 mm screws. A forced duction test was performed bilaterally to confirm that entrapment has not occurred with the placement of the orbital floor plate. All incisions were copiously irrigated with saline. Bleeding was maintained using Bovie electrocautery. The cutaneous incisions were closed in multiple layers using 4-0 Monocryl in a deep dermal plane in an interrupted fashion followed by 4-0 plain gut suture in a running fashion. The intraoral gingival buccal sulcus incision was closed using 3-0 Vicryl in a running locking fashion. The patient was left in mandibular maxillary fixation for the postoperative period. This was to be maintained for 4-6 weeks. The patient was then transferred back to the intensive care unit bed and taken back to the ICU for postoperative care. The patient tolerated this procedure throughout. [facility] Job ID: [id number] Sergio Patel MD DOD:05/07/2018 07:22 A LORAINE/dougie DOT:05/07/2018 08:27 A Job Number: [id number] Document Number: [id number] cc: Sergio Patel MD [address] [place], [place] [id number] Will Gray DO [facility] [address] [facility] [address] [facility] [address] Normal [facility] Basic Metabolic Panelon 12-3 Anion gap molar conc 4 Normal [facility] Comment on above: Performed By: #### D RGA4, HEMOG, UAMAC, PT/AP, BMP3, ETOH4, UAMIC #### [address] [address] Calcium mass conc 8.4 mg/dL Normal 8.4-10.4 [facility] Comment on above: Performed By: #### D RGA4, HEMOG, UAMAC, PT/AP, BMP3, ETOH4, UAMIC #### [address] CO2 molar conc 32 mmol/L High 22-30 [facility] Comment on above: Performed By: #### D RGA4, HEMOG, UAMAC, PT/AP, BMP3, ETOH4, UAMIC #### [facility] [address] [place], [place] Glucose mass conc 280 mg/dL High 70-100 [facility] Comment on above: Performed By: #### D RGA4, HEMOG, UAMAC, PT/AP, BMP3, ETOH4, UAMIC #### [facility] [address] [place], [place] Urea nitrogen mass conc 25 mg/dL High 7-20 [facility] Comment on above: Performed By: #### D RGA4, HEMOG, UAMAC, PT/AP, BMP3, ETOH4, UAMIC #### [place] [address] [address] [place], [place] Creatinine mass conc 0.80 mg/dL Normal 0.52-1.25 [facility] Comment on above: Performed By: #### D RGA4, HEMOG, UAMAC, PT/AP, BMP3, ETOH4, UAMIC #### [place] [address] [address] [place], [place] GFR/1.73 sq M predicted among blacks MDRD vol rate/area (S/P/Bld) mL/min/{1.73_m2} Normal >60 [facility] Comment on above: Performed By: #### D RGA4, HEMOG, UAMAC, PT/AP, BMP3, ETOH4, UAMIC #### [place] [address] [address] [place], [place] GFR/1.73 sq M predicted among non-blacks MDRD vol rate/area (S/P/Bld) mL/min/{1.73_m2} Normal >60 [facility] Comment on above: Result Comment: Sour ce- MDRD equation with creatinine calibration to IDMS(NKDEP) eGFR not recommended for drug dose adjustment Performed By: #### D RGA4, HEMOG, UAMAC, PT/AP, BMP3, ETOH4, UAMIC #### [facility] [address] [place] [address] Chloride molar conc 98 mmol/L Normal 98-107 [facility] Comment on above: Performed By: #### D RGA4, HEMOG, UAMAC, PT/AP, BMP3, ETOH4, UAMIC #### [facility] [address] [place] [address] Potassium molar conc 4.1 mmol/L Normal 3.5-5.1 [facility] Comment on above: Performed By: #### D RGA4, HEMOG, UAMAC, PT/AP, BMP3, ETOH4, UAMIC #### [facility] [address] [place] [address] Sodium molar conc 134 mmol/L Low 135-145 [facility] Comment on above: Performed By: #### D RGA4, HEMOG, UAMAC, PT/AP, BMP3, ETOH4, UAMIC #### [facility] [address] [place] [address] CR Chest Portableon 04-07-20 18 CR Chest Portable Patient Name: REMI BERNABE Diagnostic Radiology Exam Date/Time 04/07/2018 06:46:49 EST Exam CR Chest Portable Ordering Physician MD GRAVES KELLEN Accession Number [id number] CPT4 Codes 86498 () Reason For Exam dyspnea Report Portable chest 04/07/2018: Clinical Information: Dyspnea. Findings: A single AP portable view of the chest was obtained at 613 hours. Comparison was made to the prior study prior day. The tracheostomy tube is unchanged. The pulmonary vasculature does not appear congested. No focal areas of consolidation are currently identified. Report Dictated on Final Dictated: 04/07/2018 8:51 am Dictating Physician: MD DOWELL RISA Signed Date and Time: 04/07/2018 8:52 am Signed by: MD DOWELL RISA Transcribed Date and Time: 04/07/2018 8:51 Normal [facility] Glucose,Bedsideon 04-07-2018 Glucose mass conc 253 mg/dL High 70-100 [facility] Comment on above: Result Comment: Test performed by glucose meter. Results may be 10%-15% lower than serum/plasma values. (CLIA ID [id number]) Performed By: #### D RGA4, HEMOG, UAMAC, PT/AP, BMP3, ETOH4, UAMIC #### [place] [address] [place] [address] Glucose mass conc 309 mg/dL High 70-100 [facility] Comment on above: Result Comment: Test performed by glucose meter. Results may be 10%-15% lower than serum/plasma values. (CLIA ID [id number]) Performed By: #### D RGA4, HEMOG, UAMAC, PT/AP, BMP3, ETOH4, UAMIC #### [place] [address] [place], [place] Glucose mass conc 341 mg/dL High 70-100 [facility] Comment on above: Result Comment: Test performed by glucose meter. Results may be 10%-15% lower than serum/plasma values. (CLIA ID [id number]) Performed By: #### D RGA4, HEMOG, UAMAC, PT/AP, BMP3, ETOH4, UAMIC #### [place] [address] [place] [address] Hemogramon 04-07-2018 Erythrocyte distribution width Ratio (RBC) 14.0 % Normal 11.5-14.5 [facility] Comment on above: Performed By: #### D RGA4, HEMOG, UAMAC, PT/AP, BMP3, ETOH4, UAMIC #### [place] [address] [place] [address] Hematocrit Volume Fraction (Bld) 29.7 % Low 40.0-52.0 [facility] Comment on above: Performed By: #### D RGA4, HEMOG, UAMAC, PT/AP, BMP3, ETOH4, UAMIC #### [place] [address] [place], [place] Hemoglobin mass conc (Bld) 9.8 g/dL Low 13.0-18.0 [facility] Comment on above: Performed By: #### D RGA4, HEMOG, UAMAC, PT/AP, BMP3, ETOH4, UAMIC #### [address] MCH Entitic mass (RBC) 29.5 pg Normal 26.0-34.0 [facility] Comment on above: Performed By: #### D RGA4, HEMOG, UAMAC, PT/AP, BMP3, ETOH4, UAMIC #### [address] MCHC mass conc (RBC) 33.2 % Normal 32.0-36.0 [facility] Comment on above: Performed By: #### D RGA4, HEMOG, UAMAC, PT/AP, BMP3, ETOH4, UAMIC #### [address] MCV Entitic volume (RBC) 88.9 fL Normal 80.0-98.0 [facility] Comment on above: Performed By: #### D RGA4, HEMOG, UAMAC, PT/AP, BMP3, ETOH4, UAMIC #### [address] Platelet mean volume Entitic volume (Bld) 9.1 fL Normal 7.4-10.4 [facility] Comment on above: Performed By: #### D RGA4, HEMOG, UAMAC, PT/AP, BMP3, ETOH4, UAMIC #### [place] [address] [place], [place] Platelets #/vol (Bld) 396 10*3/uL Normal 140-440 [facility] Comment on above: Performed By: #### D RGA4, HEMOG, UAMAC, PT/AP, BMP3, ETOH4, UAMIC #### [address] RBC #/vol (Bld) 3.34 10*6/uL Low 4.40-5.90 [facility] Comment on above: Performed By: #### D RGA4, HEMOG, UAMAC, PT/AP, BMP3, ETOH4, UAMIC #### [place] [address] [address] [place], [place] WBC #/vol (Bld) 14.8 10*3/uL High 3.6-10.7 [facility] Comment on above: Performed By: #### D RGA4, HEMOG, UAMAC, PT/AP, BMP3, ETOH4, UAMIC #### [place] [address] [address] [place], [place] Magnesiumon 04-07-2018 Magnesium mass conc 2.4 mg/dL High 1.6-2.3 [facility] Comment on above: Performed By: #### D RGA4, HEMOG, UAMAC, PT/AP, BMP3, ETOH4, UAMIC #### [place] [address] [address] [place], [place] Phosphoruson 04-07-2018 Phosphate mass conc 3.7 mg/dL Normal 2.5-4.5 [facility] Comment on above: Performed By: #### D RGA4, HEMOG, UAMAC, PT/AP, BMP3, ETOH4, UAMIC #### [place] [address] [address] [place], [place] Basic Metabolic Panelon 03-10 Anion gap molar conc 4 Normal [facility] Comment on above: Performed By: #### D RGA4, HEMOG, UAMAC, PT/AP, BMP3, ETOH4, UAMIC #### [place] [address] [address] [place], [place] Calcium mass conc 8.0 mg/dL Low 8.4-10.4 [facility] Comment on above: Performed By: #### D RGA4, HEMOG, UAMAC, PT/AP, BMP3, ETOH4, UAMIC #### [place] [address] [address] [place], [place] CO2 molar conc 32 mmol/L High 22-30 [facility] Comment on above: Performed By: #### D RGA4, HEMOG, UAMAC, PT/AP, BMP3, ETOH4, UAMIC #### [place] [address] [place], [place] Glucose mass conc 274 mg/dL High 70-100 [facility] Comment on above: Performed By: #### D RGA4, HEMOG, UAMAC, PT/AP, BMP3, ETOH4, UAMIC #### [place] [address] [place], [place] Urea nitrogen mass conc 20 mg/dL Normal 7-20 [facility] Comment on above: Performed By: #### D RGA4, HEMOG, UAMAC, PT/AP, BMP3, ETOH4, UAMIC #### [place] [address] [place], [place] Creatinine mass conc 0.80 mg/dL Normal 0.52-1.25 [facility] Comment on above: Performed By: #### D RGA4, HEMOG, UAMAC, PT/AP, BMP3, ETOH4, UAMIC #### [place] [address] [place], [place] GFR/1.73 sq M predicted among blacks MDRD vol rate/area (S/P/Bld) mL/min/{1.73_m2} Normal >60 [facility] Comment on above: Performed By: #### D RGA4, HEMOG, UAMAC, PT/AP, BMP3, ETOH4, UAMIC #### [place] [address] [place], [place] GFR/1.73 sq M predicted among non-blacks MDRD vol rate/area (S/P/Bld) mL/min/{1.73_m2} Normal >60 [facility] Comment on above: Result Comment: Sour ce- MDRD equation with creatinine calibration to IDMS(NKDEP) eGFR not recommended for drug dose adjustment Performed By: #### D RGA4, HEMOG, UAMAC, PT/AP, BMP3, ETOH4, UAMIC #### [address] [place], [place] Potassium molar conc 4.4 mmol/L Normal 3.5-5.1 [facility] Comment on above: Performed By: #### D RGA4, HEMOG, UAMAC, PT/AP, BMP3, ETOH4, UAMIC #### [facility] [address] [place] [address] Chloride molar conc 99 mmol/L Normal 98-107 [facility] Comment on above: Performed By: #### D RGA4, HEMOG, UAMAC, PT/AP, BMP3, ETOH4, UAMIC #### [facility] [address] [place] [address] Sodium molar conc 135 mmol/L Normal 135-145 [facility] Comment on above: Performed By: #### D RGA4, HEMOG, UAMAC, PT/AP, BMP3, ETOH4, UAMIC #### [facility] [address] [place] [address] CR Chest Portableon 04-06-20 18 CR Chest Portable Patient Name: REMI BERNABE Diagnostic Radiology Exam Date/Time 04/06/2018 07:50:09 EST Exam CR Chest Portable Ordering Physician MD GRAVES KELLEN Accession Number [id number] CPT4 Codes 92314 () Reason For Exam dyspnea Report CLINICAL INDICATION: dyspnea COMPARISON: 26/12/2017 TECHNIQUE: Single portable AP radiograph of the chest. FINDINGS: LUNGS/PLEURA: No new infiltrate or effusion. MEDIASTINUM:Heart size and mediastinal contours are normal. VASCULARITY: Mild pulmonary vascular congestion unchanged. BONES: Severe degenerative changes of the right shoulder joint. SUPPORT LINES: Tracheostomy tube is unchanged. OTHER: IMPRESSION: No new infiltrate or effusion. Unchanged mild pulmonary vascular congestion. Report Dictated on Final Dictated: 04/06/2018 11:01 am Dictating Physician: MD HUMPHRIES YUN ROBERT Signed Date and Time: 04/06/2018 11:02 am Signed by: MD HUMPHRIES YUN ROBERT Transcribed Date and Time: 04/06/2018 11:01 Normal [facility] Glucose,Bedsideon 04-06-2018 Glucose mass conc 256 mg/dL High 70-100 [facility] [employer] [facility] Comment on above: Result Comment: Test performed by glucose meter. Results may be 10%-15% lower than serum/plasma values. (CLIA ID [id number]) Performed By: #### D RGA4, HEMOG, UAMAC, PT/AP, BMP3, ETOH4, UAMIC #### [address] [place] [address] [place] [address] Glucose mass conc 266 mg/dL High 70-100 [facility] Comment on above: Result Comment: Test performed by glucose meter. Results may be 10%-15% lower than serum/plasma values. (CLIA ID [id number]) Performed By: #### D RGA4, HEMOG, UAMAC, PT/AP, BMP3, ETOH4, UAMIC #### [address] Glucose mass conc 238 mg/dL High 70-100 [facility] Comment on above: Result Comment: Test performed by glucose meter. Results may be 10%-15% lower than serum/plasma values. (CLIA ID [id number]) Performed By: #### D RGA4, HEMOG, UAMAC, PT/AP, BMP3, ETOH4, UAMIC #### [address] Glucose mass conc 318 mg/dL High 70-100 [facility] Comment on above: Result Comment: Test performed by glucose meter. Results may be 10%-15% lower than serum/plasma values. (CLIA ID [id number]) Performed By: #### D RGA4, HEMOG, UAMAC, PT/AP, BMP3, ETOH4, UAMIC #### [address] [place] [address] Hemogram w/ Autodiffon 04-06 Abs Baso Cnt 0.1 10*3/uL Normal 0.0-0.2 [facility] Comment on above: Performed By: #### D RGA4, HEMOG, UAMAC, PT/AP, BMP3, ETOH4, UAMIC #### [address] Abs Neutrophile Cnt 10.5 10*3/uL High 1.8-7.0 [facility] Comment on above: Performed By: #### D RGA4, HEMOG, UAMAC, PT/AP, BMP3, ETOH4, UAMIC #### [address] [address] Basophils/100 WBC (Bld) 0.4 % Normal 0.0-2.0 [facility] Comment on above: Performed By: #### D RGA4, HEMOG, UAMAC, PT/AP, BMP3, ETOH4, UAMIC #### [address] [address] Eosinophils #/vol (Bld) 0.5 10*3/uL Normal 0.0-0.5 [facility] Comment on above: Performed By: #### D RGA4, HEMOG, UAMAC, PT/AP, BMP3, ETOH4, UAMIC #### [address] Eosinophils/100 WBC (Bld) 3.7 % Normal 1.0-6.0 [facility] Comment on above: Performed By: #### D RGA4, HEMOG, UAMAC, PT/AP, BMP3, ETOH4, UAMIC #### [address] Erythrocyte distribution width Ratio (RBC) 14.2 % Normal 11.5-14.5 [facility] Comment on above: Performed By: #### D RGA4, HEMOG, UAMAC, PT/AP, BMP3, ETOH4, UAMIC #### [address] Granulocytes/100 WBC (Bld) 79.3 % Normal 40.0-80.0 [facility] Comment on above: Performed By: #### D RGA4, HEMOG, UAMAC, PT/AP, BMP3, ETOH4, UAMIC #### [address] Hematocrit Volume Fraction (Bld) 27.8 % Low 40.0-52.0 [facility] Comment on above: Performed By: #### D RGA4, HEMOG, UAMAC, PT/AP, BMP3, ETOH4, UAMIC #### [address] Hemoglobin mass conc (Bld) 9.2 g/dL Low 13.0-18.0 [facility] Comment on above: Performed By: #### D RGA4, HEMOG, UAMAC, PT/AP, BMP3, ETOH4, UAMIC #### [address] Lymphocytes #/vol (Bld) 1.0 10*3/uL Normal 1.0-4.3 [facility] Comment on above: Performed By: #### D RGA4, HEMOG, UAMAC, PT/AP, BMP3, ETOH4, UAMIC #### [address] Lymphocytes/100 WBC (Bld) 7.8 % Low 20.0-40.0 [facility] Comment on above: Performed By: #### D RGA4, HEMOG, UAMAC, PT/AP, BMP3, ETOH4, UAMIC #### [address] MCH Entitic mass (RBC) 29.1 pg Normal 26.0-34.0 [facility] Comment on above: Performed By: #### D RGA4, HEMOG, UAMAC, PT/AP, BMP3, ETOH4, UAMIC #### [address] MCHC mass conc (RBC) 33.0 % Normal 32.0-36.0 [facility] Comment on above: Performed By: #### D RGA4, HEMOG, UAMAC, PT/AP, BMP3, ETOH4, UAMIC #### [address] MCV Entitic volume (RBC) 88.4 fL Normal 80.0-98.0 [facility] Comment on above: Performed By: #### D RGA4, HEMOG, UAMAC, PT/AP, BMP3, ETOH4, UAMIC #### [place] [address] [address] [place], [place] Monocytes #/vol (Bld) 1.2 10*3/uL High 0.0-0.8 [facility] Comment on above: Performed By: #### D RGA4, HEMOG, UAMAC, PT/AP, BMP3, ETOH4, UAMIC #### [address] Monocytes/100 WBC (Bld) 8.8 % Normal 2.0-10.0 [facility] Comment on above: Performed By: #### D RGA4, HEMOG, UAMAC, PT/AP, BMP3, ETOH4, UAMIC #### [address] Platelet mean volume Entitic volume (Bld) 9.2 fL Normal 7.4-10.4 [facility] Comment on above: Performed By: #### D RGA4, HEMOG, UAMAC, PT/AP, BMP3, ETOH4, UAMIC #### [address] [place] [address] [place], [place] Platelets #/vol (Bld) 309 10*3/uL Normal 140-440 [facility] Comment on above: Performed By: #### D RGA4, HEMOG, UAMAC, PT/AP, BMP3, ETOH4, UAMIC #### [address] RBC #/vol (Bld) 3.15 10*6/uL Low 4.40-5.90 [facility] Comment on above: Performed By: #### D RGA4, HEMOG, UAMAC, PT/AP, BMP3, ETOH4, UAMIC #### [address] WBC #/vol (Bld) 13.2 10*3/uL High 3.6-10.7 [facility] Comment on above: Performed By: #### D RGA4, HEMOG, UAMAC, PT/AP, BMP3, ETOH4, UAMIC #### [address] [place] Magnesiumon 04-06-2018 Magnesium mass conc 2.3 mg/dL Normal 1.6-2.3 [facility] Comment on above: Performed By: #### D RGA4, HEMOG, UAMAC, PT/AP, BMP3, ETOH4, UAMIC #### [address] [place] [address] [address] [place], [place] Phosphoruson 04-06-2018 Phosphate mass conc 3.7 mg/dL Normal 2.5-4.5 [facility] Comment on above: Performed By: #### D RGA4, HEMOG, UAMAC, PT/AP, BMP3, ETOH4, UAMIC #### [address] [place] [address] [address] [place], [place] Basic Metabolic Panelon 03-09 Calcium mass conc 8.2 mg/dL Low 8.4-10.4 [facility] Comment on above: Performed By: #### D RGA4, HEMOG, UAMAC, PT/AP, BMP3, ETOH4, UAMIC #### [address] [address] [address] [place], [place] Anion gap molar conc 1 Normal [facility] Comment on above: Performed By: #### D RGA4, HEMOG, UAMAC, PT/AP, BMP3, ETOH4, UAMIC #### [address] [place] [address] [place], [place] CO2 molar conc 32 mmol/L High 22-30 [facility] Comment on above: Performed By: #### D RGA4, HEMOG, UAMAC, PT/AP, BMP3, ETOH4, UAMIC #### [address] [place] [address] [place], [place] Glucose mass conc 223 mg/dL High 70-100 [facility] Comment on above: Performed By: #### D RGA4, HEMOG, UAMAC, PT/AP, BMP3, ETOH4, UAMIC #### [address] [place] [address] [place], [place] Urea nitrogen mass conc 20 mg/dL Normal 7-20 [facility] Comment on above: Performed By: #### D RGA4, HEMOG, UAMAC, PT/AP, BMP3, ETOH4, UAMIC #### [address] [place] [address] [place], [place] Creatinine mass conc 0.77 mg/dL Normal 0.52-1.25 [facility] Comment on above: Performed By: #### D RGA4, HEMOG, UAMAC, PT/AP, BMP3, ETOH4, UAMIC #### [address] [place] [address] [place], [place] GFR/1.73 sq M predicted among blacks MDRD vol rate/area (S/P/Bld) mL/min/{1.73_m2} Normal >60 [facility] Comment on above: Performed By: #### D RGA4, HEMOG, UAMAC, PT/AP, BMP3, ETOH4, UAMIC #### [address] [place] [address] [place], [place] GFR/1.73 sq M predicted among non-blacks MDRD vol rate/area (S/P/Bld) mL/min/{1.73_m2} Normal >60 [facility] Comment on above: Result Comment: Sour ce- MDRD equation with creatinine calibration to IDMS(NKDEP) eGFR not recommended for drug dose adjustment Performed By: #### D RGA4, HEMOG, UAMAC, PT/AP, BMP3, ETOH4, UAMIC #### [address] [place] [address] [address] [place], [place] Chloride molar conc 102 mmol/L Normal 98-107 [facility] Comment on above: Performed By: #### D RGA4, HEMOG, UAMAC, PT/AP, BMP3, ETOH4, UAMIC #### [address] [place] [address] [address] [place], [place] Potassium molar conc 4.5 mmol/L Normal 3.5-5.1 [facility] Comment on above: Performed By: #### D RGA4, HEMOG, UAMAC, PT/AP, BMP3, ETOH4, UAMIC #### [address] [place] [address] [place], [place] Sodium molar conc 136 mmol/L Normal 135-145 [facility] Comment on above: Performed By: #### D RGA4, HEMOG, UAMAC, PT/AP, BMP3, ETOH4, UAMIC #### [facility] [address] [place] [address] CR Chest Portableon 04-05-20 18 CR Chest Portable Patient Name: REMI BERNABE Diagnostic Radiology Exam Date/Time 04/05/2018 20:07:38 EST Exam CR Chest Portable Ordering Physician MD GRAVES KELLEN Accession Number [id number] CPT4 Codes 49294 () Reason For Exam dyspnea Report PORTABLE CHEST: INDICATION: Dyspnea COMPARISON: 04/03/2018 Obtained at 2001 hours. A single portable AP radiograph of the chest was obtained. The heart is normal in size. The mediastinal silhouette is normal. There is pulmonary vascular congestion. There are patchy bilateral infiltrates. There is no pleural thickening. Arthritic changes of the spine and shoulders are present. The tracheostomy catheter is unchanged. IMPRESSION: Pulmonary congestion. There are patchy bilateral infiltrates Report Dictated on Final Dictated: 04/05/2018 8:11 pm Dictating Physician: DO ROYAL ALFRED Signed Date and Time: 04/05/2018 8:13 pm Signed by: DO ROYAL ALFRED Transcribed Date and Time: 04/05/2018 8:11 Normal [facility] CULT./ST. RESPIRATORYon 03-09 CULT./ST. RESPIRATORY CULT./ST. RESPIRAT ORY --> Status: F Few normal respiratory kenan. STAIN GRAM --> Status: F Few epithelial cells/lpf. Many polymorphonuclear cells/lpf. Moderate gram negative bacilli. Moderate gram positive bacilli. Moderate gram positive cocci . Many polymorphonuclear cells/lpf. Moderate gram negative bacilli. Moderate gram positive bacilli. Moderate gram positive cocci . Normal [facility] Comment on above: Order Comment: Speci men Source Comment:Tracheal Aspirate Performed By: #### D RGA4, HEMOG, UAMAC, PT/AP, BMP3, ETOH4, UAMIC #### [facility] [address] [place] [address] Calcium,Ionizedon 04-05-2018 Ionized Ca,Measured 4.40 mg/dL Normal 4.30-5.20 [facility] Comment on above: Performed By: #### D RGA4, HEMOG, UAMAC, PT/AP, BMP3, ETOH4, UAMIC #### [facility] [address] [place] [address] pH, Ionized Calcium 7.38 Normal 7.31-7.46 [facility] Comment on above: Performed By: #### D RGA4, HEMOG, UAMAC, PT/AP, BMP3, ETOH4, UAMIC #### [facility] [address] [place] [address] Glucose,Bedsideon 04-05-2018 Glucose mass conc 179 mg/dL High 70-100 [facility] Comment on above: Result Comment: Test performed by glucose meter. Results may be 10%-15% lower than serum/plasma values. (CLIA ID [id number]) Performed By: #### D RGA4, HEMOG, UAMAC, PT/AP, BMP3, ETOH4, UAMIC #### [address] [address] [place] [address] Glucose mass conc 222 mg/dL High 70-100 [facility] Comment on above: Result Comment: Test performed by glucose meter. Results may be 10%-15% lower than serum/plasma values. (CLIA ID [id number]) Performed By: #### D RGA4, HEMOG, UAMAC, PT/AP, BMP3, ETOH4, UAMIC #### [facility] [address] [place] [address] Glucose mass conc 225 mg/dL High 70-100 [facility] Comment on above: Result Comment: Test performed by glucose meter. Results may be 10%-15% lower than serum/plasma values. (CLIA ID [id number]) Performed By: #### D RGA4, HEMOG, UAMAC, PT/AP, BMP3, ETOH4, UAMIC #### [address] [place] [address] Glucose mass conc 309 mg/dL High 70-100 [facility] Comment on above: Result Comment: Test performed by glucose meter. Results may be 10%-15% lower than serum/plasma values. (CLIA ID [id number]) Performed By: #### D RGA4, HEMOG, UAMAC, PT/AP, BMP3, ETOH4, UAMIC #### [address] Hemogram w/ Autodiffon 04-05 Abs Baso Cnt 0.1 10*3/uL Normal 0.0-0.2 [facility] Comment on above: Performed By: #### D RGA4, HEMOG, UAMAC, PT/AP, BMP3, ETOH4, UAMIC #### [address] Abs Neutrophile Cnt 10.0 10*3/uL High 1.8-7.0 [facility] Comment on above: Performed By: #### D RGA4, HEMOG, UAMAC, PT/AP, BMP3, ETOH4, UAMIC #### [address] Basophils/100 WBC (Bld) 0.6 % Normal 0.0-2.0 [facility] Comment on above: Performed By: #### D RGA4, HEMOG, UAMAC, PT/AP, BMP3, ETOH4, UAMIC #### [address] Eosinophils #/vol (Bld) 0.8 10*3/uL High 0.0-0.5 [facility] Comment on above: Performed By: #### D RGA4, HEMOG, UAMAC, PT/AP, BMP3, ETOH4, UAMIC #### [address] Eosinophils/100 WBC (Bld) 6.1 % High 1.0-6.0 [facility] Comment on above: Performed By: #### D RGA4, HEMOG, UAMAC, PT/AP, BMP3, ETOH4, UAMIC #### [address] [place] [address] [place], [place] Erythrocyte distribution width Ratio (RBC) 14.3 % Normal 11.5-14.5 [facility] Comment on above: Performed By: #### D RGA4, HEMOG, UAMAC, PT/AP, BMP3, ETOH4, UAMIC #### [address] [place] [address] [place], [place] Granulocytes/100 WBC (Bld) 76.9 % Normal 40.0-80.0 [facility] Comment on above: Performed By: #### D RGA4, HEMOG, UAMAC, PT/AP, BMP3, ETOH4, UAMIC #### [address] Hematocrit Volume Fraction (Bld) 29.5 % Low 40.0-52.0 [facility] Comment on above: Performed By: #### D RGA4, HEMOG, UAMAC, PT/AP, BMP3, ETOH4, UAMIC #### [address] Hemoglobin mass conc (Bld) 9.6 g/dL Low 13.0-18.0 [facility] Comment on above: Performed By: #### D RGA4, HEMOG, UAMAC, PT/AP, BMP3, ETOH4, UAMIC #### [address] Lymphocytes #/vol (Bld) 1.0 10*3/uL Normal 1.0-4.3 [facility] Comment on above: Performed By: #### D RGA4, HEMOG, UAMAC, PT/AP, BMP3, ETOH4, UAMIC #### [address] Lymphocytes/100 WBC (Bld) 7.8 % Low 20.0-40.0 [facility] Comment on above: Performed By: #### D RGA4, HEMOG, UAMAC, PT/AP, BMP3, ETOH4, UAMIC #### [address] MCH Entitic mass (RBC) 29.3 pg Normal 26.0-34.0 [facility] Comment on above: Performed By: #### D RGA4, HEMOG, UAMAC, PT/AP, BMP3, ETOH4, UAMIC #### [address] [address] [place], [place] MCHC mass conc (RBC) 32.7 % Normal 32.0-36.0 [facility] Comment on above: Performed By: #### D RGA4, HEMOG, UAMAC, PT/AP, BMP3, ETOH4, UAMIC #### [address] [place] [address] [place], [place] MCV Entitic volume (RBC) 89.6 fL Normal 80.0-98.0 [facility] Comment on above: Performed By: #### D RGA4, HEMOG, UAMAC, PT/AP, BMP3, ETOH4, UAMIC #### [address] [place] [address] [place], [place] Monocytes #/vol (Bld) 1.1 10*3/uL High 0.0-0.8 [facility] Comment on above: Performed By: #### D RGA4, HEMOG, UAMAC, PT/AP, BMP3, ETOH4, UAMIC #### [address] [place], [place] Monocytes/100 WBC (Bld) 8.6 % Normal 2.0-10.0 [facility] Comment on above: Performed By: #### D RGA4, HEMOG, UAMAC, PT/AP, BMP3, ETOH4, UAMIC #### [address] [address] [place], [place] Platelet mean volume Entitic volume (Bld) 9.4 fL Normal 7.4-10.4 [facility] Comment on above: Performed By: #### D RGA4, HEMOG, UAMAC, PT/AP, BMP3, ETOH4, UAMIC #### [address] [place] [address] [place], [place] Platelets #/vol (Bld) 273 10*3/uL Normal 140-440 [facility] Comment on above: Performed By: #### D RGA4, HEMOG, UAMAC, PT/AP, BMP3, ETOH4, UAMIC #### [address] [place] [place], [place] RBC #/vol (Bld) 3.29 10*6/uL Low 4.40-5.90 [facility] Comment on above: Performed By: #### Jordi RGA4, HEMOG, UAMAC, PT/AP, BMP3, ETOH4, UAMIC #### [address] [place], [place] WBC #/vol (Bld) 13.0 10*3/uL High 3.6-10.7 [facility] Comment on above: Performed By: #### Jordi RGA4, HEMOG, UAMAC, PT/AP, BMP3, ETOH4, UAMIC #### [address] [place], [place] Magnesiumon 04-05-2018 Magnesium mass conc 2.5 mg/dL High 1.6-2.3 [facility] Comment on above: Performed By: #### Jordi RGA4, HEMOG, UAMAC, PT/AP, BMP3, ETOH4, UAMIC #### [address] [place], [place] Phosphoruson 04-05-2018 Phosphate mass conc 3.1 mg/dL Normal 2.5-4.5 [facility] Comment on above: Performed By: #### Jordi RGA4, HEMOG, UAMAC, PT/AP, BMP3, ETOH4, UAMIC #### [address] [place], [place] Basic Metabolic Panelon 03-09 Anion gap molar conc 5 Normal [facility] Comment on above: Performed By: #### D RGA4, HEMOG, UAMAC, PT/AP, BMP3, ETOH4, UAMIC #### [address] [address] [place], [place] Calcium mass conc 8.1 mg/dL Low 8.4-10.4 [facility] Comment on above: Performed By: #### D RGA4, HEMOG, UAMAC, PT/AP, BMP3, ETOH4, UAMIC #### [address] [place], [place] CO2 molar conc 30 mmol/L Normal 22-30 [facility] Comment on above: Performed By: #### D RGA4, HEMOG, UAMAC, PT/AP, BMP3, ETOH4, UAMIC #### [address] [place], [place] Glucose mass conc 279 mg/dL High 70-100 [facility] Comment on above: Performed By: #### D RGA4, HEMOG, UAMAC, PT/AP, BMP3, ETOH4, UAMIC #### [address] [place] [address] [place], [place] Urea nitrogen mass conc 21 mg/dL High 7-20 [facility] Comment on above: Performed By: #### D RGA4, HEMOG, UAMAC, PT/AP, BMP3, ETOH4, UAMIC #### [address] [place], [place] Creatinine mass conc 0.81 mg/dL Normal 0.52-1.25 [facility] Comment on above: Performed By: #### D RGA4, HEMOG, UAMAC, PT/AP, BMP3, ETOH4, UAMIC #### [address] [place], [place] GFR/1.73 sq M predicted among blacks MDRD vol rate/area (S/P/Bld) mL/min/{1.73_m2} Normal >60 [facility] Comment on above: Performed By: #### D RGA4, HEMOG, UAMAC, PT/AP, BMP3, ETOH4, UAMIC #### [address] [place] [place], [place] GFR/1.73 sq M predicted among non-blacks MDRD vol rate/area (S/P/Bld) mL/min/{1.73_m2} Normal >60 [facility] Comment on above: Result Comment: Sour ce- MDRD equation with creatinine calibration to IDMS(NKDEP) eGFR not recommended for drug dose adjustment Performed By: #### D RGA4, HEMOG, UAMAC, PT/AP, BMP3, ETOH4, UAMIC #### [facility] [address] [place], [place] Potassium molar conc 4.5 mmol/L Normal 3.5-5.1 [facility] Comment on above: Performed By: #### D RGA4, HEMOG, UAMAC, PT/AP, BMP3, ETOH4, UAMIC #### [facility] [address] [place], [place] Sodium molar conc 138 mmol/L Normal 135-145 [facility] Comment on above: Performed By: #### D RGA4, HEMOG, UAMAC, PT/AP, BMP3, ETOH4, UAMIC #### [address] [place], [place] Chloride molar conc 103 mmol/L Normal 98-107 [facility] Comment on above: Performed By: #### D RGA4, HEMOG, UAMAC, PT/AP, BMP3, ETOH4, UAMIC #### [facility] [address] [place], [place] Calcium,Ionizedon 04-04-2018 Ionized Ca,Measured 4.30 mg/dL Normal 4.30-5.20 [facility] Comment on above: Performed By: #### D RGA4, HEMOG, UAMAC, PT/AP, BMP3, ETOH4, UAMIC #### [address] [place], [place] pH, Ionized Calcium 7.45 Normal 7.31-7.46 [facility] Comment on above: Performed By: #### D RGA4, HEMOG, UAMAC, PT/AP, BMP3, ETOH4, UAMIC #### [facility] [address] [place], [place] Glucose,Bedsideon 04-04-2018 Glucose mass conc 196 mg/dL High 70-100 [facility] Comment on above: Result Comment: Test performed by glucose meter. Results may be 10%-15% lower than serum/plasma values. (CLIA ID [id number]) Performed By: #### D RGA4, HEMOG, UAMAC, PT/AP, BMP3, ETOH4, UAMIC #### [address] [address] Glucose mass conc 205 mg/dL High 70-100 [facility] Comment on above: Result Comment: Test performed by glucose meter. Results may be 10%-15% lower than serum/plasma values. (CLIA ID [id number]) Performed By: #### D RGA4, HEMOG, UAMAC, PT/AP, BMP3, ETOH4, UAMIC #### [address] Glucose mass conc 179 mg/dL High 70-100 [facility] Comment on above: Result Comment: Test performed by glucose meter. Results may be 10%-15% lower than serum/plasma values. (CLIA ID [id number]) Performed By: #### D RGA4, HEMOG, UAMAC, PT/AP, BMP3, ETOH4, UAMIC #### [address] Glucose mass conc 314 mg/dL High 70-100 [facility] Comment on above: Result Comment: Test performed by glucose meter. Results may be 10%-15% lower than serum/plasma values. (CLIA ID [id number]) Performed By: #### D RGA4, HEMOG, UAMAC, PT/AP, BMP3, ETOH4, UAMIC #### [address] [place] [address] Hemogram w/ Autodiffon 04-04 Abs Baso Cnt 0.1 10*3/uL Normal 0.0-0.2 [facility] Comment on above: Performed By: #### D RGA4, HEMOG, UAMAC, PT/AP, BMP3, ETOH4, UAMIC #### [address] Abs Neutrophile Cnt 11.1 10*3/uL High 1.8-7.0 [facility] Comment on above: Performed By: #### D RGA4, HEMOG, UAMAC, PT/AP, BMP3, ETOH4, UAMIC #### [address] Basophils/100 WBC (Bld) 0.5 % Normal 0.0-2.0 [facility] Comment on above: Performed By: #### D RGA4, HEMOG, UAMAC, PT/AP, BMP3, ETOH4, UAMIC #### [address] Eosinophils #/vol (Bld) 0.4 10*3/uL Normal 0.0-0.5 [facility] Comment on above: Performed By: #### D RGA4, HEMOG, UAMAC, PT/AP, BMP3, ETOH4, UAMIC #### [address] Eosinophils/100 WBC (Bld) 2.6 % Normal 1.0-6.0 [facility] Comment on above: Performed By: #### D RGA4, HEMOG, UAMAC, PT/AP, BMP3, ETOH4, UAMIC #### [address] Erythrocyte distribution width Ratio (RBC) 14.3 % Normal 11.5-14.5 [facility] Comment on above: Performed By: #### D RGA4, HEMOG, UAMAC, PT/AP, BMP3, ETOH4, UAMIC #### [address] Granulocytes/100 WBC (Bld) 80.8 % High 40.0-80.0 [facility] Comment on above: Performed By: #### D RGA4, HEMOG, UAMAC, PT/AP, BMP3, ETOH4, UAMIC #### [address] Hematocrit Volume Fraction (Bld) 28.2 % Low 40.0-52.0 [facility] Comment on above: Performed By: #### D RGA4, HEMOG, UAMAC, PT/AP, BMP3, ETOH4, UAMIC #### [address] Hemoglobin mass conc (Bld) 9.5 g/dL Low 13.0-18.0 [facility] Comment on above: Performed By: #### D RGA4, HEMOG, UAMAC, PT/AP, BMP3, ETOH4, UAMIC #### [address] Lymphocytes #/vol (Bld) 1.0 10*3/uL Normal 1.0-4.3 [facility] Comment on above: Performed By: #### D RGA4, HEMOG, UAMAC, PT/AP, BMP3, ETOH4, UAMIC #### [address] Lymphocytes/100 WBC (Bld) 7.1 % Low 20.0-40.0 [facility] Comment on above: Performed By: #### D RGA4, HEMOG, UAMAC, PT/AP, BMP3, ETOH4, UAMIC #### [address] MCH Entitic mass (RBC) 29.7 pg Normal 26.0-34.0 [facility] Comment on above: Performed By: #### D RGA4, HEMOG, UAMAC, PT/AP, BMP3, ETOH4, UAMIC #### [address] MCHC mass conc (RBC) 33.6 % Normal 32.0-36.0 [facility] Comment on above: Performed By: #### D RGA4, HEMOG, UAMAC, PT/AP, BMP3, ETOH4, UAMIC #### [address] MCV Entitic volume (RBC) 88.6 fL Normal 80.0-98.0 [facility] Comment on above: Performed By: #### D RGA4, HEMOG, UAMAC, PT/AP, BMP3, ETOH4, UAMIC #### [address], [place] Monocytes #/vol (Bld) 1.2 10*3/uL High 0.0-0.8 [facility] Comment on above: Performed By: #### D RGA4, HEMOG, UAMAC, PT/AP, BMP3, ETOH4, UAMIC #### [address] Monocytes/100 WBC (Bld) 9.0 % Normal 2.0-10.0 [facility] Comment on above: Performed By: #### D RGA4, HEMOG, UAMAC, PT/AP, BMP3, ETOH4, UAMIC #### [address] Platelet mean volume Entitic volume (Bld) 9.1 fL Normal 7.4-10.4 [facility] Comment on above: Performed By: #### D RGA4, HEMOG, UAMAC, PT/AP, BMP3, ETOH4, UAMIC #### [address] Platelets #/vol (Bld) 238 10*3/uL Normal 140-440 [facility] Comment on above: Performed By: #### D RGA4, HEMOG, UAMAC, PT/AP, BMP3, ETOH4, UAMIC #### [address] RBC #/vol (Bld) 3.18 10*6/uL Low 4.40-5.90 [facility] Comment on above: Performed By: #### D RGA4, HEMOG, UAMAC, PT/AP, BMP3, ETOH4, UAMIC #### [address] WBC #/vol (Bld) 13.7 10*3/uL High 3.6-10.7 [facility] Comment on above: Performed By: #### D RGA4, HEMOG, UAMAC, PT/AP, BMP3, ETOH4, UAMIC #### [address] Magnesiumon 04-04-2018 Magnesium mass conc 2.5 mg/dL High 1.6-2.3 [facility] Comment on above: Performed By: #### D RGA4, HEMOG, UAMAC, PT/AP, BMP3, ETOH4, UAMIC #### [facility] [address] [place], [place] Phosphoruson 04-04-2018 Phosphate mass conc 2.5 mg/dL Normal 2.5-4.5 [facility] Comment on above: Performed By: #### D RGA4, HEMOG, UAMAC, PT/AP, BMP3, ETOH4, UAMIC #### [facility] [address] [place], [place] Basic Metabolic Panelon 03-09 Anion gap molar conc 2 Normal [facility] Comment on above: Performed By: #### D RGA4, HEMOG, UAMAC, PT/AP, BMP3, ETOH4, UAMIC #### [address] [place], [place] Calcium mass conc 7.7 mg/dL Low 8.4-10.4 [facility] Comment on above: Performed By: #### D RGA4, HEMOG, UAMAC, PT/AP, BMP3, ETOH4, UAMIC #### [address] [place], [place] CO2 molar conc 30 mmol/L Normal 22-30 [facility] Comment on above: Performed By: #### D RGA4, HEMOG, UAMAC, PT/AP, BMP3, ETOH4, UAMIC #### [facility] [address], [place] Glucose mass conc 252 mg/dL High 70-100 [facility] Comment on above: Performed By: #### D RGA4, HEMOG, UAMAC, PT/AP, BMP3, ETOH4, UAMIC #### [place] [address] [address], [place] Urea nitrogen mass conc 21 mg/dL High 7-20 [facility] Comment on above: Performed By: #### D RGA4, HEMOG, UAMAC, PT/AP, BMP3, ETOH4, UAMIC #### [place] [address] [address], [place] Creatinine mass conc 0.85 mg/dL Normal 0.52-1.25 [facility] Comment on above: Performed By: #### D RGA4, HEMOG, UAMAC, PT/AP, BMP3, ETOH4, UAMIC #### [place] [address] [place], [place] GFR/1.73 sq M predicted among blacks MDRD vol rate/area (S/P/Bld) mL/min/{1.73_m2} Normal >60 [facility] Comment on above: Performed By: #### D RGA4, HEMOG, UAMAC, PT/AP, BMP3, ETOH4, UAMIC #### [place] [address] [address], [place] GFR/1.73 sq M predicted among non-blacks MDRD vol rate/area (S/P/Bld) mL/min/{1.73_m2} Normal >60 [facility] Comment on above: Result Comment: Sour ce- MDRD equation with creatinine calibration to IDMS(NKDEP) eGFR not recommended for drug dose adjustment Performed By: #### D RGA4, HEMOG, UAMAC, PT/AP, BMP3, ETOH4, UAMIC #### [place] [address] [address], [place] Potassium molar conc 4.4 mmol/L Normal 3.5-5.1 [facility] Comment on above: Performed By: #### D RGA4, HEMOG, UAMAC, PT/AP, BMP3, ETOH4, UAMIC #### [place] [address] [place], [place] Sodium molar conc 136 mmol/L Normal 135-145 [facility] Comment on above: Performed By: #### D RGA4, HEMOG, UAMAC, PT/AP, BMP3, ETOH4, UAMIC #### [address] [address] [place], [place] Chloride molar conc 105 mmol/L Normal 98-107 [facility] Comment on above: Performed By: #### D RGA4, HEMOG, UAMAC, PT/AP, BMP3, ETOH4, UAMIC #### [facility] [address] [place] [address] CR Chest Portableon 04-03-20 18 CR Chest Portable Patient Name: REMI BERNABE Diagnostic Radiology Exam Date/Time 04/03/2018 06:47:22 EST Exam CR Chest Portable Ordering Physician MD PENA ANDREW MICHAEL Accession Number [id number] CPT4 Codes 17666 () Reason For Exam intubated Report Clinical: 72-year-old male patient on T2. Intubated. Chest, AP portable, 6:40 AM, 04/03/2018. EKG leads are in place. There is a tracheostomy. There is a right subclavian line, the end in the mid to upper SVC. Diaphragms are slightly high crowding markings in the lower lung bae. The heart is slightly enlarged. A left coronary stent is visualized. There is mild vascular congestion and extensive interstitial prominence throughout the lungs. Minor linear atelectases are seen in the left suprahilar lung and the left base. No confluent consolidation is seen. No obvious pleural effusion is suggested. 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 There are surgical clips in right upper quadrant of the abdomen. Portion of the PEG tube is partly visualized in the left mid abdomen. Comparison with the previous day's study suggests increase in the degree of vascular congestion and interstitial prominence. IMPRESSION: 1. Cardiomegaly, vascular congestion and extensive interstitial prominence throughout the lungs. Minor linear atelectases left side. 2. Tracheostomy and subclavian line on the right. Report Dictated on Final Dictated: 04/03/2018 9:29 am Dictating Physician: MD TORREZ SHARDUL Signed Date and Time: 04/03/2018 9:35 am Signed by: MD OTRREZ SHARDUL Transcribed Date and Time: 04/03/2018 9:29 Normal [facility] Calcium,Ionizedon 04-03-2018 Ionized Ca,Measured 4.20 mg/dL Low 4.30-5.20 [facility] Comment on above: Performed By: #### D RGA4, HEMOG, UAMAC, PT/AP, BMP3, ETOH4, UAMIC #### [facility] [address] [place] [address] pH, Ionized Calcium 7.42 Normal 7.31-7.46 [facility] Comment on above: Performed By: #### D RGA4, HEMOG, UAMAC, PT/AP, BMP3, ETOH4, UAMIC #### [facility] [address] [place] [address] Glucose,Bedsideon 04-03-2018 Glucose mass conc 218 mg/dL High 70-100 [facility] Comment on above: Result Comment: Test performed by glucose meter. Results may be 10%-15% lower than serum/plasma values. (CLIA ID [id number]) Performed By: #### D RGA4, HEMOG, UAMAC, PT/AP, BMP3, ETOH4, UAMIC #### [address] [place] [address] Glucose mass conc 186 mg/dL High 70-100 [facility] Comment on above: Result Comment: Test performed by glucose meter. Results may be 10%-15% lower than serum/plasma values. (CLIA ID [id number]) Performed By: #### D RGA4, HEMOG, UAMAC, PT/AP, BMP3, ETOH4, UAMIC #### [facility] [address] [place] [address] Glucose mass conc 249 mg/dL High 70-100 [facility] Comment on above: Result Comment: Test performed by glucose meter. Results may be 10%-15% lower than serum/plasma values. (CLIA ID [id number]) Performed By: #### D RGA4, HEMOG, UAMAC, PT/AP, BMP3, ETOH4, UAMIC #### [address] [place] [address] Glucose mass conc 304 mg/dL High 70-100 [facility] Comment on above: Result Comment: Test performed by glucose meter. Results may be 10%-15% lower than serum/plasma values. (CLIA ID [id number]) Performed By: #### D RGA4, HEMOG, UAMAC, PT/AP, BMP3, ETOH4, UAMIC #### [address] Hemogram w/ Autodiffon 04-03 Abs Baso Cnt 0.1 10*3/uL Normal 0.0-0.2 [facility] Comment on above: Performed By: #### D RGA4, HEMOG, UAMAC, PT/AP, BMP3, ETOH4, UAMIC #### [address] Abs Neutrophile Cnt 12.7 10*3/uL High 1.8-7.0 [facility] Comment on above: Performed By: #### D RGA4, HEMOG, UAMAC, PT/AP, BMP3, ETOH4, UAMIC #### [address] Basophils/100 WBC (Bld) 0.8 % Normal 0.0-2.0 [facility] Comment on above: Performed By: #### D RGA4, HEMOG, UAMAC, PT/AP, BMP3, ETOH4, UAMIC #### [address] Eosinophils #/vol (Bld) 0.1 10*3/uL Normal 0.0-0.5 [facility] Comment on above: Performed By: #### D RGA4, HEMOG, UAMAC, PT/AP, BMP3, ETOH4, UAMIC #### [address] Eosinophils/100 WBC (Bld) 0.4 % Low 1.0-6.0 [facility] Comment on above: Performed By: #### D RGA4, HEMOG, UAMAC, PT/AP, BMP3, ETOH4, UAMIC #### [address] Erythrocyte distribution width Ratio (RBC) 14.2 % Normal 11.5-14.5 [facility] Comment on above: Performed By: #### D RGA4, HEMOG, UAMAC, PT/AP, BMP3, ETOH4, UAMIC #### [address] [address] [place], [place] Granulocytes/100 WBC (Bld) 81.7 % High 40.0-80.0 [facility] Comment on above: Performed By: #### D RGA4, HEMOG, UAMAC, PT/AP, BMP3, ETOH4, UAMIC #### [address] [address] [place], [place] Hematocrit Volume Fraction (Bld) 27.8 % Low 40.0-52.0 [facility] Comment on above: Performed By: #### D RGA4, HEMOG, UAMAC, PT/AP, BMP3, ETOH4, UAMIC #### [address] [address] [place], [place] Hemoglobin mass conc (Bld) 9.4 g/dL Low 13.0-18.0 [facility] Comment on above: Performed By: #### D RGA4, HEMOG, UAMAC, PT/AP, BMP3, ETOH4, UAMIC #### [address] [place], [place] Lymphocytes #/vol (Bld) 1.0 10*3/uL Normal 1.0-4.3 [facility] Comment on above: Performed By: #### D RGA4, HEMOG, UAMAC, PT/AP, BMP3, ETOH4, UAMIC #### [address] Lymphocytes/100 WBC (Bld) 6.6 % Low 20.0-40.0 [facility] Comment on above: Performed By: #### D RGA4, HEMOG, UAMAC, PT/AP, BMP3, ETOH4, UAMIC #### [address] [address] [place], [place] MCH Entitic mass (RBC) 29.8 pg Normal 26.0-34.0 [facility] Comment on above: Performed By: #### D RGA4, HEMOG, UAMAC, PT/AP, BMP3, ETOH4, UAMIC #### [address] MCHC mass conc (RBC) 33.7 % Normal 32.0-36.0 [facility] Comment on above: Performed By: #### D RGA4, HEMOG, UAMAC, PT/AP, BMP3, ETOH4, UAMIC #### [address] MCV Entitic volume (RBC) 88.3 fL Normal 80.0-98.0 [facility] Comment on above: Performed By: #### D RGA4, HEMOG, UAMAC, PT/AP, BMP3, ETOH4, UAMIC #### [address] Monocytes #/vol (Bld) 1.6 10*3/uL High 0.0-0.8 [facility] Comment on above: Performed By: #### D RGA4, HEMOG, UAMAC, PT/AP, BMP3, ETOH4, UAMIC #### [address] Monocytes/100 WBC (Bld) 10.5 % High 2.0-10.0 [facility] Comment on above: Performed By: #### D RGA4, HEMOG, UAMAC, PT/AP, BMP3, ETOH4, UAMIC #### [address] Platelet mean volume Entitic volume (Bld) 8.8 fL Normal 7.4-10.4 [facility] Comment on above: Performed By: #### D RGA4, HEMOG, UAMAC, PT/AP, BMP3, ETOH4, UAMIC #### [address] Platelets #/vol (Bld) 193 10*3/uL Normal 140-440 [facility] Comment on above: Performed By: #### D RGA4, HEMOG, UAMAC, PT/AP, BMP3, ETOH4, UAMIC #### [address] [address] [place], [place] RBC #/vol (Bld) 3.14 10*6/uL Low 4.40-5.90 [facility] Comment on above: Performed By: #### D RGA4, HEMOG, UAMAC, PT/AP, BMP3, ETOH4, UAMIC #### [address] [place], [place] WBC #/vol (Bld) 15.6 10*3/uL High 3.6-10.7 [facility] Comment on above: Performed By: #### D RGA4, HEMOG, UAMAC, PT/AP, BMP3, ETOH4, UAMIC #### [address] [place], [place] Magnesiumon 04-03-2018 Magnesium mass conc 2.4 mg/dL High 1.6-2.3 [facility] Comment on above: Performed By: #### D RGA4, HEMOG, UAMAC, PT/AP, BMP3, ETOH4, UAMIC #### [address] [place], [place] Phosphoruson 04-03-2018 Phosphate mass conc 2.6 mg/dL Normal 2.5-4.5 [facility] Comment on above: Performed By: #### D RGA4, HEMOG, UAMAC, PT/AP, BMP3, ETOH4, UAMIC #### [address] [place], [place] Basic Metabolic Panelon 03-09 Calcium mass conc 8.1 mg/dL Low 8.4-10.4 [facility] Comment on above: Performed By: #### D RGA4, HEMOG, UAMAC, PT/AP, BMP3, ETOH4, UAMIC #### [address] [place], [place] Anion gap molar conc 3 Normal [facility] Comment on above: Performed By: #### D RGA4, HEMOG, UAMAC, PT/AP, BMP3, ETOH4, UAMIC #### [facility] [address] [place], [place] CO2 molar conc 28 mmol/L Normal 22-30 [facility] Comment on above: Performed By: #### D RGA4, HEMOG, UAMAC, PT/AP, BMP3, ETOH4, UAMIC #### [facility] [address] [place], [place] Glucose mass conc 225 mg/dL High 70-100 [facility] Comment on above: Performed By: #### D RGA4, HEMOG, UAMAC, PT/AP, BMP3, ETOH4, UAMIC #### [address] [address] [place], [place] Urea nitrogen mass conc 16 mg/dL Normal 7-20 [facility] Comment on above: Performed By: #### D RGA4, HEMOG, UAMAC, PT/AP, BMP3, ETOH4, UAMIC #### [address] [place], [place] Creatinine mass conc 0.76 mg/dL Normal 0.52-1.25 [facility] Comment on above: Performed By: #### D RGA4, HEMOG, UAMAC, PT/AP, BMP3, ETOH4, UAMIC #### [address] [place], [place] GFR/1.73 sq M predicted among blacks MDRD vol rate/area (S/P/Bld) mL/min/{1.73_m2} Normal >60 [facility] Comment on above: Performed By: #### D RGA4, HEMOG, UAMAC, PT/AP, BMP3, ETOH4, UAMIC #### [address] [address] [place], [place] GFR/1.73 sq M predicted among non-blacks MDRD vol rate/area (S/P/Bld) mL/min/{1.73_m2} Normal >60 [facility] Comment on above: Result Comment: Sour ce- MDRD equation with creatinine calibration to IDMS(NKDEP) eGFR not recommended for drug dose adjustment Performed By: #### D RGA4, HEMOG, UAMAC, PT/AP, BMP3, ETOH4, UAMIC #### [facility] [address] [place] [address] Chloride molar conc 107 mmol/L Normal 98-107 [facility] Comment on above: Performed By: #### D RGA4, HEMOG, UAMAC, PT/AP, BMP3, ETOH4, UAMIC #### [facility] [address] [place] [address] Potassium molar conc 4.1 mmol/L Normal 3.5-5.1 [facility] Comment on above: Performed By: #### D RGA4, HEMOG, UAMAC, PT/AP, BMP3, ETOH4, UAMIC #### [facility] [address] [place] [address] Sodium molar conc 138 mmol/L Normal 135-145 [facility] Comment on above: Performed By: #### D RGA4, HEMOG, UAMAC, PT/AP, BMP3, ETOH4, UAMIC #### [facility] [address] [place] [address] CR Chest Portableon 04-02-20 18 CR Chest Portable Patient Name: REMI BERNABE Diagnostic Radiology Exam Date/Time 04/02/2018 19:06:24 EST Exam CR Chest Portable Ordering Physician MD ELA [place] Accession Number [id number] CPT4 Codes 37247 () Reason For Exam cough Report PORTABLE CHEST CLINICAL INDICATION: Cough TECHNIQUE: Portable AP COMPARISON: 04/02/2018 FINDINGS: Vascular congestion without overt edema. Patchy subsegmental atelectasis at the left lung base. No pleural effusions or pneumothorax. The cardiac and mediastinal silhouettes are normal. Degenerative change of the thoracic spine and right shoulder is noted. Tracheostomy tube in place. Right subclavian central venous catheter tip terminates over the SVC. Surgical clips in the right upper quadrant. IMPRESSION: 1. Patchy subsegmental atelectasis at the left lung base 2. Vascular congestion without overt edema. Report Dictated on Final Dictated: 04/02/2018 8:11 pm Dictating Physician: MD WHALEY KEVIN Signed Date and Time: 04/02/2018 8:12 pm Signed by: MD WHALEY KEVIN Transcribed Date and Time: 04/02/2018 8:11 Normal [facility] CR Chest Portable Patient Name: REMI BERNABE Diagnostic Radiology Exam Date/Time 04/02/2018 07:13:40 EST Exam CR Chest Portable Ordering Physician MD PENA ANDREW MICHAEL Accession Number [id number] CPT4 Codes 65696 () Reason For Exam intubated Report INDICATION:Intubation. PORTABLE CHEST: COMPARISON: 04/01/2018. Tracheostomy tube is unchanged and in satisfactory position. Right subclavian venous catheter tip is unchanged and in satisfactory position. No pneumothorax. Patchy infiltrate left lower lung, similar. Slight increased lung markings right lower lung. Suspect developing infiltrate/atelectasis right lower lung. Heart and mediastinal contours are stable. IMPRESSION: Persistent left lower lung infiltrate. Slight increased markings right lower lung. No gross pleural effusions Report Dictated on Final Dictated: 04/02/2018 8:40 am Dictating Physician: MD LOIVER LAURA Signed Date and Time: 04/02/2018 8:45 am Signed by: MD OLIVER LAURA Transcribed Date and Time: 04/02/2018 8:40 Normal [facility] Calcium,Ionizedon 04-02-2018 Ionized Ca,Measured 4.20 mg/dL Low 4.30-5.20 [facility] Comment on above: Performed By: #### D RGA4, HEMOG, UAMAC, PT/AP, BMP3, ETOH4, UAMIC #### [facility] [address] [place] [address] pH, Ionized Calcium 7.43 Normal 7.31-7.46 [facility] Comment on above: Performed By: #### Jordi RGA4, HEMOG, UAMAC, PT/AP, BMP3, ETOH4, UAMIC #### [facility] [address] [place] [address] Glucose,Bedsideon 04-02-2018 Glucose mass conc 241 mg/dL High 70-100 [facility] Comment on above: Result Comment: Test performed by glucose meter. Results may be 10%-15% lower than serum/plasma values. (CLIA ID [id number]) Performed By: #### D RGA4, HEMOG, UAMAC, PT/AP, BMP3, ETOH4, UAMIC #### [facility] [address] [place], [place] Glucose mass conc 297 mg/dL High 70-100 [facility] Comment on above: Result Comment: Test performed by glucose meter. Results may be 10%-15% lower than serum/plasma values. (CLIA ID [id number]) Performed By: #### D RGA4, HEMOG, UAMAC, PT/AP, BMP3, ETOH4, UAMIC #### [facility] [address] [place], [place] Glucose mass conc 251 mg/dL High 70-100 [facility] Comment on above: Result Comment: Test performed by glucose meter. Results may be 10%-15% lower than serum/plasma values. (CLIA ID [id number]) Performed By: #### B GLU ####[id number] [place], [place] Hemogram w/ Autodiffon 04-02 Abs Baso Cnt 0.0 10*3/uL Normal 0.0-0.2 [facility] Comment on above: Performed By: #### D RGA4, HEMOG, UAMAC, PT/AP, BMP3, ETOH4, UAMIC #### [facility] [address] [place], [place] Abs Neutrophile Cnt 12.5 10*3/uL High 1.8-7.0 [facility] Comment on above: Performed By: #### D RGA4, HEMOG, UAMAC, PT/AP, BMP3, ETOH4, UAMIC #### [facility] [address] [place], [place] Basophils/100 WBC (Bld) 0.3 % Normal 0.0-2.0 [facility] Comment on above: Performed By: #### D RGA4, HEMOG, UAMAC, PT/AP, BMP3, ETOH4, UAMIC #### [address] Eosinophils #/vol (Bld) 0.1 10*3/uL Normal 0.0-0.5 [facility] Comment on above: Performed By: #### D RGA4, HEMOG, UAMAC, PT/AP, BMP3, ETOH4, UAMIC #### [address] Eosinophils/100 WBC (Bld) 0.5 % Low 1.0-6.0 [facility] Comment on above: Performed By: #### D RGA4, HEMOG, UAMAC, PT/AP, BMP3, ETOH4, UAMIC #### [address] Erythrocyte distribution width Ratio (RBC) 13.8 % Normal 11.5-14.5 [facility] Comment on above: Performed By: #### D RGA4, HEMOG, UAMAC, PT/AP, BMP3, ETOH4, UAMIC #### [address] Granulocytes/100 WBC (Bld) 84.3 % High 40.0-80.0 [facility] Comment on above: Performed By: #### D RGA4, HEMOG, UAMAC, PT/AP, BMP3, ETOH4, UAMIC #### [address] Hematocrit Volume Fraction (Bld) 30.5 % Low 40.0-52.0 [facility] Comment on above: Performed By: #### D RGA4, HEMOG, UAMAC, PT/AP, BMP3, ETOH4, UAMIC #### [address] Hemoglobin mass conc (Bld) 10.2 g/dL Low 13.0-18.0 [facility] Comment on above: Performed By: #### D RGA4, HEMOG, UAMAC, PT/AP, BMP3, ETOH4, UAMIC #### [address] [address] [address] [place], [place] Lymphocytes #/vol (Bld) 0.8 10*3/uL Low 1.0-4.3 [facility] Comment on above: Performed By: #### D RGA4, HEMOG, UAMAC, PT/AP, BMP3, ETOH4, UAMIC #### [address] [address] [place], [place] Lymphocytes/100 WBC (Bld) 5.6 % Low 20.0-40.0 [facility] Comment on above: Performed By: #### D RGA4, HEMOG, UAMAC, PT/AP, BMP3, ETOH4, UAMIC #### [address] MCH Entitic mass (RBC) 29.9 pg Normal 26.0-34.0 [facility] Comment on above: Performed By: #### D RGA4, HEMOG, UAMAC, PT/AP, BMP3, ETOH4, UAMIC #### [address] [address] [place], [place] MCHC mass conc (RBC) 33.6 % Normal 32.0-36.0 [facility] Comment on above: Performed By: #### D RGA4, HEMOG, UAMAC, PT/AP, BMP3, ETOH4, UAMIC #### [address] MCV Entitic volume (RBC) 89.2 fL Normal 80.0-98.0 [facility] Comment on above: Performed By: #### D RGA4, HEMOG, UAMAC, PT/AP, BMP3, ETOH4, UAMIC #### [address] Monocytes #/vol (Bld) 1.4 10*3/uL High 0.0-0.8 [facility] Comment on above: Performed By: #### D RGA4, HEMOG, UAMAC, PT/AP, BMP3, ETOH4, UAMIC #### [address] Monocytes/100 WBC (Bld) 9.3 % Normal 2.0-10.0 [facility] Comment on above: Performed By: #### D RGA4, HEMOG, UAMAC, PT/AP, BMP3, ETOH4, UAMIC #### [address] Platelet mean volume Entitic volume (Bld) 8.7 fL Normal 7.4-10.4 [facility] Comment on above: Performed By: #### D RGA4, HEMOG, UAMAC, PT/AP, BMP3, ETOH4, UAMIC #### [address] Platelets #/vol (Bld) 183 10*3/uL Normal 140-440 [facility] Comment on above: Performed By: #### D RGA4, HEMOG, UAMAC, PT/AP, BMP3, ETOH4, UAMIC #### [address] RBC #/vol (Bld) 3.42 10*6/uL Low 4.40-5.90 [facility] Comment on above: Performed By: #### D RGA4, HEMOG, UAMAC, PT/AP, BMP3, ETOH4, UAMIC #### [address] WBC #/vol (Bld) 14.9 10*3/uL High 3.6-10.7 [facility] Comment on above: Performed By: #### D RGA4, HEMOG, UAMAC, PT/AP, BMP3, ETOH4, UAMIC #### [address] Magnesiumon 04-02-2018 Magnesium mass conc 2.4 mg/dL High 1.6-2.3 [facility] Comment on above: Performed By: #### D RGA4, HEMOG, UAMAC, PT/AP, BMP3, ETOH4, UAMIC #### [address], [place] Phosphoruson 04-02-2018 Phosphate mass conc 2.7 mg/dL Normal 2.5-4.5 [facility] Comment on above: Performed By: #### D RGA4, HEMOG, UAMAC, PT/AP, BMP3, ETOH4, UAMIC #### [facility] [address] [place], [place] Arterial Blood Gaseson 04-01 CO2 molar conc 26.3 mmol/L Normal 23.0-27.0 [facility] Comment on above: Performed By: #### A BG ####[id number] [place], [place] HCO3 molar conc (Bld) 25.1 mmol/L High 21.0-25.0 [facility] Comment on above: Performed By: #### A BG ####[address] Hemoglobin mass conc (Bld) 10.3 g/dL Normal ScreenOnly [facility] Comment on above: Performed By: #### A BG ####[address] Oxygen ppres (Bld) 170.2 mm[Hg] High 80.0-100.0 [facility] Comment on above: Performed By: #### A BG ####[address] Oxygen saturation in Blood 98.6 % Normal 95.0-100.0 [facility] Comment on above: Performed By: #### A BG ####[address] pCO2 38.8 mm[Hg] Normal 35.0-45.0 [facility] Comment on above: Performed By: #### A BG ####[address] pH (Bld) 7.429 Normal 7.350-7.450 [facility] Comment on above: Performed By: #### A BG ####[address], [place] Std Base Excess 0.8 mmol/L Normal -3.0-3.0 [facility] Comment on above: Performed By: #### A BG ####[address] FIO2 No data Normal [facility] Comment on above: Performed By: #### A BG ####[address] Basic Metabolic Panelon 12-2 Calcium mass conc 7.8 mg/dL Low 8.4-10.4 [facility] Comment on above: Performed By: #### H EMDF, PHOS3, BMP3, ICA, MG3 ####[address] Glucose mass conc 279 mg/dL High 70-100 [facility] Comment on above: Performed By: #### H EMDF, PHOS3, BMP3, ICA, MG3 ####[address] Urea nitrogen mass conc 18 mg/dL Normal 7-20 [facility] Comment on above: Performed By: #### H EMDF, PHOS3, BMP3, ICA, MG3 ####[address] Anion gap molar conc 3 Normal [facility] Comment on above: Performed By: #### H EMDF, PHOS3, BMP3, ICA, MG3 ####[address] CO2 molar conc 26 mmol/L Normal 22-30 [facility] Comment on above: Performed By: #### H EMDF, PHOS3, BMP3, ICA, MG3 ####[address] Creatinine mass conc 0.84 mg/dL Normal 0.52-1.25 [facility] Comment on above: Performed By: #### H EMDF, PHOS3, BMP3, ICA, MG3 ####[facility] [place] [address] GFR/1.73 sq M predicted among blacks MDRD vol rate/area (S/P/Bld) mL/min/{1.73_m2} Normal >60 [facility] Comment on above: Performed By: #### H EMDF, PHOS3, BMP3, ICA, MG3 ####[facility] [address] [place] [address] GFR/1.73 sq M predicted among non-blacks MDRD vol rate/area (S/P/Bld) mL/min/{1.73_m2} Normal >60 [facility] Comment on above: Result Comment: Sour ce- MDRD equation with creatinine calibration to IDMS(NKDEP) eGFR not recommended for drug dose adjustment Performed By: #### H EMDF, PHOS3, BMP3, ICA, MG3 ####[facility] [address] [place] [address] Chloride molar conc 107 mmol/L Normal 98-107 [facility] Comment on above: Performed By: #### H EMDF, PHOS3, BMP3, ICA, MG3 ####[id number] [place] [address] Potassium molar conc 4.3 mmol/L Normal 3.5-5.1 [facility] Comment on above: Performed By: #### H EMDF, PHOS3, BMP3, ICA, MG3 ####[facility] [id number] [place] [address] Sodium molar conc 136 mmol/L Normal 135-145 [facility] Comment on above: Performed By: #### H EMDF, PHOS3, BMP3, ICA, MG3 ####[address] [place] [address] CR Chest Portableon 04-01-20 18 CR Chest Portable Patient Name: REMI BERNABE Diagnostic Radiology Exam Date/Time 04/01/2018 07:09:41 EST Exam CR Chest Portable Ordering Physician MD LUDIVINA, KIMI RAMOS Accession Number [id number] CPT4 Codes 33680 () Reason For Exam intubated Report Portable semiupright AP view of the chest, 04/01/2018. Reason for examination: Respiratory insufficiency. COMPARISON: 03/31/2018. FINDINGS: Cardiac size is within normal limits. Pulmonary vasculature is normal. There is atherosclerotic calcification in aorta. Lung volumes are relatively low. There are patchy opacities in the mid to lower lungs, left greater than right, suggestive of atelectasis or infiltrate. There may be a small left pleural effusion. No pneumothorax is noted. Tracheostomy catheter is present with tip in satisfactory position. There is a right subclavian central venous catheter. IMPRESSION: Relatively stable appearance of the chest with patchy infiltrate or atelectasis in the lung bases, left greater than right, and probable small left pleural effusion. Report Dictated on Final Dictated: 04/01/2018 8:46 am Dictating Physician: MD MATA JOE M Signed Date and Time: 04/01/2018 8:47 am Signed by: MD MATA JOE M Transcribed Date and Time: 04/01/2018 8:46 Normal [facility] Calcium,Ionizedon 04-01-2018 Ionized Ca,Measured 4.20 mg/dL Low 4.30-5.20 [facility] Comment on above: Performed By: #### H EMDF, PHOS3, BMP3, ICA, MG3 ####[employer] [place] [address] pH, Ionized Calcium 7.45 Normal 7.31-7.46 [facility] Comment on above: Performed By: #### H EMDF, PHOS3, BMP3, ICA, MG3 ####[employer] [place] [address] Glucose,Bedsideon 04-01-2018 Glucose mass conc 263 mg/dL High 70-100 [facility] [employer] [facility] Comment on above: Result Comment: Test performed by glucose meter. Results may be 10%-15% lower than serum/plasma values. (CLIA ID [id number]) Performed By: #### B GLU ####[facility] [place] [address] Glucose mass conc 249 mg/dL High 70-100 [facility] Comment on above: Result Comment: Test performed by glucose meter. Results may be 10%-15% lower than serum/plasma values. (CLIA ID [id number]) Performed By: #### B GLU ####[address] [address] Glucose mass conc 237 mg/dL High 70-100 [facility] Comment on above: Result Comment: Test performed by glucose meter. Results may be 10%-15% lower than serum/plasma values. (CLIA ID [id number]) Performed By: #### B GLU ####[address] [address] Glucose mass conc 253 mg/dL High 70-100 [facility] Comment on above: Result Comment: Test performed by glucose meter. Results may be 10%-15% lower than serum/plasma values. (CLIA ID [id number]) Performed By: #### B GLU ####[address] Glucose mass conc 291 mg/dL High 70-100 [facility] Comment on above: Result Comment: Test performed by glucose meter. Results may be 10%-15% lower than serum/plasma values. (CLIA ID [id number]) Performed By: #### B GLU ####[address] Hemogram w/ Autodiffon 04-01 Abs Baso Cnt 0.0 10*3/uL Normal 0.0-0.2 [facility] Comment on above: Performed By: #### H EMDF, PHOS3, BMP3, ICA, MG3 ####[address] Abs Neutrophile Cnt 12.2 10*3/uL High 1.8-7.0 [facility] Comment on above: Performed By: #### H EMDF, PHOS3, BMP3, ICA, MG3 ####[address] Basophils/100 WBC (Bld) 0.3 % Normal 0.0-2.0 [facility] Comment on above: Performed By: #### H EMDF, PHOS3, BMP3, ICA, MG3 ####[address] Eosinophils #/vol (Bld) 0.0 10*3/uL Normal 0.0-0.5 [facility] Comment on above: Performed By: #### H EMDF, PHOS3, BMP3, ICA, MG3 ####[address] Eosinophils/100 WBC (Bld) 0.1 % Low 1.0-6.0 [facility] Comment on above: Performed By: #### H EMDF, PHOS3, BMP3, ICA, MG3 ####[address] Erythrocyte distribution width Ratio (RBC) 13.7 % Normal 11.5-14.5 [facility] Comment on above: Performed By: #### H EMDF, PHOS3, BMP3, ICA, MG3 ####[address] Granulocytes/100 WBC (Bld) 83.2 % High 40.0-80.0 [facility] Comment on above: Performed By: #### H EMDF, PHOS3, BMP3, ICA, MG3 ####[address] Hematocrit Volume Fraction (Bld) 28.9 % Low 40.0-52.0 [facility] Comment on above: Performed By: #### H EMDF, PHOS3, BMP3, ICA, MG3 ####[address] Hemoglobin mass conc (Bld) 9.7 g/dL Low 13.0-18.0 [facility] Comment on above: Performed By: #### H EMDF, PHOS3, BMP3, ICA, MG3 ####[address] Lymphocytes #/vol (Bld) 1.2 10*3/uL Normal 1.0-4.3 [facility] Comment on above: Performed By: #### H EMDF, PHOS3, BMP3, ICA, MG3 ####[address] Lymphocytes/100 WBC (Bld) 8.0 % Low 20.0-40.0 [facility] Comment on above: Performed By: #### H EMDF, PHOS3, BMP3, ICA, MG3 ####[address] MCH Entitic mass (RBC) 29.7 pg Normal 26.0-34.0 [facility] Comment on above: Performed By: #### H EMDF, PHOS3, BMP3, ICA, MG3 ####[address] MCHC mass conc (RBC) 33.4 % Normal 32.0-36.0 [facility] Comment on above: Performed By: #### H EMDF, PHOS3, BMP3, ICA, MG3 ####[address] MCV Entitic volume (RBC) 88.7 fL Normal 80.0-98.0 [facility] Comment on above: Performed By: #### H EMDF, PHOS3, BMP3, ICA, MG3 ####[address] Monocytes #/vol (Bld) 1.2 10*3/uL High 0.0-0.8 [facility] Comment on above: Performed By: #### H EMDF, PHOS3, BMP3, ICA, MG3 ####[address] Monocytes/100 WBC (Bld) 8.4 % Normal 2.0-10.0 [facility] Comment on above: Performed By: #### H EMDF, PHOS3, BMP3, ICA, MG3 ####[facility] [employer] [id number] [place], [place] Platelet mean volume Entitic volume (Bld) 8.9 fL Normal 7.4-10.4 [facility] Comment on above: Performed By: #### H EMDF, PHOS3, BMP3, ICA, MG3 ####[address] [place], [place] Platelets #/vol (Bld) 161 10*3/uL Normal 140-440 [facility] Comment on above: Performed By: #### H EMDF, PHOS3, BMP3, ICA, MG3 ####[address] RBC #/vol (Bld) 3.26 10*6/uL Low 4.40-5.90 [facility] Comment on above: Performed By: #### H EMDF, PHOS3, BMP3, ICA, MG3 ####[address] WBC #/vol (Bld) 14.7 10*3/uL High 3.6-10.7 [facility] Comment on above: Performed By: #### H EMDF, PHOS3, BMP3, ICA, MG3 ####[address] Magnesiumon 04-01-2018 Magnesium mass conc 2.3 mg/dL Normal 1.6-2.3 [facility] Comment on above: Performed By: #### H EMDF, PHOS3, BMP3, ICA, MG3 ####[address] [place], [place] Phosphoruson 04-01-2018 Phosphate mass conc 2.5 mg/dL Normal 2.5-4.5 [facility] Comment on above: Performed By: #### H EMDF, PHOS3, BMP3, ICA, MG3 ####[address] [place], [place] Arterial Blood Gaseson 03-31 FIO2 .40 Normal [facility] Comment on above: Performed By: #### A BG ####[address] CO2 molar conc 23.5 mmol/L Normal 23.0-27.0 [facility] Comment on above: Performed By: #### A BG ####[address] [address] [place] HCO3 molar conc (Bld) 22.5 mmol/L Normal 21.0-25.0 [facility] Comment on above: Performed By: #### A BG ####[address] Hemoglobin mass conc (Bld) 10.1 g/dL Normal ScreenOnly [facility] Comment on above: Performed By: #### A BG ####[address] Oxygen ppres (Bld) 156.1 mm[Hg] High 80.0-100.0 [facility] Comment on above: Performed By: #### A BG ####[address] Oxygen saturation in Blood 98.3 % Normal 95.0-100.0 [facility] Comment on above: Performed By: #### A BG ####[address] pCO2 32.7 mm[Hg] Low 35.0-45.0 [facility] Comment on above: Performed By: #### A BG ####[address] pH (Bld) 7.456 High 7.350-7.450 [facility] Comment on above: Performed By: #### A BG ####[address] Std Base Excess -0.9 mmol/L Normal -3.0-3.0 [facility] Comment on above: Performed By: #### A BG ####[address] CO2 molar conc 24.2 mmol/L Normal 23.0-27.0 [facility] Comment on above: Performed By: #### A BG ####[address] HCO3 molar conc (Bld) 23.2 mmol/L Normal 21.0-25.0 [facility] Comment on above: Performed By: #### A BG ####[address] Hemoglobin mass conc (Bld) 10.9 g/dL Normal ScreenOnly [facility] Comment on above: Performed By: #### A BG ####[address] Oxygen ppres (Bld) 122.4 mm[Hg] High 80.0-100.0 [facility] Comment on above: Performed By: #### A BG ####[address] Oxygen saturation in Blood 98.3 % Normal 95.0-100.0 [facility] Comment on above: Performed By: #### A BG ####[address] pCO2 31.1 mm[Hg] Low 35.0-45.0 [facility] Comment on above: Performed By: #### A BG ####[address] pH (Bld) 7.491 High 7.350-7.450 [facility] Comment on above: Performed By: #### A BG ####[address] Std Base Excess 0.5 mmol/L Normal -3.0-3.0 [facility] Comment on above: Performed By: #### A BG ####[address] FIO2 No data Normal [facility] Comment on above: Performed By: #### A BG ####[address] Basic Metabolic Panelon 12-2 Calcium mass conc 7.8 mg/dL Low 8.4-10.4 [facility] Comment on above: Performed By: #### B MP3, HEMDF, PHOS3, MG3, ICA ####[address] [place], [place] Anion gap molar conc 1 Normal [facility] Comment on above: Performed By: #### B MP3, HEMDF, PHOS3, MG3, ICA ####[address] CO2 molar conc 26 mmol/L Normal 22-30 [facility] Comment on above: Performed By: #### B MP3, HEMDF, PHOS3, MG3, ICA ####[address] Creatinine mass conc 0.75 mg/dL Normal 0.52-1.25 [facility] Comment on above: Performed By: #### B MP3, HEMDF, PHOS3, MG3, ICA ####[address] GFR/1.73 sq M predicted among blacks MDRD vol rate/area (S/P/Bld) mL/min/{1.73_m2} Normal >60 [facility] Comment on above: Performed By: #### B MP3, HEMDF, PHOS3, MG3, ICA ####[address] [place], [place] GFR/1.73 sq M predicted among non-blacks MDRD vol rate/area (S/P/Bld) mL/min/{1.73_m2} Normal >60 [facility] Comment on above: Result Comment: Sour ce- MDRD equation with creatinine calibration to IDMS(NKDEP) eGFR not recommended for drug dose adjustment Performed By: #### B MP3, HEMDF, PHOS3, MG3, ICA ####[facility] [place] [address] Glucose mass conc 170 mg/dL High 70-100 [facility] Comment on above: Performed By: #### B MP3, HEMDF, PHOS3, MG3, ICA ####[employer] [id number] [place] [address] Urea nitrogen mass conc 10 mg/dL Normal 7-20 [facility] Comment on above: Performed By: #### B MP3, HEMDF, PHOS3, MG3, ICA ####[employer] [place] [address] Chloride molar conc 109 mmol/L High 98-107 [facility] Comment on above: Performed By: #### B MP3, HEMDF, PHOS3, MG3, ICA ####[employer] [place] [address] Potassium molar conc 4.3 mmol/L Normal 3.5-5.1 [facility] Comment on above: Performed By: #### B MP3, HEMDF, PHOS3, MG3, ICA ####[employer] [place] [address] Sodium molar conc 137 mmol/L Normal 135-145 [facility] Comment on above: Result Comment: NOTE : New Sodium Reference Range effective 2018 @ 10:00 Performed By: #### B MP3, HEMDF, PHOS3, MG3, ICA ####[employer] [place] [address] CR Chest Portableon 03-31-20 18 CR Chest Portable Patient Name: REMI BERNABE Diagnostic Radiology Exam Date/Time 03/31/2018 06:27:59 EST Exam CR Chest Portable Ordering Physician MD PENA ANDREW MICHAEL Accession Number [id number] CPT4 Codes 72509 () Reason For Exam intubated Report Indication: Tracheostomy. A frontal view of the chest timed 0622 is compared to the study dated 03/30/2018. The previously seen endotracheal tube and enteric tube have been removed. There has been placement of a tracheostomy tube. The right-sided central line remains in place. No sizable pneumothorax is seen. The heart is unchanged in size. Atherosclerotic calcifications of the thoracic aorta are visualized. The mediastinum is unchanged in appearance. There is mild pulmonary vascular congestion. There is increasing left lower lung infiltrate and new small left pleural effusion. There is new mild haziness in the right lung base. Degenerative changes of the thoracic spine and shoulders are visualized. There is some deformity of the right humeral head. Follow-up is recommended. Report Dictated on Final Dictated: 03/31/2018 7:38 am Dictating Physician: DO KAY ANTHONY Signed Date and Time: 03/31/2018 7:39 am Signed by: DO KAY ANTHONY Transcribed Date and Time: 03/31/2018 7:38 Normal [facility] Calcium,Ionizedon 03-31-2018 Ionized Ca,Measured 4.30 mg/dL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 [address] [address] [place], [place] GFR/1.73 sq M predicted among non-blacks MDRD vol rate/area (S/P/Bld) mL/min/{1.73_m2} Normal >60 [facility] Comment on above: Result Comment: Sour ce- MDRD equation with creatinine calibration to IDMS(NKDEP) eGFR not recommended for drug dose adjustment Performed By: #### D RGA4, HEMOG, UAMAC, PT/AP, BMP3, ETOH4, UAMIC #### [address] [place], [place] Glucose mass conc 167 mg/dL High 70-100 [facility] Comment on above: Performed By: #### D RGA4, HEMOG, UAMAC, PT/AP, BMP3, ETOH4, UAMIC #### [address] Urea nitrogen mass conc 7 mg/dL Normal 7-20 [facility] Comment on above: Performed By: #### D RGA4, HEMOG, UAMAC, PT/AP, BMP3, ETOH4, UAMIC #### [facility] [address] [place] [address] Chloride molar conc 110 mmol/L High 98-107 [facility] Comment on above: Performed By: #### D RGA4, HEMOG, UAMAC, PT/AP, BMP3, ETOH4, UAMIC #### [address] [place], [place] Potassium molar conc 4.0 mmol/L Normal 3.5-5.1 [facility] Comment on above: Performed By: #### D RGA4, HEMOG, UAMAC, PT/AP, BMP3, ETOH4, UAMIC #### [address] [place] [address] Sodium molar conc 137 mmol/L Normal 135-145 [facility] Comment on above: Result Comment: NOTE : New Sodium Reference Range effective 2018 @ 10:00 Performed By: #### D RGA4, HEMOG, UAMAC, PT/AP, BMP3, ETOH4, UAMIC #### [address] [place] [address] Calcium,Ionizedon 03-29-2018 Ionized Ca,Measured 4.20 mg/dL Low 4.30-5.20 [facility] Comment on above: Performed By: #### D RGA4, HEMOG, UAMAC, PT/AP, BMP3, ETOH4, UAMIC #### [address] [place], [place] pH, Ionized Calcium 7.42 Normal 7.31-7.46 [facility] Comment on above: Performed By: #### D RGA4, HEMOG, UAMAC, PT/AP, BMP3, ETOH4, UAMIC #### [address] [place] [address] Glucose,Bedsideon 03-29-2018 Glucose mass conc 207 mg/dL High 70-100 [facility] Comment on above: Result Comment: Test performed by glucose meter. Results may be 10%-15% lower than serum/plasma values. (CLIA ID [id number]) Performed By: #### D RGA4, HEMOG, UAMAC, PT/AP, BMP3, ETOH4, UAMIC #### [address] [address] [place], [place] Glucose mass conc 199 mg/dL High 70-100 [facility] Comment on above: Result Comment: Test performed by glucose meter. Results may be 10%-15% lower than serum/plasma values. (CLIA ID [id number]) Performed By: #### D RGA4, HEMOG, UAMAC, PT/AP, BMP3, ETOH4, UAMIC #### [address] [address] [place], [place] Glucose mass conc 153 mg/dL High 70-100 [facility] Comment on above: Result Comment: Test performed by glucose meter. Results may be 10%-15% lower than serum/plasma values. (CLIA ID [id number]) Performed By: #### D RGA4, HEMOG, UAMAC, PT/AP, BMP3, ETOH4, UAMIC #### [address] Glucose mass conc 151 mg/dL High 70-100 [facility] Comment on above: Result Comment: Test performed by glucose meter. Results may be 10%-15% lower than serum/plasma values. (CLIA ID [id number]) Performed By: #### D RGA4, HEMOG, UAMAC, PT/AP, BMP3, ETOH4, UAMIC #### [address] Hemogram w/ Autodiffon 03-29 Abs Baso Cnt 0.0 10*3/uL Normal 0.0-0.2 [facility] Comment on above: Performed By: #### D RGA4, HEMOG, UAMAC, PT/AP, BMP3, ETOH4, UAMIC #### [address] Abs Neutrophile Cnt 13.9 10*3/uL High 1.8-7.0 [facility] Comment on above: Performed By: #### D RGA4, HEMOG, UAMAC, PT/AP, BMP3, ETOH4, UAMIC #### [address] Basophils/100 WBC (Bld) 0.2 % Normal 0.0-2.0 [facility] Comment on above: Performed By: #### D RGA4, HEMOG, UAMAC, PT/AP, BMP3, ETOH4, UAMIC #### [address] Eosinophils #/vol (Bld) 0.0 10*3/uL Normal 0.0-0.5 [facility] Comment on above: Performed By: #### D RGA4, HEMOG, UAMAC, PT/AP, BMP3, ETOH4, UAMIC #### [address] Eosinophils/100 WBC (Bld) 0.2 % Low 1.0-6.0 [facility] Comment on above: Performed By: #### D RGA4, HEMOG, UAMAC, PT/AP, BMP3, ETOH4, UAMIC #### [address] Erythrocyte distribution width Ratio (RBC) 13.9 % Normal 11.5-14.5 [facility] Comment on above: Performed By: #### D RGA4, HEMOG, UAMAC, PT/AP, BMP3, ETOH4, UAMIC #### [address] Granulocytes/100 WBC (Bld) 88.8 % High 40.0-80.0 [facility] Comment on above: Performed By: #### D RGA4, HEMOG, UAMAC, PT/AP, BMP3, ETOH4, UAMIC #### [address] Hematocrit Volume Fraction (Bld) 27.4 % Low 40.0-52.0 [facility] Comment on above: Performed By: #### D RGA4, HEMOG, UAMAC, PT/AP, BMP3, ETOH4, UAMIC #### [address] [place], [place] Hemoglobin mass conc (Bld) 9.5 g/dL Low 13.0-18.0 [facility] Comment on above: Performed By: #### D RGA4, HEMOG, UAMAC, PT/AP, BMP3, ETOH4, UAMIC #### [address] [address] [place], [place] Lymphocytes #/vol (Bld) 0.9 10*3/uL Low 1.0-4.3 [facility] Comment on above: Performed By: #### D RGA4, HEMOG, UAMAC, PT/AP, BMP3, ETOH4, UAMIC #### [address] Lymphocytes/100 WBC (Bld) 5.5 % Low 20.0-40.0 [facility] Comment on above: Performed By: #### D RGA4, HEMOG, UAMAC, PT/AP, BMP3, ETOH4, UAMIC #### [address] [address] [address] [place], [place] MCH Entitic mass (RBC) 30.4 pg Normal 26.0-34.0 [facility] Comment on above: Performed By: #### D RGA4, HEMOG, UAMAC, PT/AP, BMP3, ETOH4, UAMIC #### [address] MCHC mass conc (RBC) 34.8 % Normal 32.0-36.0 [facility] Comment on above: Performed By: #### D RGA4, HEMOG, UAMAC, PT/AP, BMP3, ETOH4, UAMIC #### [address] MCV Entitic volume (RBC) 87.4 fL Normal 80.0-98.0 [facility] Comment on above: Performed By: #### D RGA4, HEMOG, UAMAC, PT/AP, BMP3, ETOH4, UAMIC #### [address] [address] [place], [place] Monocytes #/vol (Bld) 0.8 10*3/uL Normal 0.0-0.8 [facility] Comment on above: Performed By: #### D RGA4, HEMOG, UAMAC, PT/AP, BMP3, ETOH4, UAMIC #### [address] [address] [place], [place] Monocytes/100 WBC (Bld) 5.3 % Normal 2.0-10.0 [facility] Comment on above: Performed By: #### D RGA4, HEMOG, UAMAC, PT/AP, BMP3, ETOH4, UAMIC #### [address] [address] [place], [place] Platelet mean volume Entitic volume (Bld) 8.3 fL Normal 7.4-10.4 [facility] Comment on above: Performed By: #### D RGA4, HEMOG, UAMAC, PT/AP, BMP3, ETOH4, UAMIC #### [place] [address] [address] [place], [place] Platelets #/vol (Bld) 102 10*3/uL Low 140-440 [facility] Comment on above: Performed By: #### D RGA4, HEMOG, UAMAC, PT/AP, BMP3, ETOH4, UAMIC #### [place] [address] [address] [place], [place] RBC #/vol (Bld) 3.13 10*6/uL Low 4.40-5.90 [facility] Comment on above: Performed By: #### D RGA4, HEMOG, UAMAC, PT/AP, BMP3, ETOH4, UAMIC #### [place] [address] [place], [place] WBC #/vol (Bld) 15.6 10*3/uL High 3.6-10.7 [facility] Comment on above: Performed By: #### D RGA4, HEMOG, UAMAC, PT/AP, BMP3, ETOH4, UAMIC #### [place] [address] [place], [place] Leukodepleted Red Cellson Leukodepleted Red Cells Leukodepleted Red Cells: No units selected for the patient. Normal [facility] Comment on above: Performed By: #### D RGA4, HEMOG, UAMAC, PT/AP, BMP3, ETOH4, UAMIC #### [place] [address] [address] [place], [place] Magnesiumon 03-29-2018 Magnesium mass conc 2.3 mg/dL Normal 1.6-2.3 [facility] Comment on above: Performed By: #### D RGA4, HEMOG, UAMAC, PT/AP, BMP3, ETOH4, UAMIC #### [place] [address] [place], [place] Phosphoruson 03-29-2018 Phosphate mass conc 2.2 mg/dL Low 2.5-4.5 [facility] Comment on above: Performed By: #### D RGA4, HEMOG, UAMAC, PT/AP, BMP3, ETOH4, UAMIC #### [place] [address] [place], [place] Procalcitoninon 03-29-2018 Protein mass conc 0.43 ng/mL Abnormal <0.10 [facility] Comment on above: Performed By: #### D RGA4, HEMOG, UAMAC, PT/AP, BMP3, ETOH4, UAMIC #### [place] [address] [address] [place], [place] Arterial Blood Gaseson 03-28 CO2 molar conc 22.8 mmol/L Low 23.0-27.0 [facility] Comment on above: Performed By: #### D RGA4, HEMOG, UAMAC, PT/AP, BMP3, ETOH4, UAMIC #### [place] [address] [place], [place] HCO3 molar conc (Bld) 21.8 mmol/L Normal 21.0-25.0 [facility] Comment on above: Performed By: #### D RGA4, HEMOG, UAMAC, PT/AP, BMP3, ETOH4, UAMIC #### [place] [address] [place], [place] Hemoglobin mass conc (Bld) 9.8 g/dL Normal ScreenOnly [facility] Comment on above: Performed By: #### D RGA4, HEMOG, UAMAC, PT/AP, BMP3, ETOH4, UAMIC #### [address] Oxygen ppres (Bld) 115.3 mm[Hg] High 80.0-100.0 [facility] Comment on above: Performed By: #### D RGA4, HEMOG, UAMAC, PT/AP, BMP3, ETOH4, UAMIC #### [place] [address] [place], [place] Oxygen saturation in Blood 97.9 % Normal 95.0-100.0 [facility] Comment on above: Performed By: #### D RGA4, HEMOG, UAMAC, PT/AP, BMP3, ETOH4, UAMIC #### [address] pCO2 34.4 mm[Hg] Low 35.0-45.0 [facility] Comment on above: Performed By: #### D RGA4, HEMOG, UAMAC, PT/AP, BMP3, ETOH4, UAMIC #### [address] pH (Bld) 7.419 Normal 7.350-7.450 [facility] Comment on above: Performed By: #### D RGA4, HEMOG, UAMAC, PT/AP, BMP3, ETOH4, UAMIC #### [place] [address] [place], [place] Std Base Excess -2.3 mmol/L Normal -3.0-3.0 [facility] Comment on above: Performed By: #### D RGA4, HEMOG, UAMAC, PT/AP, BMP3, ETOH4, UAMIC #### [address] FIO2 No data Normal [facility] Comment on above: Performed By: #### D RGA4, HEMOG, UAMAC, PT/AP, BMP3, ETOH4, UAMIC #### [place] [address] [place], [place] CO2 molar conc 24.7 mmol/L Normal 23.0-27.0 [facility] Comment on above: Performed By: #### D RGA4, HEMOG, UAMAC, PT/AP, BMP3, ETOH4, UAMIC #### [place] [address] [place], [place] HCO3 molar conc (Bld) 23.6 mmol/L Normal 21.0-25.0 [facility] Comment on above: Performed By: #### D RGA4, HEMOG, UAMAC, PT/AP, BMP3, ETOH4, UAMIC #### [place] [address] [place], [place] Hemoglobin mass conc (Bld) 6.9 g/dL Normal ScreenOnly [facility] Comment on above: Performed By: #### D RGA4, HEMOG, UAMAC, PT/AP, BMP3, ETOH4, UAMIC #### [place] [address] [place], [place] Oxygen ppres (Bld) 196.8 mm[Hg] High 80.0-100.0 [facility] Comment on above: Performed By: #### D RGA4, HEMOG, UAMAC, PT/AP, BMP3, ETOH4, UAMIC #### [place] [address] [place], [place] Oxygen saturation in Blood 99.2 % Normal 95.0-100.0 [facility] Comment on above: Performed By: #### D RGA4, HEMOG, UAMAC, PT/AP, BMP3, ETOH4, UAMIC #### [address] pCO2 35.8 mm[Hg] Normal 35.0-45.0 [facility] Comment on above: Performed By: #### D RGA4, HEMOG, UAMAC, PT/AP, BMP3, ETOH4, UAMIC #### [address] pH (Bld) 7.437 Normal 7.350-7.450 [facility] Comment on above: Performed By: #### D RGA4, HEMOG, UAMAC, PT/AP, BMP3, ETOH4, UAMIC #### [place] [address] [place], [place] Std Base Excess -0.5 mmol/L Normal -3.0-3.0 [facility] Comment on above: Performed By: #### D RGA4, HEMOG, UAMAC, PT/AP, BMP3, ETOH4, UAMIC #### [place] [address] [place], [place] FIO2 No data Normal [facility] Comment on above: Performed By: #### D RGA4, HEMOG, UAMAC, PT/AP, BMP3, ETOH4, UAMIC #### [place] [address] [place], [place] Basic Metabolic Panelon 12-2 Anion gap molar conc 4 Normal [facility] Comment on above: Performed By: #### D RGA4, HEMOG, UAMAC, PT/AP, BMP3, ETOH4, UAMIC #### [place] [address] [place], [place] Calcium mass conc 6.9 mg/dL Low 8.4-10.4 [facility] Comment on above: Performed By: #### D RGA4, HEMOG, UAMAC, PT/AP, BMP3, ETOH4, UAMIC #### [place] [address] [place], [place] CO2 molar conc 25 mmol/L Normal 22-30 [facility] Comment on above: Performed By: #### D RGA4, HEMOG, UAMAC, PT/AP, BMP3, ETOH4, UAMIC #### [place] [address] [place], [place] Glucose mass conc 166 mg/dL High 70-100 [facility] Comment on above: Performed By: #### D RGA4, HEMOG, UAMAC, PT/AP, BMP3, ETOH4, UAMIC #### [place] [address] [place], [place] Urea nitrogen mass conc 10 mg/dL Normal 7-20 [facility] Comment on above: Performed By: #### D RGA4, HEMOG, UAMAC, PT/AP, BMP3, ETOH4, UAMIC #### [address] Creatinine mass conc 0.81 mg/dL Normal 0.52-1.25 [facility] Comment on above: Performed By: #### D RGA4, HEMOG, UAMAC, PT/AP, BMP3, ETOH4, UAMIC #### [address] [place] [address] [place] [address] GFR/1.73 sq M predicted among blacks MDRD vol rate/area (S/P/Bld) mL/min/{1.73_m2} Normal >60 [facility] Comment on above: Performed By: #### D RGA4, HEMOG, UAMAC, PT/AP, BMP3, ETOH4, UAMIC #### [place] [address] [place], [place] GFR/1.73 sq M predicted among non-blacks MDRD vol rate/area (S/P/Bld) mL/min/{1.73_m2} Normal >60 [facility] Comment on above: Result Comment: Sour ce- MDRD equation with creatinine calibration to IDMS(NKDEP) eGFR not recommended for drug dose adjustment Performed By: #### D RGA4, HEMOG, UAMAC, PT/AP, BMP3, ETOH4, UAMIC #### [place] [address] [place], [place] Potassium molar conc 3.7 mmol/L Normal 3.5-5.1 [facility] Comment on above: Performed By: #### D RGA4, HEMOG, UAMAC, PT/AP, BMP3, ETOH4, UAMIC #### [address] Sodium molar conc 139 mmol/L Normal 135-145 [facility] Comment on above: Result Comment: NOTE : New Sodium Reference Range effective 2018 @ 10:00 Performed By: #### D RGA4, HEMOG, UAMAC, PT/AP, BMP3, ETOH4, UAMIC #### [facility] [address] [place] [address] Chloride molar conc 111 mmol/L High 98-107 [facility] Comment on above: Performed By: #### D RGA4, HEMOG, UAMAC, PT/AP, BMP3, ETOH4, UAMIC #### [facility] [address] [place] [address] [address] Head or Brain w/o Contras ton 03-28-2018 CT Head or Brain w/o Contrast Patient Name: REMI BERNABE CT Exam Date/Time 03/28/2018 04:57:[address] Head or Brain w/o Contrast Ordering Physician SHIVANI PAULINO, ALYSON Rivero Accession Number [id number] CPT4 Codes 34247 () Reason For Exam HEAD INJURY MODERATE OR SEVERE ACUTE, STABLE Report CT HEAD: CLINICAL INDICATION: Follow-up for head injury TECHNIQUE: Transaxial CT sequence performed through the head with 3 mm reconstruction. Sagittal and Coronal reconstruction images included. Dose reduction employed with automated exposure control. COMPARISON: One day ago FINDINGS: Subarachnoid blood remains within sulci at the frontal and parietal convexities. There is also parenchymal hemorrhage in the frontal lobes with surrounding low-attenuation edema. High attenuation midline falx also corresponds to some subdural blood. Previously noted pneumocephalus has resolved. There is no new evidence for herniation. Again noted are extensive facial fractures involving the smith of maxillary sinuses, nasal bones, midline septum, lateral pterygoid plates and left and right zygoma, corresponding to marked crush injury. There is almost complete opacification of the paranasal sinuses. The mastoid air cells remain clear. The globes are relatively small and irregular in shape with high attenuation in the posterior regions, corresponding to hemorrhagic collections. IMPRESSION: 1. Subarachnoid blood with small parenchymal hemorrhages and edema but no new herniation 2. Massive facial fractures with injuries to the globes and opacification of the sinuses. Report Dictated on Workstation: [id number] Final Dictated: 03/28/2018 6:10 am Dictating Physician: MD HOLLINS JEFFREY Signed Date and Time: 03/28/2018 6:17 am Signed by: MD HOLLINS JEFFREY Transcribed Date and Time: 03/28/2018 6:10 Normal [facility] Glucose,Bedsideon 03-28-2018 Glucose mass conc 182 mg/dL High 70-100 [facility] Comment on above: Result Comment: Test performed by glucose meter. Results may be 10%-15% lower than serum/plasma values. (CLIA ID [id number]) Performed By: #### D RGA4, HEMOG, UAMAC, PT/AP, BMP3, ETOH4, UAMIC #### [place] [address] [place], [place] Glucose mass conc 166 mg/dL High 70-100 [facility] Comment on above: Result Comment: Test performed by glucose meter. Results may be 10%-15% lower than serum/plasma values. (CLIA ID [id number]) Performed By: #### D RGA4, HEMOG, UAMAC, PT/AP, BMP3, ETOH4, UAMIC #### [facility] [address] [place], [place] Glucose mass conc 161 mg/dL High 70-100 [facility] Comment on above: Result Comment: Test performed by glucose meter. Results may be 10%-15% lower than serum/plasma values. (CLIA ID [id number]) Performed By: #### D RGA4, HEMOG, UAMAC, PT/AP, BMP3, ETOH4, UAMIC #### [facility] [address] [place], [place] Hemogramon 03-28-2018 Erythrocyte distribution width Ratio (RBC) 13.8 % Normal 11.5-14.5 [facility] Comment on above: Performed By: #### D RGA4, HEMOG, UAMAC, PT/AP, BMP3, ETOH4, UAMIC #### [facility] [address] [place], [place] Hematocrit Volume Fraction (Bld) 26.6 % Low 40.0-52.0 [facility] Comment on above: Performed By: #### D RGA4, HEMOG, UAMAC, PT/AP, BMP3, ETOH4, UAMIC #### [place] [address] [place], [place] Hemoglobin mass conc (Bld) 9.1 g/dL Low 13.0-18.0 [facility] Comment on above: Performed By: #### D RGA4, HEMOG, UAMAC, PT/AP, BMP3, ETOH4, UAMIC #### [place] [address] [place], [place] MCH Entitic mass (RBC) 29.8 pg Normal 26.0-34.0 [facility] Comment on above: Performed By: #### D RGA4, HEMOG, UAMAC, PT/AP, BMP3, ETOH4, UAMIC #### [address] MCHC mass conc (RBC) 34.4 % Normal 32.0-36.0 [facility] Comment on above: Performed By: #### D RGA4, HEMOG, UAMAC, PT/AP, BMP3, ETOH4, UAMIC #### [address] MCV Entitic volume (RBC) 86.7 fL Normal 80.0-98.0 [facility] Comment on above: Performed By: #### D RGA4, HEMOG, UAMAC, PT/AP, BMP3, ETOH4, UAMIC #### [address] Platelet mean volume Entitic volume (Bld) 8.4 fL Normal 7.4-10.4 [facility] Comment on above: Performed By: #### D RGA4, HEMOG, UAMAC, PT/AP, BMP3, ETOH4, UAMIC #### [address] Platelets #/vol (Bld) 99 10*3/uL Low 140-440 [facility] Comment on above: Performed By: #### D RGA4, HEMOG, UAMAC, PT/AP, BMP3, ETOH4, UAMIC #### [address] RBC #/vol (Bld) 3.06 10*6/uL Low 4.40-5.90 [facility] Comment on above: Performed By: #### D RGA4, HEMOG, UAMAC, PT/AP, BMP3, ETOH4, UAMIC #### [address] WBC #/vol (Bld) 17.5 10*3/uL High 3.6-10.7 [facility] Comment on above: Performed By: #### D RGA4, HEMOG, UAMAC, PT/AP, BMP3, ETOH4, UAMIC #### [address] Hemogram w/ Autodiffon 03-28 Abs Baso Cnt 0.0 10*3/uL Normal 0.0-0.2 [facility] Comment on above: Performed By: #### D RGA4, HEMOG, UAMAC, PT/AP, BMP3, ETOH4, UAMIC #### [address] Abs Neutrophile Cnt 12.8 10*3/uL High 1.8-7.0 [facility] Comment on above: Performed By: #### D RGA4, HEMOG, UAMAC, PT/AP, BMP3, ETOH4, UAMIC #### [address] Basophils/100 WBC (Bld) 0.1 % Normal 0.0-2.0 [facility] Comment on above: Performed By: #### D RGA4, HEMOG, UAMAC, PT/AP, BMP3, ETOH4, UAMIC #### [address] Eosinophils #/vol (Bld) 0.0 10*3/uL Normal 0.0-0.5 [facility] Comment on above: Performed By: #### D RGA4, HEMOG, UAMAC, PT/AP, BMP3, ETOH4, UAMIC #### [place] [address] [place], [place] Eosinophils/100 WBC (Bld) 0.1 % Low 1.0-6.0 [facility] Comment on above: Performed By: #### D RGA4, HEMOG, UAMAC, PT/AP, BMP3, ETOH4, UAMIC #### [place] [address] [place], [place] Erythrocyte distribution width Ratio (RBC) 13.2 % Normal 11.5-14.5 [facility] Comment on above: Performed By: #### D RGA4, HEMOG, UAMAC, PT/AP, BMP3, ETOH4, UAMIC #### [address] [place] [address] [place], [place] Granulocytes/100 WBC (Bld) 83.9 % High 40.0-80.0 [facility] Comment on above: Performed By: #### D RGA4, HEMOG, UAMAC, PT/AP, BMP3, ETOH4, UAMIC #### [place] [address] [place], [place] Hematocrit Volume Fraction (Bld) 19.6 % Low 40.0-52.0 [facility] Comment on above: Performed By: #### D RGA4, HEMOG, UAMAC, PT/AP, BMP3, ETOH4, UAMIC #### [place] [address] [place], [place] Hemoglobin mass conc (Bld) 6.6 g/dL Critically low 13.0-18.0 [facility] Comment on above: Performed By: #### D RGA4, HEMOG, UAMAC, PT/AP, BMP3, ETOH4, UAMIC #### [place] [address] [place], [place] Lymphocytes #/vol (Bld) 1.2 10*3/uL Normal 1.0-4.3 [facility] Comment on above: Performed By: #### D RGA4, HEMOG, UAMAC, PT/AP, BMP3, ETOH4, UAMIC #### [place] [address] [place], [place] Lymphocytes/100 WBC (Bld) 8.0 % Low 20.0-40.0 [facility] Comment on above: Performed By: #### D RGA4, HEMOG, UAMAC, PT/AP, BMP3, ETOH4, UAMIC #### [place] [address] [place], [place] MCH Entitic mass (RBC) 29.7 pg Normal 26.0-34.0 [facility] Comment on above: Performed By: #### D RGA4, HEMOG, UAMAC, PT/AP, BMP3, ETOH4, UAMIC #### [place] [address] [place], [place] MCHC mass conc (RBC) 33.7 % Normal 32.0-36.0 [facility] Comment on above: Performed By: #### D RGA4, HEMOG, UAMAC, PT/AP, BMP3, ETOH4, UAMIC #### [address] MCV Entitic volume (RBC) 88.1 fL Normal 80.0-98.0 [facility] Comment on above: Performed By: #### D RGA4, HEMOG, UAMAC, PT/AP, BMP3, ETOH4, UAMIC #### [place] [address] [place], [place] Monocytes #/vol (Bld) 1.2 10*3/uL High 0.0-0.8 [facility] Comment on above: Performed By: #### D RGA4, HEMOG, UAMAC, PT/AP, BMP3, ETOH4, UAMIC #### [address] Monocytes/100 WBC (Bld) 7.9 % Normal 2.0-10.0 [facility] Comment on above: Performed By: #### D RGA4, HEMOG, UAMAC, PT/AP, BMP3, ETOH4, UAMIC #### [address] Platelet mean volume Entitic volume (Bld) 7.9 fL Normal 7.4-10.4 [facility] Comment on above: Performed By: #### D RGA4, HEMOG, UAMAC, PT/AP, BMP3, ETOH4, UAMIC #### [place] [address] [place], [place] Platelets #/vol (Bld) 106 10*3/uL Low 140-440 [facility] Comment on above: Performed By: #### D RGA4, HEMOG, UAMAC, PT/AP, BMP3, ETOH4, UAMIC #### [place] [address] [place], [place] RBC #/vol (Bld) 2.23 10*6/uL Low 4.40-5.90 [facility] Comment on above: Performed By: #### D RGA4, HEMOG, UAMAC, PT/AP, BMP3, ETOH4, UAMIC #### [place] [address] [place], [place] WBC #/vol (Bld) 15.3 10*3/uL High 3.6-10.7 [facility] Comment on above: Performed By: #### D RGA4, HEMOG, UAMAC, PT/AP, BMP3, ETOH4, UAMIC #### [place] [address] [place], [place] Leukodepleted Red Cellson Leukodepleted Red Cells Leukodepleted Red Cells: [id number] released 03/26/18 21:16 SJ Unit Blood Type: O Unit Blood Rh: POS Blood Product Code: AS1 Unit Number: [id number] Unit Status: released Barcoded Unit Number: =[id number] Barcoded Product Code: = Barcoded ABO/Rh: =%5100 Unit Expiration: [id number] Leukodepleted Red Cells: [id number] released 03/26/18 21:16 SJW1 Unit Blood Type: O Unit Blood Rh: POS Blood Product Code: AS1 Unit Number: [id number] Unit Status: released Barcoded Unit Number: =[id number] Barcoded Product Code: = Barcoded ABO/Rh: =%5100 Unit Expiration: [id number] Leukodepleted Red Cells: [id number] released 03/26/18 21:16 SJW1 Unit Blood Type: O Unit Blood Rh: POS Blood Product Code: AS1 Unit Number: [id number] Unit Status: released Barcoded Unit Number: =[id number] Barcoded Product Code: = Barcoded ABO/Rh: =%5100 Unit Expiration: Unit Volume Transfused: 0 Unit Transfusion Start Date/Time: Unit Transfusion End Date/Time: Leukodepleted Red Cells: [id number] transfused 03/28/18 07:31 MSS1 Unit Blood Type: O Unit Blood Rh: POS Blood Product Code: AS1 Unit Number: [id number] Unit Status: transfused Barcoded Unit Number: =[id number] Barcoded Product Code: = Barcoded ABO/Rh: =%5100 Unit Expiration: Unit Volume Transfused: 300 Unit Transfusion Start Date/Time: Leukodepleted Red Cells: [id number] transfused 03/28/18 04:19 DMM2 Unit Blood Type: O Unit Blood Rh: POS Blood Product Code: LP1 Unit Number: [id number] Unit Status: transfused Barcoded Unit Number: =[id number] Barcoded Product Code: = Barcoded ABO/Rh: =%5100 Unit Expiration: [id number] Unit Volume Transfused: 300 Unit Transfusion Start Date/Time: Normal [facility] Comment on above: Performed By: #### D RGA4, HEMOG, UAMAC, PT/AP, BMP3, ETOH4, UAMIC #### [facility] [address] [place] [address] Magnesiumon 03-28-2018 Magnesium mass conc 1.8 mg/dL Normal 1.6-2.3 [facility] Comment on above: Performed By: #### D RGA4, HEMOG, UAMAC, PT/AP, BMP3, ETOH4, UAMIC #### [facility] [address] [place] [address] Phosphoruson 03-28-2018 Phosphate mass conc 1.7 mg/dL Low 2.5-4.5 [facility] Comment on above: Performed By: #### D RGA4, HEMOG, UAMAC, PT/AP, BMP3, ETOH4, UAMIC #### [address] [place] [place] [address] Procalcitoninon 03-28-2018 Interpretation See Below Normal [facility] Comment on above: Result Comment: PCT <0.50 = Low risk of severe sepsis and/or septic shock. PCT >2.00 = High risk of severe sepsis and/or septic shock. Performed By: #### D RGA4, HEMOG, UAMAC, PT/AP, BMP3, ETOH4, UAMIC #### [address] [place] [address] [place], [place] Vancomycin Troughon 03-28-20 18 Vancomycin Trough 7.2 ug/mL Low 15.0-20.0 [facility] Comment on above: Result Comment: . Performed By: #### D RGA4, HEMOG, UAMAC, PT/AP, BMP3, ETOH4, UAMIC #### [place] [address] [place], [place] Vit D 25-OH, Totalon 018 Vit D 25-OH, Total 17 ng/mL Low 30-100 [facility] Comment on above: Result Comment: Ther apy is based on measurement of Total 25- OHD with the following classification levels: Less than 20 ng/mL: Indicative of Vit D deficiency 20-30 ng/mL: Suggests Vit D insufficiency Optimal: Greater than or equal to 30 ng/mL Test performed by IMASTE Competitive Immunoassay, measuring Total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
== END | disposition home or self-care (01) ==
LOC: POLAB3 15:53
PROVIDERS: PCP Family Medicine Geriatric Medicine; Visit Provider Family Medicine Geriatric Medicine
DX: N39.0 Urinary tract infection, site not specified (principal)
CPT/HCPCS: 36415; 81001; 87086

== ENCOUNTER → 2025-02-22 | Outpatient (CLI) | payer MEDICARE, BC, SELFPAY ==
--- NOTE | 2025-02-22 14:28 | US_ITS ---
PROCEDURE: KIDNEY AND BLADDER 02/22/2025 REASON FOR EXAM: URINARY RETENTION, CHRONIC KIDNEY DISEASE TECHNIQUE: Procedure Code: USKI Modality: US Procedure: KIDNEY AND BLADDER FINDINGS: Right kidney measures 9.1 cm and left kidney measures 8.4 cm. Normal echotexture of bilateral kidneys. No hydronephrosis. No renal stones. Postvoid volume of 71 mL. Prostate measures 5.9 x 5.1 x 4.0 cm, volume of 62 mL. US/Kidney and Bladder IMPRESSION: Prostatomegaly. No hydronephrosis. Borderline urinary retention. Reading Location: [id number]
--- NOTE | 2025-02-22 15:25 | RAD_ITS ---
EXAM: XR Lumbosacral Spine, 4 or 5 Views CLINICAL INDICATION: LOW BACK PAIN TECHNIQUE: Frontal, lateral and bilateral oblique views of the lumbar spine. COMPARISON: No relevant prior studies available. FINDINGS: VERTEBRAE: Degenerative facet arthropathy throughout the lumbar spine, most prominent in the lower lumbar spine. No acute fracture. Normal alignment. SACRUM/COCCYX: Unremarkable as visualized. No acute fracture. DISC SPACES: Degenerative disc disease throughout the lumbar spine. SOFT TISSUES: Unremarkable. VASCULATURE: Scattered calcified atherosclerotic disease of aorta. RAD/L/S Spine Min 4 Views IMPRESSION: Degenerative changes lumbar spine as described. Reading Location: [id number]
--- NOTE | 2025-02-22 15:25 | RAD_ITS ---
PROCEDURE: THORACIC SPINE 3 VIEWS 02/22/2025 REASON FOR EXAM: THORACIC BACK PAIN/LOW BACK PAIN TECHNIQUE: Procedure Code: RADSPT Modality: DX Procedure: THORACIC SPINE 3 VIEWS FINDINGS: Study is moderately limited due to motion. No evidence of acute fracture or dislocation. Moderate degenerative changes of the visualized spine. Vertebral body heights are maintained. Normal alignment. RAD/Thoracic Spine 3 Views IMPRESSION: Spondylosis on this limited examination. Reading Location: [id number]
== END | disposition home or self-care (01) ==
PROVIDERS: PCP Family Medicine Geriatric Medicine; Referring Provider Family Medicine Geriatric Medicine; Visit Provider Family Medicine Geriatric Medicine
DX: R33.9 Retention of urine, unspecified (principal); N18.32 Chronic kidney disease, stage 3b; G25.71 Drug induced akathisia
CPT/HCPCS: 72072; 72110; 76770

== ENCOUNTER → 2025-03-25 | Outpatient (CLI) | payer MEDICARE, BC, SELFPAY ==
[2025-03-25 18:28] LABS: PSA,Total - Annual Screen 6.85 ng/mL (0.02-4.00)
== END | disposition home or self-care (01) ==
LOC: LAB 15:38
PROVIDERS: PCP Family Medicine Geriatric Medicine; Referring Provider Urology; Visit Provider Urology
DX: Z12.5 Encounter for screening for malignant neoplasm of prostate (principal)
CPT/HCPCS: 36415; 84153; G0103